=== PATIENT | male | born 1995 | race Caucasian/White ===

== ENCOUNTER 2021-09-18 14:16 | Inpatient (IN) | payer OTHER, SELFPAY ==
--- NOTE | 2021-09-18 14:36 | ED.PSYCH ---
HPI - Psych General Chief Complaint: Psychiatric Symptoms Stated Complaint: crisis Time Seen by Provider: 09/18/21 14:27 Source: patient, family and EMS Mode of arrival: EMS Limitations: no limitations History of Present Illness HPI Narrative: 27 y/o male with history of bipolar II presenting to the ER from [facility] via EMS with his mother for reports of change in mental status and catatonic behavior. Mother provides most of the history as patient is denying any complaints and providing a limited history. Mother reports that the patient has a history of bipolar 2 disorder and has been off medications for several months. He was hospitalized a few months ago for 3 weeks in a psych hospital in [place] after he was found wandering the streets. He stopped taking medications after he got home. Mother reports he was asked to leave the home when he was using heavy amounts of alcohol and marijuana. He moved out into an AirBNB a couple of weeks ago per mom. The conversation at the mall today was about him coming home, getting a job, and stopping his drinking and smoking. He shut down and would not speak or move. Mom had to call an ambulance. MD complaint: other Onset (ago): month(s) Duration: constant History of same: Yes Relieving factors: medication Exacerbating factors: alcohol and drug use Context: recent alcohol abuse Treatments prior to arrival: none Related Data Home Medications Medication Instructions Recorded Confirmed No Known Home Meds 09/18/21 09/18/21 Allergies Allergy/AdvReac Type Severity Reaction Status Date / Time No Known Allergies Allergy Verified 09/18/21 20:22 Review of Systems Review of Systems: Constitutional: No Fever, No Chills ENT/Mouth: No sore throat, No Rhinorrhea, No Swallowing Difficulty Eyes: No Eye Pain, No Swelling, No Redness Cardiovascular: No Chest Pain, No SOB, No Orthopnea, No Edema Respiratory: No Cough, No Sputum, No Wheezing, No dyspnea Gastrointestinal: No Nausea, No Vomiting, No Diarrhea, No abdominal Pain Genitourinary: No Dysuria, No Urinary Frequency, No Hematuria Musculoskeletal: No joint pain, No Myalgias Skin: No Skin Lesions, No rash Neuro: No Weakness, No Numbness, No Dizziness, No Headache Psych: No Anxiety/Panic, No Depression, No SI, No HI, No delusions, No hallucinations Heme/Lymph: No Bruising, No Lymphadenopathy Endocrine: No Polyuria, No Polydipsia PMFSH Social History Social History Advance Directives: No Advance Directives Information Provided: Yes Physical Exam Vital Signs: Vital Signs: Last Vital Signs Temp 97.9 F 09/18/21 14:40 Pulse 89 09/18/21 14:40 Resp 16 09/18/21 14:40 Pulse Ox 97 09/18/21 14:40 BMI result Body Mass Index 23.0 Appearance: Alert. Oriented X3. No acute distress. Eyes: Pupils equal, round and reactive to light. ENT: Pharynx normal. Neck: Normal inspection. Neck supple. CVS: Normal heart rate and rhythm. Pulses normal. Respiratory: No respiratory distress. Breath sounds normal. Abdomen: Soft and nontender. +BS x4 Skin: Skin warm and dry. Normal skin color. Normal skin turgor. No rashes. Extremities: No lower extremity edema. Neuro/pysch: Oriented X 3. Flat affect, slow to respond. CN II-XII grossly intact. Course Course Course Narrative: 27 y/o male with history of bipolar disorder II presenting with his mom to the ER for evaluation of catatonia and alcohol and marijuana abuse in the setting of being off of his psych medications for several months. He has a flat affect and will not provide much for history. Refusing labs. Will get BHN consult. Reevaluation(s) Reevaluation #1: Refusing labs. No other medical problems. Hemodynamically stable. He does not appear to be under the influence of drugs or alcohol. Medically cleared at this time for BHN evaluation. Physician observation started at 7:26pm. Patient placed in physician observation because patient is awaiting BHN evaluation for the possible need of inpatient psych admission. At the time observation was started patient's vital signs were stable. Patient is alert and oriented. Neuro exam is non-focal. CV: RRR and lungs are clear. Will continue to monitor. MDM - Psych Lab Data Labs: Lab Results 09/18/21 Range/Units 15:54 COVID-19 (NICOLE) Negative (Negative) COVID-19 Clin Com See Note Discharge Plan Discharge Clinical Impression: Bipolar disorder Patient Disposition: Still a Patient Prescriptions: No Action No Known Home Meds 0RF
[2021-09-18 14:40] VITALS: PULSE 89; RESP 16; TEMP 36.6; O2SAT 97; BMI 23.0
--- NOTE | 2021-09-18 15:11 | PHA.MEDREC ---
Pharmacy Consult ? Medication Reconciliation Pharmacy has completed the medication reconciliation. No known home medications. Loretta [place], BulmaroD
--- NOTE | 2021-09-18 16:12 | MHC.CARE ---
Contact information for pt's parents: Gila Min [phone]
[2021-09-18 16:13] LABS: COVID-19 Test Negative (Negative); IDNOW Serial# 55D5AD1C
--- NOTE | 2021-09-18 20:04 | PC.NURSE ---
BHN referral completed/confirmed, pending ETA
--- NOTE | 2021-09-19 00:15 | MHC.CARE ---
[facility] unable to send a clinician. CARE team completed evaluation. Disposition is for inpt psychiatric placement. Section 12a is in chart.
[2021-09-19 01:39] VITALS: BP 144/77; PULSE 63; RESP 16; TEMP 37.4; O2SAT 97
--- NOTE | 2021-09-19 05:56 | PC.NURSE ---
Patient slept through the night, no distress observed/reported, patient has been exhibiting psychomotor retardation, patient refused lab draw, refused to provide urine sample, refused medication, patient was assessed by care team, disposition is section 12 inpatient bed search, VSS, will continue to monitor.
--- NOTE | 2021-09-19 07:36 | PC.NURSE ---
patient appears to remain asleep at present respirations are even and unlabored, aptient appears in no distress
[2021-09-19 10:15] LABS: Basophils Percent Auto 0.3 % (0-2); Eosinophils Percent Auto 0.6 % (0-4); Hematocrit 49.4 % (42.0-52.0); Hemoglobin 16.9 g/dl (14.0-18.0); Imm Gran Abs Auto 0.02 X10*3/uL (0.00-0.03); Imm Gran Pct Auto 0.3 % (0.0-0.4); Lymphocytes Absolute Auto 1.1 X10*3/uL (1.2-4.9); Lymphocytes Percent Auto 15.3 % (20-40); MANUAL DIFF FLAG NO; Mean Corpuscular HGB Conc 34.2 g/dl (31.0-36.0); Mean Corpuscular Hemoglobin 31.6 pg (27.0-33.0); Mean Corpuscular Volume 92.3 fL (80.0-98.0); Mean Platelet Volume 11.4 fL (9.4-12.4); Monocytes Absolute Auto 0.6 X10*3/uL (0.1-1.2); Monocytes Percent Auto 8.3 % (2-11); Neutrophils Absolute Auto 5.2 x10*3/uL (2.0-8.3); Neutrophils Percent Auto 75.2 % (45-73); Platelet Count 167 X10*3/uL (160-400); Red Blood Count 5.35 X10*6/uL (4.60-5.80); Red Cell Distribution Width 12.3 % (11.0-16.0); White Blood Count 6.9 X10*3/uL (4.8-10.8)
[2021-09-19 10:33] LABS: Alanine Aminotransferase 18 U/L (0-40); Albumin Level 4.9 g/dL (3.5-5.0); Alkaline Phosphatase 54 U/L (39-117); Anion Gap 13 (12-20); Aspartate Amino Transferase 16 U/L (5-37); Bilirubin Total 1.8 mg/dL (0.0-1.0); Blood Urea Nitrogen 12 mg/dL (9-16); Calcium 10.1 mg/dL (8.4-10.2); Carbon Dioxide 27 mmol/L (22-29); Chloride 104 mmol/L (96-108); Estimated Glomerular Filt Rate > 60; Glucose Random 108 mg/dL (60-115); Potassium 4.2 mmol/L (3.3-5.1); Sodium 140 mmol/L (135-145); Total Protein 7.4 g/dL (6.5-8.0)
--- NOTE | 2021-09-19 12:50 | PC.NURSE ---
patient offered ativan ordered by provider, client softly responded no thanks
[2021-09-19 16:02] VITALS: BP 147/74; PULSE 64; RESP 16; TEMP 36.6; O2SAT 98
--- NOTE | 2021-09-19 21:11 | PM.PSYCN ---
History of Present Illness Chief Complaint: crisis Diagnostics Vital Signs (24Hr): Vital Signs - 24 hr 09/19/21 01:39 09/19/21 16:02 Temperature 99.3 F 97.8 F Pulse Rate 63 64 Respiratory Rate 16 16 Blood Pressure 144/77 H 147/74 H Pulse Oximetry 97 98 BMI result Body Mass Index 23.0 Labs Results: 09/19/21 10:09 09/19/21 10:09 Labs: Laboratory Results - last 48 hr 09/18/21 09/19/21 09/19/21 15:54 10:09 10:09 WBC 6.9 RBC 5.35 Hgb 16.9 Hct 49.4 MCV 92.3 MCH 31.6 MCHC 34.2 RDW 12.3 Plt Count 167 MPV 11.4 Immature Gran % (Auto) 0.3 Neut % (Auto) 75.2 H Lymph % (Auto) 15.3 L Victoria % (Auto) 8.3 Eos % (Auto) 0.6 Baso % (Auto) 0.3 Lymph # (Auto) 1.1 L Victoria # (Auto) 0.6 Eos # (Auto) 0.0 Baso # (Auto) 0.0 Abs Immat Gran (auto) 0.02 Absolute Neuts (auto) 5.2 Absolute Nucleated RBC 0.000 Nucleated RBC % (auto) 0.0 Sodium 140 Potassium 4.2 Chloride 104 Carbon Dioxide 27 Anion Gap 13 BUN 12 Creatinine 0.90 Estim Creat Clear Calc 132.0 Estimated GFR > 60 Random Glucose 108 Calcium 10.1 Total Bilirubin 1.8 H AST 16 ALT 18 Alkaline Phosphatase 54 Total Protein 7.4 Albumin 4.9 COVID-19 (NICOLE) Negative COVID-19 Clin Com See Note Medications Medications Current Medications Pharmacy Consult (Consult Rx Perform Med Rec) 1 each MISCELLANE ONCE PRN PRN Reason: Consult order Allergies Allergies Allergy/AdvReac Type Severity Reaction Status Date / Time No Known Allergies Allergy Verified 09/18/21 20:22 Assessment & Plan I spent minutes with the patient and/or on the patient floor today, greater than?50% of which was spent counseling/coordinating care.
--- NOTE | 2021-09-19 21:47 | P.HPPS_ITS ---
HPI Date of Service: 09/19/21 Chief Complaint: crisis Sources of Information: patient interviewed, chart reviewed and crisis/core team assessment reviewed HPI Subjective Notes: Jacques Warning and Section 12B Healthcare Proxy: No Guardianship: No Medical Problems Affecting Mental Status: No Narrative: Figueroa is a 27 y.o. Who carries a dx of schizophrenia, previously diagnosed with bipolar disorder. He presented to [facility] on 09/18/21 after his parents brought him in due to pt presenting with a psychotic episode. Per crisis eval, pt was at the mall with his parents and they attempted to talk with pt about him moving home and initiating psych treatment. Pt then ?seemed to turn off,? ?stared blankly at the ground in front of him.? He has poor appetite and sleep. Has been isolative, ?spends all of his time by himself,? disappearing in the night. Pt has hx of IPLOC for psychotic episodes. Hx of significant suicide attempt in 07/2020 via cutting his throat, wrist requiring surgery. Pt presents with lack of insight into his sx and he is not oriented to situation, appears to be unreliable historian. I evaluated the pt this evening and upon interview he reports he is ?not sure? why he is in the hospital. He denies drinking alcohol or using substances prior to arrival at [facility], has refused urine tox screen, no BAL drawn. Pt does not appear to be in withdrawal. Pt denies having psychiatric symptoms, denies mood or behaivoral concerns. Says ?Im fine,? denies issues with sleep, denies A/VH. Denies SI/SIB/HI and says he feels safe. Pt is unreliable historian, flat affect, poverty of speech. Initially pt was not eating, however he did drink some water and ate food brought in by parents today.? I spoke with pt?s parents and they report that pt has not been using alcohol or cannabis prior to arriving at [facility] to their knowledge, as they have been managing his money while [facility]. They report in the last couple of months, he has been residing at their house and the surmise he has been ?drinks pretty heavily,? as they would find vodka and beer bottles around the house. Pt denied alcohol use despite there being ?evidence all over the place.? Parents deny that pt has been engaging in other substance use, state he uses ?alcohol and pot exclusively? and that they believe he is self medicating ?to keep him from having a psychotic episode.? Per dad, pt does not present with hallucinations or positive sx of schizophrenia, however has multiple negative sx of schizophrenia, including flat expression, loses focus, psychomotor retarda tion, ?sometimes walks in baby steps.? Pt has poor insight into his sx. Per dad, ?Jose up to a few years ago was normal,? however a few yrs ago he started to have ?trouble,? was paranoid at his job, smoking a lot of pot. He also experimented with hallucinogens. Current level of functioning is impaired, as pt has ?odd sleeping hours,? leaves the house to drink in the taylor or takes off in the night with dad?s bike. He can make his bed, ?sorta showers,? appetite is low. He held a job at [employer] for a few weeks but he was ?very slow there.? Per parents, the last time he ?seemed to be doing okay was last summer,? he was living in [place], got an apartment, dog, was doing interviews, had a car, then ?all of a sudden? moved to [place] and began to decompensate. He was arrested for public intoxication in [place], parents had to file missing person report due to him losing contact with them. He was ultimately hospitalized in [place] in 05/2021 for 3 weeks due to psychotic bx and he was released into his parents care. He is non- adherent with medication.? Past Psychiatric History: -Hx of 2 psych admissions. Last IPLOC at [facility] in [place] in 05/2021. Hx of IPLOC at [facility] for 1 wk in 07/2020 s/p significant SA by cutting wrist and neck, required surgery. -Hx of nonadherence with OP services and medication. -Past med trials: risperdal (worsened negative sx), seroquel (per parents, pt did better with this medication). Pt was offered ESTES, however has historically refused. -Per pt?s parents, he has hx of impulsive and risk taking behaviors, i.e. will spontaneously travel to a foreign country or another city somewhere in the [place] Pt will disappear at night on dad?s bike, last time he did this, he came home with a bloody lip and laceration on face and didn?t know where the bike was, unable to say what happened. Parents have had to file a missing person report due to him disappearing. Found to be living in car in [place] a few yrs ago. While living in [place], pt was found by PD, no shoes, bloody feet, and appeared to be emaciated. -Hx of being arrested multiple times for public intoxication while living in [place]. Medical Evaluation Reviewed: Yes PMFSH Family History: -maternal uncle: Bipolar DO, psychosis, substance use DO, currently incarcerated. Paternal aunt: depression. Social History: Pt lives with bio parents, however in last couple of weeks they have been paying for him to stay in an airbnb and have been controlling his access to money in order to minimize his substance/ alcohol use. -Pt was raised by his mother and father in [place]. He has 3 brothers and is the second oldest. -Pt graduated from with a degree in neuroscience when he was age 20. 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 -Currently pt is unemployed, has had difficulty sustaining gainful employment. 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 Substance History: -Cannabis: daily use -Alcohol: dad is unsure of specific amt but says he has been finding empty bottles of vodka and beer, things pt drinks daily, leaves the house and drinks in the taylor. -Hallucinogens: Used LSD, mushrooms Trauma History: -Parents deny Diagnostics Vital Signs (24Hr): Vital Signs - 24 hr 09/19/21 01:39 09/19/21 16:02 Temperature 99.3 F 97.8 F Pulse Rate 63 64 Respiratory Rate 16 16 Blood Pressure 144/77 H 147/74 H Pulse Oximetry 97 98 BMI result Body Mass Index 23.0 Labs Results: 09/19/21 10:09 09/19/21 10:09 Labs: Laboratory Results - last 48 hr 09/18/21 09/19/21 09/19/21 15:54 10:09 10:09 WBC 6.9 RBC 5.35 Hgb 16.9 Hct 49.4 MCV 92.3 MCH 31.6 MCHC 34.2 RDW 12.3 Plt Count 167 MPV 11.4 Immature Gran % (Auto) 0.3 Neut % (Auto) 75.2 H Lymph % (Auto) 15.3 L Kern % (Auto) 8.3 Eos % (Auto) 0.6 Baso % (Auto) 0.3 Lymph # (Auto) 1.1 L Kern # (Auto) 0.6 Eos # (Auto) 0.0 Baso # (Auto) 0.0 Abs Immat Gran (auto) 0.02 Absolute Neuts (auto) 5.2 Absolute Nucleated RBC 0.000 Nucleated RBC % (auto) 0.0 Sodium 140 Potassium 4.2 Chloride 104 Carbon Dioxide 27 Anion Gap 13 BUN 12 Creatinine 0.90 Estim Creat Clear Calc 132.0 Estimated GFR > 60 Random Glucose 108 Calcium 10.1 Total Bilirubin 1.8 H AST 16 ALT 18 Alkaline Phosphatase 54 Total Protein 7.4 Albumin 4.9 COVID-19 (NICOLE) Negative COVID-19 Clin Com See Note Meds/Allergies Meds Home Medications Pharmacy Consult (Consult Rx Perform Med Rec) 1 each MISCELLANE ONCE PRN PRN Reason: Consult order Allergies Allergies Allergy/AdvReac Type Severity Reaction Status Date / Time No Known Allergies Allergy Verified 09/18/21 20:22 Mental Status Exam Mental Status Exam Narrative: Pt is not oriented to situation or time. He is in hospital attire, lying down on couch, long hair. Good eye contact, attentive. No Tics or Tremors. No abnormal involuntary movements. Pt is guarded, uncooperative with interventions i.e. refused utox, initially refused labs or food/ fluids. Pt responds with one word, paucity of speech. Pt is slowed, appears to have thought blocking Mood is ?fine,? affect is flat. Denies SI/SIB/HI upon inquiry. Denies A/VH or delusional thought content. No known cognitive or memory impairment. Insight/ Judgment poor. 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 male who carries a dx of schizophrenia, r/o bipolar DO/ schizoaffective disorder. He has hx of being a high functioning individual until mid 20s, in which he became increasingly withdrawn, paranoid, using cannabis and hallucinogens, esoteric, and ultimately unable to sustain employment. Has had impulsive and risk taking behaviors, i.e. disappearing, alcohol abuse. Pt endorses neg sx of schizophrenia, i.e. flat affect, thought blocking, slowed movement. Has poor sleep and appetite. Pt arrives to [facility] due to parents concern with worsening psychotic sx/ catatonic behavior while at the mall, as pt became withdrawn, stopped responding, staring at the floor, not redirectable. Plan: Parents would like pt to have a head CT or MRI/ neuro workup to rule out organic causes, however pt?s sx appear to be a function of primary psych diag nosis. They are concerned with pt?s level of risk taking behavior when he is decompensated i.e. becomes increasingly withdrawn, flat, non-verbal. Risk taking bx includes drinking to excess, taking off in the night at odd hours and disappearing to the point that parents have had to file missing person?s report. Pt has hx of significant suicide attempt in 07/2020, pt was similarly withdrawn, illogical, depressed, and flat. Parents report pt had improvement in sx on seroquel, however he has been non-adherent with treatment in the community. Parents feel unable to care for him at home. Pt adamantly refuses medication, has lack of insight into diagnosis. No medication started. Q15 min safety checks, 12B Monitor response to medications. Monitor for safety in the milieu. Discharge on stabilization. Patient seen. Chart reviewed. Discussed with team. Obtain collateral contact info?as needed Patient educated on: diagnosis and medication risk/benefits Reason for continued inpatient stay Substantial Risk for: inability to function, rapid decompensation and med/psych decompensation
[2021-09-19 23:19] VITALS: BP 130/77; PULSE 64; RESP 16; TEMP 37.3; O2SAT 96
--- NOTE | 2021-09-20 06:45 | PC.NURSE ---
Patient slept through the night, no distress observed/reported, patient was assessed by care team, disposition is section 12 inpatient bed search, pre-accepted, VSS, behavior non concerning at this time, will continue to monitor.
--- NOTE | 2021-09-20 07:35 | PC.NURSE ---
patient appears to remain at rest at present respirations are even and unlabored patient appears in no distress
--- NOTE | 2021-09-20 18:47 | PC.ADMIT ---
Nursing admission note: 27 year old male referred for treatment by CARE team. Admitted on section 12b. Diagnosis Schizoaffective disorder. Patient is alert to person and place, disoriented to time. Calm and cooperative with admission process, presents with poor insight into admission, frequently requesting discharge. Patient presents with blunted affect, although will on occasion smile and laugh without obvious stimuli. Disheveled, dressed in hospital attire. Speaks in monotone with significant delays in speech. Appears preoccupied although denies perceptual disturbances, denies A/V hallucinations. Little spontaneous interaction although asks questions about legal status. Vague. Poverty of thought. Denies mood disturbances, denies depression, sadness or anxiety. Denies SI/HI plan or intent. Denies suicide attempts although per eval patient with significant attempt in July 2020. Patient declined food and fluids. Refused to sign PATITO although gave verbal permission to notify PCP and mother of admission. Declined to sign any paperwork. Refused vitals, verbal report of height and weight. Patient denied history of drug or alcohol use although per eval parents reports heavy alcohol use in addition to cannabis use. TOX screen not obtained. COVID screen negative. Patient denies sleep or appetite disturbances. Patient with previous psychiatric admission x2 in 2020. Reports no current mental heidi providers. Denies acute medical problems. Patient has no insight into admission, provides incongruent information per crisis evaluation. Patient oriented to unit, placed on unit safety checks. See crisis eval, nursing assessment for complete details.
[2021-09-20 19:30] VITALS: BMI 21.3
--- NOTE | 2021-09-21 09:00 | ECG_ITS ---
Test Reason : CATATONIC STATE Blood Pressure : / mmHG Vent. Rate : 052 BPM Atrial Rate : 052 BPM P-R Int : 098 ms QRS Dur : 098 ms QT Int : 436 ms P-R-T Axes : 039 083 052 degrees QTc Int : 405 ms Sinus bradycardia with short W[place] RSR' or QR pattern in V1 suggests right ventricular conduction delay Borderline ECG No previous ECGs available Referred By: Lurdes Ko Electronically Signed By:YON VILLATORO MD
[2021-09-21 21:00] VITALS: BP 158/90; PULSE 62; TEMP 36.3; O2SAT 99
--- NOTE | 2021-09-21 21:04 | HO.PSYCHPN ---
Subjective Subjective Date of Service: 09/21/21 Reason For Visit: bipolar disorder II Interim History: Patient sitting on the edge of his bed eating lunch. Significant speech latency however he answers questions logically. Patient denies any SI or HI. He denies any AVH or any paranoid, delusional thinking. He says he is feeling better and can tell because his appetite is back, he's sleeping better, and he feels in a good mood. patient says he does not want any medication, that it does not help any does not think he needs it. Director Of [employer] asked about Ativan, given some concerns about catatonia, but patient says no thank you. When asked why he is here he says I am not sure why. Patient thanks technical writer and editor for coming in says nice to me technical writer and editor and that he will reach out for help if he has any needs. Mental Status Exam Mental Status Exam Narrative: Pt is alert and oriented, though not to situation; pt sitting on the edge of his bed, eating, moving little, with somewhat of a fixed stare, speech latency but overall cooperative, friendly and calm; patient is not in distress; dressed in hospital gown with messy hair; mood is described as good but affect flat; eye contact is mostly a fixed stare; Speech is latent and monotone, slowed rate but normal volume; psychomotor retardation present; thought process is goal directed; Thought content is somewhat vacuous but pertinent to relevant topics/questions asked; he denies any delusional content, paranoid ideations and none expressed; denies any SI/HI. Denies AVH; seems internally pre-occupied; Patients insight and judgment is impaired Diagnostics Vital Signs (24Hr): Vital Signs - 24 hr 09/21/21 21:00 Temperature 97.4 F Pulse Rate 62 Blood Pressure 158/90 H Pulse Oximetry 99 BMI result Body Mass Index 21.3 Labs Results: 09/19/21 10:09 09/19/21 10:09 Medications Medications Current Medications Acetaminophen (Acetaminophen 325 Mg Tablet) 650 mg PO Q6H PRN PRN Reason: Headache/Pain Mild Scale (1-3) Al Hydroxide/Mg Hydroxide (Magnesium Hydrox/Alum Hydrox 30 Ml Oral.Susp) 30 ml PO Q6H PRN PRN Reason: Heartburn/Nausea Hydroxyzine HCl (Hydroxyzine Hcl 25 Mg Tablet) 25 mg PO BEDTIME PRN PRN Reason: Anxiety Lorazepam (Lorazepam 1 Mg Tablet) 1 mg PO Q4H PRN PRN Reason: agitation, withdrawal Magnesium Hydroxide (Milk Of Magnesia 30 Ml Oral.Susp) 30 ml PO DAILY PRN PRN Reason: Constipation Pharmacy Consult (Consult Rx Perform Med Rec) 1 each MISCELLANE ONCE PRN PRN Reason: Consult order Quetiapine Fumarate (Quetiapine Fumarate 50 Mg Tablet) 50 mg PO BID PRN PRN Reason: psychosis, agitation Trazodone HCl (Trazodone Hcl 50 Mg Tablet) 50 mg PO BEDTIME PRN PRN Reason: Insomnia Allergies Allergies Allergy/AdvReac Type Severity Reaction Status Date / Time No Known Allergies Allergy Verified 09/18/21 20:22 Assessment & Plan Assessment & Plan (1) Schizophrenia, 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 male who carries a dx of schizophrenia, r/o bipolar DO/ schizoaffective disorder. He has hx of being a high functioning individual until mid 20s, in which he became increasingly withdrawn, paranoid, using cannabis and hallucinogens, esoteric, and ultimately unable to sustain employment. Has had impulsive and risk taking behaviors, i.e. disappearing, alcohol abuse. Pt endorses neg sx of schizophrenia, i.e. flat affect, thought blocking, slowed movement. Has poor sleep and appetite. Pt arrives to [facility] due to parents concern with worsening psychotic sx/ catat[place], as pt became withdrawn, stopped responding, staring at the floor, not redirectable. On admission,admitting provider notes that Parents asked for head CT or MRI/ neuro workup to rule out organic causes, however pt?s sx appear to be a function of primary psych diagnosis. They are concerned with pt?s level of risk taking behavior when he is decompensated i.e. becomes increasingly withdrawn, flat, non-verbal. Risk taking bx includes drinking to excess, taking off in the night at odd hours and disappearing to the point that parents have had to file missing person?s report. Pt has hx of significant suicide attempt in 07/2020, pt was similarly withdrawn, illogical, depressed, and flat. Parents report pt had improvement in sx on seroquel, however he has been non-adherent with treatment in the community. Parents feel unable to care for him at home. Pt adamantly refuses medication, has lack of insight into diagnosis. No medication started. 09/22 patient remains with some catatonic features however he is eating, talking and moving. He also lacks nearly all insight. However, while significant speech latency remains, and patient has flat affect with somewhat of a fixed stare, his thought process is logical and goal oriented. He refuses all medications. Patient refuses Ativan. While Ativan to would likely be helpful, at this point technical writer and editor does not find patient impaired to the point where he cannot input into medical decision making, as patient's thought content is organized and his catatonic symptoms seem to be improving. Will continue to monitor. Plan: Q15 min safety checks, 12B Refuses all medication Will continue to get collateral Director [employer] is meeting patient for the 1st time today; will discuss with team and consider filing for involuntary commitment Monitor response to medications. Monitor for safety in the milieu. Discharge on stabilization. Patient seen. Chart reviewed. Discussed with team. Obtain collateral contact info?as needed I spent minutes with the patient and/or on the patient floor today, greater than?50% of which was spent counseling/coordinating care. Patient educated on: diagnosis and medication risk/benefits Informed Consent: further education needed Reason for contiued inpatient stay Substantial Risk for: inability to function and rapid decompensation
--- NOTE | 2021-09-21 21:15 | PC.NURSE ---
Patient BP: 158/90 . Patient looks really anxious. PRN Ativan offered but patient refused medication. Will continue to monitor. MD notified.
[2021-09-22 06:00] VITALS: BP 142/76; PULSE 64; RESP 18; TEMP 36.8; O2SAT 98
--- NOTE | 2021-09-22 10:13 | P.PNPSI_ITS ---
Subjective Subjective Date of Service: 09/22/21 Reason For Visit: bipolar disorder II Interim History: Patient more able to engage today though still with catatonic symptoms, walking with an odd pace and intermittently stopping in the hallway for no apparent reason and standing there for a moment, significant speech latency. He says he is good and and repeats that he knows this because his mood is good. . . Eating well. .. Sleeping well. . . Patient does not have insight into his history of psychiatric illness. Woods Rider reviewed in detail some of patient's history. The he knows that he was psychiatrically admitted to [facility] but says he was told that this admission happened because he slit his wrists and throat; he says he has very little, vague memory of this having occurred. Patient denies drinking more than a little bit once in a while and denies that he was ever picked up by the police and loss and lists for public intoxication, though there are self or rest reports. Patient says he does not know why he was taken to a psychiatric hospital and lost Chelly a few months ago other than to say it was because he was stressed, had little sleep, and had not been eating. . . He eventually says the police brought him to the hospital from the airport. He again could not say why other than it was because he was stressed, tired and hungry. As technical publications writer explained patient's confusion he agreed that it is possible he was acting confused in a way that prompted police involvement and subsequent admission. He says he does not remember what happened during the 3 weeks he was admitted to the unit or that he took medications (according to patients mother, he was started on Risperdal which he took only briefly after discharge and then discontinued with reports that it made him feel like a zombie...Patient does not remember the other circumstances involving this confusion; his mother present, reports that he called up his parents from [place] saying he was very hungry and needed money; at the airport he had lost everything he owned except for the clothes he was wearing, including his car which he abandoned. Otherwise he had no money and none of his belongings). 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 Patient does not agree in feels that he is the same now as before. He feels he is ready to go home and says I feel I am productive with my days.... I am excited about my professional opportunities. Patient does not agree that his perception is incongruous is with his current reality as he has no money of his own, only has housing because his parents have been paying for his Airbnb and is not able to shop for himself and only eats because his mother brings him prepared food. Patient does not want any medications at this time but says he is willing to consider it. Patient gave verbal permission witnessed by this technical publications writer and occupational therapist Caroline to discuss his case with both his parents. Patient's mother later joined for family meeting with technical publications writer and social and political studies professor Sukh during which time she expressed much concerned. She shared some history and said that until about 2 years ago, patient was doing well without any obvious problems, college graduate, working. However there was a 6 month prodrome during which time patient started to decline and there was a significant change in his behavior. She said he was unstable.... Living in his car.... Going from job to job... Could not express himself or talk clearly.... Moving very slowly. Soon after that patient attempted suicide by slitting his wrists and throat and he was admitted to [facility] apt to. Afterwards he was on Seroquel for a short time during which time mother thinks patient was doing better, however he soon stop this medication and again started to decline in functioning. He moved to [place] on a whim, saying 1 morning he was going to move to [place] and left that same day for several months during which time parents did not have much contact with him. At some point he came back and was in [place] this past summer, confused, again having psychotic symptoms.... Psychotic catatonia... Staring, moving slowly, taking baby steps he again moved to [facility] in March. They had little contact with him until he called towards the end of June saying he was very hungry and had no money, could his parents please send money. His father flew out there which is around the same time he was at the airport, acting very confused and arrested by the police who realized he needed psychiatric evaluation. At this point patient had lost all his belongings, including his car, had not been eating or sleeping and had been wandering confused. He was admitted to a psychiatric hospital in [facility] for about 3 weeks, was started on Risperdal but discontinued when he came back to [place]. Patient again became and catatonic like state in was admitted to this hospital. After hearing all this, patient did not disagree however also says he thinks he is fine and able to discharge. He does not want to sign in and does not want to take medication though he said he'd think about it. Patient's mother said that she and her are no longer going to support him financially and at this point he no longer has a place to stay, cannot stay with them and the Airbnb is no longer. She said that she could not have him living with them due to his excessive drinking. She also reports excessive cannabis intake. Mental Status Exam Mental Status Exam Narrative: Pt is alert and oriented, though not to situation; pt sitting on the edge of his bed, eating, moving little, with somewhat of a fixed stare, speech latency but overall cooperative, friendly and calm; patient is not in distress; dressed in hospital gown with messy hair; mood is described as good but affect flat; eye contact is mostly a fixed stare; Speech is latent and monotone, slowed rate but normal volume; psychomotor retardation present; thought process is goal directed; Thought content is somewhat vacuous but pertinent to relevant topics/questions asked; he denies any delusional content, paranoid ideations and none expressed; denies any SI/HI. Denies AVH; seems internally pre-occupied; Patients insight and judgment is impaired Diagnostics Vital Signs (24Hr): Vital Signs - 24 hr 09/21/21 21:00 09/22/21 06:00 Temperature 97.4 F 98.2 F Pulse Rate 62 64 Respiratory Rate 18 Blood Pressure 158/90 H 142/76 H Pulse Oximetry 99 98 BMI result Body Mass Index 21.3 Labs Results: 09/19/21 10:09 09/19/21 10:09 Medications Medications Current Medications Acetaminophen (Acetaminophen 325 Mg Tablet) 650 mg PO Q6H PRN PRN Reason: Headache/Pain Mild Scale (1-3) Al Hydroxide/Mg Hydroxide (Magnesium Hydrox/Alum Hydrox 30 Ml Oral.Susp) 30 ml PO Q6H PRN PRN Reason: Heartburn/Nausea Hydroxyzine HCl (Hydroxyzine Hcl 25 Mg Tablet) 25 mg PO BEDTIME PRN PRN Reason: Anxiety Lorazepam (Lorazepam 1 Mg Tablet) 1 mg PO Q4H PRN PRN Reason: agitation, withdrawal Magnesium Hydroxide (Milk Of Magnesia 30 Ml Oral.Susp) 30 ml PO DAILY PRN PRN Reason: Constipation Pharmacy Consult (Consult Rx Perform Med Rec) 1 each MISCELLANE ONCE PRN PRN Reason: Consult order Quetiapine Fumarate (Quetiapine Fumarate 50 Mg Tablet) 50 mg PO BID PRN PRN Reason: psychosis, agitation Trazodone HCl (Trazodone Hcl 50 Mg Tablet) 50 mg PO BEDTIME PRN PRN Reason: Insomnia Allergies Allergies Allergy/AdvReac Type Severity Reaction Status Date / Time No Known Allergies Allergy Verified 09/18/21 20:22 Assessment & Plan Assessment & Plan (1) Schizophrenia: Status: Acute Code(s): F20.9 - Schizophrenia, unspecified Plan Pt is a 27 y.o. male who carries a dx of schizophrenia, r/o bipolar DO/ schizoaffective disorder. He has hx of being a high functioning individual until mid 20s, in which he became increasingly withdrawn, paranoid, using cannabis and hallucinogens, esoteric, and ultimately unable to sustain employment. Has had impulsive and risk taking behaviors, i.e. disappearing, alcohol abuse. Pt endor ses neg sx of schizophrenia, i.e. flat affect, thought blocking, slowed movement. Has poor sleep and appetite. Pt arrives to [facility] due to parents concern with worsening psychotic sx/ cat[place], as pt became withdrawn, stopped responding, staring at the floor, not redirectable. On admission,admitting provider notes that Parents asked for head CT or MRI/ neuro workup to rule out organic causes, however pt?s sx appear to be a function of primary psych diagnosis. They are concerned with pt?s level of risk taking behavior when he is decompensated i.e. becomes increasingly withdrawn, flat, non-verbal. Risk taking bx includes drinking to excess, taking off in the night at odd hours and disappearing to the point that parents have had to file missing person?s report. Pt has hx of significant suicide attempt in 07/2020, pt was similarly withdrawn, illogical, depressed, and flat. Parents report pt had improvement in sx on seroquel, however he has been non-adherent with treatment in the community. Parents feel unable to care for him at home. Pt adamantly refuses medication, has lack of insight into diagnosis. No medication started. 09/21 patient remains with some catatonic features however he is eating, talking and moving. He also lacks nearly all insight. However, while significant speech latency remains, and patient has flat affect with somewhat of a fixed sta re, his thought process is logical and goal oriented. He refuses all medications. Patient refuses Ativan. While Ativan to would likely be helpful, at this point technical publications writer does not find patient impaired to the point where he cannot input into medical decision making, as patient's thought content is organized and his catatonic symptoms seem to be improving. Will continue to monitor. 09/22 Patient more able to engage today though still with catatonic symptoms, walking with an odd pace and intermittently stopping in the hallway for no apparent reason and standing there for a moment, significant speech latency. He says he is good and and repeats that he knows this because his mood is good. . . Eating well. .. Sleeping well. . . Patient does not have insight into his history of psychiatric illness. Woods Rider reviewed in detail some of patient's history. The he knows that he was psychiatrically admitted to [facility] but says he was told that this admission happened because he slit his wrists and throat; he says he has very little, vague memory of this having occurred. Patient denies drinking more than a little bit once in a while and denies that he was ever picked up by the police and loss and lists for public intoxication, though there are self or rest reports. Patient says he does not know why he was taken to a psychiatric hospital and lost Chelly a few months ago other than to say it was because he was stressed, had little sleep, and had not been eating. . . He eventually says the police brought him to the hospital from the airport. He again could not say why other than it was because he was stressed, tired and hungry. As technical publications writer explained patient's confusion he agreed that it is possible he was acting confused in a way that prompted police involvement and subsequent admission. He says he does not remember what happened during the 3 weeks he was admitted to the unit or that he took medications (according to patients mother, he was started on Risperdal which he took only briefly after discharge and then discontinued with reports that it made him feel like a zombie...Patient does not remember the other circumstances involving this confusion; his mother present, reports that he called up his parents from [place] saying he was very hungry and needed money; at the airport he had lost everything he owned except for the clothes he was wearing, including his car which he abandoned. Otherwise he had no money and none of his belongings). 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 Patient does not agree in feels that he is the same now as before. He feels he is ready to go home and says I feel I am productive with my days.... I am excited about my professional opportunities. Patient does not agree that his perception is incongruous is with his current reality as he has no money of his own, only has housing because his parents have been paying for his Airbnb and is not able to shop for himself and only eats because his mother brings him prepared food. Patient does not want any medications at this time but says he is willing to consider it. Patient gave verbal permission witnessed by this technical publications writer and occupational therapist Caroline to discuss his case with both his parents. Patient's mother later joined for family meeting with technical publications writer and social and political studies professor Sukh during which time she expressed much concerned. She shared some history and said that until about 2 years ago, patient was doing well without any obvious problems, college graduate, working. However there was a 6 month prodrome during which time patient started to decline and there was a significant change in his behavior. She said he was unstable.... Living in his car.... Going from job to job... Could not express himself or talk clearly.... Moving very slowly. Soon after that patient attempted suicide by slitting his wrists and throat and he was admitted to [facility] to. Afterwards he was on Seroquel for a short time during which time mother thinks patient was doing better, however he soon stop this medication and again started to decline in functioning. He moved to [place] on a whim, saying 1 morning he was going to move to [place] and left that same day for several months during which time parents did not have much contact with him. At some point he came back and was in [place] this past summer, confused, again having psychotic symptoms.... Psychotic catatonia... Staring, moving slowly, taking baby steps he again moved to [facility] in March. They had little contact with him until he called towards the end of June saying he was very hungry and had no money, could his parents please send money. His father flew out there which is around the same time he was at the airport, acting very confused and arrested by the police who realized he needed psychiatric evaluation. At this point patient had lost all his belongings, including his car, had not been eating or sleeping and had been wandering confused. He was admitted to a psychiatric hospital in [facility] for about 3 weeks, was started on Risperdal but discontinued when he came back to [place]. Patient again became and catatonic like state in was admitted to this hospital. After hearing all this, patient did not disagree however also says he thinks he is fine and able to discharge. He does not want to sign in and does not want to take medication though he said he'd think about it. Patient's mother said that she and her are no longer going to support him financially and at this point he no longer has a place to stay, cannot stay with them and the Airbnb is no longer. She said that she could not have him living with them due to his excessive drinking. She also reports excessive cannabis intake. At this point, patient's presentation is consistent with diagnosis for schizophrenia given duration of symptoms, disorganized speech, catatonic behavior and diminished emotional expression. Patient currently denies hallucinations however he also presents as internally preoccupied; he has not expressed specific delusions. Given reports of lack of sleep, schizoaffective disorder is also potential diagnosis. At this time it seems much less likely that patient has bipolar disorder as he is currently not presenting with classic manic symptoms and yet remains psychotic. No history of head trauma reported; while cannabis and other substance abuse can cause psychotic symptoms, there nearly always temporary and resolve on their own as patient progresses through detox; cannabis and other substance abuse are frequently the initial trigger to unleash an existing, but formerly subacute schizophrenia disorder; otherwise, they are commonly exacerbating influences but not the cause. DX Schizophrenia, multiple episodes currently in acute episode with catatonia (Provisional dx); (catatonia: Intermittent symptoms of stupor, mutism posturing, stereotypy) Plan: Q15 min safety checks, 12B Refuses all medication, but will consider ativan Patient gave verbal permission witnessed by this technical publications writer and occupational therapist Caroline to discuss his case with both his parents. will file for involuntary commitment as patient is too disorganized to acquire group home, food or tend to normal activities of daily living Monitor response to medications. Monitor for safety in the milieu. Discharge on stabilization. Patient seen. Chart reviewed. Discussed with team. Obtain collateral contact info?as needed I spent minutes with the patient and/or on the patient floor today, greater than?50% of which was spent counseling/coordinating care. Patient educated on: diagnosis and medication risk/benefits Informed Consent: further education needed Reason for contiued inpatient stay Substantial Risk for: inability to function and rapid decompensation
[2021-09-22 14:17] VITALS: BMI 20.6
[2021-09-22 18:00] VITALS: BP 164/89; PULSE 81; RESP 17; TEMP 37.3; O2SAT 98
[2021-09-23 06:00] VITALS: BP 148/76; PULSE 67; RESP 16; TEMP 36.7; O2SAT 99
--- NOTE | 2021-09-23 10:13 | P.PNPSI_ITS ---
Subjective Subjective Date of Service: 09/23/21 Reason For Visit: bipolar disorder II Interim History: Patient says that he appreciated his mother coming to visit yesterday and respects her concerns for him. It took some time to get him to express what he meant but he eventually said he understands that she is concerned that he sometimes gets stressed. He agrees that his last trip to [place] resulted in him being so stressed out that he lost all his belongings, including his car, was not eating or sleeping and confused to the point where he was psychiatrically hospitalized. However he sees this only as being stressed out not as a psychiatric illness and does not feel like he needs medication. Torch Straightener [employer] Heater asked about his response to his mother saying that they were no longer going to pay for his Airbnb, food and that he was being financially cut off. Patient says he accepts this and has about 2000 dollar saved with which he will use to continue to live in the [facility]. 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 Torch Straightener And Heater discussed how patient has significant speech latency. At 1st he did not understand what sports book writer met, but afterwards he agreed that he has been doing this but is able to talk more quickly if he needs to. Torch Straightener And Heater asked patient to demonstrate this ability which he did and his speech latency significantly shortened and was almost at a normal response time. Similarly, sports book writer asked again why he would stop walking every 10 ft. At 1st he says that it is because he gets tired. Torch Straightener And Heater strongly disagreed that this is the cause as he is only walking 10 ft; patient said maybe it is because he is in a new environment which sports book writer also disagreed was the cause. Torch Straightener And Heater asked if patient was able to walk the entire length of the hallway at a quick pace without stop ping to which patient said he was and willingly demonstrated. Torch Straightener And Heater shared that this is an improvement and that if he can continue to do this, walk at a normal pace without stopping and speak at a normal rate and rhythm that this would demonstrate improvement to which patient agreed he would try to do. Patient denies any history, current, recent remote of AVH or paranoid, delusional thinking or being contacted or provided with any private information that others do not know about. Mental Status Exam Mental Status Exam Narrative: Pt is alert and oriented, though not to situation; pt sitting in milue, appropriately dressed in casual cloths, moving little, with somewhat of a fixed stare, speech latency. Overall cooperative, friendly and calm; patient is not in distress; mood is described as good but affect flat but a little less so and pt smiled today; eye contact is mostly a fixed stare; Speech is latent and monotone, slowed rate but normal volume but he demonstrated that he can talk at a more normal rate/rhythm if he wants to; psychomotor retardation present though pt demonstrated that he can walk at a quicker pace w/out pausing if he wants to; thought process is goal directed; Thought content is somewhat vacuous but pertinent to relevant topics/questions asked; he denies any delusional content, paranoid ideations and none expressed; denies any SI/HI. Denies AVH; seems int ernally pre-occupied; Patients insight and judgment are impaired but have improved Diagnostics Vital Signs (24Hr): Vital Signs - 24 hr 09/22/21 18:00 09/23/21 06:00 Temperature 99.2 F 98.1 F Pulse Rate 81 67 Respiratory Rate 17 16 Blood Pressure 164/89 H 148/76 H Pulse Oximetry 98 99 BMI result Body Mass Index 20.6 Labs Results: 09/19/21 10:09 09/19/21 10:09 Medications Medications Current Medications Acetaminophen (Acetaminophen 325 Mg Tablet) 650 mg PO Q6H PRN PRN Reason: Headache/Pain Mild Scale (1-3) Al Hydroxide/Mg Hydroxide (Magnesium Hydrox/Alum Hydrox 30 Ml Oral.Susp) 30 ml PO Q6H PRN PRN Reason: Heartburn/Nausea Hydroxyzine HCl (Hydroxyzine Hcl 25 Mg Tablet) 25 mg PO BEDTIME PRN PRN Reason: Anxiety Lorazepam (Lorazepam 1 Mg Tablet) 1 mg PO Q4H PRN PRN Reason: agitation, withdrawal Lorazepam (Lorazepam 1 Mg Tablet) 1 mg PO TID PRN PRN Reason: Anxiety Magnesium Hydroxide (Milk Of Magnesia 30 Ml Oral.Susp) 30 ml PO DAILY PRN PRN Reason: Constipation Pharmacy Consult (Consult Rx Perform Med Rec) 1 each MISCELLANE ONCE PRN PRN Reason: Consult order Quetiapine Fumarate (Quetiapine Fumarate 50 Mg Tablet) 50 mg PO BID PRN PRN Reason: psychosis, agitation Trazodone HCl (Trazodone Hcl 50 Mg Tablet) 50 mg PO BEDTIME PRN PRN Reason: Insomnia Allergies Allergies Allergy/AdvReac Type Severity Reaction Status Date / Time No Known Allergies Allergy Verified 09/18/21 20:22 Assessment & Plan Assessment & Plan (1) Schizophrenia: Status: Acute Code(s): F20.9 - Schizophrenia, unspecified Plan Pt is a 27 y.o. male who carries a dx of schizophrenia, r/o bipolar DO/ schizoaffective disorder. He has hx of being a high functioning individual until mid 20s, in which he became increasingly withdrawn, paranoid, using cannabis and hallucinogens, esoteric, and ultimately unable to sustain employment. Has had impulsive and risk taking behaviors, i.e. disappearing, alcohol abuse. Pt endorses neg sx of schizophrenia, i.e. flat affect, thought blocking, slowed movement. Has poor sleep and appetite. Pt arrives to [facility] due to parents concern with worsening psychotic sx/ catat[place] mall, as pt became withdrawn, stopped responding, staring at the floor, not redirectable. On admission,admitting provider notes that Parents asked for head CT or MRI/ neuro workup to rule out organic causes, however pt?s sx appear to be a function of primary psych diagnosis. They are concerned with pt?s level of risk taking behavior when he is decompensated i.e. becomes increasingly withdrawn, flat, non-verbal. Risk taking bx includes drinking to excess, taking off in the night at odd hours and disappearing to the point that parents have had to file missing person?s report. Pt has hx of significant suicide attempt in 07/2020, pt was similarly withdrawn, illogical, depressed, and flat. Parents report pt had improvement in sx on seroquel, however he has been non-adherent with treatment in the community. Parents feel unable to care for him at home. Pt adamantly refuses medication, has lack of insight into diagnosis. No medication started. 09/21 patient remains with some catatonic features however he is eating, talking and moving. He also lacks nearly all insight. However, while significant speech latency remains, and patient has flat affect with somewhat of a fixed stare, his thought process is logical and goal oriented. He refuses all medications. Patient refuses Ativan. While Ativan to would likely be helpful, at this point sports book writer does not find patient impaired to the point where he cannot input into medical decision making, as patient's thought content is organized and his catatonic symptoms seem to be improving. Will continue to monitor. 09/22 Patient more able to engage today though still with catatonic symptoms, walking with an odd pace and intermittently stopping in the hallway for no apparent reason and standing there for a moment, significant speech latency. He says he is good and and repeats that he knows this because his mood is good. . . Eating well. .. Sleeping well. . . Patient does not have insight into his history of psychiatric illness. Torch Straightener And Heater reviewed in detail some of patient's history. The he knows that he was psychiatrically admitted to [facility] but says he was told that this admission happened because he slit his wrists and throat; he says he has very little, vague memory of this having occurred. Patient denies drinking more than a little bit once in a while and denies that he was ever picked up by the police and loss and lists for public intoxication, though there are self or rest reports. Patient says he does not know why he was taken to a psychiatric hospital and lost Chelly a few months ago other than to say it was because he was stressed, had little sleep, and had not been eating. . . He eventually says the police brought him to the hospital from the airport. He again could not say why other than it was because he was stressed, tired and hungry. As sports book writer explained patient's confusion he agreed that it is possible he was acting confused in a way that prompted police involvement and subsequent admission. He says he does not remember what happened during the 3 weeks he was admitted to the unit or that he took medications (according to patients mother, he was started on Risperdal which he took only briefly after discharge and then discontinued with reports that it made him feel like a zombie...Patient does not remember the other circumstances involving this confusion; his mother present, reports that he called up his parents from [place] saying he was very hungry and needed money; at the airport he had lost everything he owned except for the clothes he was wearing, including his car which he abandoned. Otherwise he had no money and none of his belongings). 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 Patient does not agree in feels that he is the same now as before. He feels he is ready to go home and says I feel I am productive with my days.... I am excited about my professional opportunities. Patient does not agree that his perception is incongruous is with his current reality as he has no money of his own, only has housing because his parents have been paying for his Airbnb and is not able to shop for himself and only eats because his mother brings him prepared food. Patient does not want any medications at this time but says he is willing to consider it. Patient gave verbal permission witnessed by this sports book writer and occupational therapist Caroline to discuss his case with both his parents. Patient's mother later joined for family meeting with sports book writer and social services specialist Sukh during which time she expressed much concerned. She shared some history and said that until about 2 years ago, patient was doing well without any obvious problems, college graduate, working. However there was a 6 month prodrome during which time patient started to decline and there was a significant change in his behavior. She said he was unstable.... Living in his car.... Going from job to job... Could not express himself or talk clearly.... Moving very slowly. Soon after that patient attempted suicide by slitting his wrists and throat and he was admitted to [facility] apt to. Afterwards he was on Seroquel for a short time during which time mother thinks patient was doing better, however he soon stop this medication and again started to decline in functioning. He moved to [place] on a whim, saying 1 morning he was going to move to [place] and left that same day for several months during which time parents did not have much contact with him. At some point he came back and was in [place] this past summer, confused, again having psychotic symptoms.... Psychotic catatonia... Staring, moving slowly, taking baby steps he again moved to [facility] in March. They had little contact with him until he called towards the end of June saying he was very hungry and had no money, could his parents please send money. His father flew out there which is around the same time he was at the airport, acting very confused and arrested by the police who realized he needed psychiatric evaluation. At this point patient had lost all his belongings, including his car, had not been eating or sleeping and had been wandering confused. He was admitted to a psychiatric hospital in [facility] for about 3 weeks, was started on Risperdal but discontinued when he came back to [place]. Patient again became and catatonic like state in was admitted to this hospital. After hearing all this, patient did not disagree however also says he thinks he is fine and able to discharge. He does not want to sign in and does not want to take medication though he said he'd think about it. Patient's mother said that she and her are no longer going to support him financially and at this point he no longer has a place to stay, cannot stay with them and the Airbnb is no longer. She said that she could not have him living with them due to his excessive drinking. She also reports excessive cannabis intake. 09/23 Some improvement: Patient says that he appreciated his mother coming to visit yesterday and respects her concerns for him. It took some time to get him to express what he meant but he eventually said he understands that she is concerned that he sometimes gets stressed. He agrees that his last trip to [place] resulted in him being so stressed out that he lost all his belongings, including his car, was not eating or sleeping and confused to the point where he was psychiatrically hospitalized. However he sees this only as being stressed out not as a psychiatric illness and does not feel like he needs medication. Torch Straightener And Heater asked about his response to his mother saying that they were no longer going to pay for his Airbnb, food and that he was being financially cut off. Patient says he accepts this and has about 2000 dollar saved with which [facility] will [facility]. Otherwise he says he plans to get a job in [employer] service for money and disagrees with sports book writer that he will have a difficult time with this. Torch Straightener And Heater discussed how patient has significant speech latency. At 1st he did not understand what sports book writer met, but afterwards he agreed that he has been doing this but is able to talk more quickly if he needs to. Torch Straightener And Heater asked patient to demonstrate this ability which he did and his speech latency significantly shortened and was almost at a normal response time. Similarly, sports book writer asked again why he would stop walking every 10 ft. At 1st he says that it is because he gets tired. Torch Straightener And Heater strongly disagreed that this is the cause as he is only walking 10 ft; patient said maybe it is because he is in a new environment which sports book writer also disagreed was the cause. Torch Straightener And Heater asked if patient was able to walk the entire length of the hallway at a quick pace without stopping to which patient said he was and willingly demonstrated. Torch Straightener And Heater shared that this is an improvement and that if he can continue to do this, walk at a normal pace without stopping and speak at a normal rate and rhythm that this would demonstrate improvement to which patient agreed he would try to do. Patient denies any history, current, recent remote of AVH or paranoid, delusional thinking or being contacted or provided with any private information that others do not know about. DX Schizophrenia, multiple episodes currently in acute episode with catatonia (Provisional dx); (catatonia: Intermittent symptoms of stupor, mutism posturing, stereotypy); denies any hx of AVH At this point, patient's presentation is consistent with diagnosis for schizophrenia given duration of symptoms, disorganized speech, catatonic behavior and diminished emotional expression. Patient currently denies hallucinations however he also presents as internally preoccupied; he has not expressed specific delusions. Given reports of lack of sleep, schizoaffective disorder is also potential diagnosis. At this time it seems much less likely t hat patient has bipolar disorder as he is currently not presenting with classic manic symptoms and yet remains psychotic. No history of head trauma reported; while cannabis and other substance abuse can cause psychotic symptoms, there nearly always temporary and resolve on their own as patient progresses through detox; cannabis and other substance abuse are frequently the initial trigger to unleash an existing, but formerly subacute schizophrenia disorder; otherwise, they are commonly exacerbating influences but not the cause. Plan: Q15 min safety checks, 12B Refuses all medication, Patient gave verbal permission witnessed by this sports book writer and occupational therapist Caroline to discuss his case with both his parents. will file for involuntary commitment as patient is too disorganized to acquire senior living, food or tend to normal activities of daily living Monitor response to medications. Monitor for safety in the milieu. Discharge on stabilization. Patient seen. Chart reviewed. Discussed with team. Obtain collateral contact info?as needed I spent minutes with the patient and/or on the patient floor today, greater than?50% of which was spent counseling/coordinating care. Patient educated on: diagnosis Informed Consent: does not understand Reason for contiued inpatient stay Substantial Risk for: inability to function
[2021-09-23 19:40] VITALS: BP 150/94; PULSE 86; RESP 17; TEMP 36.9; O2SAT 97
[2021-09-24 08:23] VITALS: BP 147/83; PULSE 56; TEMP 36.6
--- NOTE | 2021-09-24 17:05 | P.PNPSI_ITS ---
Subjective Subjective Date of Service: 09/24/21 Reason For Visit: bipolar disorder II Interim History: Patient seen and discussed with team. Patient evaluated today and upon interview pt states he is doing fine. Says he slept very well, eating great. No questions or concerns. Mood is very good. Pt has not been taking seroquel, non-adherent with PO meds prior to admission, says the meds arent for me. Denies A/VH. Brother will visit today. Pt is going to groups.? 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 Medication Compliance: No Side effects from medications: No Attending Groups: Yes Review of Systems Acute medical concerns: No Medical Review of Systems: unchanged Mental Status Exam Mental Status Exam Narrative: Pt is alert and oriented, though not to situation; pt sitting in miliue, casual cloths, ambulating normally, somewhat of a fixed stare, speech latency. Guarded, calm; patient is not in distress; mood is described as very good but affect flat, constricted; eye contact is mostly a fixed stare; Speech is latent and monotone, slowed rate but normal volume but he demonstrated that he can talk at a more normal rate/rhythm if he wants to; psychomotor retardation present though pt demonstrated that he can walk at a quicker pace w/out pausing if he wants to; thought process is goal directed; Thought content is somewhat vacuous but pertinent to relevant topics/questions asked; he denies any delusional content, paranoid ideations and none expressed; denies any SI/HI. Denies AVH; seems internally pre-occupied; Patients insight and judgment are impaired but have improved Diagnostics Vital Signs (24Hr): Vital Signs - 24 hr 09/25/21 12:14 09/25/21 19:40 Temperature 98.9 F Pulse Rate 71 70 Blood Pressure 159/92 H 167/91 H BMI result Body Mass Index 20.6 Labs Results: 09/19/21 10:09 09/19/21 10:09 Medications Medications Current Medications Acetaminophen (Acetaminophen 325 Mg Tablet) 650 mg PO Q6H PRN PRN Reason: Headache/Pain Mild Scale (1-3) Al Hydroxide/Mg Hydroxide (Magnesium Hydrox/Alum Hydrox 30 Ml Oral.Susp) 30 ml PO Q6H PRN PRN Reason: Heartburn/Nausea Hydroxyzine HCl (Hydroxyzine Hcl 25 Mg Tablet) 25 mg PO BEDTIME PRN PRN Reason: Anxiety Lorazepam (Lorazepam 1 Mg Tablet) 1 mg PO TID PRN PRN Reason: Anxiety Magnesium Hydroxide (Milk Of Magnesia 30 Ml Oral.Susp) 30 ml PO DAILY PRN PRN Reason: Constipation Pharmacy Consult (Consult Rx Perform Med Rec) 1 each MISCELLANE ONCE PRN PRN Reason: Consult order Quetiapine Fumarate (Quetiapine Fumarate 300 Mg Tablet) 300 mg PO BEDTIME KEITH Last Admin: 09/25/21 21:08 Dose: Not Given Documented by: Trazodone HCl (Trazodone Hcl 50 Mg Tablet) 50 mg PO BEDTIME PRN PRN Reason: Insomnia Allergies Allergies Allergy/AdvReac Type Severity Reaction Status Date / Time No Known Allergies Allergy Verified 09/18/21 20:22 Assessment & Plan Assessment & Plan (1) Schizophrenia: Status: Acute Code(s): F20.9 - Schizophrenia, unspecified Plan Pt is a 27 y.o. male who carries a dx of schizophrenia, r/o bipolar DO/ schizoaffective disorder. He has hx of being a high functioning individual until mid 20s, in which he became increasingly withdrawn, paranoid, using cannabis and hallucinogens, esoteric, and ultimately unable to sustain employment. Has had impulsive and risk taking behaviors, i.e. disappearing, alcohol abuse. Pt endorses neg sx of schizophrenia, i.e. flat affect, thought blocking, slowed movement. Has poor sleep and appetite. [place] [facility] [place] parents concern with worsening psychotic sx/ catat[place], as pt became withdrawn, stopped responding, staring at the floor, not redirectable. On admission,admitting provider notes that Parents asked for head CT or MRI/ neuro workup to rule out organic causes, however pt?s sx appear to be a function of primary psych diagnosis. They are concerned with pt?s level of risk taking behavior when he is decompensated i.e. becomes increasingly withdrawn, flat, non-verbal. Risk taking bx includes drinking to excess, taking off in the night at odd hours and disappearing to the point that parents have had to file missing person?s report. Pt has hx of significant suicide attempt in 07/2020, pt was similarly withdrawn, illogical, depressed, and flat. Parents report pt had improvement in sx on seroquel, however he has been non-adherent with treatment in the community. Parents feel unable to care for him at home. Pt adamantly refuses medication, has lack of insight into diagnosis. No medication started. 09/21 patient remains with some catatonic features however he is eating, talking and moving. He also lacks nearly all insight. However, while significant speech latency remains, and patient has flat affect with somewhat of a fixed stare, his thought process is logical and goal oriented. He refuses all medications. Patient refuses Ativan. While Ativan to would likely be helpful, at this point typewriter repairer does not find patient impaired to the point where he cannot input into medical decision making, as patient's thought content is organized and his catatonic symptoms seem to be improving. Will continue to monitor. 09/22 Patient more able to engage today though still with catatonic symptoms, walking with an odd pace and intermittently stopping in the hallway for no apparent reason and standing there for a moment, significant speech latency. He says he is good and and repeats that he knows this because his mood is good. . . Eating well. .. Sleeping well. . . Patient does not have insight into his history of psychiatric illness. Foundry Superintendant reviewed in detail some of patient's history. The he knows that he was psychiatrically admitted to [facility] but says he was told that this admission happened because he slit his wrists and throat; he says he has very little, vague memory of this having occurred. Patient d enies drinking more than a little bit once in a while and denies that he was ever picked up by the police and loss and lists for public intoxication, though there are self or rest reports. Patient says he does not know why he was taken to a psychiatric hospital and [facility] a few months ago other than to say it was because he was stressed, had little sleep, and had not been eating. . . He eventually says the police brought him to the hospital from the airport. He again could not say why other than it was because he was stressed, tired and hungry. As typewriter repairer explained patient's confusion he agreed that it is possible he was acting confused in a way that prompted police involvement and subsequent admission. He says he does not remember what happened during the 3 weeks he was admitted to the unit or that he took medications (according to patients mother, he was started on Risperdal which he took only briefly after discharge and then discontinued with reports that it made him feel like a zombie...Patient does not remember the other circumstances involving this confusion; his mother present, reports that he called up his parents from [place] saying he was very hungry and needed money; at the airport he had lost everything he owned except for the clothes he was wearing, including his car which he abandoned. Otherwise he had no money and none of his belongings). 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 Patient does not agree in feels that he is the same now as before. He feels he is ready to go home and says I feel I am productive with my days.... I am excited about my professional opportunities. Patient does not agree that his perception is incongruous is with his current reality as he has no money of his own, only has housing because his parents have been paying for his Airbnb and is not able to shop for himself and only eats because his mother brings him prepared food. Patient does not want any medications at this time but says he is willing to consider it. Patient gave verbal permission witnessed by this typewriter repairer and occupational therapist Caroline to discuss his case with both his parents. Patient's mother later joined for family meeting with typewriter repairer and geriatric social work professor Sukh during which time she expressed much concerned. She shared some history and said that until about 2 years ago, patient was doing well without any obvious problems, college graduate, working. However there was a 6 month prodrome during which time patient started to decline and there was a significant change in his behavior. She said he was unstable.... Living in his car.... Going from job to job... Could not express himself or talk clearly.... Moving very slowly. Soon after that patient attempted suicide by slitting his wrists and throat and he was admitted to [facility]. Afterwards he was on Seroquel for a short time during which time mother thinks patient was doing better, however he soon stop this medication and again started to decline in functioning. He moved to [place] on a whim, saying 1 morning he was going to move to [place] and left that same day for several months during which time parents did not have much contact with him. At some point he came back and was in [place] this past summer, confused, again having psychotic symptoms.... Psychotic catatonia... Staring, moving slowly, taking baby steps he again moved to [facility] in March. They had little contact with him until he called towards the end of June saying he was very hungry and had no money, could his parents please send money. His father flew out there which is around the same time he was at the airport, acting very confused and arrested by the police who realized he needed psychiatric evaluation. At this point patient had lost all his belongings, including his car, had not been eating or sleeping and had been wandering confused. He was admitted to a psychiatric hospital in [facility] for about 3 weeks, was started on Risperdal but discontinued when he came back to [place]. Patient again became and catatonic like state in was admitted to this hospital. After hearing all this, patient did not disagree however also says he thinks he is fine and a ble to discharge. He does not want to sign in and does not want to take medication though he said he'd think about it. Patient's mother said that she and her are no longer going to support him financially and at this point he no longer has a place to stay, cannot stay with them and the Airbnb is no longer. She said that she could not have him living with them due to his excessive drinking. She also reports excessive cannabis intake. 09/23 Some improvement: Patient says that he appreciated his mother coming to visit yesterday and respects her concerns for him. It took some time to get him to express what he meant but he eventually said he understands that she is concerned that he sometimes gets stressed. He agrees that his last trip to [place] resulted in him being so stressed out that he lost all his belongings, including his car, was not eating or sleeping and confused to the point where he was psychiatrically hospitalized. However he sees this only as being stressed out not as a psychiatric illness and does not feel like he needs medication. Foundry Superintendant asked about his response to his mother saying that they were no longer going to pay for his Airbnb, food and that he was being financially cut off. Patient says he accepts this and has about 2000 dollar saved with which he will use to continue to live in the Airb. 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 Foundry Superintendant discussed how patient has significant speech latency. At 1st he did not understand what typewriter repairer met, but afterwards he agreed that he has been doing this but is able to talk more quickly if he needs to. Foundry Superintendant asked patient to demonstrate this ability which he did and his speech latency significantly shortened and was almost at a normal response time. Similarly, typewriter repairer asked again why he would stop walking every 10 ft. At 1st he says that it is because he gets tired. Foundry Superintendant strongly disagreed that this is the cause as he is only walking 10 ft; patient said maybe it is because he is in a new environment which typewriter repairer also disagreed was the cause. Foundry Superintendant asked if patient was able to walk the entire length of the hallway at a quick pace without stopping to which patient said he was and willingly demonstrated. Foundry Superintendant shared that this is an improvement and that if he can continue to do th is, walk at a normal pace without stopping and speak at a normal rate and rhythm that this would demonstrate improvement to which patient agreed he would try to do. Patient denies any history, current, recent remote of AVH or paranoid, delusional thinking or being contacted or provided with any private information that others do not know about. 09/24: will schedule seroquel and continue to offer for psychotic sx DX Schizophrenia, multiple episodes currently in acute episode with catatonia (Pro visional dx); (catatonia: Intermittent symptoms of stupor, mutism posturing, stereotypy); denies any hx of AVH At this point, patient's presentation is consistent with diagnosis for schizophrenia given duration of symptoms, disorganized speech, catatonic behavior and diminished emotional expression. Patient currently denies hallucinations however he also presents as internally preoccupied; he has not expressed specific delusions. Given reports of lack of sleep, schizoaffective disorder is also potential diagnosis. At this time it seems much less likely that patient has bipolar disorder as he is currently not presenting with classic manic symptoms and yet remains psychotic. No history of head trauma reported; while cannabis and other substance abuse can cause psychotic symptoms, there nearly always temporary and resolve on their own as patient progresses through detox; cannabis and other substance abuse are frequently the initial trigger to unleash an existing, but formerly subacute schizophrenia disorder; otherwise, they are commonly exacerbating influences but not the cause. Plan: Q15 min safety checks, 12B Refuses all medication, Patient gave verbal permission witnessed by this typewriter repairer and occupational therapist Caroline to discuss his case with both his parents. will file for involuntary commitment as patient is too disorganized to acquire halfway, food or tend to normal activities of daily living Monitor response to medications. Monitor for safety in the milieu. Discharge on stabilization. Patient seen. Chart reviewed. Discussed with team. Obtain collateral contact info?as needed I spent minutes with the patient and/or on the patient floor today, greater than?50% of which was spent counseling/coordinating care. Reason for contiued inpatient stay Substantial Risk for: inability to function, rapid decompensation and med/psych decompensation
[2021-09-24 18:00] VITALS: BP 159/78; PULSE 68; RESP 16; TEMP 37.2; O2SAT 97
[2021-09-25 06:00] VITALS: BP 170/87; PULSE 68; RESP 16; TEMP 37; O2SAT 98
[2021-09-25 12:14] VITALS: BP 159/92; PULSE 71
--- NOTE | 2021-09-25 18:05 | P.PNPSI_ITS ---
Subjective Subjective Date of Service: 09/25/21 Reason For Visit: bipolar disorder II Interim History: Patient seen and discussed with team. Patient evaluated today and upon interview pt reports im doing fine. Says his sleep and appetite are okay. Went to art group. Refusing scheduled seroquel, medication just isnt for me. Has no questions or concerns. Speech non spontaneous, delayed response, intense stare, constricted affect. Denies anxiety. Pt's mother, father and brother came to visit yesterday. Denies A/VH. In the milieu, patient is safe but not engaged, guarded in behavior. Denies SI/SIB/HI upon inquiry. Denies irritability or assaultive ideation. Says he feels safe. Medication Compliance: No Attending Groups: Intermittent Review of Systems Acute medical concerns: No Medical Review of Systems: unchanged Mental Status Exam Mental Status Exam Narrative: Pt is alert and oriented, though not to situation; pt sitting in miliue, casual cloths, ambulating normally, somewhat of a fixed stare, speech latency. Guarded, calm; patient is not in distress; mood is described as good, affect flat, constricted; eye contact is mostly a fixed stare; Speech is latent and monotone, slowed rate but normal volume but he demonstrated that he can talk at a more normal rate/rhythm if he wants to; psychomotor retardation present though pt demonstrated that he can walk at a quicker pace w/out pausing if he wants to; thought process is goal directed; Thought content is somewhat vacuous but pertinent to relevant topics/questions asked; he denies any delusional content, paranoid ideations and none expressed; denies any SI/HI. Denies AVH; seems internally pre-occupied; Patients insight and judgment are impaired but have improved Diagnostics Vital Signs (24Hr): Vital Signs - 24 hr 09/25/21 12:14 09/25/21 19:40 09/26/21 06:00 Temperature 98.9 F 98.4 F Pulse Rate 71 70 68 Blood Pressure 159/92 H 167/91 H 160/82 H Pulse Oximetry 97 BMI result Body Mass Index 20.6 Labs Results: 09/19/21 10:09 09/19/21 10:09 Medications Medications Current Medications Acetaminophen (Acetaminophen 325 Mg Tablet) 650 mg PO Q6H PRN PRN Reason: Headache/Pain Mild Scale (1-3) Al Hydroxide/Mg Hydroxide (Magnesium Hydrox/Alum Hydrox 30 Ml Oral.Susp) 30 ml PO Q6H PRN PRN Reason: Heartburn/Nausea Hydroxyzine HCl (Hydroxyzine Hcl 25 Mg Tablet) 25 mg PO BEDTIME PRN PRN Reason: Anxiety Lorazepam (Lorazepam 1 Mg Tablet) 1 mg PO TID PRN PRN Reason: Anxiety Magnesium Hydroxide (Milk Of Magnesia 30 Ml Oral.Susp) 30 ml PO DAILY PRN PRN Reason: Constipation Quetiapine Fumarate (Quetiapine Fumarate 300 Mg Tablet) 300 mg PO BEDTIME KEITH Last Admin: 09/25/21 21:08 Dose: Not Given Documented by: Trazodone HCl (Trazodone Hcl 50 Mg Tablet) 50 mg PO BEDTIME PRN PRN Reason: Insomnia Allergies Allergies Allergy/AdvReac Type Severity Reaction Status Date / Time No Known Allergies Allergy Verified 09/18/21 20:22 Assessment & Plan Assessment & Plan (1) Schizophrenia: Status: Acute Code(s): F20.9 - Schizophrenia, unspecified Plan Pt is a 27 y.o. male who carries a dx of schizophrenia, r/o bipolar DO/ schizoaffective disorder. He has hx of being a high functioning individual until mid 20s, in which he became increasingly withdrawn, paranoid, using cannabis and hallucinogens, esoteric, and ultimately unable to sustain employment. Has had impulsive and risk taking behaviors, i.e. disappearing, alcohol abuse. Pt endorses neg sx of schizophrenia, i.e. flat affect, thought blocking, slowed m ovement. Has poor sleep and appetite. [place] [facility] [place] concern with worsening psychotic sx/ catat[place] behavior [place] the mall, as pt became withdrawn, stopped responding, staring at the floor, not redirectable. On admission,admitting provider notes that Parents asked for head CT or MRI/ neuro workup to rule out organic causes, however pt?s sx appear to be a function of primary psych diagnosis. They are concerned with pt?s level of risk taking behavior when he is decompensated i.e. becomes increasingly withdrawn, flat, non-verbal. Risk taking bx includes drinking to excess, taking off in the night at odd hours and disappearing to the point that parents have had to file missing person?s report. Pt has hx of significant suicide attempt in 07/2020, pt was similarly withdrawn, illogical, depressed, and flat. Parents report pt had improvement in sx on seroquel, however he has been non-adherent with treatment in the community. Parents feel unable to care for him at home. Pt adamantly refuses medication, has lack of insight into diagnosis. No medication started. 09/21 patient remains with some catatonic features however he is eating, talking and moving. He also lacks nearly all insight. However, while significant speech latency remains, and patient has flat affect with somewhat of a fixed stare, his thought process is logical and goal oriented. He refuses all med ications. Patient refuses Ativan. While Ativan to would likely be helpful, at this point sba underwriter does not find patient impaired to the point where he cannot input into medical decision making, as patient's thought content is organized and his catatonic symptoms seem to be improving. Will continue to monitor. 09/22 Patient more able to engage today though still with catatonic symptoms, walking with an odd pace and intermittently stopping in the hallway for no apparent reason and standing there for a moment, significant speech latency. He says he is good and and repeats that he knows this because his mood is good. . . Eating well. .. Sleeping well. . . Patient does not have insight into his history of psychiatric illness. City Wellness Coordinator reviewed in detail some of patient's history. The he knows that he was psychiatrically admitted to [facility] but says he was told that this admission happened because he slit his wrists and throat; he says he has very little, vague memory of this having occurred. Patient denies drinking more than a little bit once in a while and denies that he was ever picked up by the police and loss and lists for public intoxication, though there are self or rest reports. Patient says he does not know why he was taken to a psychiatric hospital and lost Chelly a few months ago other than to say it was because he was stressed, had little sleep, and had not been eating. . . He eventually says the police brought him to the hospital from the airport. He a gain could not say why other than it was because he was stressed, tired and hungry. As sba underwriter explained patient's confusion he agreed that it is possible he was acting confused in a way that prompted police involvement and subsequent admission. He says he does not remember what happened during the 3 weeks he was admitted to the unit or that he took medications (according to patients mother, he was started on Risperdal which he took only briefly after discharge and then discontinued with reports that it made him feel like a zombie...Patient does not remember the other circumstances involving this confusion; his mother present, reports that he called up his parents from [place] saying he was very hungry and needed money; at the airport he had lost everything he owned except for the clothes he was wearing, including his car which he abandoned. Otherwise he had no money and none of his belongings). 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 Patient does not agree in feels that he is the same now as before. He feels he is ready to go home and says I feel I am productive with my days.... I am excited about my professional opportunities. Patient does not agree that his perception is incongruous is with his current reality as he has no money of his own, only has housing because his parents have been paying for his Airbnb and is not able to shop for himself and only eats because his mother brings him prepared food. Patient does not want any medications at this time but says he is willing to consider it. Patient gave verbal permission witnessed by this sba underwriter and occupational lea Velazquez to discuss his case with both his parents. Patient's mother later joined for family meeting with sba underwriter and social service manager Sukh during which time she expressed much concerned. She shared some history and said that until about 2 years ago, patient was doing well without any obvious problems, college graduate, working. However there was a 6 month prodrome during which time patient started to decline and there was a significant change in his behavior. She said he was unstable.... Living in his car.... Going from job to job... Could not express himself or talk clearly.... Moving very slowly. Soon after that patient attempted suicide by slitting his wrists and throat and he was admitted to [facility] apt to. Afterwards he was on Seroquel for a short time during which time mother thinks patient was doing better, however he soon stop this medication and again started to decline in functioning. He moved to [place] on a whim, saying 1 morning he was going to move to [place] and left that same day for several months during which time parents did not have much contact with him. At some point he came back and was in [place] this past summer, confused, again having psychotic symptoms.... Psychotic catatonia... Staring, moving slowly, taking baby steps he again moved to [facility] in March. They had little contact with him until he called towards the end of June saying he was very hungry and had no money, could his parents please send money. His father flew out there which is around the same time he was at the airport, acting very confused and arrested by the police who realized he needed psychiatric evaluation. At this point patient had lost all his belongings, including his car, had not been eating or sleeping and had been wandering confused. He was admitted to a psychiatric hospital in [facility] for about 3 weeks, was started on Risperdal but discontinued when he came back to [place]. Patient again became and catatonic like state in was admitted to this hospital. After hearing all this, patient did not disagree however also says he thinks he is fine and able to discharge. He does not want to sign in and does not want to take medic ation though he said he'd think about it. Patient's mother said that she and her are no longer going to support him financially and at this point he no longer has a place to stay, cannot stay with them and the Airbnb is no longer. She said that she could not have him living with them due to his excessive drinking. She also reports excessive cannabis intake. 09/23 Some improvement: Patient says that he appreciated his mother coming to visit yesterday and respects her concerns for him. It took some time to get him to express what he meant but he eventually said he understands that she is concerned that he sometimes gets stressed. He agrees that his last trip to [place] resulted in him being so stressed out that he lost all his belongings, including his car, was not eating or sleeping and confused to the point where he was psychiatrically hospitalized. However he sees this only as being stressed out not as a psychiatric illness and does not feel like he needs medication. City Wellness Coordinator asked about his response to his mother saying that they were no longer going to pay for his Airbnb, food and that he was being financially cut off. Patient says he accepts this and has about 2000 dollar saved with which he will use to continue to live in the Airbnb. 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 City Wellness Coordinator discussed how patient has significant speech latency. At 1st he did not understand what sba underwriter met, but afterwards he agreed that he has been doing this but is able to talk more quickly if he needs to. City Wellness Coordinator asked patient to demonstrate this ability which he did and his speech latency significantly shortened and was almost at a normal response time. Similarly, sba underwriter asked again why he would stop walking every 10 ft. At 1st he says that it is because he gets tired. City Wellness Coordinator strongly disagreed that this is the cause as he is only walking 10 ft; patient said maybe it is because he is in a new environment which sba underwriter also disagreed was the cause. City Wellness Coordinator asked if patient was able to walk the entire length of the hallway at a quick pace without stopping to which patient said he was and willingly demonstrated. City Wellness Coordinator shared that this is an improvement and that if he can continue to do this, walk at a normal pace without stopping and speak at a normal rate and rhyt hm that this would demonstrate improvement to which patient agreed he would try to do. Patient denies any history, current, recent remote of AVH or paranoid, delusional thinking or being contacted or provided with any private information that others do not know about. 09/24: will schedule seroquel and continue to offer for psychotic sx 09/25: Pt refusing seroquel, guarded, appears internally preoccupied DX Schizophrenia, multiple episodes currently in acute episode with catatonia (Provisional dx); (catatonia: Intermittent symptoms of stupor, mutism posturing, stereotypy); denies any hx of AVH At this point, patient's presentation is consistent with diagnosis for schizophrenia given duration of symptoms, disorganized speech, catatonic behavior and diminished emotional expression. Patient currently denies hallucinations however he also presents as internally preoccupied; he has not expressed specific delusions. Given reports of lack of sleep, schizoaffective disorder is also potential diagnosis. At this time it seems much less likely that patient has bipolar disorder as he is currently not presenting with classic manic symptoms and yet remains psychotic. No history of head trauma reported; while cannabis and other substance abuse can cause psychotic symptoms, there nearly always temporary and resolve on their own as patient progresses through detox; cannabis and other substance abuse are frequently the initial trigger to unleash an existing, but formerly subacute schizophrenia disorder; otherwise, they are commonly exacerbating influences but not the cause. Plan: Q15 min safety checks, 12B Refuses all medication, Patient gave verbal permission witnessed by this sba underwriter and occupational therapist Caroline to discuss his case with both his parents. will file for involuntary commitment as patient is too disorganized to acquire senior care, food or tend to normal activities of daily living Monitor response to medications. Monitor for safety in the milieu. Discharge on stabilization. Patient seen. Chart reviewed. Discussed with team. Obtain collateral contact info?as needed I spent minutes with the patient and/or on the patient floor today, greater than?50% of which was spent counseling/coordinating care. Reason for contiued inpatient stay Substantial Risk for: inability to function, rapid decompensation and med/psych decompensation
[2021-09-25 19:40] VITALS: BP 167/91; PULSE 70; TEMP 37.2
[2021-09-26 06:00] VITALS: BP 160/82; PULSE 68; TEMP 36.9; O2SAT 97
--- NOTE | 2021-09-26 13:14 | PC.NURSE ---
since admission to unit, pt noted to have refused to comply with U/A request ordered by .
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
[2021-09-26 19:50] VITALS: BP 158/88; PULSE 64; RESP 18; TEMP 36.6; O2SAT 98
[2021-09-27 06:00] VITALS: BP 162/91; PULSE 67; RESP 18; TEMP 36.6; O2SAT 98
--- NOTE | 2021-09-27 14:08 | HO.PSYCHPN ---
Subjective Subjective Date of Service: 09/27/21 Reason For Visit: bipolar disorder II Subjective Notes: Jacques Warning Interim History: Met with patient today and reassured Jacques warning which he understood and repeated back to automatic typewriter inspector. Patient said that he is doing good. He says he has not thought much about the conversation with his mother from yesterday. Data Storage Specialist mentioned to patient that his parents said the [employer] contract is over and his stuff is been returned. Patient said that he would like to renew the contract himself. Data Storage Specialist mention that his parents said he does not have any money he left in his bank account, which patient said is not true. Data Storage Specialist asked why there would be a discrepancy between him and his parents on this topic at which point patient says I don't think going to talking more and conversation was concluded. Mental Status Exam Mental Status Exam Narrative: Pt is alert and oriented, though not to situation; pt sitting in day room, casual cloths but unkempt and marginal hygiene; walking slowly with fixed stare and significant speech latency. Pt is calm but does not want to engage; not in distress; mood is described as good, but affect flat; eye contact is mostly a fixed stare; Speech is non-spontaneous, latent and monotone, slowed rate but normal volume; walks slowly and psychomotor retardation present; thought process is goal directed answering questions posed to him; Thought content is somewhat vacuous but pertinent to relevant topics/questions asked; he denies any delusional content, paranoid ideations and none expressed; denies any SI/HI. Denies AVH; seems internally pre-occupied; Patients insight and judgment are impaired. Diagnostics Vital Signs (24Hr): Vital Signs - 24 hr 09/26/21 19:50 09/27/21 06:00 Temperature 97.8 F 97.9 F Pulse Rate 64 67 Respiratory Rate 18 18 Blood Pressure 158/88 H 162/91 H Pulse Oximetry 98 98 BMI result Body Mass Index 20.6 Labs Results: 09/19/21 10:09 09/19/21 10:09 Medications Medications Current Medications Acetaminophen (Acetaminophen 325 Mg Tablet) 650 mg PO Q6H PRN PRN Reason: Headache/Pain Mild Scale (1-3) Al Hydroxide/Mg Hydroxide (Magnesium Hydrox/Alum Hydrox 30 Ml Oral.Susp) 30 ml PO Q6H PRN PRN Reason: Heartburn/Nausea Hydroxyzine HCl (Hydroxyzine Hcl 25 Mg Tablet) 25 mg PO BEDTIME PRN PRN Reason: Anxiety Lorazepam (Lorazepam 1 Mg Tablet) 1 mg PO TID PRN PRN Reason: Anxiety Magnesium Hydroxide (Milk Of Magnesia 30 Ml Oral.Susp) 30 ml PO DAILY PRN PRN Reason: Constipation Quetiapine Fumarate (Quetiapine Fumarate 300 Mg Tablet) 300 mg PO BEDTIME KEITH Last Admin: 09/26/21 21:37 Dose: Not Given Documented by: Trazodone HCl (Trazodone Hcl 50 Mg Tablet) 50 mg PO BEDTIME PRN PRN Reason: Insomnia Allergies Allergies Allergy/AdvReac Type Severity Reaction Status Date / Time No Known Allergies Allergy Verified 09/18/21 20:22 Assessment & Plan Assessment & Plan (1) Schizophrenia: Status: Acute Code(s): F20.9 - Schizophrenia, unspecified Plan Pt is a 27 y.o. male who carries a dx of schizophrenia, r/o bipolar DO/ schizoaffective disorder. He has hx of being a high functioning individual until mid 20s, in which he became increasingly withdrawn, paranoid, using cannabis and hallucinogens, esoteric, and ultimately unable to sustain employment. Has had impulsive and risk taking behaviors, i.e. disappearing, alcohol abuse. Pt endorses neg sx of schizophrenia, i.e. flat affect, thought blocking, slowed movement. Has poor sleep and appetite. Pt arrives to [facility] due to parents concern with worsening psychotic sx/ cat[place] the [place], as pt became withdrawn, stopped responding, staring at the floor, not redirectable. On admission,admitting provider notes that Parents asked for head CT or MRI/ neuro workup to rule out organic causes, however pt?s sx appear to be a function of primary psych diagnosis. They are concerned with pt?s level of risk taking behavior when he is decompensated i.e. becomes increasingly withdrawn, flat, non-verbal. Risk taking bx includes drinking to excess, taking off in the night at odd hours and disappearing to the point that parents have had to file missing person?s report. Pt has hx of significant suicide attempt in 07/2020, pt was similarly withdrawn, illogical, depressed, and flat. Parents report pt had improvement in sx on seroquel, however he has been non-adherent with treatment in the community. Parents feel unable to care for him at home. Pt adamantly refuses medication, has lack of insight into diagnosis. No medication started. 09/22 patient remains with some catatonic features however he is eating, talking and moving. He also lacks nearly all insight. However, while significant speech latency remains, and patient has flat affect with somewhat of a fixed stare, his thought process is logical and goal oriented. He refuses all medications. Patient refuses Ativan. While Ativan to would likely be helpful, at this point automatic typewriter inspector does not find patient impaired to the point where he cannot input into medical decision making, as patient's thought content is organized and his catatonic symptoms seem to be improving. Will continue to monitor. 09/24: will schedule seroquel and continue to offer for psychotic sx 09/25: Pt refusing seroquel, guarded, appears internally preoccupied 09/26 no change in presentation; remains without insight and catatonic features. 09/27 no change; patient not phase by hearing that [employer] is no longer available; disputes that he does not have any money in his bank account. Patient said he chooses not to talk to this automatic typewriter inspector this time -Pt denies any head trauma; parents deny any head trauma that they know of. Patient has some specific genetic loading for Schizoaffective/schizophrenia and the course of symptoms follows the known pattern of this illness; and Seroquel seemed to help resolve symptoms. Also, The episodic nature of patients symptoms, though worsening over recent months, have been going on for couple of years making any organic cause of symptoms, other than psychiatric, very unlikely. At this point, Head CT is unlikely to provide much information, but automatic typewriter inspector will consult with neurology. Patient has predominantly negative symptoms and does not have symptoms associated with rare illness of Anti-NMDA receptor Encephalitis. Plan: Q15 min safety checks, 12B filed for involuntary commitment Refuses all medication Monitor response to medications. Monitor for safety in the milieu. Discharge on stabilization. Patient seen. Chart reviewed. Discussed with team. Obtain collateral contact info?as needed I spent minutes with the patient and/or on the patient floor today, greater than?50% of which was spent counseling/coordinating care. Patient educated on: diagnosis Informed Consent: does not understand Reason for contiued inpatient stay Substantial Risk for: harm to self, inability to function and rapid decompensation
[2021-09-27 18:00] VITALS: BP 160/94; PULSE 97; TEMP 37
--- NOTE | 2021-09-28 18:25 | HO.PSYCHPN ---
Subjective Subjective Date of Service: 09/28/21 Reason For Visit: bipolar disorder II Interim History: Patient sitting by himself at a table staring, not moving much. Patient responds with a hello to data analyst report writer's creating. He says he does not want to talk and interview concluded. He says thank you as data analyst report writer offers that if patient changes his mind that data analyst report writer is available. Mental Status Exam Mental Status Exam Narrative: Pt is alert and oriented, though not to situation; pt sitting in day room, casual cloths but unkempt and marginal hygiene; walking slowly with fixed stare and significant speech latency. Pt is calm but does not want to engage; not in distress; mood is described as good, but affect flat; eye contact is mostly a fixed stare; Speech is non-spontaneous, latent and monotone, slowed rate but normal volume; walks slowly and psychomotor retardation present; thought process is goal directed answering questions posed to him; Thought content is somewhat vacuous but pertinent to relevant topics/questions asked; he denies any delusional content, paranoid ideations and none expressed; denies any SI/HI. Denies AVH; seems internally pre-occupied; Patients insight and judgment are impaired. Diagnostics Vital Signs (24Hr): BMI result Body Mass Index 20.6 Labs Results: 09/19/21 10:09 09/19/21 10:09 Medications Medications Current Medications Acetaminophen (Acetaminophen 325 Mg Tablet) 650 mg PO Q6H PRN PRN Reason: Headache/Pain Mild Scale (1-3) Al Hydroxide/Mg Hydroxide (Magnesium Hydrox/Alum Hydrox 30 Ml Oral.Susp) 30 ml PO Q6H PRN PRN Reason: Heartburn/Nausea Hydroxyzine HCl (Hydroxyzine Hcl 25 Mg Tablet) 25 mg PO BEDTIME PRN PRN Reason: Anxiety Magnesium Hydroxide (Milk Of Magnesia 30 Ml Oral.Susp) 30 ml PO DAILY PRN PRN Reason: Constipation Quetiapine Fumarate (Quetiapine Fumarate 300 Mg Tablet) 300 mg PO BEDTIME KEITH Last Admin: 09/27/21 20:48 Dose: Not Given Documented by: Trazodone HCl (Trazodone Hcl 50 Mg Tablet) 50 mg PO BEDTIME PRN PRN Reason: Insomnia Allergies Allergies Allergy/AdvReac Type Severity Reaction Status Date / Time No Known Allergies Allergy Verified 09/18/21 20:22 Assessment & Plan Assessment & Plan (1) Schizophrenia: Status: Acute Code(s): F20.9 - Schizophrenia, unspecified Plan Pt is a 27 y.o. male who carries a dx of schizophrenia, r/o bipolar DO/ schizoaffective disorder. He has hx of being a high functioning individual until mid 20s, in which he became increasingly withdrawn, paranoid, using cannabis and hallucinogens, esoteric, and ultimately unable to sustain employment. Has had impulsive and risk taking behaviors, i.e. disappearing, alcohol abuse. Pt endorses neg sx of schizophrenia, i.e. flat affect, thought blocking, slowed movement. Has poor sleep and appetite. Pt arrives to [facility] due to parents concern with worsening psychotic sx/ cat[place] the mall, as pt became withdrawn, stopped responding, staring at the floor, not redirectable. On admission,admitting provider notes that Parents asked for head CT or MRI/ neuro workup to rule out organic causes, however pt?s sx appear to be a function of primary psych diagnosis. They are concerned with pt?s level of risk taking behavior when he is decompensated i.e. becomes increasingly withdrawn, flat, non-verbal. Risk taking bx includes drinking to excess, taking off in the night at odd hours and disappearing to the point that parents have had to file missing person?s report. Pt has hx of significant suicide attempt in 07/2020, pt was similarly withdrawn, illogical, depressed, and flat. Parents report pt had improvement in sx on seroquel, however he has been non-adherent with treatment in the community. Parents feel unable to care for him at home. Pt adamantly refuses medication, has lack of insight into diagnosis. No medication started. 09/22 patient remains with some catatonic features however he is eating, talking and moving. He also lacks nearly all insight. However, while significant speech latency remains, and patient has flat affect with somewhat of a fixed stare, his thought process is logical and goal oriented. He refuses all medications. Patient refuses Ativan. While Ativan to would likely be helpful, at this point data analyst report writer does not find patient impaired to the point where he cannot input into medical decision making, as patient's thought content is organized and his catatonic symptoms seem to be improving. Will continue to monitor. 09/24: will schedule seroquel and continue to offer for psychotic sx 09/25: Pt refusing seroquel, guarded, appears internally preoccupied 09/26 no change in presentation; remains without insight and catatonic features. 09/27 no change; patient not phase by hearing that [employer] is no longer available; disputes that he does not have any money in his bank account. Patient said he chooses not to talk to this data analyst report writer this time -Pt denies any head trauma; parents deny any head trauma that they know of. Patient has some specific genetic loading for Schizoaffective/schizophrenia and the course of symptoms follows the known pattern of this illness; and Seroquel seemed to help resolve symptoms. Also, The episodic nature of patients symptoms, though worsening over recent months, have been going on for couple of years making any organic cause of symptoms, other than psychiatric, very unlikely. At this point, Head CT is unlikely to provide much information, but data analyst report writer will consult with neurology. Patient has predominantly negative symptoms and does not have symptoms associated with rare illness of Anti-NMDA receptor Encephalitis. 09/28 no change. Will proceed with involuntary commitment as patient has no insight into his disabling symptoms and is not organized enough to care for himself in the community. Plan: Q15 min safety checks, 12B filed for involuntary commitment Refuses all medication Monitor response to medications. Monitor for safety in the milieu. Discharge on stabilization. Patient seen. Chart reviewed. Discussed with team. Obtain collateral contact info?as needed I spent minutes with the patient and/or on the patient floor today, greater than?50% of which was spent counseling/coordinating care. Reason for contiued inpatient stay Substantial Risk for: harm to self and inability to function
[2021-09-28 19:25] VITALS: BP 138/75; PULSE 77; TEMP 37.3; O2SAT 97
[2021-09-29 06:39] VITALS: BP 112/68; PULSE 58; TEMP 36.1; O2SAT 97
--- NOTE | 2021-09-29 18:11 | P.PNPSI_ITS ---
Subjective Subjective Date of Service: 09/29/21 Reason For Visit: bipolar disorder II Subjective Notes: Section 8 Interim History: pt remains with catatonic symptoms. He did not want to take ativan but accepted it after it was explained court order. However, about 15-20 min after receiving ativan patient began talking spontaneously, in full sentences, with inflection and engaging in actual back and forth conversation. He said feels great and agrees it's the first time since being on unit that he's been able to talk so freely. His discussion was relevant and when asked explained his studies w/ neuroscience, interest in Mindfulness and hx of being shy. Pt thinks this new speaking ability is due to mindfulness and disagrees with entry writer that it's due to ativan. Pharmacy Picking Tech explained several times catatnoia, pt's confusion, the level of dysfunction he's been under and need for treatment. Patient was able to acknowledge that he has been confused but again says he does not need medication but only wants talk therapy and mindfulness. entry writer agreed that these treatments will be very helpful but that medication is also needed. Pt said he did not want to take meds and wanted to call his performance improvement coordinator. He was adamant about it and so entry writer acquiesced for the moment, giving patient time. Mental Status Exam Mental Status Exam Narrative: Pt is alert and oriented, though not to situation; pt sitting in day room, casual cloths but unkempt hair and marginal hygiene; walking slowly with fixed stare and significant speech latency. Pt is calm but does not want to engage; not in distress; mood is described as good, but affect flat; eye contact is mostly a fixed stare; Speech is non-spontaneous, latent and monotone, slowed rate but normal volume; walks slowly and psychomotor retardation present; thought process is goal directed answering questions posed to him; Thought content is somewhat vacuous but pertinent to relevant topics/questions asked; he denies any delusional content, paranoid ideations and none expressed; denies any SI/HI. Denies AVH; seems internally pre-occupied; Patients insight and judgment are impaired. Diagnostics Vital Signs (24Hr): Vital Signs - 24 hr 09/28/21 19:25 09/29/21 06:39 Temperature 99.1 F 97 F Pulse Rate 77 58 Blood Pressure 138/75 112/68 Pulse Oximetry 97 97 BMI result Body Mass Index 20.6 Labs Results: 09/19/21 10:09 09/19/21 10:09 Medications Medications Current Medications Acetaminophen (Acetaminophen 325 Mg Tablet) 650 mg PO Q6H PRN PRN Reason: Headache/Pain Mild Scale (1-3) Al Hydroxide/Mg Hydroxide (Magnesium Hydrox/Alum Hydrox 30 Ml Oral.Susp) 30 ml PO Q6H PRN PRN Reason: Heartburn/Nausea Hydroxyzine HCl (Hydroxyzine Hcl 25 Mg Tablet) 25 mg PO BEDTIME PRN PRN Reason: Anxiety Magnesium Hydroxide (Milk Of Magnesia 30 Ml Oral.Susp) 30 ml PO DAILY PRN PRN Reason: Constipation Quetiapine Fumarate (Quetiapine Fumarate 300 Mg Tablet) 300 mg PO BEDTIME KEITH Last Admin: 09/28/21 20:38 Dose: Not Given Documented by: Trazodone HCl (Trazodone Hcl 50 Mg Tablet) 50 mg PO BEDTIME PRN PRN Reason: Insomnia Allergies Allergies Allergy/AdvReac Type Severity Reaction Status Date / Time No Known Allergies Allergy Verified 09/18/21 20:22 Assessment & Plan Assessment & Plan (1) Schizophrenia: Status: Acute Code(s): F20.9 - Schizophrenia, unspecified Plan Pt is a 27 y.o. male who carries a dx of schizophrenia, r/o bipolar DO/ schizoaffective disorder. He has hx of being a high functioning individual until mid 20s, in which he became increasingly withdrawn, paranoid, using cannabis and hallucinogens, esoteric, and ultimately unable to sustain employment. Has had impulsive and risk taking behaviors, i.e. disappearing, alcohol abuse. Pt endors es neg sx of schizophrenia, i.e. flat affect, thought blocking, slowed movement. Has poor sleep and appetite. Pt arrives to [facility] [place] due to parents concern with worsening psychotic sx/ catat[place] behavior [place] the mall, as pt became withdrawn, stopped responding, staring at the floor, not redirectable. On admission,admitting provider notes that Parents asked for head CT or MRI/ neuro workup to rule out organic causes, however pt?s sx appear to be a function of primary psych diagnosis. They are concerned with pt?s level of risk taking behavior when he is decompensated i.e. becomes increasingly withdrawn, flat, non-verbal. Risk taking bx includes drinking to excess, taking off in the night at odd hours and disappearing to the point that parents have had to file missing person?s report. Pt has hx of significant suicide attempt in 07/2020, pt was similarly withdrawn, illogical, depressed, and flat. Parents report pt had improvement in sx on seroquel, however he has been non-adherent with treatment in the community. Parents feel unable to care for him at home. Pt adamantly refuses medication, has lack of insight into diagnosis. No medication started. 09/22 patient remains with some catatonic features however he is eating, talking and moving. He also lacks nearly all insight. However, while significant speech latency remains, and patient has flat affect with somewhat of a fixed stare, his thought process is logical and goal oriented. He refuses all medications. Patient refuses Ativan. While Ativan to would likely be helpful, at this point entry writer does not find patient impaired to the point where he cannot input into medical decision making, as patient's thought content is organized and his catatonic symptoms seem to be improving. Will continue to monitor. 09/24: will schedule seroquel and continue to offer for psychotic sx 09/25: Pt refusing seroquel, guarded, appears internally preoccupied 09/26 no change in presentation; remains without insight and catatonic features. 09/27 no change; patient not phase by hearing that [employer] is no longer available; disputes that he does not have any money in his bank account. Patient said he chooses not to talk to this entry writer this time -Pt denies any head trauma; parents deny any head trauma that they know of. Patient has some specific genetic loading for Schizoaffective/schizophrenia and the course of symptoms follows the known pattern of this illness; and Seroquel seemed to help resolve symptoms. Also, The episodic nature of patients symptoms, though worsening over recent months, have been going on for couple of years m aking any organic cause of symptoms, other than psychiatric, very unlikely. At this point, Head CT is unlikely to provide much information, but entry writer will consult with neurology. Patient has predominantly negative symptoms and does not have symptoms associated with rare illness of Anti-NMDA receptor Encephalitis. 09/28 no change. Will proceed with involuntary commitment as patient has no insight into his disabling symptoms and is not organized enough to care for himself in the community. 09/29 Court ordered involuntary commitment and substituted judgment for medicatio n/tx pt told entry writer he did not want to talk; said he thinks he understands court proceedings.? Plan:? Q15 min safety checks,? Section 7 involuntary commitment; court ordered substituted tx for mediations will hold off starting meds until receive documents following todays proceedings Monitor response to medications. Monitor for safety in the milieu. Discharge on stabilization. Patient seen. Chart reviewed. Discussed with team. Obtain collateral contact info?as needed I spent minutes with the patient and/or on the patient floor today, greater than?50% of which was spent counseling/coordinating care. Patient educated on: diagnosis Informed Consent: does not understand and further education needed Reason for contiued inpatient stay Substantial Risk for: harm to self, inability to function and rapid decompensation
[2021-09-29 19:10] VITALS: BP 133/77; PULSE 57; RESP 17; TEMP 37.2; O2SAT 99
[2021-09-30 06:00] VITALS: BP 124/62; PULSE 59; TEMP 37.1; O2SAT 99
[2021-09-30] MEDS: LORazepam 1 MG TABLET PO (12:59)
[2021-09-30 19:10] VITALS: BP 162/77; PULSE 74; TEMP 36.7
[2021-09-30] MEDS: LORazepam 1 MG TABLET 2 MG PO (22:52)
[2021-10-01] MEDS: LORazepam 1 MG TABLET 2 MG PO ×3 (09:43→21:55)
--- NOTE | 2021-10-01 11:22 | P.PNPSI_ITS ---
Subjective Subjective Date of Service: 09/30/21 Reason For Visit: bipolar disorder II Interim History: LATE ENTRY FOR PATIENT SEEN ON 09/30/21 pt remains with catatonic symptoms. He did not want to take ativan but accepted it after it was explained court order. However, about 15-20 min after receiving ativan patient began talking spontaneously, in full sentences, with inflection and engaging in actual back and forth conversation. He said feels great and agrees it's the first time since being on unit that he's been able to talk so freely. His discussion was relevant and when asked explained his studies w/ neuroscience, interest in Mindfulness and hx of being shy. Pt thinks this new speaking ability is due to mindfulness and disagrees with teletypewriter operator that it's due to ativan. Central Office Technician explained several times catatnoia, pt's confusion, the level of dysfunction he's been under and need for treatment. Patient was able to acknowledge that he has been confused but again says he does not need medication but only wants talk therapy and mindfulness. teletypewriter operator agreed that these treatments will be very helpful but that medication is also needed. Pt said he did not want to take meds and wanted to call his integrative medicine physician. He was adamant about it and so teletypewriter operator acquiesced for the moment, giving patient time.? Mental Status Exam Mental Status Exam Narrative: Pt is alert and oriented, though not to situation; dressed in casual cloths but unkempt hair but adequate hygiene; at first walking slowly with fixed stare and significant speech latency until 20 minutes after ativan when he as able to move and speak much more freely. Mood is described as good, and effect more naturally expressive; eye contact appropriate; speech has become spontaneous and no longer latent; less monotone, almost normal rate and normal volume; thought process is goal directed and linear; answering Thought content is on talk therapy and not wanting medication; but pertinent to relevant topics/questions asked; he denies any delusional content, paranoid ideations and none expressed; denies any SI/HI. Denies AVH;? Patients insight and judgment are impaired Diagnostics Vital Signs (24Hr): Vital Signs - 24 hr 09/30/21 19:10 Temperature 98.1 F Pulse Rate 74 Blood Pressure 162/77 H BMI result Body Mass Index 20.6 Labs Results: 09/19/21 10:09 09/19/21 10:09 Medications Medications Current Medications Acetaminophen (Acetaminophen 325 Mg Tablet) 650 mg PO Q6H PRN PRN Reason: Headache/Pain Mild Scale (1-3) Al Hydroxide/Mg Hydroxide (Magnesium Hydrox/Alum Hydrox 30 Ml Oral.Susp) 30 ml PO Q6H PRN PRN Reason: Heartburn/Nausea Hydroxyzine HCl (Hydroxyzine Hcl 25 Mg Tablet) 25 mg PO BEDTIME PRN PRN Reason: Anxiety Lorazepam (Lorazepam 2 Mg/Ml Vial) 2 mg IM TID PRN PRN Reason: IF REFUSES PO ATIVAN(on dontae) Lorazepam (Lorazepam 1 Mg Tablet) 2 mg PO TID [facility] Last Admin: 10/01/21 09:43 Dose: 2 mg Documented by: Magnesium Hydroxide (Milk Of Magnesia 30 Ml Oral.Susp) 30 ml PO DAILY PRN PRN Reason: Constipation Quetiapine Fumarate (Quetiapine Fumarate 300 Mg Tablet) 300 mg PO BEDTIME [facility] Last Admin: 09/30/21 23:01 Dose: Not Given Documented by: Trazodone HCl (Trazodone Hcl 50 Mg Tablet) 50 mg PO BEDTIME PRN PRN Reason: Insomnia Allergies Allergies Allergy/AdvReac Type Severity Reaction Status Date / Time No Known Allergies Allergy Verified 09/18/21 20:22 Assessment & Plan Assessment & Plan (1) Schizophrenia: Status: Acute Code(s): F20.9 - Schizophrenia, unspecified Plan Pt is a 27 y.o. male who carries a dx of schizophrenia, r/o bipolar DO/ schizoaffective disorder. He has hx of being a high functioning individual until mid 20s, in which he became increasingly withdrawn, paranoid, using cannabis and hallucinogens, esoteric, and ultimately unable to sustain employment. Has had impulsive and risk taking behaviors, i.e. disappearing, alcohol abuse. Pt endorses neg sx of schizophrenia, i.e. flat affect, thought blocking, slowed movement. Has poor sleep and appetite. [place] [facility] [place] concern with worsening psychotic sx/ catat[place] the mall, as pt became withdrawn, stopped responding, staring at the floor, not redirectable. On admission,admitting provider notes that Parents asked for head CT or MRI/ neuro workup to rule out organic causes, however pt?s sx appear to be a function of primary psych diagnosis. They are concerned with pt?s level of risk taking behavior when he is decompensation i.e. becomes increasingly withdrawn, flat, non-verbal. Risk taking bx includes drinking to excess, taking off in the night at odd hours and disappearing to the point that parents have had to file missing person?s report. Pt has hx of significant suicide attempt in 07/2020, pt was similarly withdrawn, illogical, depressed, and flat. Parents report pt had improvement in sx on seroquel, however he has been non-adherent with treatment in the community. Parents feel unable to care for him at home. Pt adamantly refuses medication, has lack of insight into diagnosis. No medication started. 09/22 patient remains with some catatonic features however he is eating, talking and moving. He also lacks nearly all insight. However, while significant speech latency remains, and patient has flat affect with somewhat of a fixed stare, his thought process is logical and goal oriented. He refuses all medications. Patient refuses Ativan. While Ativan to would likely be helpful, at this point teletypewriter operator does not find patient impaired to the point where he cannot input into medical decision making, as patient's thought content is organized and his catatonic symptoms seem to be improving. Will continue to monitor. 09/24: will schedule seroquel and continue to offer for psychotic sx 09/25: Pt refusing seroquel, guarded, appears internally preoccupied 09/26 no change in presentation; remains without insight and catatonic features. 09/27 no change; patient not phase by hearing that [employer] is no longer available; disputes that he does not have any money in his bank account. Patient said he chooses not to talk to this teletypewriter operator this time -Pt denies any head trauma; parents deny any head trauma that they know of. Patient has some specific genetic loading for Schizoaffective/schizophrenia and the course of symptoms follows the known pattern of this illness; and Seroquel seemed to help resolve symptoms. Also, The episodic nature of patients symptoms, though worsening over recent months, have been going on for couple of years making any organic cause of symptoms, other than psychiatric, very unlikely. At this point, Head CT is unlikely to provide much information, but teletypewriter operator will consult with neurology. Patient has predominantly negative symptoms and does not have symptoms associated with rare illness of Anti-NMDA receptor Encephalitis. 09/28 no change. Will proceed with involuntary commitment as patient has no insight into his disabling symptoms and is not organized enough to care for himself in the community. 09/29 Court ordered involuntary commitment and substituted judgment for medication/tx pt told teletypewriter operator he did not want to talk; said he thinks he understands court proceedings. 09/30 given ativan 1mg and within 20 minutes significant reduction in catatonic symptoms including speech latency and moving slowly; still does not have insight; does not want meds and struggles to understand court order. Plan: Q15 min safety checks, Section 7 involuntary commitment; COURT ORDERED SUBSTITUTED JUDGMENT for tx/mediations 1. 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 Schizoaffective disorder (provisional; has hx of manic like episodes; otherwise disorganized speech and negative symptoms) -will start Seroquel once catatonia seems to resolve; parents say seems to have improved on seroquel in the past Monitor response to medications. Monitor for safety in the milieu. Discharge on stabilization. Patient seen. Chart reviewed. Discussed with team. Obtain collateral contact info?as needed I spent minutes with the patient and/or on the patient floor today, greater than?50% of which was spent counseling/coordinating care. Patient educated on: diagnosis Informed Consent: does not understand and further education needed Reason for contiued inpatient stay Substantial Risk for: harm to self and inability to function
[2021-10-01 12:11] VITALS: BP 142/70; PULSE 96; RESP 16; TEMP 36.6; O2SAT 96
--- NOTE | 2021-10-01 12:43 | P.PNPSI_ITS ---
Subjective Subjective Date of Service: 10/01/21 Reason For Visit: bipolar disorder II Subjective Notes: Section 7 and Section 8 Interim History: Patient was seen and discussed with the nursing team. Patient continues to take the lorazepam 2 mg t.i.d. which seems to be helping with his catatonia. He continues to be latent in his responses and slowed. He denies any suicidal ideation or psychotic symptoms although appears internally preoccupied. He is oddly related. Review of Systems Acute medical concerns: No Review of Systems Review of Systems CVS: No c/o chest pain, palpitations, no SOB SOFTWARE DEVELOPER MANAGER: No c/o dizziness, headache GI: No c/o Nausea, Vomiting, diarrhea, constipation or heartburn -Denies hx of seizures -Denies hx of TBI/ concussion -Denies hx of cardiac issues Mental Status Exam Mental Status Exam Narrative: Pt is alert and oriented, though not to situation; Casual cloths but unkempt hair and marginal hygiene; walking slowly with fixed stare and significant speech latency. Pt is calm but does not want to engage; not in distress; mood is described as good, but affect flat; eye contact is mostly a fixed stare; Spe ech is non-spontaneous, latent and monotone, slowed rate but normal volume; walks slowly and psychomotor retardation present; thought process is goal directed answering questions posed to him but monosyllabic; Thought content is somewhat vacuous but pertinent to relevant topics/questions asked; he denies any delusional content, paranoid ideations and none expressed; denies any SI/HI. Denies AVH; seems internally pre-occupied; Patients insight and judgment are impaired. Diagnostics Vital Signs (24Hr): Vital Signs - 24 hr 09/30/21 19:10 10/01/21 12:11 Temperature 98.1 F 97.8 F Pulse Rate 74 96 Respiratory Rate 16 Blood Pressure 162/77 H 142/70 H Pulse Oximetry 96 BMI result Body Mass Index 20.6 Labs Results: 09/19/21 10:09 09/19/21 10:09 Medications Medications Current Medications Acetaminophen (Acetaminophen 325 Mg Tablet) 650 mg PO Q6H PRN PRN Reason: Headache/Pain Mild Scale (1-3) Al Hydroxide/Mg Hydroxide (Magnesium Hydrox/Alum Hydrox 30 Ml Oral.Susp) 30 ml PO Q6H PRN PRN Reason: Heartburn/Nausea Hydroxyzine HCl (Hydroxyzine Hcl 25 Mg Tablet) 25 mg PO BEDTIME PRN PRN Reason: Anxiety Lorazepam (Lorazepam 2 Mg/Ml Vial) 2 mg IM TID PRN PRN Reason: IF REFUSES PO ATIVAN(on dontae) Lorazepam (Lorazepam 1 Mg Tablet) 2 mg PO TID [facility] Last Admin: 10/01/21 09:43 Dose: 2 mg Documented by: Magnesium Hydroxide (Milk Of Magnesia 30 Ml Oral.Susp) 30 ml PO DAILY PRN PRN Reason: Constipation Quetiapine Fumarate (Quetiapine Fumarate 300 Mg Tablet) 300 mg PO BEDTIME [facility] Last Admin: 09/30/21 23:01 Dose: Not Given Documented by: Trazodone HCl (Trazodone Hcl 50 Mg Tablet) 50 mg PO BEDTIME PRN PRN Reason: Insomnia Allergies Allergies Allergy/AdvReac Type Severity Reaction Status Date / Time No Known Allergies Allergy Verified 09/18/21 20:22 Assessment & Plan Assessment & Plan (1) Schizophrenia: Status: Acute Code(s): F20.9 - Schizophrenia, unspecified Plan Pt is a 27 y.o. male who carries a dx of schizophrenia, r/o bipolar DO/ schizoaffective disorder. He has hx of being a high functioning individual until mid 20s, in which he became increasingly withdrawn, paranoid, using cannabis and hallucinogens, esoteric, and ultimately unable to sustain employment. Has had impulsive and risk taking behaviors, i.e. disappearing, alcohol abuse. Pt endorses neg sx of schizophrenia, i.e. flat affect, thought blocking, slowed movement. Has poor sleep and appetite. Pt arrives to [facility] [place] due to parents concern with worsening psychotic sx/ catat[place] behavior [place] the mall, as pt became withdrawn, stopped responding, staring at the floor, not redirectable. On admission,admitting provider notes that Parents asked for head CT or MRI/ neuro workup to rule out organic causes, however pt?s sx appear to be a function of primary psych diagnosis. They are concerned with pt?s level of risk taking behavior when he is decompensation i.e. becomes increasingly withdrawn, flat, non-verbal. Risk taking bx includes drinking to excess, taking off in the night at odd hours and disappearing to the point that parents have had to file missing person?s report. Pt has hx of significant suicide attempt in 07/2020, pt was similarly withdrawn, illogical, depressed, and flat. Parents report pt had improvement in sx on seroquel, however he has been non-adherent with treatment in the community. Parents feel unable to care for him at home. Pt adamantly refuses medication, has lack of insight into diagnosis. No medication started. 09/22 patient remains with some catatonic features however he is eating, talking and moving. He also lacks nearly all insight. However, while significant speech latency remains, and patient has flat affect with somewhat of a fixed stare, his thought process is logical and goal oriented. He refuses all medications. Patient refuses Ativan. While Ativan to would likely be helpful, at this point data analyst report writer does not find patient impaired to the point where he cannot input into medical decision making, as patient's thought content is organized and his catatonic symptoms seem to be improving. Will continue to monitor. 09/24: will schedule seroquel and continue to offer for psychotic sx 09/25: Pt refusing seroquel, guarded, appears internally preoccupied 09/26 no change in presentation; remains without insight and catatonic features. 09/27 no change; patient not phase by hearing that [employer] is no longer available; disputes that he does not have any money in his bank account. Patient said he chooses not to talk to this data analyst report writer this time -Pt denies any head trauma; parents deny any head trauma that they know of. Patient has some specific genetic loading for Schizoaffective/schizophrenia and the course of symptoms follows the known pattern of this illness; and Seroquel seemed to help resolve symptoms. Also, The episodic nature of patients symptoms, though worsening over recent months, have been going on for couple of years making any organic cause of symptoms, other than psychiatric, very unlikely. At this point, Head CT is unlikely to provide much information, but data analyst report writer will consult with neurology. Patient has predominantly negative symptoms and does not have symptoms associated with rare illness of Anti-NMDA receptor Encephalitis. 09/28 no change. Will proceed with involuntary commitment as patient has no insight into his disabling symptoms and is not organized enough to care for himself in the community. 09/29 Court ordered involuntary commitment and substituted judgment for medication/tx pt told data analyst report writer he did not want to talk; said he thinks he understands court proceedings. 09/30 given ativan 1mg and within 20 minutes significant reduction in catatonic symptoms including speech latency and moving slowly; still does not have insight; does not want meds and struggles to understand court order. 10/01: Id Improved with Ativan. No changes made. Plan: Q15 min safety checks, Section 7 involuntary commitment; COURT ORDERED SUBSTITUTED JUDGMENT for tx/mediations 1. 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 Schizoaffective disorder (provisional; has hx of manic like episodes; otherwise disorganized speech and negative symptoms) -will start Seroquel once catatonia seems to resolve; parents say seems to have improved on seroquel in the past And Monitor response to medications. Monitor for safety in the milieu. Discharge on stabilization. Patient seen. Chart reviewed. Discussed with team. Obtain collateral contact info?as needed I spent minutes with the patient and/or on the patient floor today, greater than?50% of which was spent counseling/coordinating care. Reason for contiued inpatient stay Substantial Risk for: inability to function and rapid decompensation
[2021-10-01 19:05] VITALS: BP 135/67; PULSE 92; TEMP 37.2
[2021-10-02] MEDS: LORazepam 1 MG TABLET 2 MG PO ×3 (09:06→22:02)
[2021-10-02 09:37] VITALS: BP 150/90; PULSE 106; RESP 16; TEMP 36.7; O2SAT 97
--- NOTE | 2021-10-02 12:27 | PC.NURSE ---
Pt refused lab work. aware.
--- NOTE | 2021-10-02 14:16 | HO.PSYCHPN ---
Subjective Subjective Date of Service: 10/02/21 Reason For Visit: bipolar disorder II Interim History: Patient was seen and discussed with the nursing team. Patient continues to take the lorazepam 2 mg t.i.d. which seems to be helping with his catatonia. He has been drinking excessive amounts of water. Advised lab work to check for electrolytes but patient refused. Patient also refusing restarting Seroquel which was helpful. He continues with monosyllabic answers and is difficult to engage. He is somewhat latent. He denies any suicidal ideation or psychotic symptoms although appears internally preoccupied. He is oddly related. Last night reportedly took his phone and went to his room and was browsing the internet. Review of Systems Review of Systems CVS: No c/o chest pain, palpitations, no SOB MEDICAL ESTHETICIAN: No c/o dizziness, headache GI: No c/o Nausea, Vomiting, diarrhea, constipation or heartburn -Denies hx of seizures -Denies hx of TBI/ concussion -Denies hx of cardiac issues Mental Status Exam Mental Status Exam Narrative: Pt is alert and oriented, though not to situation; Casual cloths but unkempt hair and marginal hygiene; walking slowly with fixed stare and significant speech latency. Pt is calm but does not want to engage; not in distress; mood is described as good, but affect flat; eye contact is mostly a fixed stare; Speech is non-spontaneous, latent and monotone, slowed rate but normal volume; walks slowly and psychomotor retardation present; thought process is goal directed answering questions posed to him but monosyllabic; Thought content is somewhat vacuous but pertinent to relevant topics/questions asked; he denies any delusional content, paranoid ideations and none expressed; denies any SI/HI. Denies AVH; seems internally pre-occupied; Patients insight and judgment are impaired. Diagnostics Vital Signs (24Hr): Vital Signs - 24 hr 10/01/21 19:05 10/02/21 09:37 Temperature 98.9 F 98.0 F Pulse Rate 92 106 H Respiratory Rate 16 Blood Pressure 135/67 150/90 H Pulse Oximetry 97 BMI result Body Mass Index 20.6 Labs Results: 09/19/21 10:09 09/19/21 10:09 Medications Medications Current Medications Acetaminophen (Acetaminophen 325 Mg Tablet) 650 mg PO Q6H PRN PRN Reason: Headache/Pain Mild Scale (1-3) Al Hydroxide/Mg Hydroxide (Magnesium Hydrox/Alum Hydrox 30 Ml Oral.Susp) 30 ml PO Q6H PRN PRN Reason: Heartburn/Nausea Hydroxyzine HCl (Hydroxyzine Hcl 25 Mg Tablet) 25 mg PO BEDTIME PRN PRN Reason: Anxiety Lorazepam (Lorazepam 2 Mg/Ml Vial) 2 mg IM TID PRN PRN Reason: IF REFUSES PO ATIVAN(on dontae) Lorazepam (Lorazepam 1 Mg Tablet) 2 mg PO TID [facility] Last Admin: 10/02/21 14:06 Dose: 2 mg Documented by: Magnesium Hydroxide (Milk Of Magnesia 30 Ml Oral.Susp) 30 ml PO DAILY PRN PRN Reason: Constipation Quetiapine Fumarate (Quetiapine Fumarate 300 Mg Tablet) 300 mg PO BEDTIME [facility] Last Admin: 09/30/21 23:01 Dose: Not Given Documented by: Trazodone HCl (Trazodone Hcl 50 Mg Tablet) 50 mg PO BEDTIME PRN PRN Reason: Insomnia Allergies Allergies Allergy/AdvReac Type Severity Reaction Status Date / Time No Known Allergies Allergy Verified 09/18/21 20:22 Assessment & Plan Assessment & Plan (1) Schizophrenia: Status: Acute Code(s): F20.9 - Schizophrenia, unspecified Plan Pt is a 27 y.o. male who carries a dx of schizophrenia, r/o bipolar DO/ schizoaffective disorder. He has hx of being a high functioning individual until mid 20s, in which he became increasingly withdrawn, paranoid, using cannabis and hallucinogens, esoteric, and ultimately unable to sustain employment. Has had impulsive and risk taking behaviors, i.e. disappearing, alcohol abuse. Pt endorses neg sx of schizophrenia, i.e. flat affect, thought blocking, slowed movement. Has poor sleep and appetite. Pt arrives to [facility] due to parents concern with worsening psychotic sx/ cat[place], as pt became withdrawn, stopped responding, staring at the floor, not redirectable. On admission,admitting provider notes that Parents asked for head CT or MRI/ neuro workup to rule out organic causes, however pt?s sx appear to be a function of primary psych diagnosis. They are concerned with pt?s level of risk taking behavior when he is decompensation i.e. becomes increasingly withdrawn, flat, non-verbal. Risk taking bx includes drinking to excess, taking off in the night at odd hours and disappearing to the point that parents have had to file missing person?s report. Pt has hx of significant suicide attempt in 07/2020, pt was similarly withdrawn, illogical, depressed, and flat. Parents report pt had improvement in sx on seroquel, however he has been non-adherent with treatment in the community. Parents feel unable to care for him at home. Pt adamantly refuses medication, has lack of insight into diagnosis. No medication started. 09/22 patient remains with some catatonic features however he is eating, talking and moving. He also lacks nearly all insight. However, while significant speech latency remains, and patient has flat affect with somewhat of a fixed stare, his thought process is logical and goal oriented. He refuses all medications. Patient refuses Ativan. While Ativan to would likely be helpful, at this point commercial loan underwriter does not find patient impaired to the point where he cannot input into medical decision making, as patient's thought content is organized and his catatonic symptoms seem to be improving. Will continue to monitor. 09/24: will schedule seroquel and continue to offer for psychotic sx 09/25: Pt refusing seroquel, guarded, appears internally preoccupied 09/26 no change in presentation; remains without insight and catatonic features. 09/27 no change; patient not phase by hearing that [employer] is no longer available; disputes that he does not have any money in his bank account. Patient said he chooses not to talk to this commercial loan underwriter this time -Pt denies any head trauma; parents deny any head trauma that they know of. Patient has some specific genetic loading for Schizoaffective/schizophrenia and the course of symptoms follows the known pattern of this illness; and Seroquel seemed to help resolve symptoms. Also, The episodic nature of patients symptoms, though worsening over recent months, have been going on for couple of years making any organic cause of symptoms, other than psychiatric, very unlikely. At this point, Head CT is unlikely to provide much information, but commercial loan underwriter will consult with neurology. Patient has predominantly negative symptoms and does not have symptoms associated with rare illness of Anti-NMDA receptor Encephalitis. 09/28 no change. Will proceed with involuntary commitment as patient has no insight into his disabling symptoms and is not organized enough to care for himself in the community. 09/29 Court ordered involuntary commitment and substituted judgment for medication/tx pt told commercial loan underwriter he did not want to talk; said he thinks he understands court proceedings. 09/30 given ativan 1mg and within 20 minutes significant reduction in catatonic symptoms including speech latency and moving slowly; still does not have insight; does not want meds and struggles to understand court order. 10/01: Id Improved with Ativan. No changes made. 10/02 offered Seroquel but patient refused. Defer to primary team restarting now that patient is committed on section 7/8 Plan: Q15 min safety checks, Section 7 involuntary commitment; COURT ORDERED SUBSTITUTED JUDGMENT for tx/mediations 1. 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 Schizoaffective disorder (provisional; has hx of manic like episodes; otherwise disorganized speech and negative symptoms) -will start Seroquel once catatonia seems to resolve; parents say seems to have improved on seroquel in the past And Monitor response to medications. Monitor for safety in the milieu. Discharge on stabilization. Patient seen. Chart reviewed. Discussed with team. Obtain collateral contact info?as needed I spent minutes with the patient and/or on the patient floor today, greater than?50% of which was spent counseling/coordinating care. Reason for contiued inpatient stay Substantial Risk for: inability to function and rapid decompensation
[2021-10-02 20:50] VITALS: BP 124/59; PULSE 81; TEMP 35.8
[2021-10-03 06:00] VITALS: PULSE 76; RESP 16; TEMP 37.8; O2SAT 97
[2021-10-03] MEDS: LORazepam 1 MG TABLET PO ×4 (09:47→20:18)
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
[2021-10-03 18:00] VITALS: BP 142/64; PULSE 77; RESP 14; O2SAT 97
[2021-10-04 06:00] VITALS: BP 134/74; PULSE 92; TEMP 37.2; O2SAT 96
[2021-10-04] MEDS: LORazepam 1 MG TABLET PO ×4 (10:02→20:35)
--- NOTE | 2021-10-04 15:56 | P.PNPSI_ITS ---
Subjective Subjective Date of Service: 10/04/21 Reason For Visit: bipolar disorder II Interim History: Not much change. Patient continues to have improved spontaneousness with his speech and is walking a little more fluidly than on admission, however both remain slowed. Patient has the insight to acknowledge that Ativan has probably been helpful to him. He had a visit from his mother today but unfortunately she left before could meet with this repairer typewriter. Both patient and repairer typewriter agree to involve his parents in discussions prior to starting additional medication. As for now, he remains with catatonic symptoms and repairer typewriter wants to continue to let Ativan work before starting a mood stabilizer or antipsychotic. Mental Status Exam Mental Status Exam Narrative: Pt is alert and oriented, though only partially to situation; dressed in casual cloths; unkempt hair but adequate hygiene; walking and moving slowly with delayed movements, however more fluid than on admission. Speech remains with latency however, less than on admission and is now spontaneous, still slowed but closer to normal rate than before; Mood is described as good, and effect more naturally expressive; eye contact appropriate; thought process is goal directed and linear; Thought content is on treatment such as talk therapy and not wanting medication; but pertinent to relevant topics/questions asked; he denies any delusional content, paranoid ideations and none expressed; denies any SI/HI. Denies AVH;? Patients insight and judgment are impaired Diagnostics Vital Signs (24Hr): Vital Signs - 24 hr 10/03/21 18:00 10/04/21 06:00 Temperature 98.9 F Pulse Rate 77 92 Respiratory Rate 14 Blood Pressure 142/64 H 134/74 Pulse Oximetry 97 96 BMI result Body Mass Index 20.6 Labs Results: 09/19/21 10:09 09/19/21 10:09 Medications Medications Current Medications Acetaminophen (Acetaminophen 325 Mg Tablet) 650 mg PO Q6H PRN PRN Reason: Headache/Pain Mild Scale (1-3) Al Hydroxide/Mg Hydroxide (Magnesium Hydrox/Alum Hydrox 30 Ml Oral.Susp) 30 ml PO Q6H PRN PRN Reason: Heartburn/Nausea Hydroxyzine HCl (Hydroxyzine Hcl 25 Mg Tablet) 25 mg PO BEDTIME PRN PRN Reason: Anxiety Lorazepam (Lorazepam 1 Mg Tablet) 1 mg PO QID KEITH Last Admin: 10/04/21 13:06 Dose: 1 mg Documented by: Lorazepam (Lorazepam 2 Mg/Ml Vial) 1 mg IM QID PRN PRN Reason: IF REFUSES PO ATIVAN(on dontae) Magnesium Hydroxide (Milk Of Magnesia 30 Ml Oral.Susp) 30 ml PO DAILY PRN PRN Reason: Constipation Trazodone HCl (Trazodone Hcl 50 Mg Tablet) 50 mg PO BEDTIME PRN PRN Reason: Insomnia Allergies Allergies Allergy/AdvReac Type Severity Reaction Status Date / Time No Known Allergies Allergy Verified 09/18/21 20:22 Assessment & Plan Assessment & Plan (1) Schizophrenia: Status: Acute Code(s): F20.9 - Schizophrenia, unspecified Plan Pt is a 27 y.o. male who carries a dx of schizophrenia, r/o bipolar DO/ schizoaffective disorder. He has hx of being a high functioning individual until mid 20s, in which he became increasingly withdrawn, paranoid, using cannabis and hallucinogens, esoteric, and ultimately unable to sustain employment. Has had impulsive and risk taking behaviors, i.e. disappearing, alcohol abuse. Pt endorses neg sx of schizophrenia, i.e. flat affect, thought blocking, slowed movement. Has poor sleep and appetite. Pt arrives to [facility] due to parents concern with worsening psychotic sx/ catat[place] the mall, as pt became withdrawn, stopped responding, staring at the floor, not redirectable. On admission,admitting provider notes that Parents asked for head CT or MRI/ neuro workup to rule out organic causes, however pt?s sx appear to be a function of primary psych diagnosis. They are concerned with pt?s level of risk taking behavior when he is decompensation i.e. becomes increasingly withdrawn, flat, non-verbal. Risk taking bx includes drinking to excess, taking off in the night at odd hours and disappearing to the point that parents have had to file missing person?s report. Pt has hx of significant suicide attempt in 07/2020, pt was similarly withdrawn, illogical, depressed, and flat. Parents report pt had improvement in sx on seroquel, however he has been non-adherent with treatment in the community. Parents feel unable to care for him at home. Pt adamantly refuses medication, has lack of insight into diagnosis. No medication started. 09/22 patient remains with some catatonic features however he is eating, talking and moving. He also lacks nearly all insight. However, while significant speech latency remains, and patient has flat affect with somewhat of a fixed stare, his thought process is logical and goal oriented. He refuses all medications. Patient refuses Ativan. While Ativan to would likely be helpful, at this point repairer typewriter does not find patient impaired to the point where he cannot input into medical decision making, as patient's thought content is organized and his catatonic symptoms seem to be improving. Will continue to monitor. 09/24: will schedule seroquel and continue to offer for psychotic sx 09/25: Pt refusing seroquel, guarded, appears internally preoccupied 09/26 no change in presentation; remains without insight and catatonic features. 09/27 no change; patient not phase by hearing that [employer] is no longer available; disputes that he does not have any money in his bank account. Patient said he chooses not to talk to this repairer typewriter this time -Pt denies any head trauma; parents deny any head trauma that they know of. Patient has some specific genetic loading for Schizoaffective/schizophrenia and the course of symptoms follows the known pattern of this illness; and Seroquel seemed to help resolve symptoms. Also, The episodic nature of patients symptoms, though worsening over recent months, have been going on for couple of years making any organic cause of symptoms, other than psychiatric, very unlikely. At this point, Head CT is unlikely to provide much information, but repairer typewriter will consult with neurology. Patient has predominantly negative symptoms and does not have symptoms associated with rare illness of Anti-NMDA receptor Encephalitis. 09/28 no change. Will proceed with involuntary commitment as patient has no insight into his disabling symptoms and is not organized enough to care for himself in the community. 09/29 Court ordered involuntary commitment and substituted judgment for medication/tx pt told repairer typewriter he did not want to talk; said he thinks he understands court proceedings. 09/30 given ativan 1mg and within 20 minutes significant reduction in catatonic symptoms including speech latency and moving slowly; still does not have insi ght; does not want meds and struggles to understand court order. 10/01: Id Improved with Ativan. No changes made. 10/03 holding Seroquel for now; will continue to treat catatonia with ativan. At this point repairer typewriter still needs help differentiating between bipolar/schizoaffective-bipolar type and schizophrenia. Patient remains with speech latency and slow movements, however these have improved; most significantly patient is able to talk spontaneously and have a reasonable given take conversation; able to talk with peers. He struggles with insight and understanding that his symptoms represent an illness more debilitating than stress, however he is open to continuing to discuss it 4/5 Not much change. Patient continues to have improved spontaneousness with his speech and is walking a little more fluidly than on admission, however both remain slowed. Patient has the insight to acknowledge that Ativan has probably been helpful to him. He had a visit from his mother today but unfortunately she left before could meet with this repairer typewriter. Both patient and repairer typewriter agree to involve his parents in discussions prior to starting additional medication. As for now, he remains with catatonic symptoms and repairer typewriter wants to continue to let Ativan work before starting a mood stabilizer or antipsychotic. Plan: Q15 min safety checks, Section 7 involuntary commitment; COURT ORDERED SUBSTITUTED JUDGMENT for tx/mediations 1. 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 Schizoaffective disorder (provisional; has hx of manic like episodes; otherwise disorganized speech and negative symptoms) -at 1st, considered Seroquel once catatonia seems to resolve; parents say seems to have improved on seroquel in the past -this point however will see if can get a more detailed history from his parents and try and better assess bipolar/schizoaffective versus schizophrenia Antipsychotic Medications allowed by court order: Seroquel Ativan up to 8 mg daily Thorazine Prolixin immediate release/long-acting Haldol [employer] [place] Monitor response to medications. Monitor for safety in the milieu. Discharge on stabilization. Patient seen. Chart reviewed. Discussed with team. Obtain collateral contact info?as needed I spent minutes with the patient and/or on the patient floor today, greater than?50% of which was spent counseling/coordinating care. Reason for contiued inpatient stay Substantial Risk for: harm to self, inability to function and rapid decompensation
[2021-10-04 18:00] VITALS: BP 131/72; PULSE 83; TEMP 37.1; O2SAT 98
[2021-10-05] MEDS: LORazepam 1 MG TABLET PO ×4 (09:26→21:37)
--- NOTE | 2021-10-05 10:44 | HO.PSYCHPN ---
Subjective Subjective Date of Service: 10/05/21 Reason For Visit: bipolar disorder II Interim History: Met with Jose and both of his parents to discuss both treatment and get more history. Parents started to share about patients functioning while in college, how it is different from now. However is Jose continued to insist that he is at his normal baseline, the same as he was in college and could not tolerate his parents saying anything to the contrary. Every time either of his parents tried to shared their concerns he challenged them saying that they agree he is at his baseline. He also said his securities underwriter agrees with him, despite that securities underwriter very clearly, just moments before explained that securities underwriter does not think he is at his former baseline and detail the reasons why. Crinkling Machine Operator discussed how patient took his father's car without permission which could of equate it to a felony charge however patient was unable to either understand or accept this and continued to say was just a misunderstanding (which given patient's level of confusion probably was); he could not understand how this was concerning. The conversation proved futile as patient continue to interrupt and challenge his parents and this portion of the discussion was concluded and family moved on to a neutral topic. Mental Status Exam Mental Status Exam Narrative: Pt is alert and oriented, though only partially to situation; dressed in casual cloths; unkempt hair but adequate hygiene; still walking and moving slowly with delayed movements, however more fluid than on admission. Speech remains with latency however, less than on admission and is now spontaneous; still slowed but closer to normal rate than before; Mood is described as good, Affect still fixed, but pt is also able to have more natural expressions; eye contact appropriate, though still some staring; thought process is goal directed and linear;? Thought content is on that he's good and not wanting medication; but pertinent to relevant topics/questions asked; he denies any delusional content, paranoid ideations and none expressed; denies any SI/HI. Denies AVH;? Patients insight and judgment are impaired Diagnostics Vital Signs (24Hr): Vital Signs - 24 hr 10/04/21 18:00 Temperature 98.7 F Pulse Rate 83 Blood Pressure 131/72 Pulse Oximetry 98 BMI result Body Mass Index 20.6 Labs Results: 09/19/21 10:09 09/19/21 10:09 Medications Medications Current Medications Acetaminophen (Acetaminophen 325 Mg Tablet) 650 mg PO Q6H PRN PRN Reason: Headache/Pain Mild Scale (1-3) Al Hydroxide/Mg Hydroxide (Magnesium Hydrox/Alum Hydrox 30 Ml Oral.Susp) 30 ml PO Q6H PRN PRN Reason: Heartburn/Nausea Hydroxyzine HCl (Hydroxyzine Hcl 25 Mg Tablet) 25 mg PO BEDTIME PRN PRN Reason: Anxiety Lorazepam (Lorazepam 1 Mg Tablet) 1 mg PO QID KEITH Last Admin: 10/05/21 09:26 Dose: 1 mg Documented by: Lorazepam (Lorazepam 2 Mg/Ml Vial) 1 mg IM QID PRN PRN Reason: IF REFUSES PO ATIVAN(on dontae) Magnesium Hydroxide (Milk Of Magnesia 30 Ml Oral.Susp) 30 ml PO DAILY PRN PRN Reason: Constipation Trazodone HCl (Trazodone Hcl 50 Mg Tablet) 50 mg PO BEDTIME PRN PRN Reason: Insomnia Allergies Allergies Allergy/AdvReac Type Severity Reaction Status Date / Time No Known Allergies Allergy Verified 09/18/21 20:22 Assessment & Plan Assessment & Plan (1) Schizophrenia: Status: Acute Code(s): F20.9 - Schizophrenia, unspecified Plan Pt is a 27 y.o. male who carries a dx of schizophrenia, r/o bipolar DO/ schizoaffective disorder. He has hx of being a high functioning individual until mid 20s, in which he became increasingly withdrawn, paranoid, using cannabis and hallucinogens, esoteric, and ultimately unable to sustain employment. Has had impulsive and risk taking behaviors, i.e. disappearing, alcohol abuse. Pt endorses neg sx of schizophrenia, i.e. flat affect, thought blocking, slowed movement. Has poor sleep and appetite. Pt arrives to [facility] due to parents concern with worsening psychotic sx/ catatonic behavior [place] the mall, as pt became withdrawn, stopped responding, staring at the floor, not redirectable. On admission,admitting provider notes that Parents asked for head CT or MRI/ neuro workup to rule out organic causes, however pt?s sx appear to be a function of primary psych diagnosis. They are concerned with pt?s level of risk taking behavior when he is decompensation i.e. becomes increasingly withdrawn, flat, non-verbal. Risk taking bx includes drinking to excess, taking off in the night at odd hours and disappearing to the point that parents have had to file missing person?s report. Pt has hx of significant suicide attempt in 07/2020, pt was similarly withdrawn, illogical, depressed, and flat. Parents report pt had improvement in sx on seroquel, however he has been non-adherent with treatment in the community. Parents feel unable to care for him at home. Pt adamantly refuses medication, has lack of insight into diagnosis. No medication started. 09/22 patient remains with some catatonic features however he is eating, talking and moving. He also lacks nearly all insight. However, while significant speech latency remains, and patient has flat affect with somewhat of a fixed stare, his thought process is logical and goal oriented. He refuses all medications. Patient refuses Ativan. While Ativan to would likely be helpful, at this point securities underwriter does not find patient impaired to the point where he cannot input into medical decision making, as patient's thought content is organized and his catatonic symptoms seem to be improving. Will continue to monitor. 09/24: will schedule seroquel and continue to offer for psychotic sx 09/25: Pt refusing seroquel, guarded, appears internally preoccupied 09/26 no change in presentation; remains without insight and catatonic features. 09/27 no change; patient not phase by hearing that [employer] is no longer available; disputes that he does not have any money in his bank account. Patient said he chooses not to talk to this securities underwriter this time -Pt denies any head trauma; parents deny any head trauma that they know of. Patient has some specific genetic loading for Schizoaffective/schizophrenia and the course of symptoms follows the known pattern of this illness; and Seroquel seemed to help resolve symptoms. Also, The episodic nature of patients symptoms, though worsening over recent months, have been going on for couple of years making any organic cause of symptoms, other than psychiatric, very unlikely. At this point, Head CT is unlikely to provide much information, but securities underwriter will consult with neurology. Patient has predominantly negative symptoms and does not have symptoms associated with rare illness of Anti-NMDA receptor Encephalitis. 09/28 no change. Will proceed with involuntary commitment as patient has no insight into his disabling symptoms and is not organized enough to care for himself in the community. 09/29 Court ordered involuntary commitment and substituted judgment for medication/tx pt told securities underwriter he did not want to talk; said he thinks he understands court proceedings. 09/30 given ativan 1mg and within 20 minutes significant reduction in catatonic symptoms including speech latency and moving slowly; still does not have insight; does not want meds and struggles to understand court order. 10/01: Id Improved with Ativan. No changes made. 10/03 holding Seroquel for now; will continue to treat catatonia with ativan. At this point securities underwriter still needs help differentiating between bipolar/schizoaffective-bipolar type and schizophrenia. Patient remains with speech latency and slow movements, however these have improved; most significantly patient is able to talk spontaneously and have a reasonable given take conversation; able to talk with peers. He struggles with insight and understanding that his symptoms represent an illness more debilitating than stress, however he is open to continuing to discuss it 10/04 Not much change. Patient continues to have improved spontaneousness with his speech and is walking a little more fluidly than on admission, however both remain slowed. Patient has the insight to acknowledge that Ativan has probably been helpful to him. He had a visit from his mother today but unfortunately she left before could meet with this securities underwriter. Both patient and securities underwriter agree to involve his parents in discussions prior to starting additional medication. As for now, he remains with catatonic symptoms and securities underwriter wants to continue to let Ativan work before starting a mood stabilizer or antipsychotic. Plan: Q15 min safety checks, Section 7 involuntary commitment; COURT ORDERED SUBSTITUTED JUDGMENT for tx/mediations 1. 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 Schizoaffective disorder (provisional; has hx of manic like episodes; otherwise disorganized speech and negative symptoms) -at 1st, considered Seroquel once catatonia seems to resolve; parents say seems to have improved on seroquel in the past -this point however will see if can get a more detailed history from his parents and try and better assess bipolar/schizoaffective versus schizophrenia Antipsychotic Medications allowed by court order: Seroquel Ativan up to 8 mg daily Thorazine Prolixin immediate release/long-acting Haldol [employer] [place] Monitor response to medications. Monitor for safety in the milieu. Discharge on stabilization. Patient seen. Chart reviewed. Discussed with team. Obtain collateral contact info?as needed I spent minutes with the patient and/or on the patient floor today, greater than?50% of which was spent counseling/coordinating care. Patient educated on: diagnosis Informed Consent: does not understand Reason for contiued inpatient stay Substantial Risk for: inability to function and rapid decompensation
[2021-10-05 17:00] VITALS: BP 139/85; PULSE 89; TEMP 36.8
[2021-10-06 06:00] VITALS: BP 117/60; PULSE 93; RESP 16; TEMP 37.2; O2SAT 98
[2021-10-06] MEDS: LORazepam 1 MG TABLET PO ×4 (09:26→21:40)
--- NOTE | 2021-10-06 15:08 | P.PNPSI_ITS ---
Subjective Subjective Date of Service: 10/06/21 Reason For Visit: bipolar disorder II Interim History: [employer] discussed medication initiation with patient who at 1st asked repeatedly whether talk therapy in Ativan would be sufficient, despite feature writer answering each time that it was not. Patient said that he re-asked the question wondering if perhaps feature writer changed his mind. Patient however said that whatever feature writer thinks is best, he would take the medication. Later, [employer] talked at length with patient's mother and father regarding patient's history. [employer] was able to rule out autistic spectrum disorder. Family said that patient has always been a very sensitive, emotional person and that he had trouble keeping friendships, often getting hurt. 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 Over the next several years he would often take off on a moment's notice to either a foreign country or other places, sometimes staying there for few months, other times staying there for only 1 or 2 days, and upon returning home would offer little explanation as to why it did not work out as he had planned. 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 He was there for 8 months but left that job saying that his coworkers were jealous of him and that his boss was on supportive, reminding parents of his historical pattern of relationship struggles. 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 July of last year he came home from [place] saying being into a semi driver did not work out. His parents could tell that something was off and for the 1st time they noticed he was moving slowly, eating slowly and had paranoid thoughts. Later that day they found him having attempted suicide. He was then he was started on Seroquel following psychiatric admission however he never developed any insight and treated this very serious and near deadly suicide attempt as if it was something very minor. Patient continued to abuse cannabis and alcohol. Over the subsequent months he would have periods where he would isolate himself from others, drink, smoke, sometimes be more sociable and other times not as much. Regarding patient's frequent impromptu decisions to drive to [place] or go to a foreign country, His parents cannot identify any other very clear manic symptoms such as rapid speech, insomnia or other associated behaviors. That said there is an episodic nature to these impromptu trips. Throughout these last couple years and especially this past year he has been operating at of very different level than his prior past achievements, unable to hold down jobs including jobs at [employer]. Mental Status Exam Mental Status Exam Narrative: Pt is alert and oriented, though only partially to situation; dressed in casual cloths; unkempt hair but adequate hygiene; still walking and moving slowly with delayed movements, however more fluid than on admission. Speech remains with latency however, less than on admission and is now spontaneous; still slowed but closer to normal rate than before; Mood is described as good, Affect still fixed, but pt is also able to have more natural expressions; eye contact appropriate, though still some staring; thought process is goal directed and linear;? Thought content is on that he's good and not wanting medication; but pertinent to relevant topics/questions asked; he denies any delusional content, paranoid ideations and none expressed; denies any SI/HI. Denies AVH;? Patients insight and judgment are impaired Diagnostics Vital Signs (24Hr): Vital Signs - 24 hr 10/05/21 17:00 10/06/21 06:00 Temperature 98.3 F 99 F Pulse Rate 89 93 Respiratory Rate 16 Blood Pressure 139/85 117/60 Pulse Oximetry 98 BMI result Body Mass Index 20.6 Labs Results: 09/19/21 10:09 09/19/21 10:09 Medications Medications Current Medications Acetaminophen (Acetaminophen 325 Mg Tablet) 650 mg PO Q6H PRN PRN Reason: Headache/Pain Mild Scale (1-3) Al Hydroxide/Mg Hydroxide (Magnesium Hydrox/Alum Hydrox 30 Ml Oral.Susp) 30 ml PO Q6H PRN PRN Reason: Heartburn/Nausea Hydroxyzine HCl (Hydroxyzine Hcl 25 Mg Tablet) 25 mg PO BEDTIME PRN PRN Reason: Anxiety Lorazepam (Lorazepam 1 Mg Tablet) 1 mg PO QID KEITH Last Admin: 10/06/21 12:23 Dose: 1 mg Documented by: Lorazepam (Lorazepam 2 Mg/Ml Vial) 1 mg IM QID PRN PRN Reason: IF REFUSES PO ATIVAN(on dontae) Magnesium Hydroxide (Milk Of Magnesia 30 Ml Oral.Susp) 30 ml PO DAILY PRN PRN Reason: Constipation Trazodone HCl (Trazodone Hcl 50 Mg Tablet) 50 mg PO BEDTIME PRN PRN Reason: Insomnia Allergies Allergies Allergy/AdvReac Type Severity Reaction Status Date / Time No Known Allergies Allergy Verified 09/18/21 20:22 Assessment & Plan Assessment & Plan (1) Schizophrenia: Status: Acute Code(s): F20.9 - Schizophrenia, unspecified Plan Pt is a 27 y.o. male who carries a dx of schizophrenia, r/o bipolar DO/ schizoaffective disorder. He has hx of being a high functioning individual until mid 20s, in which he became increasingly withdrawn, paranoid, using cannabis and hallucinogens, esoteric, and ultimately unable to sustain employment. Has had impulsive and risk taking behaviors, i.e. disappearing, alcohol abuse. Pt endorses neg sx of schizophrenia, i.e. flat affect, thought blocking, slowed movement. Has poor sleep and appetite. [place] [facility] parents concern with worsening psychotic sx/ catat[place] the [place], as pt became withdrawn, stopped responding, staring at the floor, not redirectable. On a dmission,admitting provider notes that Parents asked for head CT or MRI/ neuro workup to rule out organic causes, however pt?s sx appear to be a function of primary psych diagnosis. They are concerned with pt?s level of risk taking behavior when he is decompensation i.e. becomes increasingly withdrawn, flat, non-verbal. Risk taking bx includes drinking to excess, taking off in the night at odd hours and disappearing to the point that parents have had to file missing person?s report. Pt has hx of significant suicide attempt in 07/2020, pt was similarly withdrawn, illogical, depressed, and flat. Parents report pt had improvement in sx on seroquel, however he has been non-adherent with treatment in the community. Parents feel unable to care for him at home. Pt adamantly refuses medication, has lack of insight into diagnosis. No medication started. 09/22 patient remains with some catatonic features however he is eating, talking and moving. He also lacks nearly all insight. However, while significant speech latency remains, and patient has flat affect with somewhat of a fixed stare, his thought process is logical and goal oriented. He refuses all medications. Patient refuses Ativan. While Ativan to would likely be helpful, at this point feature writer does not find patient impaired to the point where he cannot input into medical decision making, as patient's thought content is organized and his catatonic symptoms seem to be improving. Will continue to monitor. 09/24: will schedule seroquel and continue to offer for psychotic sx 09/25: Pt refusing seroquel, guarded, appears internally preoccupied 09/26 no change in presentation; remains without insight and catatonic features. 09/27 no change; patient not phase by hearing that [employer] is no longer available; disputes that he does not have any money in his bank account. Patient said he chooses not to talk to this feature writer this time -Pt denies any head trauma; parents deny any head trauma that they know of. Patient has some specific genetic loading for Schizoaffective/schizophrenia and the course of symptoms follows the known pattern of this illness; and Seroquel seemed to help resolve symptoms. Also, The episodic nature of patients symptoms, though worsening over recent months, have been going on for couple of years making any organic cause of symptoms, other than psychiatric, very unlikely. At this point, Head CT is unlikely to provide much information, but feature writer will consult with neurology. Patient has predominantly negative symptoms and does not have symptoms associated with rare illness of Anti-NMDA receptor Encephalitis. 09/28 no change. Will proceed with involuntary commitment as patient has no insight into his disabling symptoms and is not organized enough to care for himself in the community. 09/29 Court ordered involuntary commitment and substituted judgment for medication/tx pt told feature writer he did not want to talk; said he thinks he understands court proceedings. 09/30 given ativan 1mg and within 20 minutes significant reduction in catatonic symptoms including speech latency and moving slowly; still does not have insight; does not want meds and struggles to understand court order. 10/01: Id Improved with Ativan. No changes made. 10/03 holding Seroquel for now; will continue to treat catatonia with ativan. At this point feature writer still needs help differentiating between bipolar/schizoaffective-bipolar type and schizophrenia. Patient remains with speech latency and slow movements, however these have improved; most significantly patient is able to talk spontaneously and have a reasonable given take conversation; able to talk with peers. He struggles with insight and understanding that his symptoms represent an illness more debilitating than stress, however he is open to continuing to discuss it 4/5 Not much change. Patient continues to have improved spontaneousness with his speech and is walking a little more fluidly than on admission, however both remain slowed. Patient has the insight to acknowledge that Ativan has probably been helpful to him. He had a visit from his mother today but unfortunately she left before could meet with this feature writer. Both patient and feature writer agree to involve his parents in discussions prior to starting additional medication. As for now, he remains with catatonic symptoms and feature writer wants to continue to let Ativan work before starting a mood stabilizer or antipsychotic. 10/06 after further reviewing history with patient's parents, it seems that mike barry has had an a slowly increasing amount of disorganized thinking and behavior, fully revealing itself with patient suicide last year and continuing to this admission. There is some amount of episodic nature to some of his disorganized behaviors such as not infrequently making impromptu trips to foreign countries. However there does not seem to be any other associated manic type behaviors and in-between these impromptu trips, patient remained with disorganized thinking and behaviors relative to his past ability and achievements. It seems that disorganized behaviors is the prominent psychotic symptoms Formulation: Patient has history of being emotionally sensitive and having feelings easily hurt by others, with some difficulty forming lasting relationships. After review with parents, there does not seem to a ASD. it seems that patient has had an a slowly increasing amount of disorganized thinking and behavior, fully revealing itself with patient suicide last year and continuing to this admission. There is some amount of episodic nature to some of his disorganized behaviors such as not infrequently making impromptu trips to foreign countries. However there does not seem to be any other associated manic type behaviors and in-between these impromptu trips, patient remained with disorganized thinking and behaviors relative to his past ability and achievements. It seems that disorganized behaviors is the prominent psychotic symptoms Plan: Q15 min safety checks, Section 7 involuntary commitment; COURT ORDERED SUBSTITUTED JUDGMENT for tx/medi ations 1. 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 Schizoaffective disorder (provisional; has hx of manic like episodes; otherwise disorganized speech and negative symptoms) -Abilify 5 mg q.h.s. (PT ON SUBSTITUTED JUDGMENT: if refuses give IM Haldol) -after talking with parents again and after they have had some time to reflect, it seems that Seroquel trial unlikely made much difference as patient was still disorganized. Patient also has limited insight and history of being noncompliant with medications and not wanting medications making this a less favorable option. Given these reasons, feature writer decided to instead initiate trial of Abilify since it has a little less metabolic syndrome risk profile and comes in a long-acting medication. Antipsychotic Medications allowed by court order: Seroquel Ativan up to 8 mg daily Thorazine Prolixin immediate release/long-acting Haldol Abilify Zyprexa Addy Monitor response to medications. Monitor for safety in the milieu. Discharge on stabilization. Patient seen. Chart reviewed. Discussed with team. Obtain collateral contact info?as needed I spent minutes with the patient and/or on the patient floor today, greater than?50% of which was spent counseling/coordinating care. Reason for contiued inpatient stay Substantial Risk for: inability to function
[2021-10-06 21:20] VITALS: BP 153/76; PULSE 83; TEMP 36.8
[2021-10-06] MEDS: ARIPiprazole 5 MG TABLET PO (21:39)
[2021-10-07 06:00] VITALS: BP 136/67; PULSE 85; RESP 16; TEMP 36.6; O2SAT 96
[2021-10-07] MEDS: LORazepam 1 MG TABLET PO ×4 (08:46→20:22)
--- NOTE | 2021-10-07 16:16 | HO.PSYCHPN ---
Subjective Subjective Date of Service: 10/07/21 Reason For Visit: bipolar disorder II Interim History: Patient says that he is doing very well. He said he had a good visit with his mother today. Regarding Abilify, patient says he thinks it helped because he slept well last night and this morning he woke up in a good mood and felt like sharing his good mood with the world. He says he often feels like this but he thinks that the Abilify was helpful in this way. He also agrees to increasing the titration. Mental Status Exam Mental Status Exam Narrative: Pt is alert and oriented, though only partially to situation; dressed in casual cloths; unkempt hair but adequate hygiene; still walking and moving slowly with delayed movements, however more fluid than on admission. Speech remains with latency however, less than on admission and is now spontaneous; still slowed but closer to normal rate than before; Mood is described as good, Affect still fixed, but pt is also able to have more natural expressions; eye contact appropriate, though still some staring; thought process is goal directed and linear;? Thought content is on that he's good and not wanting medication; but pertinent to relevant topics/questions asked; he denies any delusional content, paranoid ideations and none expressed; denies any SI/HI. Denies AVH;? Patients insight and judgment are impaired Diagnostics Vital Signs (24Hr): Vital Signs - 24 hr 10/06/21 21:20 10/07/21 06:00 Temperature 98.2 F 97.9 F Pulse Rate 83 85 Respiratory Rate 16 Blood Pressure 153/76 H 136/67 Pulse Oximetry 96 BMI result Body Mass Index 20.6 Labs Results: 09/19/21 10:09 09/19/21 10:09 Medications Medications Current Medications Acetaminophen (Acetaminophen 325 Mg Tablet) 650 mg PO Q6H PRN PRN Reason: Headache/Pain Mild Scale (1-3) Al Hydroxide/Mg Hydroxide (Magnesium Hydrox/Alum Hydrox 30 Ml Oral.Susp) 30 ml PO Q6H PRN PRN Reason: Heartburn/Nausea Aripiprazole (Aripiprazole 5 Mg Tablet) 5 mg PO BEDTIME KEITH Last Admin: 10/06/21 21:39 Dose: 5 mg Documented by: Haloperidol Lactate (Haloperidol Lactate 5 Mg/Ml Vial) 5 mg IM BEDTIME PRN PRN Reason: refusal of PO Abilify Hydroxyzine HCl (Hydroxyzine Hcl 25 Mg Tablet) 25 mg PO BEDTIME PRN PRN Reason: Anxiety Lorazepam (Lorazepam 1 Mg Tablet) 1 mg PO QID KEITH Last Admin: 10/07/21 12:44 Dose: 1 mg Documented by: Lorazepam (Lorazepam 2 Mg/Ml Vial) 1 mg IM QID PRN PRN Reason: IF REFUSES PO ATIVAN(on dontae) Magnesium Hydroxide (Milk Of Magnesia 30 Ml Oral.Susp) 30 ml PO DAILY PRN PRN Reason: Constipation Trazodone HCl (Trazodone Hcl 50 Mg Tablet) 50 mg PO BEDTIME PRN PRN Reason: Insomnia Allergies Allergies Allergy/AdvReac Type Severity Reaction Status Date / Time No Known Allergies Allergy Verified 09/18/21 20:22 Assessment & Plan Assessment & Plan (1) Schizophrenia: Status: Acute Code(s): F20.9 - Schizophrenia, unspecified Plan Pt is a 27 y.o. male who carries a dx of schizophrenia, r/o bipolar DO/ schizoaffective disorder. He has hx of being a high functioning individual until mid 20s, in which he became increasingly withdrawn, paranoid, using cannabis and hallucinogens, esoteric, and ultimately unable to sustain employment. Has had impulsive and risk taking behaviors, i.e. disappearing, alcohol abuse. Pt endorses neg sx of schizophrenia, i.e. flat affect, thought blocking, slowed movement. Has poor sleep and appetite. Pt arrives to [facility] due to parents concern with worsening psychotic sx/ catat[place] behavior [place] the mall, as pt became withdrawn, stopped responding, staring at the floor, not redirectable. On admission,admitting provider notes that Parents asked for head CT or MRI/ neuro workup to rule out organic causes, however pt?s sx appear to be a function of primary psych diagnosis. They are concerned with pt?s level of risk taking behavior when he is decompensation i.e. becomes increasingly withdrawn, flat, non-verbal. Risk taking bx includes drinking to excess, taking off in the night at odd hours and disappearing to the point that parents have had to file missing person?s report. Pt has hx of significant suicide attempt in 07/2020, pt was similarly withdrawn, illogical, depressed, and flat. Parents report pt had improvement in sx on seroquel, however he has been non-adherent with treatment in the community. Parents feel unable to care for him at home. Pt adamantly refuses medication, has lack of insight into diagnosis. No medication started. 09/22 patient remains with some catatonic features however he is eating, talking and moving. He also lacks nearly all insight. However, while significant speech latency remains, and patient has flat affect with somewhat of a fixed stare, his thought process is logical and goal oriented. He refuses all medications. Patient refuses Ativan. While Ativan to would likely be helpful, at this point resume writer does not find patient impaired to the point where he cannot input into medical decision making, as patient's thought content is organized and his catatonic symptoms seem to be improving. Will continue to monitor. 09/24: will schedule seroquel and continue to offer for psychotic sx 09/25: Pt refusing seroquel, guarded, appears internally preoccupied 09/26 no change in presentation; remains without insight and catatonic features. 09/27 no change; patient not phase by hearing that [employer] is no longer available; disputes that he does not have any money in his bank account. Patient said he chooses not to talk to this resume writer this time -Pt denies any head trauma; parents deny any head trauma that they know of. Patient has some specific genetic loading for Schizoaffective/schizophrenia and the course of symptoms follows the known pattern of this illness; and Seroquel seemed to help resolve symptoms. Also, The episodic nature of patients symptoms, though worsening over recent months, have been going on for couple of years making any organic cause of symptoms, other than psychiatric, very unlikely. At this point, Head CT is unlikely to provide much information, but resume writer will consult with neurology. Patient has predominantly negative symptoms and does not have symptoms associated with rare illness of Anti-NMDA receptor Encephalitis. 09/28 no change. Will proceed with involuntary commitment as patient has no insight into his disabling symptoms and is not organized enough to care for himself in the community. 09/29 Court ordered involuntary commitment and substituted judgment for medication/tx pt told resume writer he did not want to talk; said he thinks he understands court proceedings. 09/30 given ativan 1mg and within 20 minutes significant reduction in catatonic symptoms including speech latency and moving slowly; still does not have insight; does not want meds and struggles to understand court order. 10/01: Id Improved with Ativan. No changes made. 10/03 holding Seroquel for now; will continue to treat catatonia with ativan. At this point resume writer still needs help differentiating between bipolar/schizoaffective-bipolar type and schizophrenia. Patient remains with speech latency and slow movements, however these have improved; most significantly patient is able to talk spontaneously and have a reasonable given take conversation; able to talk with peers. He struggles with insight and understanding that his symptoms represent an illness more debilitating than stress, however he is open to continuing to discuss it 10/04 Not much change. Patient continues to have improved spontaneousness with his speech and is walking a little more fluidly than on admission, however both remain slowed. Patient has the insight to acknowledge that Ativan has probably been helpful to him. He had a visit from his mother today but unfortunately she left before could meet with this resume writer. Both patient and resume writer agree to involve his parents in discussions prior to starting additional medication. As for now, he remains with catatonic symptoms and resume writer wants to continue to let Ativan work before starting a mood stabilizer or antipsychotic. 10/06 after further reviewing history with patient's parents, it seems that patient has had an a slowly increasing amount of disorganized thinking and behavior, fully revealing itself with patient suicide last year and continuing to this admission. There is some amount of episodic nature to some of his disorganized behaviors such as not infrequently making impromptu trips to foreign countries. However there does not seem to be any other associated manic type behaviors and in-between these impromptu trips, patient remained with disorganized thinking and behaviors relative to his past ability and achievements. It seems that disorganized behaviors is the prominent psychotic symptoms 10/07 patient reports tolerating Abilify. Will increase this medication to see if can be helpful in reducing disorganized thinking and behavior says. Patient still has catatonic like symptoms however so will keep the Ativan on and try to balance treating disorganization with resolving catatonia. Formulation: Patient has history of being emotionally sensitive and having feelings easily hurt by others, with some difficulty forming lasting relationships. After review with parents, there does not seem to a ASD. it seems that patient has had an a slowly increasing amount of disorganized thinking and behavior, fully revealing itself with patient suicide last year and continuing to this admission. There is some amount of episodic nature to some of his disorganized behaviors such as not infrequently making impromptu trips to foreign countries. However there does not seem to be any other associated manic type behaviors and in-between these impromptu trips, patient remained with disorganized thinking and behaviors relative to his past ability and achievements. It seems that disorganized behaviors is the prominent psychotic symptoms Plan: Q15 min safety checks, Section 7 involuntary commitment; COURT ORDERED SUBSTITUTED JUDGMENT for tx/mediations 1. 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 Schizoaffective disorder (provisional; has hx of manic like episodes; otherwise disorganized speech and negative symptoms) -Abilify 5 mg q.h.s. -after talking with parents again and after they have had some time to reflect, it seems that Seroquel trial unlikely made much difference as patient was still disorganized. Patient also has limited insight and history of being noncompliant with medications and not wanting medications making this a less favorable option. Given these reasons, resume writer decided to instead initiate trial of Abilify since it has a little less metabolic syndrome risk profile and comes in a long-acting medication. Antipsychotic Medications allowed by court order: Seroquel Ativan up to 8 mg daily Thorazine Prolixin immediate release/long-acting Haldol Abilify Chris Daly Monitor response to medications. Monitor for safety in the milieu. Discharge on stabilization. Patient seen. Chart reviewed. Discussed with team. Obtain collateral contact info?as needed I spent minutes with the patient and/or on the patient floor today, greater than?50% of which was spent counseling/coordinating care. Patient educated on: diagnosis Informed Consent: does not understand Reason for contiued inpatient stay Substantial Risk for: inability to function
[2021-10-07 18:00] VITALS: BP 150/74; PULSE 85; RESP 16; TEMP 36.8; O2SAT 95
[2021-10-07] MEDS: ARIPiprazole 5 MG TABLET PO (20:22)
[2021-10-08] MEDS: LORazepam 1 MG TABLET PO ×4 (09:47→21:17)
[2021-10-08 09:50] VITALS: BP 139/72; PULSE 69; TEMP 36.1; O2SAT 96
--- NOTE | 2021-10-08 16:27 | HO.PSYCHPN ---
Subjective Subjective Date of Service: 10/08/21 Reason For Visit: bipolar disorder II Interim History: pt says he's very good. He says abilfiy is helping very much and says something similar to yesterday, that it's helping him feel happy and sharing his happiness with others Mental Status Exam Mental Status Exam Narrative: Pt is alert and oriented, though only partially to situation; dressed in casual cloths; unkempt hair but adequate hygiene; still walking and moving slowly with delayed movements, however more fluid than on admission. Speech remains with latency however, less than on admission and is now spontaneous; still slowed but closer to normal rate than before; Mood is described as good, Affect still fixed, but pt is also able to have more natural expressions; eye contact appropriate, though still some staring; thought process is goal directed and linear;? Thought content is on that he's good and not wanting medication; but pertinent to relevant topics/questions asked; he denies any delusional content, paranoid ideations and none expressed; denies any SI/HI. Denies AVH;? Patients insight and judgment are impaired Diagnostics Vital Signs (24Hr): Vital Signs - 24 hr 10/07/21 18:00 10/08/21 09:50 Temperature 98.2 F 97.0 F Pulse Rate 85 69 Respiratory Rate 16 Blood Pressure 150/74 H 139/72 Pulse Oximetry 95 96 BMI result Body Mass Index 20.6 Labs Results: 09/19/21 10:09 09/19/21 10:09 Medications Medications Current Medications Acetaminophen (Acetaminophen 325 Mg Tablet) 650 mg PO Q6H PRN PRN Reason: Headache/Pain Mild Scale (1-3) Al Hydroxide/Mg Hydroxide (Magnesium Hydrox/Alum Hydrox 30 Ml Oral.Susp) 30 ml PO Q6H PRN PRN Reason: Heartburn/Nausea Aripiprazole (Aripiprazole 5 Mg Tablet) 5 mg PO BEDTIME [facility] Last Admin: 10/07/21 20:22 Dose: 5 mg Documented by: Haloperidol Lactate (Haloperidol Lactate 5 Mg/Ml Vial) 5 mg IM BEDTIME PRN PRN Reason: refusal of PO Abilify Hydroxyzine HCl (Hydroxyzine Hcl 25 Mg Tablet) 25 mg PO BEDTIME PRN PRN Reason: Anxiety Lorazepam (Lorazepam 1 Mg Tablet) 1 mg PO QID [facility] Last Admin: 10/08/21 12:49 Dose: 1 mg Documented by: Lorazepam (Lorazepam 2 Mg/Ml Vial) 1 mg IM QID PRN PRN Reason: IF REFUSES PO ATIVAN(on dontae) Magnesium Hydroxide (Milk Of Magnesia 30 Ml Oral.Susp) 30 ml PO DAILY PRN PRN Reason: Constipation Trazodone HCl (Trazodone Hcl 50 Mg Tablet) 50 mg PO BEDTIME PRN PRN Reason: Insomnia Allergies Allergies Allergy/AdvReac Type Severity Reaction Status Date / Time No Known Allergies Allergy Verified 09/18/21 20:22 Assessment & Plan Assessment & Plan (1) Schizophrenia: Status: Acute Code(s): F20.9 - Schizophrenia, unspecified Plan Pt is a 27 y.o. male who carries a dx of schizophrenia, r/o bipolar DO/ schizoaffective disorder. He has hx of being a high functioning individual until mid 20s, in which he became increasingly withdrawn, paranoid, using cannabis and hallucinogens, esoteric, and ultimately unable to sustain employment. Has had impulsive and risk taking behaviors, i.e. disappearing, alcohol abuse. Pt endorses neg sx of schizophrenia, i.e. flat affect, thought blocking, slowed movement. Has poor sleep and appetite. Pt arrives to [facility] due to parents concern with worsening psychotic sx/ catatonic behavior [place] the mall, as pt became withdrawn, stopped responding, staring at the floor, not redirectable. On admission,admitting provider notes that Parents asked for head CT or MRI/ neuro workup to rule out organic causes, however pt?s sx appear to be a function of primary psych diagnosis. They are concerned with pt?s level of risk taking behavior when he is decompensation i.e. becomes increasingly withdrawn, flat, non-verbal. Risk taking bx includes drinking to excess, taking off in the night at odd hours and disappearing to the point that parents have had to file missing person?s report. Pt has hx of significant suicide attempt in 07/2020, pt was similarly withdrawn, illogical, depressed, and flat. Parents report pt had improvement in sx on seroquel, however he has been non-adherent with treatment in the community. Parents feel unable to care for him at home. Pt adamantly refuses medication, has lack of insight into diagnosis. No medication started. 09/22 patient remains with some catatonic features however he is eating, talking and moving. He also lacks nearly all insight. However, while significant speech latency remains, and patient has flat affect with somewhat of a fixed stare, his thought process is logical and goal oriented. He refuses all medications. Patient refuses Ativan. While Ativan to would likely be helpful, at this point promotion writer does not find patient impaired to the point where he cannot input into medical decision making, as patient's thought content is organized and his catatonic symptoms seem to be improving. Will continue to monitor. 09/24: will schedule seroquel and continue to offer for psychotic sx 09/25: Pt refusing seroquel, guarded, appears internally preoccupied 09/26 no change in presentation; remains without insight and catatonic features. 09/27 no change; patient not phase by hearing that [employer] is no longer available; disputes that he does not have any money in his bank account. Patient said he chooses not to talk to this promotion writer this time -Pt denies any head trauma; parents deny any head trauma that they know of. Patient has some specific genetic loading for Schizoaffective/schizophrenia and the course of symptoms follows the known pattern of this illness; and Seroquel seemed to help resolve symptoms. Also, The episodic nature of patients symptoms, though worsening over recent months, have been going on for couple of years making any organic cause of symptoms, other than psychiatric, very unlikely. At this point, Head CT is unlikely to provide much information, but promotion writer will consult with neurology. Patient has predominantly negative symptoms and does not have symptoms associated with rare illness of Anti-NMDA receptor Encephalitis. 09/28 no change. Will proceed with involuntary commitment as patient has no insight into his disabling symptoms and is not organized enough to care for himself in the community. 09/29 Court ordered involuntary commitment and substituted judgment for medication/tx pt told promotion writer he did not want to talk; said he thinks he understands court proceedings. 09/30 given ativan 1mg and within 20 minutes significant reduction in catatonic symptoms including speech latency and moving slowly; still does not have insight; does not want meds and struggles to understand court order. 10/01: Id Improved with Ativan. No changes made. 10/03 holding Seroquel for now; will continue to treat catatonia with ativan. At this point promotion writer still needs help differentiating between bipolar/schizoaffective-bipolar type and schizophrenia. Patient remains with speech latency and slow movements, however these have improved; most significantly patient is able to talk spontaneously and have a reasonable given take conversation; able to talk with peers. He struggles with insight and understanding that his symptoms represent an illness more debilitating than stress, however he is open to continuing to discuss it 5 Not much change. Patient continues to have improved spontaneousness with his speech and is walking a little more fluidly than on admission, however both remain slowed. Patient has the insight to acknowledge that Ativan has probably been helpful to him. He had a visit from his mother today but unfortunately she left before could meet with this promotion writer. Both patient and promotion writer agree to involve his parents in discussions prior to starting additional medication. As for now, he remains with catatonic symptoms and promotion writer wants to continue to let Ativan work before starting a mood stabilizer or antipsychotic. 10/06 after further reviewing history with patient's parents, it seems that patient has had an a slowly increasing amount of disorganized thinking and behavior, fully revealing itself with patient suicide last year and continuing to this admission. There is some amount of episodic nature to some of his disorganized behaviors such as not infrequently making impromptu trips to foreign countries. However there does not seem to be any other associated manic type behaviors and in-between these impromptu trips, patient remained with disorganized thinking and behaviors relative to his past ability and achievements. It seems that disorganized behaviors is the prominent psychotic symptoms 10/07 patient reports tolerating Abilify. Will increase this medication to see if can be helpful in reducing disorganized thinking and behavior says. Patient still has catatonic like symptoms however so will keep the Ativan on and try to balance treating disorganization with resolving catatonia. Formulation: Patient has history of being emotionally sensitive and having feelings easily hurt by others, with some difficulty forming lasting relationships. After review with parents, there does not seem to a ASD. it seems that patient has had an a slowly increasing amount of disorganized thinking and behavior, fully revealing itself with patient suicide last year and continuing to this admission. There is some amount of episodic nature to some of his disorganized behaviors such as not infrequently making impromptu trips to foreign countries. However there does not seem to be any other associated manic type behaviors and in-between these impromptu trips, patient remained with disorganized thinking and behaviors relative to his past ability and achievements. It seems that disorganized behaviors is the prominent psychotic symptoms Plan: Q15 min safety checks, Section 7 involuntary commitment; COURT ORDERED SUBSTITUTED JUDGMENT for tx/mediations 1. 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 Schizoaffective disorder (provisional; has hx of manic like episodes; otherwise disorganized speech and negative symptoms) -Abilify 10 mg q.h.s. (on 10/08) -after talking with parents again and after they have had some time to reflect, it seems that Seroquel trial unlikely made much difference as patient was still disorganized. Patient also has limited insight and history of being noncompliant with medications and not wanting medications making this a less favorable option. Given these reasons, promotion writer decided to instead initiate trial of Abilify since it has a little less metabolic syndrome risk profile and comes in a long-acting medication. Antipsychotic Medications allowed by court order: Seroquel Ativan up to 8 mg daily Thorazine Prolixin immediate release/long-acting Haldol Abilify Chris Daly Monitor response to medications. Monitor for safety in the milieu. Discharge on stabilization. Patient seen. Chart reviewed. Discussed with team. Obtain collateral contact info?as needed I spent minutes with the patient and/or on the patient floor today, greater than?50% of which was spent counseling/coordinating care. Reason for contiued inpatient stay Substantial Risk for: inability to function
[2021-10-08 20:40] VITALS: BP 149/77; PULSE 881; TEMP 36.6; O2SAT 97
[2021-10-08] MEDS: ARIPiprazole 10 MG TABLET PO (21:17)
[2021-10-09] MEDS: LORazepam 1 MG TABLET PO ×4 (08:54→21:56)
[2021-10-09 09:45] VITALS: BP 146/70; PULSE 84; TEMP 37.4; O2SAT 96
--- NOTE | 2021-10-09 14:48 | HO.PSYCHPN ---
Subjective Subjective Date of Service: 10/09/21 Reason For Visit: bipolar disorder II Interim History: Patient remains without insight. He continues to have speech latency and move and talk slower than baseline (however better than on admission). Patient says he feels very well. .. He is grateful that he came here. . . He likes Abilify and thinks that it helps [him] a lot. . . It makes him feel bright and happy all day long. . . Patient agrees that when he 1st came he was walking and talking more slowly but now everything is back to normal. Patient does not grasp the degree of his unsafe behavior and does not appreciate that he is functioning far below his former baseline. He also does not think he has a psychiatric illness other than that he gets stressed. He agrees to titration of Abilify and says what ever this commercial insurance underwriter thinks is best, your that Doctor.. Mental Status Exam Mental Status Exam Narrative: Pt is alert and oriented, though only partially to situation; dressed in casual cloths; unkempt hair but adequate hygiene; still walking and moving slowly with delayed movements, however more fluid than on admission. Speech remains with latency however, less than on admission and is now spontaneous; still slowed but closer to normal rate than before; Mood is described as very well, Affect still fixed, but pt is also able to have more natural expressions; eye contact appropriate, though still some staring; thought process is goal directed and linear;? Thought content is on that he's good and not wanting medication; but pertinent to relevant topics/questions asked; he denies any delusional content, paranoid ideations and none expressed; denies any SI/HI. Denies AVH;? Patients insight and judgment are impaired Diagnostics Vital Signs (24Hr): Vital Signs - 24 hr 10/08/21 20:40 10/09/21 09:45 Temperature 97.9 F 99.4 F Pulse Rate 881 H 84 Blood Pressure 149/77 H 146/70 H Pulse Oximetry 97 96 BMI result Body Mass Index 20.6 Labs Results: 09/19/21 10:09 09/19/21 10:09 Medications Medications Current Medications Acetaminophen (Acetaminophen 325 Mg Tablet) 650 mg PO Q6H PRN PRN Reason: Headache/Pain Mild Scale (1-3) Al Hydroxide/Mg Hydroxide (Magnesium Hydrox/Alum Hydrox 30 Ml Oral.Susp) 30 ml PO Q6H PRN PRN Reason: Heartburn/Nausea Aripiprazole (Aripiprazole 10 Mg Tablet) 10 mg PO BEDTIME [facility] Last Admin: 10/08/21 21:17 Dose: 10 mg Documented by: Haloperidol Lactate (Haloperidol Lactate 5 Mg/Ml Vial) 5 mg IM BEDTIME PRN PRN Reason: refusal of PO Abilify Hydroxyzine HCl (Hydroxyzine Hcl 25 Mg Tablet) 25 mg PO BEDTIME PRN PRN Reason: Anxiety Lorazepam (Lorazepam 1 Mg Tablet) 1 mg PO QID [facility] Last Admin: 10/09/21 12:55 Dose: 1 mg Documented by: Lorazepam (Lorazepam 2 Mg/Ml Vial) 1 mg IM QID PRN PRN Reason: IF REFUSES PO ATIVAN(on dontae) Magnesium Hydroxide (Milk Of Magnesia 30 Ml Oral.Susp) 30 ml PO DAILY PRN PRN Reason: Constipation Trazodone HCl (Trazodone Hcl 50 Mg Tablet) 50 mg PO BEDTIME PRN PRN Reason: Insomnia Allergies Allergies Allergy/AdvReac Type Severity Reaction Status Date / Time No Known Allergies Allergy Verified 09/18/21 20:22 Assessment & Plan Assessment & Plan (1) Schizophrenia: Status: Acute Code(s): F20.9 - Schizophrenia, unspecified Plan Pt is a 27 y.o. male who carries a dx of schizophrenia, r/o bipolar DO/ schizoaffective disorder. He has hx of being a high functioning individual until mid 20s, in which he became increasingly withdrawn, paranoid, using cannabis and hallucinogens, esoteric, and ultimately unable to sustain employment. Has had impulsive and risk taking behaviors, i.e. disappearing, alcohol abuse. Pt endorses neg sx of schizophrenia, i.e. flat affect, thought blocking, slowed movement. Has poor sleep and appetite. Pt [place] to [facility] due to parents concern with worsening psychotic sx/ catat[place], as pt became withdrawn, stopped responding, staring at the floor, not redirectable. On admission,admitting provider notes that Parents asked for head CT or MRI/ neuro workup to rule out organic causes, however pt?s sx appear to be a function of primary psych diagnosis. They are concerned with pt?s level of risk taking behavior when he is decompensation i.e. becomes increasingly withdrawn, flat, non-verbal. Risk taking bx includes drinking to excess, taking off in the night at odd hours and disappearing to the point that parents have had to file missing person?s report. Pt has hx of significant suicide attempt in 07/2020, pt was similarly withdrawn, illogical, depressed, and flat. Parents report pt had improvement in sx on seroquel, however he has been non-adherent with treatment in the community. Parents feel unable to care for him at home. Pt adamantly refuses medication, has lack of insight into diagnosis. No medication started. 09/22 patient remains with some catatonic features however he is eating, talking and moving. He also lacks nearly all insight. However, while significant speech latency remains, and patient has flat affect with somewhat of a fixed stare, his thought process is logical and goal oriented. He refuses all medications. Patient refuses Ativan. While Ativan to would likely be helpful, at this point commercial insurance underwriter does not find patient impaired to the point where he cannot input into medical decision making, as patient's thought content is organized and his catatonic symptoms seem to be improving. Will continue to monitor. 09/24: will schedule seroquel and continue to offer for psychotic sx 09/25: Pt refusing seroquel, guarded, appears internally preoccupied 09/26 no change in presentation; remains without insight and catatonic features. 09/27 no change; patient not phase by hearing that [email or web address] is no longer available; disputes that he does not have any money in his bank account. Patient said he chooses not to talk to this commercial insurance underwriter this time -Pt denies any head trauma; parents deny any head trauma that they know of. Patient has some specific genetic loading for Schizoaffective/schizophrenia and the course of symptoms follows the known pattern of this illness; and Seroquel seemed to help resolve symptoms. Also, The episodic nature of patients symptoms, though worsening over recent months, have been going on for couple of years making any organic cause of symptoms, other than psychiatric, very unlikely. At this point, Head CT is unlikely to provide much information, but commercial insurance underwriter will consult with neurology. Patient has predominantly negative symptoms and does not have symptoms associated with rare illness of Anti-NMDA receptor Encephalitis. 09/28 no change. Will proceed with involuntary commitment as patient has no insight into his disabling symptoms and is not organized enough to care for himself in the community. 09/29 Court ordered involuntary commitment and substituted judgment for medication/tx pt told commercial insurance underwriter he did not want to talk; said he thinks he understands court proceedings. 09/30 given ativan 1mg and within 20 minutes significant reduction in catatonic symptoms including speech latency and moving slowly; still does not have insight; does not want meds and struggles to understand court order. 10/01: Id Improved with Ativan. No changes made. 10/03 holding Seroquel for now; will continue to treat catatonia with ativan. At this point commercial insurance underwriter still needs help differentiating between bipolar/schizoaffective-bipolar type and schizophrenia. Patient remains with speech latency and slow movements, however these have improved; most significantly patient is able to talk spontaneously and have a reasonable given take conversation; able to talk with peers. He struggles with insight and understanding that his symptoms represent an illness more debilitating than stress, however he is open to continuing to discuss it 10/04 Not much change. Patient continues to have improved spontaneousness with his speech and is walking a little more fluidly than on admission, however both remain slowed. Patient has the insight to acknowledge that Ativan has probably been helpful to him. He had a visit from his mother today but unfortunately she left before could meet with this commercial insurance underwriter. Both patient and commercial insurance underwriter agree to involve his parents in discussions prior to starting additional medication. As for now, he remains with catatonic symptoms and commercial insurance underwriter wants to continue to let Ativan work before starting a mood stabilizer or antipsychotic. 10/06 after further reviewing history with patient's parents, it seems that patient has had an a slowly increasing amount of disorganized thinking and behavior, fully revealing itself with patient suicide last year and continuing to this admission. There is some amount of episodic nature to some of his disorganized behaviors such as not infrequently making impromptu trips to foreign countries. However there does not seem to be any other associated manic type behaviors and in-between these impromptu trips, patient remained with disorganized thinking and behaviors relative to his past ability and achievements. It seems that disorganized behaviors is the prominent psychotic symptoms 10/07 patient reports tolerating Abilify. Will increase this medication to see if can be helpful in reducing disorganized thinking and behavior says. Patient still has catatonic like symptoms however so will keep the Ativan on and try to balance treating disorganization with resolving catatonia. 10/09: Patient superficial, remains without insight remains with significant negative symptoms, slowed speech and movements. Patient repeats the same refrain regarding how he is doing. Does not grasp the degree of his recent or history of unsafe behaviors or that his level of function is far below where used to be. Does not think he has psychiatric illness. Formulation: Patient has history of being emotionally sensitive and having feelings easily hurt by others, with some difficulty forming lasting relationships. After review with parents, there does not seem to a ASD. it seems that patient has had an a slowly increasing amount of disorganized thinking and behavior, fully revealing itself with patient suicide last year and continuing to this admission. There is some amount of episodic nature to some of his disorganized behaviors such as not infrequently making impromptu trips to foreign countries. However there does not seem to be any other associated manic type behaviors and in-between these impromptu trips, patient remained with disorganized thinking and behaviors relative to his past ability and achievements. It seems that disorganized behaviors is the prominent psychotic symptoms Plan: Q15 min safety checks, Section 7 involuntary commitment; COURT ORDERED SUBSTITUTED JUDGMENT for tx/mediations 1. 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 Schizoaffective disorder (provisional; has hx of manic like episodes; otherwise disorganized speech and negative symptoms) continue Abilify 10 mg q.h.s. (on 10/08) -after talking with parents again and after they have had some time to reflect, it seems that Seroquel trial unlikely made much difference as patient was still disorganized. Patient also has limited insight and history of being noncompliant with medications and not wanting medications making this a less favorable option. Given these reasons, commercial insurance underwriter decided to instead initiate trial of Abilify since it has a little less metabolic syndrome risk profile and comes in a long-acting medication. Antipsychotic Medications allowed by court order: Seroquel Ativan up to 8 mg daily Thorazine Prolixin immediate release/long-acting Haldol Abilify Zyprexa Geodon Monitor response to medications. Monitor for safety in the milieu. Discharge on stabilization. Patient seen. Chart reviewed. Discussed with team. Obtain collateral contact info?as needed I spent minutes with the patient and/or on the patient floor today, greater than?50% of which was spent counseling/coordinating care. Patient educated on: diagnosis Informed Consent: does not understand Reason for contiued inpatient stay Substantial Risk for: inability to function
[2021-10-09 18:00] VITALS: BP 143/80; PULSE 82; TEMP 37.2; O2SAT 98
[2021-10-09] MEDS: ARIPiprazole 10 MG TABLET PO (21:56)
[2021-10-10] MEDS: LORazepam 1 MG TABLET PO ×4 (08:45→20:37)
--- NOTE | 2021-10-10 14:14 | P.PNPSI_ITS ---
Subjective Subjective Date of Service: 10/10/21 Reason For Visit: bipolar disorder II Interim History: Patient remains without insight. Patient continues to talking superficial terms and when asked how he is doing he repeats a similar refrain that he is very well, in a good mood, sleeping well and feels very happy; He says my mood is happier..I have increased productivity and I have a feeling of well-being... He also says that the Abilirobery is working very well and helping him to feel calm and happy, despite that there has been very little or no change in patient's presentation. Patient says that he thinks he has bipolar disorder; however when asked why he said he was diagnosed with his at [facility]; when asked how this Manifest itself in his life, he says that sometimes during the day his mood can be a little happy or little sad. However he does not think that this disorder applies to the past Events resulting in this admission; He remains unable to grasp that he was disorganized And that this disorganization placed him in dangerous situations. Protective Signal Installer Helper asked about alcohol. Patient says that he has never had 1 drop of alcohol in the past 3 years; regarding his parents report that they have seen him drink alcohol, seen him with a bottle in his hand and seen numerous empty bottles at his hang outs, he says that they are incorrect and may just have thought he was drinking but he has not. Similarly he says that The police who arrested him for public intoxication Were mistaken. Mental Status Exam Mental Status Exam Narrative: Pt is alert and oriented, though only partially to situation; dressed in casual cloths; unkempt hair but adequate hygiene; still walking and moving slowly with delayed movements, however more fluid than on admission. Speech remains with latency and is still slowed however, less than on admission and is now spontaneous; Mood is described as very well, Affect still fixed, but pt is also able to have more natural expressions; still some blank staring but eye contact is more appropriate; thought process is goal directed and linear;? Thought content seems to manifest based what question/topic he's being asked; his answers are relevant and appropriate but thoughts do not seem to be mentioned spontaneously. He feels ready for discharge. He denies any delusional content, paranoid ideations and none expressed; denies any SI/HI. Denies AVH;? Patients insight and judgment are impaired Diagnostics Vital Signs (24Hr): Vital Signs - 24 hr 10/09/21 18:00 Temperature 99 F Pulse Rate 82 Blood Pressure 143/80 H Pulse Oximetry 98 BMI result Body Mass Index 20.6 Labs Results: 09/19/21 10:09 09/19/21 10:09 Medications Medications Current Medications Acetaminophen (Acetaminophen 325 Mg Tablet) 650 mg PO Q6H PRN PRN Reason: Headache/Pain Mild Scale (1-3) Al Hydroxide/Mg Hydroxide (Magnesium Hydrox/Alum Hydrox 30 Ml Oral.Susp) 30 ml PO Q6H PRN PRN Reason: Heartburn/Nausea Aripiprazole (Aripiprazole 15 Mg Tablet) 15 mg PO BEDTIME KEITH Haloperidol Lactate (Haloperidol Lactate 5 Mg/Ml Vial) 5 mg IM BEDTIME PRN PRN Reason: refusal of PO Abilify Hydroxyzine HCl (Hydroxyzine Hcl 25 Mg Tablet) 25 mg PO BEDTIME PRN PRN Reason: Anxiety Lorazepam (Lorazepam 1 Mg Tablet) 1 mg PO QID KEITH Last Admin: 10/10/21 13:26 Dose: 1 mg Documented by: Lorazepam (Lorazepam 2 Mg/Ml Vial) 1 mg IM QID PRN PRN Reason: IF REFUSES PO ATIVAN(on dontae) Magnesium Hydroxide (Milk Of Magnesia 30 Ml Oral.Susp) 30 ml PO DAILY PRN PRN Reason: Constipation Trazodone HCl (Trazodone Hcl 50 Mg Tablet) 50 mg PO BEDTIME PRN PRN Reason: Insomnia Allergies Allergies Allergy/AdvReac Type Severity Reaction Status Date / Time No Known Allergies Allergy Verified 09/18/21 20:22 Assessment & Plan Assessment & Plan (1) Schizophrenia: Status: Acute Code(s): F20.9 - Schizophrenia, unspecified Plan Pt is a 27 y.o. male who carries a dx of schizophrenia, r/o bipolar DO/ schizoaffective disorder. He has hx of being a high functioning individual until mid 20s, in which he became increasingly withdrawn, paranoid, using cannabis and hallucinogens, esoteric, and ultimately unable to sustain employment. Has had impulsive and risk taking behaviors, i.e. disappearing, alcohol abuse. Pt endorses neg sx of schizophrenia, i.e. flat affect, thought blocking, slowed mo vement. Has poor sleep and appetite. Pt [place] [facility] [place] parents concern with worsening psychotic sx/ catat[place], as pt became withdrawn, stopped responding, staring at the floor, not redirectable. On admission,admitting provider notes that Parents asked for head CT or MRI/ neuro workup to rule out organic causes, however pt?s sx appear to be a function of primary psych diagnosis. They are concerned with pt?s level of risk taking behavior when he is decompensation i.e. becomes increasingly withdrawn, flat, non-verbal. Risk taking bx includes drinking to excess, taking off in the night at odd hours and disappearing to the point that parents have had to file missing person?s report. Pt has hx of significant suicide attempt in 07/2020, pt was similarly withdrawn, illogical, depressed, and flat. Parents report pt had improvement in sx on seroquel, however he has been non-adherent with treatment in the community. Parents feel unable to care for him at home. Pt adamantly refuses medication, has lack of insight into diagnosis. No medication started. 09/22 patient remains with some catatonic features however he is eating, talking and moving. He also lacks nearly all insight. However, while significant speech latency remains, and patient has flat affect with somewhat of a fixed stare, his thought process is logical and goal oriented. He refuses all med ications. Patient refuses Ativan. While Ativan to would likely be helpful, at this point technical writer and editor does not find patient impaired to the point where he cannot input into medical decision making, as patient's thought content is organized and his catatonic symptoms seem to be improving. Will continue to monitor. 09/24: will schedule seroquel and continue to offer for psychotic sx 09/25: Pt refusing seroquel, guarded, appears internally preoccupied 09/26 no change in presentation; remains without insight and catatonic features. 09/27 no change; patient not phase by hearing that [employer] is no longer available; disputes that he does not have any money in his bank account. Patient said he chooses not to talk to this technical writer and editor this time -Pt denies any head trauma; parents deny any head trauma that they know of. Patient has some specific genetic loading for Schizoaffective/schizophrenia and the course of symptoms follows the known pattern of this illness; and Seroquel seemed to help resolve symptoms. Also, The episodic nature of patients symptoms, though worsening over recent months, have been going on for couple of years making any organic cause of symptoms, other than psychiatric, very unlikely. At this point, Head CT is unlikely to provide much information, but technical writer and editor will consult with neurology. Patient has predominantly negative symptoms and does not have symptoms associated with rare illness of Anti-NMDA receptor Encephalitis. 09/28 no change. Will proceed with involuntary commitment as patient has no insight into his disabling symptoms and is not organized enough to care for him self in the community. 09/29 Court ordered involuntary commitment and substituted judgment for medica tion/tx pt told technical writer and editor he did not want to talk; said he thinks he understands court proceedings. 09/30 given ativan 1mg and within 20 minutes significant reduction in catatonic symptoms including speech latency and moving slowly; still does not have insight; does not want meds and struggles to understand court order. 10/01: Id Improved with Ativan. No changes made. 10/03 holding Seroquel for now; will continue to treat catatonia with ativan. At this point technical writer and editor still needs help differentiating between bipolar/schizoaffective-bipolar type and schizophrenia. Patient remains with speech latency and slow movements, however these have improved; most significantly patient is able to talk spontaneously and have a reasonable given take conversation; able to talk with peers. He struggles with insight and understanding that his symptoms represent an illness more debilitating than stress, however he is open to continuing to discuss it 10/04 Not much change. Patient continues to have improved spontaneousness with his speech and is walking a little more fluidly than on admission, however both remain slowed. Patient has the insight to acknowledge that Ativan has probably been helpful to him. He had a visit from his mother today but unfortunately she left before could meet with this technical writer and editor. Both patient and technical writer and editor agree to involve his parents in discussions prior to starting additional medication. As for now, he remains with catatonic symptoms and technical writer and editor wants to continue to let Ativan work before starting a mood stabilizer or antipsychotic. 10/06 after further reviewing history with patient's parents, it seems that patient has had an a slowly increasing amount of disorganized thinking and behavior, fully revealing itself with patient suicide last year and continuing to this admission. There is some amount of episodic nature to some of his disorganized behaviors such as not infrequently making impromptu trips to foreign countries. However there does not seem to be any other associated manic type behaviors and in-between these impromptu trips, patient remained with disorganized thinking and behaviors relative to his past ability and achievements. It seems that disorganized behaviors is the prominent psychotic symptoms 10/07 patient reports tolerating Abilify. Will increase this medication to see if can be helpful in reducing disorganized thinking and behavior says. Patient still has catatonic like symptoms however so will keep the Ativan on and try to balance treating disorganization with resolving catatonia. 10/09: Patient superficial, remains without insight remains with significant negative symptoms, slowed speech and movements. Patient repeats the same ref rain regarding how he is doing. Does not grasp the degree of his recent or history of unsafe behaviors or that his level of function is far below where used to be. Does not think he has psychiatric illness. Inchoate Formulation: Patient has history of being emotionally sensitive and having feelings easily hurt by others, with some difficulty forming lasting relationships. After review with parents, there does not seem to a ASD. Over past few years, it seems that patient has had a slowly increasing amount of disorganized thinking and behavior, fully revealing itself with patients suicide attempt last year and continuing to this admission. There is some amount of episodic nature to some of his disorganized behaviors such as making impromptu trips to foreign countries (that don't work out). However there does not seem to be any other associated manic type behaviors. In-between these impromptu trips, patient has disorganized thinking and behaviors relative to his past ability and achievements, intermittently waking and talking slowly; less and less ability to work). It seems that his main psychotic symptoms is his disorganized behaviors. -currently it is difficult to discern between catatonia and negative symptoms (flattened affect, alogia, Emotionally restricted, little motivation) Plan: Q15 min safety checks, Section 7 involuntary commitment; COURT ORDERED SUBSTITUTED JUDGMENT for tx/mediations 1. 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 Schizoaffective disorder (provisional; has hx of manic like episodes; otherwise disorganized speech and negative symptoms) INCREASE to Abilify 15 mg q.h.s. (on 10/10) -after talking with parents again and after they have had some time to reflect, it seems that Seroquel trial unlikely made much difference as patient was still disorganized. Patient also has limited insight and history of being noncompliant with medications and not wanting medications making this a less favorable option. Given these reasons, technical writer and editor decided to instead initiate trial of Abilify since it has a little less metabolic syndrome risk profile and comes in a long-acting medication. Antipsychotic Medications allowed by court order: Seroquel Ativan up to 8 mg daily Thorazine Prolixin immediate release/long-acting Haldol Abilify Zjeremiahrexoleg Daly Monitor response to medications. Monitor for safety in the milieu. Discharge on stabilization. Patient seen. Chart reviewed. Discussed with team. Obtain collateral contact info?as needed I spent minutes with the patient and/or on the patient floor today, greater than?50% of which was spent counseling/coordinating care. Patient educated on: diagnosis and substance abuse Informed Consent: does not understand Reason for contiued inpatient stay Substantial Risk for: inability to function and rapid decompensation
[2021-10-10 18:00] VITALS: BP 145/88; PULSE 90; TEMP 36.7; O2SAT 98
[2021-10-10] MEDS: ARIPiprazole 15 MG TABLET PO (20:37)
[2021-10-11 06:00] VITALS: BP 141/78; PULSE 91; RESP 17; TEMP 36.8; O2SAT 98
[2021-10-11] MEDS: LORazepam 1 MG TABLET PO ×4 (09:20→20:47)
--- NOTE | 2021-10-11 09:54 | HO.PSYCHPN ---
Subjective Subjective Date of Service: 10/11/21 Reason For Visit: bipolar disorder II Interim History: though better than on admission pt remains slow moving and slow talking. Lacks insight. He robotically repeats daily refrain that he's in a good mood, has increased productivity and feels an increased sense of well-being...and that he would like to discuss discharge. Patient stands staring at television writer, not moving, not talking. Enrollment Counselor remains to see if can elicit a spontaneous expression, but patient remains staring with a half smile and unmoving until television writer says, ok then to which pt says ok then. Enrollment Counselor says i'm going to walk this way... pointing down the [place] and pt says im going to walk this way... pointing in opposite direction Mental Status Exam Mental Status Exam Narrative: Pt is alert and oriented, though only partially to situation; dressed in casual cloths; unkempt hair but adequate hygiene; still walking and moving slowly with delayed movements (more fluid than on admission). Speech remains with latency and is still slowed (however, less than on admission); can be spontaneous though not often so; Mood is described as very well, Affect still fixed with a blank stare, but pt is also able to have more natural expressions at times; eye contact mostly a blank stare; thought process is goal directed and linear but only in response to questions posed;? Thought content seems to manifest based what question/topic he's being asked and otherwise seems vacuous; he answers questions with relevant and appropriate answers but thoughts hardly seem to originate other than He feels ready for discharge. He denies any delusional content, paranoid ideations and none expressed; denies any SI/HI. Denies AVH;? Patients insight and judgment are impaired and his unaware that his interactions are odd. Diagnostics Vital Signs (24Hr): Vital Signs - 24 hr 10/10/21 18:00 10/11/21 06:00 Temperature 98.1 F 98.2 F Pulse Rate 90 91 Respiratory Rate 17 Blood Pressure 145/88 H 141/78 H Pulse Oximetry 98 98 BMI result Body Mass Index 20.6 Labs Results: 09/19/21 10:09 09/19/21 10:09 Medications Medications Current Medications Acetaminophen (Acetaminophen 325 Mg Tablet) 650 mg PO Q6H PRN PRN Reason: Headache/Pain Mild Scale (1-3) Al Hydroxide/Mg Hydroxide (Magnesium Hydrox/Alum Hydrox 30 Ml Oral.Susp) 30 ml PO Q6H PRN PRN Reason: Heartburn/Nausea Aripiprazole (Aripiprazole 15 Mg Tablet) 15 mg PO BEDTIME [facility] Last Admin: 10/10/21 20:37 Dose: 15 mg Documented by: Haloperidol Lactate (Haloperidol Lactate 5 Mg/Ml Vial) 5 mg IM BEDTIME PRN PRN Reason: refusal of PO Abilify Hydroxyzine HCl (Hydroxyzine Hcl 25 Mg Tablet) 25 mg PO BEDTIME PRN PRN Reason: Anxiety Lorazepam (Lorazepam 1 Mg Tablet) 1 mg PO QID [facility] Last Admin: 10/11/21 09:20 Dose: 1 mg Documented by: Lorazepam (Lorazepam 2 Mg/Ml Vial) 1 mg IM QID PRN PRN Reason: IF REFUSES PO ATIVAN(on dontae) Magnesium Hydroxide (Milk Of Magnesia 30 Ml Oral.Susp) 30 ml PO DAILY PRN PRN Reason: Constipation Trazodone HCl (Trazodone Hcl 50 Mg Tablet) 50 mg PO BEDTIME PRN PRN Reason: Insomnia Allergies Allergies Allergy/AdvReac Type Severity Reaction Status Date / Time No Known Allergies Allergy Verified 09/18/21 20:22 Assessment & Plan Assessment & Plan (1) Schizophrenia: Status: Acute Code(s): F20.9 - Schizophrenia, unspecified Plan Pt is a 27 y.o. male who carries a dx of schizophrenia, r/o bipolar DO/ schizoaffective disorder. He has hx of being a high functioning individual until mid 20s, in which he became increasingly withdrawn, paranoid, using cannabis and hallucinogens, esoteric, and ultimately unable to sustain employment. Has had impulsive and risk taking behaviors, i.e. disappearing, alcohol abuse. Pt endorses neg sx of schizophrenia, i.e. flat affect, thought blocking, slowed movement. Has poor sleep and appetite. Pt arrives to [facility] [place] due to parents concern with worsening psychotic sx/ catat[place] the [place], as pt became withdrawn, stopped responding, staring at the floor, not redirectable. On admission,admitting provider notes that Parents asked for head CT or MRI/ neuro workup to rule out organic causes, however pt?s sx appear to be a function of primary psych diagnosis. They are concerned with pt?s level of risk taking behavior when he is decompensation i.e. becomes increasingly withdrawn, flat, non-verbal. Risk taking bx includes drinking to excess, taking off in the night at odd hours and disappearing to the point that parents have had to file missing person?s report. Pt has hx of significant suicide attempt in 07/2020, pt was similarly withdrawn, illogical, depressed, and flat. Parents report pt had improvement in sx on seroquel, however he has been non-adherent with treatment in the community. Parents feel unable to care for him at home. Pt adamantly refuses medication, has lack of insight into diagnosis. No medication started. 09/22 patient remains with some catatonic features however he is eating, talking and moving. He also lacks nearly all insight. However, while significant speech latency remains, and patient has flat affect with somewhat of a fixed stare, his thought process is logical and goal oriented. He refuses all medications. Patient refuses Ativan. While Ativan to would likely be helpful, at this point television writer does not find patient impaired to the point where he cannot input into medical decision making, as patient's thought content is organized and his catatonic symptoms seem to be improving. Will continue to monitor. 09/24: will schedule seroquel and continue to offer for psychotic sx 09/25: Pt refusing seroquel, guarded, appears internally preoccupied 09/26 no change in presentation; remains without insight and catatonic features. 09/27 no change; patient not phase by hearing that [email or web address] is no longer available; disputes that he does not have any money in his bank account. Patient said he chooses not to talk to this television writer this time -Pt denies any head trauma; parents deny any head trauma that they know of. Patient has some specific genetic loading for Schizoaffective/schizophrenia and the course of symptoms follows the known pattern of this illness; and Seroquel seemed to help resolve symptoms. Also, The episodic nature of patients symptoms, though worsening over recent months, have been going on for couple of years making any organic cause of symptoms, other than psychiatric, very unlikely. At this point, Head CT is unlikely to provide much information, but television writer will consult with neurology. Patient has predominantly negative symptoms and does not have symptoms associated with rare illness of Anti-NMDA receptor Encephalitis. 09/28 no change. Will proceed with involuntary commitment as patient has no insight into his disabling symptoms and is not organized enough to care for himself in the community. 09/29 Court ordered involuntary commitment and substituted judgment for medication/tx pt told television writer he did not want to talk; said he thinks he understands court proceedings. 09/30 given ativan 1mg and within 20 minutes significant reduction in catatonic symptoms including speech latency and moving slowly; still does not have insight; does not want meds and struggles to understand court order. 10/01: Id Improved with Ativan. No changes made. 10/03 holding Seroquel for now; will continue to treat catatonia with ativan. At this point television writer still needs help differentiating between bipolar/schizoaffective-bipolar type and schizophrenia. Patient remains with speech latency and slow movements, however these have improved; most significantly patient is able to talk spontaneously and have a reasonable given take conversation; able to talk with peers. He struggles with insight and understanding that his symptoms represent an illness more debilitating than stress, however he is open to continuing to discuss it 10/04 Not much change. Patient continues to have improved spontaneousness with his speech and is walking a little more fluidly than on admission, however both remain slowed. Patient has the insight to acknowledge that Ativan has probably been helpful to him. He had a visit from his mother today but unfortunately she left before could meet with this television writer. Both patient and television writer agree to involve his parents in discussions prior to starting additional medication. As for now, he remains with catatonic symptoms and television writer wants to continue to let Ativan work before starting a mood stabilizer or antipsychotic. 10/06 after further reviewing history with patient's parents, it seems that patient has had an a slowly increasing amount of disorganized thinking and behavior, fully revealing itself with patient suicide last year and continuing to this admission. There is some amount of episodic nature to some of his disorganized behaviors such as not infrequently making impromptu trips to foreign countries. However there does not seem to be any other associated manic type behaviors and in-between these impromptu trips, patient remained with disorganized thinking and behaviors relative to his past ability and achievements. It seems that disorganized behaviors is the prominent psychotic symptoms 10/07 patient reports tolerating Abilify. Will increase this medication to see if can be helpful in reducing disorganized thinking and behavior says. Patient still has catatonic like symptoms however so will keep the Ativan on and try to balance treating disorganization with resolving catatonia. 10/09: Patient superficial, remains without insight remains with significant negative symptoms, slowed speech and movements. Patient repeats the same refrain regarding how he is doing. Does not grasp the degree of his recent or history of unsafe behaviors or that his level of function is far below where used to be. Does not think he has psychiatric illness. 10/11 remains slow moving, slow talking, no insight, odd interactions. Inchoate Formulation: Patient has history of being emotionally sensitive and having feelings easily hurt by others, with some difficulty forming lasting relationships. After review with parents, there does not seem to a ASD. Over past few years, it seems that patient has had a slowly increasing amount of disorganized thinking and behavior, fully revealing itself with patients suicide attempt last year and continuing to this admission. There is some amount of episodic nature to some of his disorganized behaviors such as making impromptu trips to foreign countries (that don't work out). However there does not seem to be any other associated manic type behaviors. In-between these impromptu trips, patient has disorganized thinking and behaviors relative to his past ability and achievements, intermittently waking and talking slowly; less and less ability to work). It seems that his main psychotic symptoms is his disorganized behaviors. -currently it is difficult to discern between catatonia and negative symptoms (flattened affect, alogia, Emotionally restricted, little motivation) Plan: Q15 min safety checks, Section 7 involuntary commitment; COURT ORDERED SUBSTITUTED JUDGMENT for tx/mediations 1. 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 Schizoaffective disorder (provisional; has hx of manic like episodes; otherwise disorganized speech and negative symptoms) will INCREASE to Abilify 20 mg q.h.s. -after talking with parents again and after they have had some time to reflect, it seems that Seroquel trial unlikely made much difference as patient was still disorganized. Patient also has limited insight and history of being noncompliant with medications and not wanting medications making this a less favorable option. Given these reasons, television writer decided to instead initiate trial of Abilify since it has a little less metabolic syndrome risk profile and comes in a long-acting medication. Antipsychotic Medications allowed by court order: Seroquel Ativan up to 8 mg daily Thorazine Prolixin immediate release/long-acting Haldol Abilify Zyprexa Addy Monitor response to medications. Monitor for safety in the milieu. Discharge on stabilization. Patient seen. Chart reviewed. Discussed with team. Obtain collateral contact info?as needed I spent minutes with the patient and/or on the patient floor today, greater than?50% of which was spent counseling/coordinating care. Patient educated on: diagnosis Informed Consent: does not understand Reason for contiued inpatient stay Substantial Risk for: rapid decompensation
[2021-10-11 19:10] VITALS: BP 144/81; PULSE 91; TEMP 37.2; O2SAT 97
[2021-10-11] MEDS: ARIPiprazole 20 MG TABLET PO (20:48)
[2021-10-12 06:00] VITALS: BP 152/76; PULSE 88; RESP 16; TEMP 36.8; O2SAT 99
[2021-10-12] MEDS: LORazepam 1 MG TABLET PO ×4 (09:04→20:44)
[2021-10-12 18:00] VITALS: BP 158/80; PULSE 95; TEMP 37.3; O2SAT 97
--- NOTE | 2021-10-12 18:28 | P.PNPSI_ITS ---
Subjective Subjective Date of Service: 10/12/21 Reason For Visit: bipolar disorder II Interim History: no change. Pt says he's ready for discharge since the koffi has been working very well and he's in a good mood...[has] increased productivity and a sense of well-being... Patient says his parents agree that he is ready for discharge and that he's back to his normal self (health technical writer spoke with parents this same day and they do not agree with either). 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 Pt asked if he could do a mindfulness presentation for health technical writer to prove he is at his same level of functioning to which health technical writer agrees. Later, Dr. Kim also met w/ and interviewed patient. He agrees that pt likely has schizoaffective disorder and talked about his processing dysfunction given his odd interactions, latent response times, fixed blank stare and rote answers to questions. He agrees with continued tx with antipsychotics. Diagnostics Vital Signs (24Hr): Vital Signs - 24 hr 10/11/21 19:10 10/12/21 06:00 Temperature 99 F 98.3 F Pulse Rate 91 88 Respiratory Rate 16 Blood Pressure 144/81 H 152/76 H Pulse Oximetry 97 99 BMI result Body Mass Index 20.6 Labs Results: 09/19/21 10:09 09/19/21 10:09 Medications Medications Current Medications Acetaminophen (Acetaminophen 325 Mg Tablet) 650 mg PO Q6H PRN PRN Reason: Headache/Pain Mild Scale (1-3) Al Hydroxide/Mg Hydroxide (Magnesium Hydrox/Alum Hydrox 30 Ml Oral.Susp) 30 ml PO Q6H PRN PRN Reason: Heartburn/Nausea Aripiprazole (Aripiprazole 20 Mg Tablet) 20 mg PO BEDTIME [facility] Last Admin: 10/11/21 20:48 Dose: 20 mg Documented by: Haloperidol Lactate (Haloperidol Lactate 5 Mg/Ml Vial) 5 mg IM BEDTIME PRN PRN Reason: refusal of PO Abilify Hydroxyzine HCl (Hydroxyzine Hcl 25 Mg Tablet) 25 mg PO BEDTIME PRN PRN Reason: Anxiety Lorazepam (Lorazepam 1 Mg Tablet) 1 mg PO QID [facility] Last Admin: 10/12/21 16:48 Dose: 1 mg Documented by: Lorazepam (Lorazepam 2 Mg/Ml Vial) 1 mg IM QID PRN PRN Reason: IF REFUSES PO ATIVAN(on dontae) Magnesium Hydroxide (Milk Of Magnesia 30 Ml Oral.Susp) 30 ml PO DAILY PRN PRN Reason: Constipation Trazodone HCl (Trazodone Hcl 50 Mg Tablet) 50 mg PO BEDTIME PRN PRN Reason: Insomnia Allergies Allergies Allergy/AdvReac Type Severity Reaction Status Date / Time No Known Allergies Allergy Verified 09/18/21 20:22 Assessment & Plan Assessment & Plan (1) Schizophrenia: Status: Acute Code(s): F20.9 - Schizophrenia, unspecified Plan Pt is a 27 y.o. male who carries a dx of schizophrenia, r/o bipolar DO/ schizoaffective disorder. He has hx of being a high functioning individual until mid 20s, in which he became increasingly withdrawn, paranoid, using cannabis and hallucinogens, esoteric, and ultimately unable to sustain employment. Has had impulsive and risk taking behaviors, i.e. disappearing, alcohol abuse. Pt endorses neg sx of schizophrenia, i.e. flat affect, thought blocking, slowed movement. Has poor sleep and appetite. Pt [place] [facility] [place] to parents concern with worsening psychotic sx/ catat[place], as pt became withdrawn, stopped responding, staring at the floor, not redirectable. On admission,admitting provider notes that Parents asked for head CT or MRI/ neuro workup to rule out organic causes, however pt?s sx appear to be a function of primary psych diagnosis. They are concerned with pt?s level of risk taking beha vior when he is decompensation i.e. becomes increasingly withdrawn, flat, non- verbal. Risk taking bx includes drinking to excess, taking off in the night at odd hours and disappearing to the point that parents have had to file missing person?s report. Pt has hx of significant suicide attempt in 07/2020, pt was similarly withdrawn, illogical, depressed, and flat. Parents report pt had improvement in sx on seroquel, however he has been non-adherent with treatment in the community. Parents feel unable to care for him at home. Pt adamantly refuses medication, has lack of insight into diagnosis. No medication started. 09/22 patient remains with some catatonic features however he is eating, talking and moving. He also lacks nearly all insight. However, while significant speech latency remains, and patient has flat affect with somewhat of a fixed stare, his thought process is logical and goal oriented. He refuses all medications. Patient refuses Ativan. While Ativan to would likely be helpful, at this point health technical writer does not find patient impaired to the point where he cannot input into medical decision making, as patient's thought content is organized and his catatonic symptoms seem to be improving. Will continue to monitor. 09/24: will schedule seroquel and continue to offer for psychotic sx 09/25: Pt refusing seroquel, guarded, appears internally preoccupied 09/26 no change in presentation; remains without insight and catatonic features. 09/27 no change; patient not phase by hearing that [employer] is no longer available; disputes that he does not have any money in his bank account. Patient said he chooses not to talk to this health technical writer this time -Pt denies any head trauma; parents deny any head trauma that they know of. Patient has some specific genetic loading for Schizoaffective/schizophrenia and the course of symptoms follows the known pattern of this illness; and Seroquel seemed to help resolve symptoms. Also, The episodic nature of patients symptoms, though worsening over recent months, have been going on for couple of years making any organic cause of symptoms, other than psychiatric, very unlikely. At this point, Head CT is unlikely to provide much information, but health technical writer will consult with neurology. Patient has predominantly negative symptoms and does not have symptoms associated with rare illness of Anti-NMDA receptor Encephalitis. 09/28 no change. Will proceed with involuntary commitment as patient has no insight into his disabling symptoms and is not organized enough to care for himself in the community. 09/29 [address] ordered involuntary commitment and substituted judgment for medication/tx pt told health technical writer he did not want to talk; said he thinks he understands court proceedings. 09/30 given ativan 1mg and within 20 minutes significant reduction in catatonic symptoms including speech latency and moving slowly; still does not have insight; does not want meds and struggles to understand court order. 10/01: Id Improved with Ativan. No changes made. 10/03 holding Seroquel for now; will continue to treat catatonia with ativan. At this point health technical writer still needs help differentiating between bipolar/schizoaffective-bipolar type and schizophrenia. Patient remains with speech latency and slow movements, however these have improved; most significantly patient is able to talk spontaneously and have a reasonable given take conversation; able to talk with peers. He struggles with insight and understanding that his symptoms represent an illness more debilitating than stress, however he is open to continuing to discuss it 10/04 Not much change. Patient continues to have improved spontaneousness with his speech and is walking a little more fluidly than on admission, however both remain slowed. Patient has the insight to acknowledge that Ativan has probably been helpful to him. He had a visit from his mother today but unfortunately she left before could meet with this health technical writer. Both patient and health technical writer agree to involve his parents in discussions prior to starting additional medication. As for now, he remains with catatonic symptoms and health technical writer wants to continue to let Ativan work before starting a mood stabilizer or antipsychotic. 10/06 after further reviewing history with patient's parents, it seems that patient has had an a slowly increasing amount of disorganized thinking and behavior, fully revealing itself with patient suicide last year and continuing to this admission. There is some amount of episodic nature to some of his disorganized behaviors such as not infrequently making impromptu trips to foreign countries. However there does not seem to be any other associated manic type behaviors and in-between these impromptu trips, patient remained with disorganized thinking and behaviors relative to his past ability and achieveme nts. It seems that disorganized behaviors is the prominent psychotic symptoms 10/07 patient reports tolerating Abilify. Will increase this medication to see if can be helpful in reducing disorganized thinking and behavior says. Patient still has catatonic like symptoms however so will keep the Ativan on and try to balance treating disorganization with resolving catatonia. 10/09: Patient superficial, remains without insight remains with significant negative symptoms, slowed speech and movements. Patient repeats the same refrain regarding how he is doing. Does not grasp the degree of his recent or history of unsafe behaviors or that his level of function is far below where used to be. Does not think he has psychiatric illness. 10/12 dr. kim interviewed patient and concurs with current tx plan Inchoate Formulation: Patient has history of being emotionally sensitive and having feelings easily hurt by others, with some difficulty forming lasting relationships. After review with parents, there does not seem to a ASD. Over past few years, it seems that patient has had a slowly increasing amount of disorganized thinking and behavior, fully revealing itself with patients suicide attempt last year and continuing to this admission. There is some amount of episodic nature to some of his disorganized behaviors such as making impromptu trips to foreign countries (that don't work out). However there does not seem to be any other associated manic type behaviors. In-between these impromptu trips, patient has disorganized thinking and behaviors relative to his past ability and achievements, intermittently waking and talking slowly; less and less ability to work). It seems that his main psychotic symptoms is his disorganized behaviors. -currently it is difficult to discern between catatonia and negative symptoms (flattened affect, alogia, Emotionally restricted, little motivation) Plan: Q15 min safety checks, Section 7 involuntary commitment; COURT ORDERED SUBSTITUTED JUDGMENT for tx/mediations 1. 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 Schizoaffective disorder (provisional; has hx of manic like episodes; otherwise disorganized speech and negative symptoms) INCREASE to Abilify 20 mg q.h.s. -after talking with parents again and after they have had some time to reflect, it seems that Seroquel trial unlikely made much difference as patient was still disorganized. Patient also has limited insight and history of being noncompliant with medications and not wanting medications making this a less favorable option. Given these reasons, health technical writer decided to instead initiate trial of Abilify since it has a little less metabolic syndrome risk profile and comes in a long-acting medication. Antipsychotic Medications allowed by court order: Seroquel Ativan up to 8 mg daily Thorazine Prolixin immediate release/long-acting Haldol Abilify Zyprexoleg [place] Monitor response to medications. Monitor for safety in the milieu. Discharge on stabilization. Patient seen. Chart reviewed. Discussed with team. Obtain collateral contact info?as needed I spent minutes with the patient and/or on the patient floor today, greater than?50% of which was spent counseling/coordinating care. Patient educated on: diagnosis Informed Consent: does not understand Reason for contiued inpatient stay Substantial Risk for: harm to self and rapid decompensation
[2021-10-12] MEDS: ARIPiprazole 20 MG TABLET PO (20:44)
[2021-10-13 06:00] VITALS: BP 147/84; PULSE 74; RESP 18; TEMP 36.8; O2SAT 98
[2021-10-13] MEDS: LORazepam 1 MG TABLET PO ×4 (09:03→21:36)
[2021-10-13] MEDS: ARIPiprazole 30 MG TABLET PO (20:05)
[2021-10-14 06:00] VITALS: BP 155/95; PULSE 75; RESP 16; TEMP 36.6; O2SAT 100
[2021-10-14] MEDS: LORazepam 1 MG TABLET PO ×2 (08:01→11:53)
--- NOTE | 2021-10-14 11:47 | HO.PSYCHPN ---
Subjective Subjective Date of Service: 10/13/21 Reason For Visit: bipolar disorder II Interim History: late entry for pt seen on 10/13 pt gave presentation today for several staff. Topic was on mindfulness. His presentation was very basic, however it was organized and appropriate. He talked and moved slowly, but remained linear and was able to answer questions appropriately. Mental Status Exam Mental Status Exam Narrative: Pt is alert and oriented, though only partially to situation; dressed in casual cloths; unkempt hair but adequate hygiene; still walking and moving slowly with delayed movements (more fluid than on admission). Speech remains with latency and is still slowed (however, less than on admission); can be spontaneous though not often so; Mood is described as very well, Affect still fixed with a blank stare, but pt is also able to have more natural expressions at times; eye contact mostly a blank stare; thought process is goal directed and linear but only in response to questions posed;? Thought content seems to manifest based what question/topic he's being asked and otherwise seems vacuous; he answers questions with relevant and appropriate answers but thoughts hardly seem to originate other than He feels ready for discharge. He denies any delusional content, paranoid ideations and none expressed; denies any SI/HI. Denies AVH;? Patients insight and judgment are impaired and his unaware that his interactions are odd.? Diagnostics Vital Signs (24Hr): Vital Signs - 24 hr 10/14/21 06:00 Temperature 98 F Pulse Rate 75 Respiratory Rate 16 Blood Pressure 155/95 H Pulse Oximetry 100 BMI result Body Mass Index 20.6 Labs Results: 09/19/21 10:09 09/19/21 10:09 Medications Medications Current Medications Acetaminophen (Acetaminophen 325 Mg Tablet) 650 mg PO Q6H PRN PRN Reason: Headache/Pain Mild Scale (1-3) Al Hydroxide/Mg Hydroxide (Magnesium Hydrox/Alum Hydrox 30 Ml Oral.Susp) 30 ml PO Q6H PRN PRN Reason: Heartburn/Nausea Aripiprazole (Aripiprazole 30 Mg Tablet) 30 mg PO BEDTIME KEITH Last Admin: 10/13/21 20:05 Dose: 30 mg Documented by: Haloperidol Lactate (Haloperidol Lactate 5 Mg/Ml Vial) 5 mg IM BEDTIME PRN PRN Reason: refusal of PO Abilify Hydroxyzine HCl (Hydroxyzine Hcl 25 Mg Tablet) 25 mg PO BEDTIME PRN PRN Reason: Anxiety Lorazepam (Lorazepam 1 Mg Tablet) 1 mg PO QID KEITH Last Admin: 10/14/21 08:01 Dose: 1 mg Documented by: Magnesium Hydroxide (Milk Of Magnesia 30 Ml Oral.Susp) 30 ml PO DAILY PRN PRN Reason: Constipation Trazodone HCl (Trazodone Hcl 50 Mg Tablet) 50 mg PO BEDTIME PRN PRN Reason: Insomnia Allergies Allergies Allergy/AdvReac Type Severity Reaction Status Date / Time No Known Allergies Allergy Verified 09/18/21 20:22 Assessment & Plan Assessment & Plan (1) Schizophrenia: Status: Acute Code(s): F20.9 - Schizophrenia, unspecified Plan Pt is a 27 y.o. male who carries a dx of schizophrenia, r/o bipolar DO/ schizoaffective disorder. He has hx of being a high functioning individual until mid 20s, in which he became increasingly withdrawn, paranoid, using cannabis and hallucinogens, esoteric, and ultimately unable to sustain employment. Has had impulsive and risk taking behaviors, i.e. disappearing, alcohol abuse. Pt endorses neg sx of schizophrenia, i.e. flat affect, thought blocking, slowed movement. Has poor sleep and appetite. [place] [facility] [place] parents concern with worsening psychotic sx/ catat[place] the [place], as pt became withdrawn, stopped responding, staring at the floor, not redirectable. On admission,admitting provider notes that Parents asked for head CT or MRI/ neuro workup to rule out organic causes, however pt?s sx appear to be a function of primary psych diagnosis. They are concerned with pt?s level of risk taking behavior when he is decompensation i.e. becomes increasingly withdrawn, flat, non-verbal. Risk taking bx includes drinking to excess, taking off in the night at odd hours and disappearing to the point that parents have had to file missing person?s report. Pt has hx of significant suicide attempt in 07/2020, pt was similarly withdrawn, illogical, depressed, and flat. Parents report pt had improvement in sx on seroquel, however he has been non-adherent with treatment in the community. Parents feel unable to care for him at home. Pt adamantly refuses medication, has lack of insight into diagnosis. No medication started. 09/22 patient remains with some catatonic features however he is eating, talking and moving. He also lacks nearly all insight. However, while significant speech latency remains, and patient has flat affect with somewhat of a fixed stare, his thought process is logical and goal oriented. He refuses all medications. Patient refuses Ativan. While Ativan to would likely be helpful, at this point underwriter mortgage loan does not find patient impaired to the point where he cannot input into medical decision making, as patient's thought content is organized and his catatonic symptoms seem to be improving. Will continue to monitor. 09/24: will schedule seroquel and continue to offer for psychotic sx 09/25: Pt refusing seroquel, guarded, appears internally preoccupied 09/26 no change in presentation; remains without insight and catatonic features. 09/27 no change; patient not phase by hearing that [employer] is no longer available; disputes that he does not have any money in his bank account. Patient said he chooses not to talk to this underwriter mortgage loan this time -Pt denies any head trauma; parents deny any head trauma that they know of. Patient has some specific genetic loading for Schizoaffective/schizophrenia and the course of symptoms follows the known pattern of this illness; and Seroquel seemed to help resolve symptoms. Also, The episodic nature of patients symptoms, though worsening over recent months, have been going on for couple of years making any organic cause of symptoms, other than psychiatric, very unlikely. At this point, Head CT is unlikely to provide much information, but underwriter mortgage loan will consult with neurology. Patient has predominantly negative symptoms and does not have symptoms associated with rare illness of Anti-NMDA receptor Encephalitis. 09/28 no change. Will proceed with involuntary commitment as patient has no insight into his disabling symptoms and is not organized enough to care for himself in the community. 09/29 [address] ordered involuntary commitment and substituted judgment for medication/tx pt told underwriter mortgage loan he did not want to talk; said he thinks he understands court proceedings. 09/30 given ativan 1mg and within 20 minutes significant reduction in catatonic symptoms including speech latency and moving slowly; still does not have insight; does not want meds and struggles to understand court order. 10/01: Id Improved with Ativan. No changes made. 10/03 holding Seroquel for now; will continue to treat catatonia with ativan. At this point underwriter mortgage loan still needs help differentiating between bipolar/schizoaffective-bipolar type and schizophrenia. Patient remains with speech latency and slow movements, however these have improved; most significantly patient is able to talk spontaneously and have a reasonable given take conversation; able to talk with peers. He struggles with insight and understanding that his symptoms represent an illness more debilitating than stress, however he is open to continuing to discuss it 10/04 Not much change. Patient continues to have improved spontaneousness with his speech and is walking a little more fluidly than on admission, however both remain slowed. Patient has the insight to acknowledge that Ativan has probably been helpful to him. He had a visit from his mother today but unfortunately she left before could meet with this underwriter mortgage loan. Both patient and underwriter mortgage loan agree to involve his parents in discussions prior to starting additional medication. As for now, he remains with catatonic symptoms and underwriter mortgage loan wants to continue to let Ativan work before starting a mood stabilizer or antipsychotic. 10/06 after further reviewing history with patient's parents, it seems that patient has had an a slowly increasing amount of disorganized thinking and behavior, fully revealing itself with patient suicide last year and continuing to this admission. There is some amount of episodic nature to some of his disorganized behaviors such as not infrequently making impromptu trips to foreign countries. However there does not seem to be any other associated manic type behaviors and in-between these impromptu trips, patient remained with disorganized thinking and behaviors relative to his past ability and achievements. It seems that disorganized behaviors is the prominent psychotic symptoms 10/07 patient reports tolerating Abilify. Will increase this medication to see if can be helpful in reducing disorganized thinking and behavior says. Patient still has catatonic like symptoms however so will keep the Ativan on and try to balance treating disorganization with resolving catatonia. 10/09: Patient superficial, remains without insight remains with significant negative symptoms, slowed speech and movements. Patient repeats the same refrain regarding how he is doing. Does not grasp the degree of his recent or history of unsafe behaviors or that his level of function is far below where used to be. Does not think he has psychiatric illness. 10/12 dr. kim interviewed patient and concurs with current tx plan 10/13 pt gave a presentation today that was basic, but organized. He remains below baseline and w/out insight, with odd interactions. Unsure if abilify is helping; will continue current dose and monitor Inchoate Formulation: Patient has history of being emotionally sensitive and having feelings easily hurt by others, with some difficulty forming lasting relationships. After review with parents, there does not seem to a ASD. Over past few years, it seems that patient has had a slowly increasing amount of disorganized thinking and behavior, fully revealing itself with patients suicide attempt last year and continuing to this admission. There is some amount of episodic nature to some of his disorganized behaviors such as making impromptu trips to foreign countries (that don't work out). However there does not seem to be any other associated manic type behaviors. In-between these impromptu trips, patient has disorganized thinking and behaviors relative to his past ability and achievements, intermittently waking and talking slowly; less and less ability to work). It seems that his main psychotic symptoms is his disorganized behaviors. -currently it is difficult to discern between catatonia and negative symptoms (flattened affect, alogia, Emotionally restricted, little motivation) Plan: Q15 min safety checks, Section 7 involuntary commitment; COURT ORDERED SUBSTITUTED JUDGMENT for tx/mediations 1. 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 Schizoaffective disorder (provisional; has hx of manic like episodes; otherwise disorganized speech and negative symptoms) INCREASE to Abilify 20 mg q.h.s. -after talking with parents again and after they have had some time to reflect, it seems that Seroquel trial unlikely made much difference as patient was still disorganized. Patient also has limited insight and history of being noncompliant with medications and not wanting medications making this a less favorable option. Given these reasons, underwriter mortgage loan decided to instead initiate trial of Abilify since it has a little less metabolic syndrome risk profile and comes in a long-acting medication. Antipsychotic Medications allowed by court order: Seroquel Ativan up to 8 mg daily Thorazine Prolixin immediate release/long-acting Haldol Abilify Zyprexa Geodon Monitor response to medications. Monitor for safety in the milieu. Discharge on stabilization. Patient seen. Chart reviewed. Discussed with team. Obtain collateral contact info?as needed I spent minutes with the patient and/or on the patient floor today, greater than?50% of which was spent counseling/coordinating care. Reason for contiued inpatient stay Substantial Risk for: rapid decompensation
--- NOTE | 2021-10-14 23:26 | HO.PSYCHPN ---
Subjective Subjective Date of Service: 10/14/21 Reason For Visit: bipolar disorder II Interim History: Patient seen and discussed with team. Patient evaluated today and upon interview he reports he is tolerating abilify, I think it really is helping and says I just feel better on a daily basis in terms of my mood, also says he feels better in my relationships. His parents visited today. Sleep is very good. Appetite is good. Has been helping run mindfulness groups on the unit. Mood is very good. In the milieu, patient is safe and visible in behavior, continues to be oddly related. Denies SI/SIB/HI upon inquiry. Denies irritability or assaultive ideation. Says he feels safe. Medication Compliance: Yes Side effects from medications: No Attending Groups: Yes Review of Systems Acute medical concerns: No Medical Review of Systems: unchanged Mental Status Exam Mental Status Exam Narrative: Pt is alert and oriented, though only partially to situation; dressed in casual cloths; unkempt hair but adequate hygiene; still walking and moving slowly with delayed movements (more fluid than on admission). Speech remains with latency and is still slowed (however, less than on admission); can be spontaneous though not often so; Mood is described as very good, Affect still fixed with a blank stare, but pt is also able to have more natural expressions at times; eye contact mostly a blank stare; thought process is goal directed and linear but only in response to questions posed;? Thought content seems to manifest based what question/topic he's being asked and otherwise seems vacuous; he answers questions with relevant and appropriate answers but thoughts hardly seem to originate other than He feels ready for discharge. He denies any delusional content, paranoid ideations and none expressed; denies any SI/HI. Denies AVH;? Patients insight and judgment are impaired and his unaware that his interactions are odd.? Diagnostics Vital Signs (24Hr): Vital Signs - 24 hr 10/14/21 06:00 Temperature 98 F Pulse Rate 75 Respiratory Rate 16 Blood Pressure 155/95 H Pulse Oximetry 100 BMI result Body Mass Index 20.6 Labs Results: 09/19/21 10:09 09/19/21 10:09 Medications Medications Current Medications Acetaminophen (Acetaminophen 325 Mg Tablet) 650 mg PO Q6H PRN PRN Reason: Headache/Pain Mild Scale (1-3) Al Hydroxide/Mg Hydroxide (Magnesium Hydrox/Alum Hydrox 30 Ml Oral.Susp) 30 ml PO Q6H PRN PRN Reason: Heartburn/Nausea Aripiprazole (Aripiprazole 30 Mg Tablet) 30 mg PO BEDTIME [facility] Last Admin: 10/13/21 20:05 Dose: 30 mg Documented by: Haloperidol Lactate (Haloperidol Lactate 5 Mg/Ml Vial) 5 mg IM BEDTIME PRN PRN Reason: refusal of PO Abilify Hydroxyzine HCl (Hydroxyzine Hcl 25 Mg Tablet) 25 mg PO BEDTIME PRN PRN Reason: Anxiety Lorazepam (Lorazepam 1 Mg Tablet) 1 mg PO QID [facility] Last Admin: 10/14/21 11:53 Dose: 1 mg Documented by: Magnesium Hydroxide (Milk Of Magnesia 30 Ml Oral.Susp) 30 ml PO DAILY PRN PRN Reason: Constipation Trazodone HCl (Trazodone Hcl 50 Mg Tablet) 50 mg PO BEDTIME PRN PRN Reason: Insomnia Allergies Allergies Allergy/AdvReac Type Severity Reaction Status Date / Time No Known Allergies Allergy Verified 09/18/21 20:22 Assessment & Plan Assessment & Plan (1) Schizophrenia: Status: Acute Code(s): F20.9 - Schizophrenia, unspecified Plan Pt is a 27 y.o. male who carries a dx of schizophrenia, r/o bipolar DO/ schizoaffective disorder. He has hx of being a high functioning individual until mid 20s, in which he became increasingly withdrawn, paranoid, using cannabis and hallucinogens, esoteric, and ultimately unable to sustain employment. Has had impulsive and risk taking behaviors, i.e. disappearing, alcohol abuse. Pt endorses neg sx of schizophrenia, i.e. flat affect, thought blocking, slowed movement. Has poor sleep and appetite. [place] [facility] [place] parents concern with worsening psychotic sx/ catat[place], as pt became withdrawn, stopped responding, staring at the floor, not redirectable. On admission,admitting provider notes that Parents asked for head CT or MRI/ neuro workup to rule out organic causes, however pt?s sx appear to be a function of primary psych diagnosis. They are concerned with pt?s level of risk taking behavior when he is decompensation i.e. becomes increasingly withdrawn, flat, non-verbal. Risk taking bx includes drinking to excess, taking off in the night at odd hours and disappearing to the point that parents have had to file missing person?s report. Pt has hx of significant suicide attempt in 07/2020, pt was similarly withdrawn, illogical, depressed, and flat. Parents report pt had improvement in sx on seroquel, however he has been non-adherent with treatment in the community. Parents feel unable to care for him at home. Pt adamantly refuses medication, has lack of insight into diagnosis. No medication started. 09/22 patient remains with some catatonic features however he is eating, talking and moving. He also lacks nearly all insight. However, while significant speech latency remains, and patient has flat affect with somewhat of a fixed stare, his thought process is logical and goal oriented. He refuses all medications. Patient refuses Ativan. While Ativan to would likely be helpful, at this point medical technical writer does not find patient impaired to the point where he cannot input into medical decision making, as patient's thought content is organized and his catatonic symptoms seem to be improving. Will continue to monitor. 09/24: will schedule seroquel and continue to offer for psychotic sx 09/25: Pt refusing seroquel, guarded, appears internally preoccupied 09/26 no change in presentation; remains without insight and catatonic features. 09/27 no change; patient not phase by hearing that [employer] is no longer available; disputes that he does not have any money in his bank account. Patient said he chooses not to talk to this medical technical writer this time -Pt denies any head trauma; parents deny any head trauma that they know of. Patient has some specific genetic loading for Schizoaffective/schizophrenia and the course of symptoms follows the known pattern of this illness; and Seroquel seemed to help resolve symptoms. Also, The episodic nature of patients symptoms, though worsening over recent months, have been going on for couple of years making any organic cause of symptoms, other than psychiatric, very unlikely. At this point, Head CT is unlikely to provide much information, but medical technical writer will consult with neurology. Patient has predominantly negative symptoms and does not have symptoms associated with rare illness of Anti-NMDA receptor Encephalitis. 09/28 no change. Will proceed with involuntary commitment as patient has no insight into his disabling symptoms and is not organized enough to care for himself in the community. 09/29 [address] ordered involuntary commitment and substituted judgment for medication/tx pt told medical technical writer he did not want to talk; said he thinks he understands court proceedings. 09/30 given ativan 1mg and within 20 minutes significant reduction in catatonic symptoms including speech latency and moving slowly; still does not have insight; does not want meds and struggles to understand court order. 10/01: Id Improved with Ativan. No changes made. 10/03 holding Seroquel for now; will continue to treat catatonia with ativan. At this point medical technical writer still needs help differentiating between bipolar/schizoaffective-bipolar type and schizophrenia. Patient remains with speech latency and slow movements, however these have improved; most significantly patient is able to talk spontaneously and have a reasonable given take conversation; able to talk with peers. He struggles with insight and understanding that his symptoms represent an illness more debilitating than stress, however he is open to continuing to discuss it 10/04 Not much change. Patient continues to have improved spontaneousness with his speech and is walking a little more fluidly than on admission, however both remain slowed. Patient has the insight to acknowledge that Ativan has probably been helpful to him. He had a visit from his mother today but unfortunately she left before could meet with this medical technical writer. Both patient and medical technical writer agree to involve his parents in discussions prior to starting additional medication. As for now, he remains with catatonic symptoms and medical technical writer wants to continue to let Ativan work before starting a mood stabilizer or antipsychotic. 10/06 after further reviewing history with patient's parents, it seems that patient has had an a slowly increasing amount of disorganized thinking and behavior, fully revealing itself with patient suicide last year and continuing to this admission. There is some amount of episodic nature to some of his disorganized behaviors such as not infrequently making impromptu trips to foreign countries. However there does not seem to be any other associated manic type behaviors and in-between these impromptu trips, patient remained with disorganized thinking and behaviors relative to his past ability and achievements. It seems that disorganized behaviors is the prominent psychotic symptoms 10/07 patient reports tolerating Abilify. Will increase this medication to see if can be helpful in reducing disorganized thinking and behavior says. Patient still has catatonic like symptoms however so will keep the Ativan on and try to balance treating disorganization with resolving catatonia. 10/09: Patient superficial, remains without insight remains with significant negative symptoms, slowed speech and movements. Patient repeats the same refrain regarding how he is doing. Does not grasp the degree of his recent or history of unsafe behaviors or that his level of function is far below where used to be. Does not think he has psychiatric illness. 10/12 dr. kim interviewed patient and concurs with current tx plan 10/13 pt gave a presentation today that was basic, but organized. He remains below baseline and w/out insight, with odd interactions. Unsure if abilify is helping; will continue current dose and monitor 10/14 Pt will continue on abilify, says he thinks it is helping, oddly related Inchoate Formulation: Patient has history of being emotionally sensitive and having feelings easily hurt by others, with some difficulty forming lasting relationships. After review with parents, there does not seem to a ASD. Over past few years, it seems that patient has had a slowly increasing amount of disorganized thinking and behavior, fully revealing itself with patients suicide attempt last year and continuing to this admission. There is some amount of episodic nature to some of his disorganized behaviors such as making impromptu trips to foreign countries (that don't work out). However there does not seem to be any other associated manic type behaviors. In-between these impromptu trips, patient has disorganized thinking and behaviors relative to his past ability and achievements, intermittently waking and talking slowly; less and less ability to work). It seems that his main psychotic symptoms is his disorganized behaviors. -currently it is difficult to discern between catatonia and negative symptoms (flattened affect, alogia, Emotionally restricted, little motivation) Plan: Q15 min safety checks, Section 7 involuntary commitment; COURT ORDERED SUBSTITUTED JUDGMENT for tx/mediations 1. 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 Schizoaffective disorder (provisional; has hx of manic like episodes; otherwise disorganized speech and negative symptoms) INCREASE to Abilify 20 mg q.h.s. -after talking with parents again and after they have had some time to reflect, it seems that Seroquel trial unlikely made much difference as patient was still disorganized. Patient also has limited insight and history of being noncompliant with medications and not wanting medications making this a less favorable option. Given these reasons, medical technical writer decided to instead initiate trial of Abilify since it has a little less metabolic syndrome risk profile and comes in a long-acting medication. Antipsychotic Medications allowed by court order: Seroquel Ativan up to 8 mg daily Thorazine Prolixin immediate release/long-acting Haldol Abilify Zyprexa Addy Monitor response to medications. Monitor for safety in the milieu. Discharge on stabilization. Patient seen. Chart reviewed. Discussed with team. Obtain collateral contact info?as needed I spent minutes with the patient and/or on the patient floor today, greater than?50% of which was spent counseling/coordinating care. Reason for contiued inpatient stay Substantial Risk for: inability to function, rapid decompensation and med/psych decompensation
[2021-10-15 06:00] VITALS: BP 150/86; PULSE 77; RESP 18; TEMP 36.8; O2SAT 100
[2021-10-15] MEDS: LORazepam 1 MG TABLET PO ×4 (08:36→21:39)
[2021-10-15 18:00] VITALS: BP 141/80; PULSE 92; RESP 16; TEMP 36.6; O2SAT 97
--- NOTE | 2021-10-15 18:41 | HO.PSYCHPN ---
Subjective Subjective Date of Service: 10/15/21 Reason For Visit: bipolar disorder II Interim History: Quiet, visable, accepting of medications. Telling team he is feeling improved. Medication Compliance: Yes Side effects from medications: No Attending Groups: Intermittent Review of Systems Acute medical concerns: No Medical Review of Systems: unchanged Mental Status Exam Mental Status Exam Patient Appearance: Appropriate Patient Orientation: Person and Place Level of Consciousness: Alert Patient Behavior: Anxious, Avoidant and Good Eye Contact Mood Description: Withdrawn, Blunted and Apprehensive Affect Description: Blunted Patient Cognition Impaired: No Ability to Follow Directions: Good Speech Pattern: Spontaneous Speech and Soft-Spoken Memory Description: Episodic Impaired Delusions: Paranoid Ideation Perceptual Disturbances: Derealization Thought Content: positive for Suicidal Ideation (denies) Judgement: Fair Diagnostics Vital Signs (24Hr): Vital Signs - 24 hr 10/15/21 06:00 Temperature 98.3 F Pulse Rate 77 Respiratory Rate 18 Blood Pressure 150/86 H Pulse Oximetry 100 BMI result Body Mass Index 20.6 Labs Results: 09/19/21 10:09 09/19/21 10:09 Medications Medications Current Medications Acetaminophen (Acetaminophen 325 Mg Tablet) 650 mg PO Q6H PRN PRN Reason: Headache/Pain Mild Scale (1-3) Al Hydroxide/Mg Hydroxide (Magnesium Hydrox/Alum Hydrox 30 Ml Oral.Susp) 30 ml PO Q6H PRN PRN Reason: Heartburn/Nausea Aripiprazole (Aripiprazole 30 Mg Tablet) 30 mg PO BEDTIME [facility] Last Admin: 10/15/21 07:56 Dose: Not Given Documented by: Haloperidol Lactate (Haloperidol Lactate 5 Mg/Ml Vial) 5 mg IM BEDTIME PRN PRN Reason: refusal of PO Abilify Hydroxyzine HCl (Hydroxyzine Hcl 25 Mg Tablet) 25 mg PO BEDTIME PRN PRN Reason: Anxiety Lorazepam (Lorazepam 1 Mg Tablet) 1 mg PO QID [facility] Last Admin: 10/15/21 16:12 Dose: 1 mg Documented by: Magnesium Hydroxide (Milk Of Magnesia 30 Ml Oral.Susp) 30 ml PO DAILY PRN PRN Reason: Constipation Trazodone HCl (Trazodone Hcl 50 Mg Tablet) 50 mg PO BEDTIME PRN PRN Reason: Insomnia Allergies Allergies Allergy/AdvReac Type Severity Reaction Status Date / Time No Known Allergies Allergy Verified 09/18/21 20:22 Assessment & Plan Assessment & Plan (1) Schizophrenia: Status: Acute Code(s): F20.9 - Schizophrenia, unspecified Plan Pt is a 27 y.o. male who carries a dx of schizophrenia, r/o bipolar DO/ schizoaffective disorder. He has hx of being a high functioning individual until mid 20s, in which he became increasingly withdrawn, paranoid, using cannabis and hallucinogens, esoteric, and ultimately unable to sustain employment. Has had impulsive and risk taking behaviors, i.e. disappearing, alcohol abuse. Pt endorses neg sx of schizophrenia, i.e. flat affect, thought blocking, slowed movement. Has poor sleep and appetite. Pt arrives to [facility] due to parents concern with worsening psychotic sx/ catat[place] the mall, as pt became withdrawn, stopped responding, staring at the floor, not redirectable. On admission,admitting provider notes that Parents asked for head CT or MRI/ neuro workup to rule out organic causes, however pt?s sx appear to be a function of primary psych diagnosis. They are concerned with pt?s level of risk taking behavior when he is decompensation i.e. becomes increasingly withdrawn, flat, non-verbal. Risk taking bx includes drinking to excess, taking off in the night at odd hours and disappearing to the point that parents have had to file missing person?s report. Pt has hx of significant suicide attempt in 07/2020, pt was similarly withdrawn, illogical, depressed, and flat. Parents report pt had improvement in sx on seroquel, however he has been non-adherent with treatment in the community. Parents feel unable to care for him at home. Pt adamantly refuses medication, has lack of insight into diagnosis. No medication started. 09/22 patient remains with some catatonic features however he is eating, talking and moving. He also lacks nearly all insight. However, while significant speech latency remains, and patient has flat affect with somewhat of a fixed stare, his thought process is logical and goal oriented. He refuses all medications. Patient refuses Ativan. While Ativan to would likely be helpful, at this point life insurance underwriter does not find patient impaired to the point where he cannot input into medical decision making, as patient's thought content is organized and his catatonic symptoms seem to be improving. Will continue to monitor. 09/24: will schedule seroquel and continue to offer for psychotic sx 09/25: Pt refusing seroquel, guarded, appears internally preoccupied 09/26 no change in presentation; remains without insight and catatonic features. 09/27 no change; patient not phase by hearing that [employer] is no longer available; disputes that he does not have any money in his bank account. Patient said he chooses not to talk to this life insurance underwriter this time -Pt denies any head trauma; parents deny any head trauma that they know of. Patient has some specific genetic loading for Schizoaffective/schizophrenia and the course of symptoms follows the known pattern of this illness; and Seroquel seemed to help resolve symptoms. Also, The episodic nature of patients symptoms, though worsening over recent months, have been going on for couple of years making any organic cause of symptoms, other than psychiatric, very unlikely. At this point, Head CT is unlikely to provide much information, but life insurance underwriter will consult with neurology. Patient has predominantly negative symptoms and does not have symptoms associated with rare illness of Anti-NMDA receptor Encephalitis. 09/28 no change. Will proceed with involuntary commitment as patient has no insight into his disabling symptoms and is not organized enough to care for himself in the community. 09/29 [address] ordered involuntary commitment and substituted judgment for medication/tx pt told life insurance underwriter he did not want to talk; said he thinks he understands court proceedings. 09/30 given ativan 1mg and within 20 minutes significant reduction in catatonic symptoms including speech latency and moving slowly; still does not have insight; does not want meds and struggles to understand court order. 10/01: Id Improved with Ativan. No changes made. 10/03 holding Seroquel for now; will continue to treat catatonia with ativan. At this point life insurance underwriter still needs help differentiating between bipolar/schizoaffective-bipolar type and schizophrenia. Patient remains with speech latency and slow movements, however these have improved; most significantly patient is able to talk spontaneously and have a reasonable given take conversation; able to talk with peers. He struggles with insight and understanding that his symptoms represent an illness more debilitating than stress, however he is open to continuing to discuss it 10/04 Not much change. Patient continues to have improved spontaneousness with his speech and is walking a little more fluidly than on admission, however both remain slowed. Patient has the insight to acknowledge that Ativan has probably been helpful to him. He had a visit from his mother today but unfortunately she left before could meet with this life insurance underwriter. Both patient and life insurance underwriter agree to involve his parents in discussions prior to starting additional medication. As for now, he remains with catatonic symptoms and life insurance underwriter wants to continue to let Ativan work before starting a mood stabilizer or antipsychotic. 10/06 after further reviewing history with patient's parents, it seems that patient has had an a slowly increasing amount of disorganized thinking and behavior, fully revealing itself with patient suicide last year and continuing to this admission. There is some amount of episodic nature to some of his disorganized behaviors such as not infrequently making impromptu trips to foreign countries. However there does not seem to be any other associated manic type behaviors and in-between these impromptu trips, patient remained with disorganized thinking and behaviors relative to his past ability and achievements. It seems that disorganized behaviors is the prominent psychotic symptoms 10/07 patient reports tolerating Abilify. Will increase this medication to see if can be helpful in reducing disorganized thinking and behavior says. Patient still has catatonic like symptoms however so will keep the Ativan on and try to balance treating disorganization with resolving catatonia. 10/09: Patient superficial, remains without insight remains with significant negative symptoms, slowed speech and movements. Patient repeats the same refrain regarding how he is doing. Does not grasp the degree of his recent or history of unsafe behaviors or that his level of function is far below where used to be. Does not think he has psychiatric illness. 10/12 dr. kim interviewed patient and concurs with current tx plan 10/13 pt gave a presentation today that was basic, but organized. He remains below baseline and w/out insight, with odd interactions. Unsure if abilify is helping; will continue current dose and monitor 10/14 Pt will continue on abilify, says he thinks it is helping, oddly related 10/15/21: Continue current plan. Inchoate Formulation: Patient has history of being emotionally sensitive and having feelings easily hurt by others, with some difficulty forming lasting relationships. After review with parents, there does not seem to a ASD. Over past few years, it seems that patient has had a slowly increasing amount of disorganized thinking and behavior, fully revealing itself with patients suicide attempt last year and continuing to this admission. There is some amount of episodic nature to some of his disorganized behaviors such as making impromptu trips to foreign countries (that don't work out). However there does not seem to be any other associated manic type behaviors. In-between these impromptu trips, patient has disorganized thinking and behaviors relative to his past ability and achievements, intermittently waking and talking slowly; less and less ability to work). It seems that his main psychotic symptoms is his disorganized behaviors. -currently it is difficult to discern between catatonia and negative symptoms (flattened affect, alogia, Emotionally restricted, little motivation) Plan: Q15 min safety checks, Section 7 involuntary commitment; COURT ORDERED SUBSTITUTED JUDGMENT for tx/mediations 1. 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 Schizoaffective disorder (provisional; has hx of manic like episodes; otherwise disorganized speech and negative symptoms) INCREASE to Abilify 20 mg q.h.s. -after talking with parents again and after they have had some time to reflect, it seems that Seroquel trial unlikely made much difference as patient was still disorganized. Patient also has limited insight and history of being noncompliant with medications and not wanting medications making this a less favorable option. Given these reasons, life insurance underwriter decided to instead initiate trial of Abilify since it has a little less metabolic syndrome risk profile and comes in a long-acting medication. Antipsychotic Medications allowed by court order: Seroquel Ativan up to 8 mg daily Thorazine Prolixin immediate release/long-acting Haldol Abilify Ayahyprexoleg Daly Monitor response to medications. Monitor for safety in the milieu. Discharge on stabilization. Patient seen. Chart reviewed. Discussed with team. Obtain collateral contact info?as needed I spent minutes with the patient and/or on the patient floor today, greater than?50% of which was spent counseling/coordinating care. Informed Consent: further education needed Reason for contiued inpatient stay Substantial Risk for: inability to function and rapid decompensation
[2021-10-15] MEDS: ARIPiprazole 30 MG TABLET PO (21:39)
[2021-10-16 06:00] VITALS: BP 144/84; PULSE 87; RESP 16; TEMP 37.2; O2SAT 100
[2021-10-16] MEDS: LORazepam 1 MG TABLET PO ×4 (09:03→21:28)
--- NOTE | 2021-10-16 15:40 | P.PNPSI_ITS ---
Subjective Subjective Date of Service: 10/16/21 Reason For Visit: bipolar disorder II Interim History: Team reports pt expressed concern regarding how his name is listed in the computer. Visited by his parents. Appears more preoccupied today, distant, less connected to milieu. Accepting of medications, denies adverse effects. Medication Compliance: Yes Side effects from medications: No Attending Groups: Intermittent Review of Systems Acute medical concerns: No Medical Review of Systems: unchanged Mental Status Exam Mental Status Exam Patient Appearance: Appropriate Patient Orientation: Person and Place Level of Consciousness: Alert Patient Behavior: Anxious, Avoidant and Good Eye Contact Mood Description: Withdrawn, Blunted and Apprehensive Affect Description: Blunted Patient Cognition Impaired: No Ability to Follow Directions: Good Speech Pattern: Spontaneous Speech and Soft-Spoken Memory Description: Episodic Impaired Delusions: Paranoid Ideation Perceptual Disturbances: Derealization Thought Content: positive for Suicidal Ideation (denies) Judgement: Fair Diagnostics Vital Signs (24Hr): Vital Signs - 24 hr 10/15/21 18:00 10/16/21 06:00 Temperature 97.9 F 99.0 F Pulse Rate 92 87 Respiratory Rate 16 16 Blood Pressure 141/80 H 144/84 H Pulse Oximetry 97 100 BMI result Body Mass Index 20.6 Labs Results: 09/19/21 10:09 09/19/21 10:09 Medications Medications Current Medications Acetaminophen (Acetaminophen 325 Mg Tablet) 650 mg PO Q6H PRN PRN Reason: Headache/Pain Mild Scale (1-3) Al Hydroxide/Mg Hydroxide (Magnesium Hydrox/Alum Hydrox 30 Ml Oral.Susp) 30 ml PO Q6H PRN PRN Reason: Heartburn/Nausea Aripiprazole (Aripiprazole 30 Mg Tablet) 30 mg PO BEDTIME [facility] Last Admin: 10/15/21 21:39 Dose: 30 mg Documented by: Haloperidol Lactate (Haloperidol Lactate 5 Mg/Ml Vial) 5 mg IM BEDTIME PRN PRN Reason: refusal of PO Abilify Hydroxyzine HCl (Hydroxyzine Hcl 25 Mg Tablet) 25 mg PO BEDTIME PRN PRN Reason: Anxiety Lorazepam (Lorazepam 1 Mg Tablet) 1 mg PO QID [facility] Last Admin: 10/16/21 15:02 Dose: 1 mg Documented by: Magnesium Hydroxide (Milk Of Magnesia 30 Ml Oral.Susp) 30 ml PO DAILY PRN PRN Reason: Constipation Trazodone HCl (Trazodone Hcl 50 Mg Tablet) 50 mg PO BEDTIME PRN PRN Reason: Insomnia Allergies Allergies Allergy/AdvReac Type Severity Reaction Status Date / Time No Known Allergies Allergy Verified 09/18/21 20:22 Assessment & Plan Assessment & Plan (1) Schizophrenia: Status: Acute Code(s): F20.9 - Schizophrenia, unspecified Plan Pt is a 27 y.o. male who carries a dx of schizophrenia, r/o bipolar DO/ schizoaffective disorder. He has hx of being a high functioning individual until mid 20s, in which he became increasingly withdrawn, paranoid, using cannabis and hallucinogens, esoteric, and ultimately unable to sustain employment. Has had impulsive and risk taking behaviors, i.e. disappearing, alcohol abuse. Pt endorses neg sx of schizophrenia, i.e. flat affect, thought blocking, slowed movement. Has poor sleep and appetite. [place] [facility] [place] parents concern with worsening psychotic sx/ catat[place] behavior [place] the mall, as pt became withdrawn, stopped responding, staring at the floor, not redirectable. On admission,admitting provider notes that Parents asked for head CT or MRI/ neuro workup to rule out organic causes, however pt?s sx appear to be a function of primary psych diagnosis. They are concerned with pt?s level of risk taking behavior when he is decompensation i.e. becomes increasingly withdrawn, flat, non-verbal. Risk taking bx includes drinking to excess, taking off in the night at odd hours and disappearing to the point that parents have had to file missing person?s report. Pt has hx of significant suicide attempt in 07/2020, pt was similarly withdrawn, illogical, depressed, and flat. Parents report pt had improvement in sx on seroquel, however he has been non-adherent with treatment in the community. Parents feel unable to care for him at home. Pt adamantly refuses medication, has lack of insight into diagnosis. No medication started. 09/22 patient remains with some catatonic features however he is eating, talking and moving. He also lacks nearly all insight. However, while significant speech latency remains, and patient has flat affect with somewhat of a fixed stare, his thought process is logical and goal oriented. He refuses all medications. Patient refuses Ativan. While Ativan to would likely be helpful, at this point technical publications writer does not find patient impaired to the point where he cannot input into medical decision making, as patient's thought content is organized and his catatonic symptoms seem to be improving. Will continue to monitor. 09/24: will schedule seroquel and continue to offer for psychotic sx 09/25: Pt refusing seroquel, guarded, appears internally preoccupied 09/26 no change in presentation; remains without insight and catatonic features. 09/27 no change; patient not phase by hearing that [employer] is no longer available; disputes that he does not have any money in his bank account. Patient said he chooses not to talk to this technical publications writer this time -Pt denies any head trauma; parents deny any head trauma that they know of. Patient has some specific genetic loading for Schizoaffective/schizophrenia and the course of symptoms follows the known pattern of this illness; and Seroquel seemed to help resolve symptoms. Also, The episodic nature of patients symptoms, though worsening over recent months, have been going on for couple of years making any organic cause of symptoms, other than psychiatric, very unlikely. At this point, Head CT is unlikely to provide much information, but technical publications writer will consult with neurology. Patient has predominantly negative symptoms and does not have symptoms associated with rare illness of Anti-NMDA receptor Encephalitis. 09/28 no change. Will proceed with involuntary commitment as patient has no insight into his disabling symptoms and is not organized enough to care for himself in the community. 09/29 [address] ordered involuntary commitment and substituted judgment for medication/tx pt told technical publications writer he did not want to talk; said he thinks he understands court proceedings. 09/30 given ativan 1mg and within 20 minutes significant reduction in catatonic symptoms including speech latency and moving slowly; still does not have insight; does not want meds and struggles to understand court order. 10/01: Id Improved with Ativan. No changes made. 10/03 holding Seroquel for now; will continue to treat catatonia with ativan. At this point technical publications writer still needs help differentiating between bipolar/schi zoaffective-bipolar type and schizophrenia. Patient remains with speech latency and slow movements, however these have improved; most significantly patient is able to talk spontaneously and have a reasonable given take conversation; able to talk with peers. He struggles with insight and understanding that his symptoms represent an illness more debilitating than stress, however he is open to continuing to discuss it 10/04 Not much change. Patient continues to have improved spontaneousness with h is speech and is walking a little more fluidly than on admission, however both remain slowed. Patient has the insight to acknowledge that Ativan has probably been helpful to him. He had a visit from his mother today but unfortunately she left before could meet with this technical publications writer. Both patient and technical publications writer agree to involve his parents in discussions prior to starting additional medication. As for now, he remains with catatonic symptoms and technical publications writer wants to continue to let Ativan work before starting a mood stabilizer or antipsychotic. 10/06 after further reviewing history with patient's parents, it seems that patient has had an a slowly increasing amount of disorganized thinking and behavior, fully revealing itself with patient suicide last year and continuing to this admission. There is some amount of episodic nature to some of his disorganized behaviors such as not infrequently making impromptu trips to foreign countries. However there does not seem to be any other associated manic type behaviors and in-between these impromptu trips, patient remained with disorganized thinking and behaviors relative to his past ability and achievements. It seems that disorganized behaviors is the prominent psychotic symptoms 10/07 patient reports tolerating Abilify. Will increase this medication to see if can be helpful in reducing disorganized thinking and behavior says. Patient still has catatonic like symptoms however so will keep the Ativan on and try to balance treating disorganization with resolving catatonia. 10/09: Patient superficial, remains without insight remains with significant negative symptoms, slowed speech and movements. Patient repeats the same refrain regarding how he is doing. Does not grasp the degree of his recent or history of unsafe behaviors or that his level of function is far below where used to be. Does not think he has psychiatric illness. 10/12 dr. kim interviewed patient and concurs with current tx plan 10/13 pt gave a presentation today that was basic, but organized. He remains below baseline and w/out insight, with odd interactions. Unsure if abilify is helping; will continue current dose and monitor 10/14 Pt will continue on abilify, says he thinks it is helping, oddly related 10/15/21: Continue current plan. 10/16/21: Continue to monitor Inchoate Formulation: Patient has history of being emotionally sensitive and having feelings easily hurt by others, with some difficulty forming lasting relationships. After review with parents, there does not seem to a ASD. Over past few years, it seems that patient has had a slowly increasing amount of disorganized thinking and behavior, fully revealing itself with patients suicide attempt last year and continuing to this admission. There is some amount of episodic nature to some of his disorganized behaviors such as making impromptu trips to foreign countries (that don't work out). However there does not seem to be any other associated manic type behaviors. In-between these impromptu trips, patient has disorganized thinking and behaviors relative to his past ability and achievements, intermittently waking and talking slowly; less and less ability to work). It seems that his main psychotic symptoms is his disorganized behaviors. -currently it is difficult to discern between catatonia and negative symptoms (flattened affect, alogia, Emotionally restricted, little motivation) Plan: Q15 min safety checks, Section 7 involuntary commitment; COURT ORDERED SUBSTITUTED JUDGMENT for tx/mediations 1. 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 Schizoaffective disorder (provisional; has hx of manic like episodes; otherwise disorganized speech and negative symptoms) INCREASE to Abilify 20 mg q.h.s. -after talking with parents again and after they have had some time to reflect, it seems that Seroquel trial unlikely made much difference as patient was still disorganized. Patient also has limited insight and history of being noncompliant with medications and not wanting medications making this a less favorable option. Given these reasons, technical publications writer decided to instead initiate trial of Abilify since it has a little less metabolic syndrome risk profile and comes in a long-acting medication. Antipsychotic Medications allowed by court order: Seroquel Ativan up to 8 mg daily Thorazine Prolixin immediate release/long-acting Haldol Abilify Kyleerexoleg [place] Monitor response to medications. Monitor for safety in the milieu. Discharge on stabilization. Patient seen. Chart reviewed. Discussed with team. Obtain collateral contact info?as needed I spent minutes with the patient and/or on the patient floor today, greater than?50% of which was spent counseling/coordinating care. Informed Consent: further education needed Reason for contiued inpatient stay Substantial Risk for: inability to function and rapid decompensation
[2021-10-16 19:53] VITALS: BP 163/87; PULSE 87; RESP 17; TEMP 36.7; O2SAT 96
[2021-10-16] MEDS: ARIPiprazole 30 MG TABLET PO (21:28)
[2021-10-17 06:00] VITALS: BP 144/75; PULSE 78; RESP 16; TEMP 37; O2SAT 97
[2021-10-17] MEDS: LORazepam 1 MG TABLET PO ×3 (08:48→17:43)
[2021-10-17 18:00] VITALS: BP 126/82; PULSE 85; RESP 16; TEMP 36.8; O2SAT 97
[2021-10-17] MEDS: ARIPiprazole 30 MG TABLET PO (19:58)
--- NOTE | 2021-10-17 20:18 | P.PNPSI_ITS ---
Subjective Subjective Date of Service: 10/17/21 Reason For Visit: bipolar disorder II Interim History: No new issues or concerns, denies medication SE or questions regarding plan of care. Interactive with team and with peers. Talking on the phone as well, appears more visable and engaging today. Medication Compliance: Yes Side effects from medications: No Attending Groups: Yes Review of Systems Acute medical concerns: No Medical Review of Systems: unchanged Mental Status Exam Mental Status Exam Patient Appearance: Appropriate Patient Orientation: Person and Place Level of Consciousness: Alert Patient Behavior: Anxious, Avoidant and Good Eye Contact Mood Description: Withdrawn, Blunted and Apprehensive Affect Description: Blunted Patient Cognition Impaired: No Ability to Follow Directions: Good Speech Pattern: Spontaneous Speech and Soft-Spoken Memory Description: Episodic Impaired Delusions: Paranoid Ideation Perceptual Disturbances: Derealization Thought Content: positive for Suicidal Ideation (denies) Judgement: Fair Diagnostics Vital Signs (24Hr): Vital Signs - 24 hr 10/17/21 06:00 Temperature 98.6 F Pulse Rate 78 Respiratory Rate 16 Blood Pressure 144/75 H Pulse Oximetry 97 BMI result Body Mass Index 20.6 Labs Results: 09/19/21 10:09 09/19/21 10:09 Medications Medications Current Medications Acetaminophen (Acetaminophen 325 Mg Tablet) 650 mg PO Q6H PRN PRN Reason: Headache/Pain Mild Scale (1-3) Al Hydroxide/Mg Hydroxide (Magnesium Hydrox/Alum Hydrox 30 Ml Oral.Susp) 30 ml PO Q6H PRN PRN Reason: Heartburn/Nausea Aripiprazole (Aripiprazole 30 Mg Tablet) 30 mg PO BEDTIME KEITH Last Admin: 10/17/21 19:58 Dose: 30 mg Documented by: Haloperidol Lactate (Haloperidol Lactate 5 Mg/Ml Vial) 5 mg IM BEDTIME PRN PRN Reason: refusal of PO Abilify Hydroxyzine HCl (Hydroxyzine Hcl 25 Mg Tablet) 25 mg PO BEDTIME PRN PRN Reason: Anxiety Magnesium Hydroxide (Milk Of Magnesia 30 Ml Oral.Susp) 30 ml PO DAILY PRN PRN Reason: Constipation Trazodone HCl (Trazodone Hcl 50 Mg Tablet) 50 mg PO BEDTIME PRN PRN Reason: Insomnia Allergies Allergies Allergy/AdvReac Type Severity Reaction Status Date / Time No Known Allergies Allergy Verified 09/18/21 20:22 Assessment & Plan Assessment & Plan (1) Schizophrenia: Status: Acute Code(s): F20.9 - Schizophrenia, unspecified Plan Pt is a 27 y.o. male who carries a dx of schizophrenia, r/o bipolar DO/ schizoaffective disorder. He has hx of being a high functioning individual until mid 20s, in which he became increasingly withdrawn, paranoid, using cannabis and hallucinogens, esoteric, and ultimately unable to sustain employment. Has had impulsive and risk taking behaviors, i.e. disappearing, alcohol abuse. Pt endorses neg sx of schizophrenia, i.e. flat affect, thought blocking, slowed movement. Has poor sleep and appetite. Pt arrives to [facility] due to parents concern with worsening psychotic sx/ catat[place] the [place], as pt became withdrawn, stopped responding, staring at the floor, not redirectable. On admission,admitting provider notes that Parents asked for head CT or MRI/ neuro workup to rule out organic causes, however pt?s sx appear to be a function of primary psych diagnosis. They are concerned with pt?s level of risk taking behavior when he is decompensation i.e. becomes increasingly withdrawn, flat, non-verbal. Risk taking bx includes drinking to excess, taking off in the night at odd hours and disappearing to the point that parents have had to file missing person?s report. Pt has hx of significant suicide attempt in 07/2020, pt was similarly withdrawn, illogical, depressed, and flat. Parents report pt had improvement in sx on seroquel, however he has been non-adherent with treatment in the community. Parents feel unable to care for him at home. Pt adamantly refuses medication, has lack of insight into diagnosis. No medication started. 09/22 patient remains with some catatonic features however he is eating, talking and moving. He also lacks nearly all insight. However, while significant speech latency remains, and patient has flat affect with somewhat of a fixed stare, his thought process is logical and goal oriented. He refuses all medications. Patient refuses Ativan. While Ativan to would likely be helpful, at this point software writer does not find patient impaired to the point where he cannot input into medical decision making, as patient's thought content is organized and his catatonic symptoms seem to be improving. Will continue to monitor. 09/24: will schedule seroquel and continue to offer for psychotic sx 09/25: Pt refusing seroquel, guarded, appears internally preoccupied 09/26 no change in presentation; remains without insight and catatonic features. 09/27 no change; patient not phase by hearing that [employer] is no longer available; disputes that he does not have any money in his bank account. Patient said he chooses not to talk to this software writer this time -Pt denies any head trauma; parents deny any head trauma that they know of. Patient has some specific genetic loading for Schizoaffective/schizophrenia and the course of symptoms follows the known pattern of this illness; and Seroquel seemed to help resolve symptoms. Also, The episodic nature of patients symptoms, though worsening over recent months, have been going on for couple of years making any organic cause of symptoms, other than psychiatric, very unlikely. At this point, Head CT is unlikely to provide much information, but software writer will consult with neurology. Patient has predominantly negative symptoms and does not have symptoms associated with rare illness of Anti-NMDA receptor Encephalitis. 09/28 no change. Will proceed with involuntary commitment as patient has no insight into his disabling symptoms and is not organized enough to care for himself in the community. 09/29 [address] ordered involuntary commitment and substituted judgment for medication/tx pt told software writer he did not want to talk; said he thinks he understands court proceedings. 09/30 given ativan 1mg and within 20 minutes significant reduction in catatonic symptoms including speech latency and moving slowly; still does not have insight; does not want meds and struggles to understand court order. 10/01: Id Improved with Ativan. No changes made. 10/03 holding Seroquel for now; will continue to treat catatonia with ativan. At this point software writer still needs help differentiating between bipolar/schi zoaffective-bipolar type and schizophrenia. Patient remains with speech latency and slow movements, however these have improved; most significantly patient is able to talk spontaneously and have a reasonable given take conversation; able to talk with peers. He struggles with insight and understanding that his symptoms represent an illness more debilitating than stress, however he is open to continuing to discuss it / Not much change. Patient continues to have improved spontaneousness with h is speech and is walking a little more fluidly than on admission, however both remain slowed. Patient has the insight to acknowledge that Ativan has probably been helpful to him. He had a visit from his mother today but unfortunately she left before could meet with this software writer. Both patient and software writer agree to involve his parents in discussions prior to starting additional medication. As for now, he remains with catatonic symptoms and software writer wants to continue to let Ativan work before starting a mood stabilizer or antipsychotic. 10/06 after further reviewing history with patient's parents, it seems that patient has had an a slowly increasing amount of disorganized thinking and behavior, fully revealing itself with patient suicide last year and continuing to this admission. There is some amount of episodic nature to some of his disorganized behaviors such as not infrequently making impromptu trips to foreign countries. However there does not seem to be any other associated manic type behaviors and in-between these impromptu trips, patient remained with disorganized thinking and behaviors relative to his past ability and achievements. It seems that disorganized behaviors is the prominent psychotic symptoms 10/07 patient reports tolerating Abilify. Will increase this medication to see if can be helpful in reducing disorganized thinking and behavior says. Patient still has catatonic like symptoms however so will keep the Ativan on and try to balance treating disorganization with resolving catatonia. 10/09: Patient superficial, remains without insight remains with significant negative symptoms, slowed speech and movements. Patient repeats the same refrain regarding how he is doing. Does not grasp the degree of his recent or history of unsafe behaviors or that his level of function is far below where used to be. Does not think he has psychiatric illness. 10/12 dr. kim interviewed patient and concurs with current tx plan 10/13 pt gave a presentation today that was basic, but organized. He remains below baseline and w/out insight, with odd interactions. Unsure if abilify is helping; will continue current dose and monitor 10/14 Pt will continue on abilify, says he thinks it is helping, oddly related 10/15/21: Continue current plan. 10/16/21: Continue to monitor 10/17/21: Continue current plan of care. Inchoate Formulation: Patient has history of being emotionally sensitive and having feelings easily hurt by others, with some difficulty forming lasting relationships. After review with parents, there does not seem to a ASD. Over past few years, it seems that patient has had a slowly increasing amount of disorganized thinking and behavior, fully revealing itself with patients suicide attempt last year and continuing to this admission. There is some amount of episodic nature to some of his disorganized behaviors such as making impromptu trips to foreign countries (that don't work out). However there does not seem to be any other associated manic type behaviors. In-between these impromptu trips, patient has disorganized thinking and behaviors relative to his past ability and achievements, intermittently waking and talking slowly; less and less ability to work). It seems that his main psychotic symptoms is his disor ganized behaviors. -currently it is difficult to discern between catatonia and negative symptoms (flattened affect, alogia, Emotionally restricted, little motivation) Plan: Q15 min safety checks, Section 7 involuntary commitment; COURT ORDERED SUBSTITUTED JUDGMENT for tx /mediations 1. 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 Schizoaffective disorder (provisional; has hx of manic like episodes; otherwise disorganized speech and negative symptoms) INCREASE to Abilify 20 mg q.h.s. -after talking with parents again and after they have had some time to reflect, it seems that Seroquel trial unlikely made much difference as patient was still disorganized. Patient also has limited insight and history of being noncompliant with medications and not wanting medications making this a less favorable option. Given these reasons, software writer decided to instead initiate trial of Abilify since it has a little less metabolic syndrome risk profile and comes in a long-acting medication. Antipsychotic Medications allowed by court order: Seroquel Ativan up to 8 mg daily Thorazine Prolixin immediate release/long-acting Haldol Abilify Chris Daly Monitor response to medications. Monitor for safety in the milieu. Discharge on stabilization. Patient seen. Chart reviewed. Discussed with team. Obtain collateral contact info?as needed I spent minutes with the patient and/or on the patient floor today, greater than?50% of which was spent counseling/coordinating care. Reason for contiued inpatient stay Substantial Risk for: inability to function and rapid decompensation
[2021-10-18 06:00] VITALS: BP 112/68; PULSE 97; RESP 16; TEMP 36.8; O2SAT 100
--- NOTE | 2021-10-18 16:20 | P.PNPSI_ITS ---
Subjective Subjective Date of Service: 10/18/21 Reason For Visit: bipolar disorder II Subjective Notes: Section 8 Guardianship: Yes (section 8) Interim History: Pt oddly detached guarded with preprogrammed type responses quite concrete in na ture not able to describe or unwilling to describe thinking of what went into bizarre behavoir si on 30 mg abilify accepting tx Mental Status Exam Mental Status Exam Patient Appearance: Appropriate and Rigid Patient Orientation: Person, Place and Situation Level of Consciousness: Awake and Alert Patient Behavior: Guarded, Passive, Anxious, Avoidant and Good Eye Contact Mood Description: Withdrawn, Blunted and Apprehensive Affect Description: Blunted Patient Cognition Impaired: No Ability to Follow Directions: Good Speech Pattern: Spontaneous Speech and Soft-Spoken Memory Description: Episodic Impaired Delusions: Paranoid Ideation Perceptual Disturbances: Derealization Thought Process: Rumination, Evasive and Slowed Thinking Thought Content: positive for Suicidal Ideation (denies in this setting) Judgement: Fair Judgement and Insight: limited insight Diagnostics Vital Signs (24Hr): Vital Signs - 24 hr 10/17/21 18:00 10/18/21 06:00 Temperature 98.2 F 98.2 F Pulse Rate 85 97 Respiratory Rate 16 16 Blood Pressure 126/82 112/68 Pulse Oximetry 97 100 BMI result Body Mass Index 20.6 Labs Results: 09/19/21 10:09 09/19/21 10:09 Medications Medications Current Medications Acetaminophen (Acetaminophen 325 Mg Tablet) 650 mg PO Q6H PRN PRN Reason: Headache/Pain Mild Scale (1-3) Al Hydroxide/Mg Hydroxide (Magnesium Hydrox/Alum Hydrox 30 Ml Oral.Susp) 30 ml PO Q6H PRN PRN Reason: Heartburn/Nausea Aripiprazole (Aripiprazole 30 Mg Tablet) 30 mg PO BEDTIME KEITH Last Admin: 10/17/21 19:58 Dose: 30 mg Documented by: Haloperidol Lactate (Haloperidol Lactate 5 Mg/Ml Vial) 5 mg IM BEDTIME PRN PRN Reason: refusal of PO Abilify Hydroxyzine HCl (Hydroxyzine Hcl 25 Mg Tablet) 25 mg PO BEDTIME PRN PRN Reason: Anxiety Lorazepam (Lorazepam 1 Mg Tablet) 1 mg PO QID KEITH Magnesium Hydroxide (Milk Of Magnesia 30 Ml Oral.Susp) 30 ml PO DAILY PRN PRN Reason: Constipation Trazodone HCl (Trazodone Hcl 50 Mg Tablet) 50 mg PO BEDTIME PRN PRN Reason: Insomnia Allergies Allergies Allergy/AdvReac Type Severity Reaction Status Date / Time No Known Allergies Allergy Verified 09/18/21 20:22 Assessment & Plan Assessment & Plan (1) Schizophrenia: Status: Acute Code(s): F20.9 - Schizophrenia, unspecified Plan Pt is a 27 y.o. male who carries a dx of schizophrenia, r/o bipolar DO/ schizoaffective disorder. He has hx of being a high functioning individual until mid 20s, in which he became increasingly withdrawn, paranoid, using cannabis and hallucinogens, esoteric, and ultimately unable to sustain employment. Has had impulsive and risk taking behaviors, i.e. disappearing, alcohol abuse. Pt endorses neg sx of schizophrenia, i.e. flat affect, thought blocking, slowed movement. Has poor sleep and appetite. Pt arrives to [facility] due to parents concern with worsening psychotic sx/ catat[place] the [place], as pt became withdrawn, stopped responding, staring at the floor, not redirectable. On admission,admitting provider notes that Parents asked for head CT or MRI/ neuro workup to rule out organic causes, however pt?s sx appear to be a function of primary psych diagnosis. They are concerned with pt?s level of risk taking behavior when he is decompensation i.e. becomes increasingly withdrawn, flat, non-verbal. Risk taking bx includes drinking to excess, taking off in the night at odd hours and disappearing to the point that parents have had to file missing person?s report. Pt has hx of significant suicide attempt in 07/2020, pt was similarly withdrawn, illogical, depressed, and flat. Parents report pt had improvement in sx on seroquel, however he has been non-adherent with treatment in the community. Parents feel unable to care for him at home. Pt adamantly refuses medication, has lack of insight into diagnosis. No medication started. 09/22 patient remains with some catatonic features however he is eating, talking and moving. He also lacks nearly all insight. However, while significant speech latency remains, and patient has flat affect with somewhat of a fixed stare, his thought process is logical and goal oriented. He refuses all medications. Patient refuses Ativan. While Ativan to would likely be helpful, at this point proposal writer does not find patient impaired to the point where he cannot input into medical decision making, as patient's thought content is organized and his catatonic symptoms seem to be improving. Will continue to monitor. 09/24: will schedule seroquel and continue to offer for psychotic sx 09/25: Pt refusing seroquel, guarded, appears internally preoccupied 09/26 no change in presentation; remains without insight and catatonic features. 09/27 no change; patient not phase by hearing that [employer] is no longer available; disputes that he does not have any money in his bank account. Patient said he chooses not to talk to this proposal writer this time -Pt denies any head trauma; parents deny any head trauma that they know of. Patient has some specific genetic loading for Schizoaffective/schizophrenia and the course of symptoms follows the known pattern of this illness; and Seroquel seemed to help resolve symptoms. Also, The episodic nature of patients symptoms, though worsening over recent months, have been going on for couple of years making any organic cause of symptoms, other than psychiatric, very unlikely. At this point, Head CT is unlikely to provide much information, but proposal writer will consult with neurology. Patient has predominantly negative symptoms and does not have symptoms associated with rare illness of Anti-NMDA receptor Encephalitis. 09/28 no change. Will proceed with involuntary commitment as patient has no insight into his disabling symptoms and is not organized enough to care for himself in the community. 09/29 Court ordered involuntary commitment and substituted judgment for medication/tx pt told proposal writer he did not want to talk; said he thinks he understands court proceedings. 09/30 given ativan 1mg and within 20 minutes significant reduction in catatonic symptoms including speech latency and moving slowly; still does not have insight; does not want meds and struggles to understand court order. 10/01: Id Improved with Ativan. No changes made. 10/03 holding Seroquel for now; will continue to treat catatonia with ativan. At this point proposal writer still needs help differentiating between bipolar/schizoaffective-bipolar type and schizophrenia. Patient remains with speech latency and slow movements, however these have improved; most significantly patient is able to talk spontaneously and have a reasonable given take conversation; able to talk with peers. He struggles with insight and understanding that his symptoms represent an illness more debilitating than stress, however he is open to continuing to discuss it 10/04 Not much change. Patient continues to have improved spontaneousness with his speech and is walking a little more fluidly than on admission, however both remain slowed. Patient has the insight to acknowledge that Ativan has probably been helpful to him. He had a visit from his mother today but unfortunately she left before could meet with this proposal writer. Both patient and proposal writer agree to involve his parents in discussions prior to starting additional medication. As for now, he remains with catatonic symptoms and proposal writer wants to continue to let Ativan work before starting a mood stabilizer or antipsychotic. 10/06 after further reviewing history with patient's parents, it seems that patient has had an a slowly increasing amount of disorganized thinking and behavior, fully revealing itself with patient suicide last year and continuing to this admission. There is some amount of episodic nature to some of his disorganized behaviors such as not infrequently making impromptu trips to foreign countries. However there does not seem to be any other associated manic type behaviors and in-between these impromptu trips, patient remained with disorganized thinking and behaviors relative to his past ability and achievements. It seems that disorganized behaviors is the prominent psychotic symptoms 10/07 patient reports tolerating Abilify. Will increase this medication to see if can be helpful in reducing disorganized thinking and behavior says. Patient still has catatonic like symptoms however so will keep the Ativan on and try to balance treating disorganization with resolving catatonia. 10/09: Patient superficial, remains without insight remains with significant negative symptoms, slowed speech and movements. Patient repeats the same refrain regarding how he is doing. Does not grasp the degree of his recent or history of unsafe behaviors or that his level of function is far below where used to be. Does not think he has psychiatric illness. 10/12 dr. kim interviewed patient and concurs with current tx plan 10/13 pt gave a presentation today that was basic, but organized. He remains below baseline and w/out insight, with odd interactions. Unsure if abilify is helping; will continue current dose and monitor 10/14 Pt will continue on abilify, says he thinks it is helping, oddly related 10/15/21: Continue current plan. 10/16/21: Continue to monitor 10/17/21: Continue current plan of care. 10/18/21 Limited insight guarded difficult to evaluate safety thinking rote type reponses slowed mentation encourage change to abilify maintena Inchoate Formulation: Patient has history of being emotionally sensitive and having feelings easily hurt by others, with some difficulty forming lasting relationships. After review with parents, there does not seem to a ASD. Over past few years, it seems that patient has had a slowly increasing amount of disorganized thinking and behavior, fully revealing itself with patients suicide attempt last year and continuing to this admission. There is some amount of episodic nature to some of his disorganized behaviors such as making impromptu trips to foreign countries (that don't work out). However there does not seem to be any other associated manic type behaviors. In-between these impromptu trips, patient has disorganized thinking and behaviors relative to his past ability and achievements, intermittently waking and talking slowly; less and less ability to work). It seems that his main psychotic symptoms is his disorganized behaviors. -currently it is difficult to discern between catatonia and negative symptoms (flattened affect, alogia, Emotionally restricted, little motivation) Plan: Q15 min safety checks, Section 7 involuntary commitment; COURT ORDERED SUBSTITUTED JUDGMENT for tx/mediations 1. 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 Schizoaffective disorder (provisional; has hx of manic like episodes; otherwise disorganized speech and negative symptoms) INCREASE to Abilify 20 mg q.h.s. -after talking with parents again and after they have had some time to reflect, it seems that Seroquel trial unlikely made much difference as patient was still disorganized. Patient also has limited insight and history of being nonc ompliant with medications and not wanting medications making this a less favorable option. Given these reasons, proposal writer decided to instead initiate trial of Abilify since it has a little less metabolic syndrome risk profile and comes in a long-acting medication. Antipsychotic Medications allowed by court order: Seroquel Ativan up to 8 mg daily Thorazine Prolixin immediate release/long-acting Haldol Abilify Zyprexa Geodon Monitor response to medications. Monitor for safety in the milieu. Discharge on stabilization. Patient seen. Chart reviewed. Discussed with team. Obtain collateral contact info?as needed I spent minutes with the patient and/or on the patient floor today, greater than?50% of which was spent counseling/coordinating care. Reason for contiued inpatient stay Substantial Risk for: harm to self, inability to function and rapid decompensation
[2021-10-18] MEDS: LORazepam 1 MG TABLET PO ×2 (16:47→21:36)
[2021-10-18 21:30] VITALS: BP 140/89; PULSE 61; TEMP 36.2; O2SAT 98
[2021-10-18] MEDS: ARIPiprazole 30 MG TABLET PO (21:36)
[2021-10-19 06:00] VITALS: BP 132/69; PULSE 64; RESP 16; TEMP 37.2; O2SAT 97
[2021-10-19] MEDS: LORazepam 1 MG TABLET PO ×4 (08:50→22:46)
--- NOTE | 2021-10-19 12:44 | HO.PSYCHPN ---
Subjective Subjective Date of Service: 10/19/21 Reason For Visit: bipolar disorder II Subjective Notes: Section 8 Interim History: Patient seen for milton jones has been somewhat grandiose at times processing about a discharge is is not clearly discussed with. Discussed with Dr. Tapia man continues of lorazepam with patient having used significant amounts of alcohol prior to admission yet not willing to gauge in discussion he does seem with full range of affect on 30 mg Abilify not willing to consider long-acting injectable. Mental Status Exam Mental Status Exam Patient Appearance: Appropriate and Rigid Patient Orientation: Person, Place and Situation Level of Consciousness: Awake and Alert Patient Behavior: Guarded, Passive, Anxious, Avoidant and Good Eye Contact Mood Description: Withdrawn, Blunted and Apprehensive Affect Description: Blunted Patient Cognition Impaired: No Ability to Follow Directions: Good Speech Pattern: Spontaneous Speech and Soft-Spoken Memory Description: Episodic Impaired Delusions: Paranoid Ideation Perceptual Disturbances: Derealization Thought Process: Rumination, Evasive and Slowed Thinking Thought Content: positive for Suicidal Ideation (denies in this setting) Judgement: Fair Judgement and Insight: limited insight Diagnostics Vital Signs (24Hr): Vital Signs - 24 hr 10/18/21 21:30 10/19/21 06:00 Temperature 97.1 F 98.9 F Pulse Rate 61 64 Respiratory Rate 16 Blood Pressure 140/89 H 132/69 Pulse Oximetry 98 97 BMI result Body Mass Index 20.6 Labs Results: 09/19/21 10:09 09/19/21 10:09 Medications Medications Current Medications Acetaminophen (Acetaminophen 325 Mg Tablet) 650 mg PO Q6H PRN PRN Reason: Headache/Pain Mild Scale (1-3) Al Hydroxide/Mg Hydroxide (Magnesium Hydrox/Alum Hydrox 30 Ml Oral.Susp) 30 ml PO Q6H PRN PRN Reason: Heartburn/Nausea Aripiprazole (Aripiprazole 30 Mg Tablet) 30 mg PO BEDTIME [facility] Last Admin: 10/18/21 21:36 Dose: 30 mg Documented by: Haloperidol Lactate (Haloperidol Lactate 5 Mg/Ml Vial) 5 mg IM BEDTIME PRN PRN Reason: refusal of PO Abilify Hydroxyzine HCl (Hydroxyzine Hcl 25 Mg Tablet) 25 mg PO BEDTIME PRN PRN Reason: Anxiety Lorazepam (Lorazepam 1 Mg Tablet) 1 mg PO QID [facility] Last Admin: 10/19/21 08:50 Dose: 1 mg Documented by: Magnesium Hydroxide (Milk Of Magnesia 30 Ml Oral.Susp) 30 ml PO DAILY PRN PRN Reason: Constipation Trazodone HCl (Trazodone Hcl 50 Mg Tablet) 50 mg PO BEDTIME PRN PRN Reason: Insomnia Allergies Allergies Allergy/AdvReac Type Severity Reaction Status Date / Time No Known Allergies Allergy Verified 09/18/21 20:22 Assessment & Plan Assessment & Plan (1) Schizophrenia: Status: Acute Code(s): F20.9 - Schizophrenia, unspecified Plan Pt is a 27 y.o. male who carries a dx of schizophrenia, r/o bipolar DO/ schizoaffective disorder. He has hx of being a high functioning individual until mid 20s, in which he became increasingly withdrawn, paranoid, using cannabis and hallucinogens, esoteric, and ultimately unable to sustain employment. Has had impulsive and risk taking behaviors, i.e. disappearing, alcohol abuse. Pt endorses neg sx of schizophrenia, i.e. flat affect, thought blocking, slowed movement. Has poor sleep and appetite. Pt [place] [facility] due to parents concern with worsening psychotic sx/ catat[place], as pt became withdrawn, stopped responding, staring at the floor, not redirectable. On admission,admitting provider notes that Parents asked for head CT or MRI/ neuro workup to rule out organic causes, however pt?s sx appear to be a function of primary psych diagnosis. They are concerned with pt?s level of risk taking behavior when he is decompensation i.e. becomes increasingly withdrawn, flat, non-verbal. Risk taking bx includes drinking to excess, taking off in the night at odd hours and disappearing to the point that parents have had to file missing person?s report. Pt has hx of significant suicide attempt in 07/2020, pt was similarly withdrawn, illogical, depressed, and flat. Parents report pt had improvement in sx on seroquel, however he has been non-adherent with treatment in the community. Parents feel unable to care for him at home. Pt adamantly refuses medication, has lack of insight into diagnosis. No medication started. 09/22 patient remains with some catatonic features however he is eating, talking and moving. He also lacks nearly all insight. However, while significant speech latency remains, and patient has flat affect with somewhat of a fixed stare, his thought process is logical and goal oriented. He refuses all medications. Patient refuses Ativan. While Ativan to would likely be helpful, at this point underwriter solicitation director does not find patient impaired to the point where he cannot input into medical decision making, as patient's thought content is organized and his catatonic symptoms seem to be improving. Will continue to monitor. 09/24: will schedule seroquel and continue to offer for psychotic sx 09/25: Pt refusing seroquel, guarded, appears internally preoccupied 09/26 no change in presentation; remains without insight and catatonic features. 09/27 no change; patient not phase by hearing that [employer] is no longer available; disputes that he does not have any money in his bank account. Patient said he chooses not to talk to this underwriter solicitation director this time -Pt denies any head trauma; parents deny any head trauma that they know of. Patient has some specific genetic loading for Schizoaffective/schizophrenia and the course of symptoms follows the known pattern of this illness; and Seroquel seemed to help resolve symptoms. Also, The episodic nature of patients symptoms, though worsening over recent months, have been going on for couple of years making any organic cause of symptoms, other than psychiatric, very unlikely. At this point, Head CT is unlikely to provide much information, but underwriter solicitation director will consult with neurology. Patient has predominantly negative symptoms and does not have symptoms associated with rare illness of Anti-NMDA receptor Encephalitis. 09/28 no change. Will proceed with involuntary commitment as patient has no insight into his disabling symptoms and is not organized enough to care for himself in the community. 09/29 Court ordered involuntary commitment and substituted judgment for medication/tx pt told underwriter solicitation director he did not want to talk; said he thinks he understands court proceedings. 09/30 given ativan 1mg and within 20 minutes significant reduction in catatonic symptoms including speech latency and moving slowly; still does not have insight; does not want meds and struggles to understand court order. 10/01: Id Improved with Ativan. No changes made. 10/03 holding Seroquel for now; will continue to treat catatonia with ativan. At this point underwriter solicitation director still needs help differentiating between bipolar/schizoaffective-bipolar type and schizophrenia. Patient remains with speech latency and slow movements, however these have improved; most significantly patient is able to talk spontaneously and have a reasonable given take conversation; able to talk with peers. He struggles with insight and understanding that his symptoms represent an illness more debilitating than stress, however he is open to continuing to discuss it 10/04 Not much change. Patient continues to have improved spontaneousness with his speech and is walking a little more fluidly than on admission, however both remain slowed. Patient has the insight to acknowledge that Ativan has probably been helpful to him. He had a visit from his mother today but unfortunately she left before could meet with this underwriter solicitation director. Both patient and underwriter solicitation director agree to involve his parents in discussions prior to starting additional medication. As for now, he remains with catatonic symptoms and underwriter solicitation director wants to continue to let Ativan work before starting a mood stabilizer or antipsychotic. 10/06 after further reviewing history with patient's parents, it seems that patient has had an a slowly increasing amount of disorganized thinking and behavior, fully revealing itself with patient suicide last year and continuing to this admission. There is some amount of episodic nature to some of his disorganized behaviors such as not infrequently making impromptu trips to foreign countries. However there does not seem to be any other associated manic type behaviors and in-between these impromptu trips, patient remained with disorganized thinking and behaviors relative to his past ability and achievements. It seems that disorganized behaviors is the prominent psychotic symptoms 10/07 patient reports tolerating Abilify. Will increase this medication to see if can be helpful in reducing disorganized thinking and behavior says. Patient still has catatonic like symptoms however so will keep the Ativan on and try to balance treating disorganization with resolving catatonia. 10/09: Patient superficial, remains without insight remains with significant negative symptoms, slowed speech and movements. Patient repeats the same refrain regarding how he is doing. Does not grasp the degree of his recent or history of unsafe behaviors or that his level of function is far below where used to be. Does not think he has psychiatric illness. 10/12 dr. kim interviewed patient and concurs with current tx plan 10/13 pt gave a presentation today that was basic, but organized. He remains below baseline and w/out insight, with odd interactions. Unsure if abilify is helping; will continue current dose and monitor 10/14 Pt will continue on abilify, says he thinks it is helping, oddly related 10/15/21: Continue current plan. 10/16/21: Continue to monitor 10/17/21: Continue current plan of care. 10/18/21 Limited insight guarded difficult to evaluate safety thinking rote type reponses slowed mentation encourage change to abilify jalyna Current note for October 19 2021 Patient seen in psychiatric follow-up. Patient hali merida detached talking about discharge in a way as if he had Ohri had a discharge plan will not consider long-acting injectable not able or willing to discuss his alcohol use prior to admission. Some increase range of affect on Abilify remains guarded limited engagement. Needs further coordination with family for discharge planning Inchoate Formulation: Patient has history of being emotionally sensitive and having feelings easily hurt by others, with some difficulty forming lasting relationships. After review with parents, there does not seem to a ASD. Over past few years, it seems that patient has had a slowly increasing amount of disorganized thinking and behavior, fully revealing itself with patients suicide attempt last year and continuing to this admission. There is some amount of episodic nature to some of his disorganized behaviors such as making impromptu trips to foreign countries (that don't work out). However there does not seem to be any other associated manic type behaviors. In-between these impromptu trips, patient has disorganized thinking and behaviors relative to his past ability and achievements, intermittently waking and talking slowly; less and less ability to work). It seems that his main psychotic symptoms is his disorganized behaviors. -currently it is difficult to discern between catatonia and negative symptoms (flattened affect, alogia, Emotionally restricted, little motivation) Plan: Q15 min safety checks, Section 7 involuntary commitment; COURT ORDERED SUBSTITUTED JUDGMENT for tx/mediations 1. 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 Schizoaffective disorder (provisional; has hx of manic like episodes; otherwise disorganized speech and negative symptoms) INCREASE to Abilify 20 mg q.h.s. -after talking with parents again and after they have had some time to reflect, it seems that Seroquel trial unlikely made much difference as patient was still disorganized. Patient also has limited insight and history of being noncompliant with medications and not wanting medications making this a less favorable option. Given these reasons, underwriter solicitation director decided to instead initiate trial of Abilify since it has a little less metabolic syndrome risk profile and comes in a long-acting medication. Antipsychotic Medications allowed by court order: Seroquel Ativan up to 8 mg daily Thorazine Prolixin immediate release/long-acting Haldol Abilify Zyprexa Addy Monitor response to medications. Monitor for safety in the milieu. Discharge on stabilization. Patient seen. Chart reviewed. Discussed with team. Obtain collateral contact info?as needed I spent minutes with the patient and/or on the patient floor today, greater than?50% of which was spent counseling/coordinating care. Reason for contiued inpatient stay Substantial Risk for: harm to self, inability to function and rapid decompensation
[2021-10-19 16:40] VITALS: BP 150/80; PULSE 86; TEMP 36.7; O2SAT 97
[2021-10-19] MEDS: ARIPiprazole 30 MG TABLET PO (22:46)
[2021-10-20 06:00] VITALS: BP 128/84; PULSE 74; RESP 18; TEMP 36.7; O2SAT 98
[2021-10-20] MEDS: LORazepam 1 MG TABLET PO ×4 (09:12→19:19)
[2021-10-20 18:00] VITALS: BP 112/74; PULSE 92; RESP 16; TEMP 36.4; O2SAT 100
[2021-10-20] MEDS: ARIPiprazole 30 MG TABLET PO (19:19)
--- NOTE | 2021-10-20 22:59 | P.PNPSI_ITS ---
Subjective Subjective Date of Service: 10/20/21 Reason For Visit: psychosis Subjective Notes: Section 8 Healthcare Proxy: No Guardianship: No Interim History: The patient is perseverative asking repeatedly to leave somewhat pressured. He continues to show very limited ability to explain his thinking or symptoms. He is continuing to refuse to consider long-acting injectable refuses to engage in discussion regarding alcohol and marijuana which appear to be contributing factors. Patient's parents extensively seen have significant concerns regarding the patient's ability to maintain himself at this time and hospital Mental Status Exam Mental Status Exam Patient Appearance: Appropriate Patient Orientation: Person, Place and Situation Level of Consciousness: Awake, Restless and Alert Patient Behavior: Guarded, Anxious, Avoidant and Good Eye Contact Mood Description: Happy (Odd expansive affect at times), Blunted and Apprehe nsive Affect Description: Blunted Patient Cognition Impaired: No Ability to Follow Directions: Good Speech Pattern: Spontaneous Speech and Delayed Memory Description: Episodic Impaired Delusions: Paranoid Ideation Thought Process: Rumination, Evasive and Slowed Thinking Thought Content: negative for Suicidal Ideation (denies in this setting) or negative for Homicidal Ideation Judgement: Fair Judgement and Insight: limited insight Difficult to evaluate denies all symptoms refusing all recommendations DM [facility] long-acting injectable Diagnostics Vital Signs (24Hr): Vital Signs - 24 hr 10/20/21 06:00 10/20/21 18:00 Temperature 98.1 F 97.6 F Pulse Rate 74 92 Respiratory Rate 18 16 Blood Pressure 128/84 112/74 Pulse Oximetry 98 100 BMI result Body Mass Index 20.6 Labs Results: 09/19/21 10:09 09/19/21 10:09 Medications Medications Current Medications Acetaminophen (Acetaminophen 325 Mg Tablet) 650 mg PO Q6H PRN PRN Reason: Headache/Pain Mild Scale (1-3) Al Hydroxide/Mg Hydroxide (Magnesium Hydrox/Alum Hydrox 30 Ml Oral.Susp) 30 ml PO Q6H PRN PRN Reason: Heartburn/Nausea Aripiprazole (Aripiprazole 30 Mg Tablet) 30 mg PO BEDTIME KEITH Last Admin: 10/20/21 19:19 Dose: 30 mg Documented by: Haloperidol Lactate (Haloperidol Lactate 5 Mg/Ml Vial) 5 mg IM BEDTIME PRN PRN Reason: refusal of PO Abilify Hydroxyzine HCl (Hydroxyzine Hcl 25 Mg Tablet) 25 mg PO BEDTIME PRN PRN Reason: Anxiety Lorazepam (Lorazepam 1 Mg Tablet) 1 mg PO QID KEITH Last Admin: 10/20/21 19:19 Dose: 1 mg Documented by: Magnesium Hydroxide (Milk Of Magnesia 30 Ml Oral.Susp) 30 ml PO DAILY PRN PRN Reason: Constipation Trazodone HCl (Trazodone Hcl 50 Mg Tablet) 50 mg PO BEDTIME PRN PRN Reason: Insomnia Allergies Allergies Allergy/AdvReac Type Severity Reaction Status Date / Time No Known Allergies Allergy Verified 09/18/21 20:22 Assessment & Plan Assessment & Plan (1) Schizophrenia: Status: Acute Code(s): F20.9 - Schizophrenia, unspecified Plan Pt is a 27 y.o. male who carries a dx of schizophrenia, r/o bipolar DO/ schizoaffective disorder. He has hx of being a high functioning individual until mid 20s, in which he became increasingly withdrawn, paranoid, using cannabis and hallucinogens, esoteric, and ultimately unable to sustain employment. Has had impulsive and risk taking behaviors, i.e. disappearing, alcohol abuse. Pt endorses neg sx of schizophrenia, i.e. flat affect, thought blocking, slowed movement. Has poor sleep and appetite. Pt arrives to [facility] [place] due to parents concern with worsening psychotic sx/ catat[place] the [place], as pt became withdrawn, stopped responding, staring at the floor, not redirectable. On admission,admitting provider notes that Parents asked for head CT or MRI/ neuro workup to rule out organic causes, however pt?s sx appear to be a function of primary psych diagnosis. They are concerned with pt?s level of risk taking behavior when he is decompensation i.e. becomes increasingly withdrawn, flat, non-verbal. Risk taking bx includes drinking to excess, taking off in the night at odd hours and disappearing to the point that parents have had to file missing person?s report. Pt has hx of significant suicide attempt in 07/2020, pt was similarly withdrawn, illogical, depressed, and flat. Parents report pt had improvement in sx on seroquel, however he has been non-adherent with treatment in the community. Parents feel unable to care for him at home. Pt adamantly refuses medication, has lack of insight into diagnosis. No medication started. 09/22 patient remains with some catatonic features however he is eating, talking and moving. He also lacks nearly all insight. However, while significant spee ch latency remains, and patient has flat affect with somewhat of a fixed stare, his thought process is logical and goal oriented. He refuses all medications. Patient refuses Ativan. While Ativan to would likely be helpful, at this point customs entry writer does not find patient impaired to the point where he cannot input into medical decision making, as patient's thought content is organized and his catatonic symptoms seem to be improving. Will continue to monitor. 09/24: will schedule seroquel and continue to offer for psychotic sx 09/25: Pt refusing seroquel, guarded, appears internally preoccupied 09/26 no change in presentation; remains without insight and catatonic features. 09/27 no change; patient not phase by hearing that [employer] is no longer available; disputes that he does not have any money in his bank account. Patient said he chooses not to talk to this customs entry writer this time -Pt denies any head trauma; parents deny any head trauma that they know of. Patient has some specific genetic loading for Schizoaffective/schizophrenia and the course of symptoms follows the known pattern of this illness; and Seroquel seemed to help resolve symptoms. Also, The episodic nature of patients symptoms, though worsening over recent months, have been going on for couple of years making any organic cause of symptoms, other than psychiatric, very unlikely. At this point, Head CT is unlikely to provide much information, but customs entry writer will consult with neurology. Patient has predominantly negative symptoms and does not have symptoms associated with rare illness of Anti-NMDA receptor Encephalitis. 09/28 no change. Will proceed with involuntary commitment as patient has no insight into his disabling symptoms and is not organized enough to care for himself in the community. 09/29 Court ordered involuntary commitment and substituted judgment for medication/tx pt told customs entry writer he did not want to talk; said he thinks he understands court proceedings. 09/30 given ativan 1mg and within 20 minutes significant reduction in catatonic symptoms including speech latency and moving slowly; still does not have in sight; does not want meds and struggles to understand court order. 10/01: Id Improved with Ativan. No changes made. 10/03 holding Seroquel for now; will continue to treat catatonia with ativan. At this point customs entry writer still needs help differentiating between bipolar/schizoaffective-bipolar type and schizophrenia. Patient remains with speech latency and slow movements, however these have improved; most significantly patient is able to talk spontaneously and have a reasonable given take conversation; able to talk with peers. He struggles with insight and understanding that his symptoms represent an illness more debilitating than stress, however he is open to continuing to discuss it 10/04 Not much change. Patient continues to have improved spontaneousness with his speech and is walking a little more fluidly than on admission, however both remain slowed. Patient has the insight to acknowledge that Ativan has probably been helpful to him. He had a visit from his mother today but unfortunately she left before could meet with this customs entry writer. Both patient and customs entry writer agree to involve his parents in discussions prior to starting additional medication. As for now, he remains with catatonic symptoms and customs entry writer wants to continue to let Ativan work before starting a mood stabilizer or antipsychotic. 10/06 after further reviewing history with patient's parents, it seems that patient has had an a slowly increasing amount of disorganized thinking and behavior, fully revealing itself with patient suicide last year and continuing to this admission. There is some amount of episodic nature to some of his disorganized behaviors such as not infrequently making impromptu trips to foreign countries. However there does not seem to be any other associated manic type behaviors and in-between these impromptu trips, patient remained with disorganized thinking and behaviors relative to his past ability and achievements. It seems that disorganized behaviors is the prominent psychotic symptoms 10/07 patient reports tolerating Abilify. Will increase this medication to see if can be helpful in reducing disorganized thinking and behavior says. Patient still has catatonic like symptoms however so will keep the Ativan on and try to balance treating disorganization with resolving catatonia. 10/09: Patient superficial, remains without insight remains with significant negative symptoms, slowed speech and movements. Patient repeats the same refrain regarding how he is doing. Does not grasp the degree of his recent or history of unsafe behaviors or that his level of function is far below where used to be. Does not think he has psychiatric illness. 10/12 dr. kim interviewed patient and concurs with current tx plan 10/13 pt gave a presentation today that was basic, but organized. He remains below baseline and w/out insight, with odd interactions. Unsure if abilify is helping; will continue current dose and monitor 10/14 Pt will continue on abilify, says he thinks it is helping, oddly related 10/15/21: Continue current plan. 10/16/21: Continue to monitor 10/17/21: Continue current plan of care. 10/18/21 Limited insight guarded difficult to evaluate safety thinking rote type reponses slowed mentation encourage change to abilify maintena Current note for October 19 2021 Patient seen in psychiatric follow-up. Patient hali merida detached talking about discharge in a way as if he had [place]ri had a discharge plan will not consider long-acting injectable not able or willing to discuss his alcohol use prior to admission. Some increase range of affect on Abilify remains guarded limited engagement. Needs further coordination with family for discharge planning Current note for 10/20/2021 Patient seen in psychiatric follow-up. The patient continues to have a somewhat odd affect inappropriate smiling at times mildly pressured about discharge but not in a coherent way. He has had difficulty ascending to any recommendations regarding discharge. Plan to meet with the parents patient continue Abilify 30 mg taper lorazepam down to 1 mg 3 times a day. Patient had been asking other patients can go home with to when confronted with any behavior or real conversations regarding behavior prior to admission patient just essentially into [place] regarding drinking a want to use or behavior. Difficulty making realistic planning. Encourage long-acting injectable some response observable Inchoate Formulation: Patient has history of being emotionally sensitive and having feelings easily hurt by others, with some difficulty forming lasting relationships. After review with parents, there does not seem to a ASD. Over past few years, it seems that patient has had a slowly increasing amount of disorganized thinking and behavior, fully revealing itself with patients suicide attempt last year and continuing to this admission. There is some amount of episodic nature to some of his disorganized behaviors such as making impromptu trips to foreign countries (that don't work out). However there does not seem to be any other associated manic type behaviors. In-between these impromptu trips, patient has disorganized thinking and behaviors relative to his past ability and achievements, intermittently waking and talking slowly; less and less ability to work). It seems that his main psychotic symptoms is his disorganized behaviors. -currently it is difficult to discern between catatonia and negative symptoms (flattened affect, alogia, Emotionally restricted, little motivation) Plan: Q15 min safety checks, Section 7 involuntary commitment; COURT ORDERED SUBSTITUTED JUDGMENT for tx/mediations 1. 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 Schizoaffective disorder (provisional; has hx of manic like episodes; otherwise disorganized speech and negative symptoms) INCREASE to Abilify 20 mg q.h.s. -after talking with parents again and after they have had some time to reflect, it seems that Seroquel trial unlikely made much difference as patient was still disorganized. Patient also has limited insight and history of being noncompliant with medications and not wanting medications making this a less favorable option. Given these reasons, customs entry writer decided to instead initiate trial of Abilify since it has a little less metabolic syndrome risk profile and comes in a long-acting medication. Antipsychotic Medications allowed by court order: Seroquel Ativan up to 8 mg daily Thorazine Prolixin immediate release/long-acting Haldol Abilify Chris Daly Monitor response to medications. Monitor for safety in the milieu. Discharge on stabilization. Patient seen. Chart reviewed. Discussed with team. Obtain collateral contact info?as needed I spent minutes with the patient and/or on the patient floor today, greater than?50% of which was spent counseling/coordinating care. Reason for contiued inpatient stay Substantial Risk for: inability to function and rapid decompensation
[2021-10-21 06:30] VITALS: BP 129/77; PULSE 82; RESP 16; TEMP 36.8; O2SAT 98
[2021-10-21] MEDS: LORazepam 1 MG TABLET PO ×3 (08:19→20:31)
--- NOTE | 2021-10-21 10:32 | P.PNPSI_ITS ---
Subjective Subjective Date of Service: 10/21/21 Reason For Visit: psychosis Subjective Notes: Section 8 Healthcare Proxy: No Guardianship: No Interim History: Pt seen in family mtg was defensive with marked lack of insight into past behavoir actions superficially agrees to take medication po but has poor track record with this offered [facility] all refused odd affect less thought blocking Mental Status Exam Mental Status Exam Patient Appearance: Appropriate Patient Orientation: Person, Place and Situation Level of Consciousness: Awake, Restless and Alert Patient Behavior: Guarded, Anxious, Avoidant and Good Eye Contact Mood Description: Happy (Odd expansive affect at times), Blunted and Apprehensive Affect Description: Blunted Patient Cognition Impaired: No Ability to Follow Directions: Good Speech Pattern: Spontaneous Speech and Delayed Memory Description: Episodic Impaired Delusions: Paranoid Ideation Thought Process: Rumination, Evasive and Slowed Thinking Thought Content: negative for Suicidal Ideation (denies in this setting) or negative for Homicidal Ideation Judgement: Fair Judgement and Insight: limited insight Difficult to evaluate denies all symptoms refusing all recommendations [facility] long-acting injectable Diagnostics Vital Signs (24Hr): Vital Signs - 24 hr 10/20/21 18:00 10/21/21 06:30 Temperature 97.6 F 98.2 F Pulse Rate 92 82 Respiratory Rate 16 16 Blood Pressure 112/74 129/77 Pulse Oximetry 100 98 BMI result Body Mass Index 20.6 Labs Results: 09/19/21 10:09 09/19/21 10:09 Medications Medications Current Medications Acetaminophen (Acetaminophen 325 Mg Tablet) 650 mg PO Q6H PRN PRN Reason: Headache/Pain Mild Scale (1-3) Al Hydroxide/Mg Hydroxide (Magnesium Hydrox/Alum Hydrox 30 Ml Oral.Susp) 30 ml PO Q6H PRN PRN Reason: Heartburn/Nausea Aripiprazole (Aripiprazole 30 Mg Tablet) 30 mg PO BEDTIME [facility] Last Admin: 10/20/21 19:19 Dose: 30 mg Documented by: Haloperidol Lactate (Haloperidol Lactate 5 Mg/Ml Vial) 5 mg IM BEDTIME PRN PRN Reason: refusal of PO Abilify Hydroxyzine HCl (Hydroxyzine Hcl 25 Mg Tablet) 25 mg PO BEDTIME PRN PRN Reason: Anxiety Lorazepam (Lorazepam 1 Mg Tablet) 1 mg PO TID [facility] Last Admin: 10/21/21 08:19 Dose: 1 mg Documented by: Magnesium Hydroxide (Milk Of Magnesia 30 Ml Oral.Susp) 30 ml PO DAILY PRN PRN Reason: Constipation Trazodone HCl (Trazodone Hcl 50 Mg Tablet) 50 mg PO BEDTIME PRN PRN Reason: Insomnia Allergies Allergies Allergy/AdvReac Type Severity Reaction Status Date / Time No Known Allergies Allergy Verified 09/18/21 20:22 Assessment & Plan Assessment & Plan (1) Schizophrenia: Status: Acute Code(s): F20.9 - Schizophrenia, unspecified Plan Pt is a 27 y.o. male who carries a dx of schizophrenia, r/o bipolar DO/ schizoaffective disorder. He has hx of being a high functioning individual until mid 20s, in which he became increasingly withdrawn, paranoid, using cannabis and hallucinogens, esoteric, and ultimately unable to sustain employment. Has had impulsive and risk taking behaviors, i.e. disappearing, alcohol abuse. Pt endorses neg sx of schizophrenia, i.e. flat affect, thought blocking, slowed movement. Has poor sleep and appetite. Pt arrives to [facility] due to parents concern with worsening psychotic sx/ catat[place] behavior [place] the mall, as pt became withdrawn, stopped responding, staring at the floor, not redirectable. On admission,admitting provider notes that Parents asked for head CT or MRI/ neuro workup to rule out organic causes, however pt?s sx appear to be a function of primary psych diagnosis. They are concerned with pt?s level of risk taking behavior when he is decompensation i.e. becomes increasingly withdrawn, flat, non-verbal. Risk taking bx includes drinking to excess, taking off in the night at odd hours and disappearing to the point that parents have had to file missing person?s report. Pt has hx of significant suicide attempt in 07/2020, pt was similarly withdrawn, illogical, depressed, and flat. Parents report pt had improvement in sx on seroquel, however he has been non-adherent with treatment in the community. Parents feel unable to care for him at home. Pt adamantly refuses medication, has lack of insight into diagnosis. No medication started. 09/22 patient remains with some catatonic features however he is eating, talking and moving. He also lacks nearly all insight. However, while significant speech latency remains, and patient has flat affect with somewhat of a fixed stare, his thought process is logical and goal oriented. He refuses all medications. Patient refuses Ativan. While Ativan to would likely be helpful, at this point adjusto writer operator does not find patient impaired to the point where he cannot input into medical decision making, as patient's thought content is organized and his catatonic symptoms seem to be improving. Will continue to monitor. 09/24: will schedule seroquel and continue to offer for psychotic sx 09/25: Pt refusing seroquel, guarded, appears internally preoccupied 09/26 no change in presentation; remains without insight and catatonic features. 09/27 no change; patient not phase by hearing that [employer] is no longer available; disputes that he does not have any money in his bank account. Patient said he chooses not to talk to this adjusto writer operator this time -Pt denies any head trauma; parents deny any head trauma that they know of. Patient has some specific genetic loading for Schizoaffective/schizophrenia and the course of symptoms follows the known pattern of this illness; and Seroquel seemed to help resolve symptoms. Also, The episodic nature of patients symptoms, though worsening over recent months, have been going on for couple of years making any organic cause of symptoms, other than psychiatric, very unlikely. At this point, Head CT is unlikely to provide much information, but adjusto writer operator will consult with neurology. Patient has predominantly negative symptoms and does not have symptoms associated with rare illness of Anti-NMDA receptor Encephalitis. 09/28 no change. Will proceed with involuntary commitment as patient has no insight into his disabling symptoms and is not organized enough to care for himself in the community. 09/29 Court ordered involuntary commitment and substituted judgment for medication/tx pt told adjusto writer operator he did not want to talk; said he thinks he understands court proceedings. 09/30 given ativan 1mg and within 20 minutes significant reduction in catatonic symptoms including speech latency and moving slowly; still does not have insight; does not want meds and struggles to understand court order. 10/01: Id Improved with Ativan. No changes made. 10/03 holding Seroquel for now; will continue to treat catatonia with ativan. At this point adjusto writer operator still needs help differentiating between bipolar/schizoaffective-bipolar type and schizophrenia. Patient remains with speech latency and slow movements, however these have improved; most significantly patient is able to talk spontaneously and have a reasonable given take conversation; able to talk with peers. He struggles with insight and understanding that his symptoms represent an illness more debilitating than stress, however he is open to continuing to discuss it 10/04 Not much change. Patient continues to have improved spontaneousness with his speech and is walking a little more fluidly than on admission, however both remain slowed. Patient has the insight to acknowledge that Ativan has probably been helpful to him. He had a visit from his mother today but unfortunately she left before could meet with this adjusto writer operator. Both patient and adjusto writer operator agree to involve his parents in discussions prior to starting additional medication. As for now, he remains with catatonic symptoms and adjusto writer operator wants to continue to let Ativan work before starting a mood stabilizer or antipsychotic. 10/06 after further reviewing history with patient's parents, it seems that patient has had an a slowly increasing amount of disorganized thinking and behavior, fully revealing itself with patient suicide last year and continuing to this admission. There is some amount of episodic nature to some of his disorganized behaviors such as not infrequently making impromptu trips to foreign countries. However there does not seem to be any other associated manic type behaviors and in-between these impromptu trips, patient remained with disorganized thinking and behaviors relative to his past ability and achievements. It seems that disorganized behaviors is the prominent psychotic symptoms 10/07 patient reports tolerating Abilify. Will increase this medication to see if can be helpful in reducing disorganized thinking and behavior says. Patient still has catatonic like symptoms however so will keep the Ativan on and try to balance treating disorganization with resolving catatonia. 10/09: Patient superficial, remains without insight remains with significant negative symptoms, slowed speech and movements. Patient repeats the same refrain regarding how he is doing. Does not grasp the degree of his recent or history of unsafe behaviors or that his level of function is far below where used to be. Does not think he has psychiatric illness. 10/12 dr. kim interviewed patient and concurs with current tx plan 10/13 pt gave a presentation today that was basic, but organized. He remains below baseline and w/out insight, with odd interactions. Unsure if abilify is helping; will continue current dose and monitor 10/14 Pt will continue on abilify, says he thinks it is helping, oddly related 10/15/21: Continue current plan. 10/16/21: Continue to monitor 10/17/21: Continue current plan of care. 10/18/21 Limited insight guarded difficult to evaluate safety thinking rote type reponses slowed mentation encourage change to abilify maintena Current note for October 19 2021 Patient seen in psychiatric follow-up. Patient odd bili detached talking about discharge in a way as if he had [place] had a discharge plan will not consider long-acting injectable not able or willing to discuss his alcohol use prior to admission. Some increase range of affect on Abilify remains guarded limited engagement. Needs further coordination with family for discharge planning Current note for 10/20/2021 Patient seen in psychiatric follow-up. The patient continues to have a somewhat odd affect inappropriate smiling at times mildly pressured about discharge but not in a coherent way. He has had difficulty ascending to any recommendations regarding discharge. Plan to meet with the parents patient continue Abilify 30 mg taper lorazepam down to 1 mg 3 times a day. Patient had been asking other patients can go home with to when confronted with any behavior or real conversations regarding behavior prior to admission patient just essentially into [place] regarding drinking a want to use or behavior. Difficulty making realistic planning. Encourage long-acting injectable some response observable 10/21/21 Pt with man affect remains odd guarded limited insight will not deal with or help plan for d/c refusing recommendations has difficulty taking in info re psych illness see sw note encourage maintena Inchoate Formulation: Patient has history of being emotionally sensitive and having feelings easily hurt by others, with some difficulty forming lasting relationships. After review with parents, there does not seem to a ASD. Over past few years, it seems that patient has had a slowly increasing amount of disorganized thinking and behavior, fully revealing itself with patients suicide attempt last year and continuing to this admission. There is some amount of episodic nature to some of his disorganized behaviors such as making impromptu trips to foreign countries (that don't work out). However there does not seem to be any other associated manic type behaviors. In-between these impromptu trips, patient has disorganized thinking and behaviors relative to his past ability and achievements, intermittently waking and talking slowly; less and less ability to work). It seems that his main psychotic symptoms is his disorganized behaviors. -currently it is difficult to discern between catatonia and negative symptoms (flattened affect, alogia, Emotionally restricted, little motivation) Plan: Q15 min safety checks, Section 7 involuntary commitment; COURT ORDERED SUBSTITUTED JUDGMENT for tx/mediations 1. 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 Schizoaffective disorder (provisional; has hx of manic like episodes; otherwise disorganized speech and negative symptoms) INCREASE to Abilify 20 mg q.h.s. -after talking with parents again and after they have had some time to reflect, it seems that Seroquel trial unlikely made much difference as patient was still disorganized. Patient also has limited insight and history of being noncompliant with medications and not wanting medications making this a less favorable option. Given these reasons, adjusto writer operator decided to instead initiate trial of Abilify since it has a little less metabolic syndrome risk profile and comes in a long-acting medication. Antipsychotic Medications allowed by court order: Seroquel Ativan up to 8 mg daily Thorazine Prolixin immediate release/long-acting Haldol Abilify Zyprexa [place] Monitor response to medications. Monitor for safety in the milieu. Discharge on stabilization. Patient seen. Chart reviewed. Discussed with team. Obtain collateral contact info?as needed I spent minutes with the patient and/or on the patient floor today, greater than?50% of which was spent counseling/coordinating care. Patient educated on: diagnosis, medication risk/benefits and therapeutic strategies Informed Consent: further education needed Reason for contiued inpatient stay Substantial Risk for: harm to self and rapid decompensation
[2021-10-21] MEDS: ARIPiprazole 30 MG TABLET PO (20:30)
[2021-10-22] MEDS: LORazepam 1 MG TABLET PO ×3 (09:26→22:30)
[2021-10-22 22:30] VITALS: BP 129/88; PULSE 63; TEMP 36.8; O2SAT 98
[2021-10-22] MEDS: ARIPiprazole 30 MG TABLET PO (22:30)
--- NOTE | 2021-10-22 22:42 | P.PNPSI_ITS ---
Subjective Subjective Date of Service: 10/22/21 Reason For Visit: psychosis Subjective Notes: Section 8 Interim History: pt consistantly does not agree to ESTES improving range of affect Mental Status Exam Mental Status Exam Patient Appearance: Appropriate Patient Orientation: Person, Place and Situation Level of Consciousness: Awake, Restless and Alert Patient Behavior: Guarded, Anxious, Avoidant and Good Eye Contact Mood Description: Happy (Odd expansive affect at times), Blunted and Apprehensive Affect Description: Blunted Patient Cognition Impaired: No Ability to Follow Directions: Good Speech Pattern: Spontaneous Speech and Delayed Memory Description: Episodic Impaired Delusions: Paranoid Ideation Thought Process: Rumination, Evasive and Slowed Thinking Thought Content: negative for Suicidal Ideation (denies in this setting) or negative for Homicidal Ideation Judgement: Fair Judgement and Insight: limited insight Difficult to evaluate denies all symptoms refusing all recommendations [facility] VNA long-acting injectable but improved range affect Diagnostics Vital Signs (24Hr): BMI result Body Mass Index 20.6 Labs Results: 09/19/21 10:09 09/19/21 10:09 Medications Medications Current Medications Acetaminophen (Acetaminophen 325 Mg Tablet) 650 mg PO Q6H PRN PRN Reason: Headache/Pain Mild Scale (1-3) Al Hydroxide/Mg Hydroxide (Magnesium Hydrox/Alum Hydrox 30 Ml Oral.Susp) 30 ml PO Q6H PRN PRN Reason: Heartburn/Nausea Aripiprazole (Aripiprazole 30 Mg Tablet) 30 mg PO BEDTIME [facility] Last Admin: 10/22/21 22:30 Dose: 30 mg Documented by: Haloperidol Lactate (Haloperidol Lactate 5 Mg/Ml Vial) 5 mg IM BEDTIME PRN PRN Reason: refusal of PO Abilify Hydroxyzine HCl (Hydroxyzine Hcl 25 Mg Tablet) 25 mg PO BEDTIME PRN PRN Reason: Anxiety Lorazepam (Lorazepam 1 Mg Tablet) 1 mg PO TID [facility] Last Admin: 10/22/21 22:30 Dose: 1 mg Documented by: Magnesium Hydroxide (Milk Of Magnesia 30 Ml Oral.Susp) 30 ml PO DAILY PRN PRN Reason: Constipation Trazodone HCl (Trazodone Hcl 50 Mg Tablet) 50 mg PO BEDTIME PRN PRN Reason: Insomnia Allergies Allergies Allergy/AdvReac Type Severity Reaction Status Date / Time No Known Allergies Allergy Verified 09/18/21 20:22 Assessment & Plan Assessment & Plan (1) Schizophrenia: Status: Acute Code(s): F20.9 - Schizophrenia, unspecified Plan Pt is a 27 y.o. male who carries a dx of schizophrenia, r/o bipolar DO/ schizoaffective disorder. He has hx of being a high functioning individual until mid 20s, in which he became increasingly withdrawn, paranoid, using cannabis and hallucinogens, esoteric, and ultimately unable to sustain employment. Has had impulsive and risk taking behaviors, i.e. disappearing, alcohol abuse. Pt endorses neg sx of schizophrenia, i.e. flat affect, thought blocking, slowed movement. Has poor sleep and appetite. [place] [facility] [place] to parents concern with worsening psychotic sx/ catat[place] behavior [place] the mall, as pt became withdrawn, stopped responding, staring at the floor, not redirectable. On admission,admitting provider notes that Parents asked for head CT or MRI/ neuro workup to rule out organic causes, however pt?s sx appear to be a function of primary psych diagnosis. They are concerned with pt?s level of risk taking behavior when he is decompensation i.e. becomes increasingly withdrawn, flat, non-verbal. Risk taking bx includes drinking to excess, taking off in the night at odd hours and disappearing to the point that parents have had to file missing person?s report. Pt has hx of significant suicide attempt in 07/2020, pt was similarly withdrawn, illogical, depressed, and flat. Parents report pt had improvement in sx on seroquel, however he has been non-adherent with treatment in the community. Parents feel unable to care for him at home. Pt adamantly refuses medication, has lack of insight into diagnosis. No medication started. 09/22 patient remains with some catatonic features however he is eating, talking and moving. He also lacks nearly all insight. However, while significant speech latency remains, and patient has flat affect with somewhat of a fixed stare, his thought process is logical and goal oriented. He refuses all medications. Patient refuses Ativan. While Ativan to would likely be helpful, at this point database report writer does not find patient impaired to the point where he cannot input into medical decision making, as patient's thought content is organized and his catatonic symptoms seem to be improving. Will continue to monitor. 09/24: will schedule seroquel and continue to offer for psychotic sx 09/25: Pt refusing seroquel, guarded, appears internally preoccupied 09/26 no change in presentation; remains without insight and catatonic features. 09/27 no change; patient not phase by hearing that [employer] is no longer available; disputes that he does not have any money in his bank account. Patient said he chooses not to talk to this database report writer this time -Pt denies any head trauma; parents deny any head trauma that they know of. Patient has some specific genetic loading for Schizoaffective/schizophrenia and the course of symptoms follows the known pattern of this illness; and Seroquel seemed to help resolve symptoms. Also, The episodic nature of patients symptoms, though worsening over recent months, have been going on for couple of years making any organic cause of symptoms, other than psychiatric, very unlikely. At this point, Head CT is unlikely to provide much information, but database report writer will consult with neurology. Patient has predominantly negative symptoms and does not have symptoms associated with rare illness of Anti-NMDA receptor Encephalitis. 09/28 no change. Will proceed with involuntary commitment as patient has no insight into his disabling symptoms and is not organized enough to care for himself in the community. 09/29 Court ordered involuntary commitment and substituted judgment for medication/tx pt told database report writer he did not want to talk; said he thinks he understands court proceedings. 09/30 given ativan 1mg and within 20 minutes significant reduction in catatonic symptoms including speech latency and moving slowly; still does not have insight; does not want meds and struggles to understand court order. 10/01: Id Improved with Ativan. No changes made. 10/03 holding Seroquel for now; will continue to treat catatonia with ativan. At this point database report writer still needs help differentiating between bipolar/schi zoaffective-bipolar type and schizophrenia. Patient remains with speech latency and slow movements, however these have improved; most significantly patient is able to talk spontaneously and have a reasonable given take conversation; able to talk with peers. He struggles with insight and understanding that his symptoms represent an illness more debilitating than stress, however he is open to continuing to discuss it 10/04 Not much change. Patient continues to have improved spontaneousness with h is speech and is walking a little more fluidly than on admission, however both remain slowed. Patient has the insight to acknowledge that Ativan has probably been helpful to him. He had a visit from his mother today but unfortunately she left before could meet with this database report writer. Both patient and database report writer agree to involve his parents in discussions prior to starting additional medication. As for now, he remains with catatonic symptoms and database report writer wants to continue to let Ativan work before starting a mood stabilizer or antipsychotic. 10/06 after further reviewing history with patient's parents, it seems that patient has had an a slowly increasing amount of disorganized thinking and behavior, fully revealing itself with patient suicide last year and continuing to this admission. There is some amount of episodic nature to some of his disorganized behaviors such as not infrequently making impromptu trips to foreign countries. However there does not seem to be any other associated manic type behaviors and in-between these impromptu trips, patient remained with disorganized thinking and behaviors relative to his past ability and achievements. It seems that disorganized behaviors is the prominent psychotic symptoms 10/07 patient reports tolerating Abilify. Will increase this medication to see if can be helpful in reducing disorganized thinking and behavior says. Patient still has catatonic like symptoms however so will keep the Ativan on and try to balance treating disorganization with resolving catatonia. 10/09: Patient superficial, remains without insight remains with significant negative symptoms, slowed speech and movements. Patient repeats the same refrain regarding how he is doing. Does not grasp the degree of his recent or history of unsafe behaviors or that his level of function is far below where used to be. Does not think he has psychiatric illness. 10/12 dr. kim interviewed patient and concurs with current tx plan 10/13 pt gave a presentation today that was basic, but organized. He remains below baseline and w/out insight, with odd interactions. Unsure if abilify is helping; will continue current dose and monitor 10/14 Pt will continue on abilify, says he thinks it is helping, oddly related 10/15/21: Continue current plan. 10/16/21: Continue to monitor 10/17/21: Continue current plan of care. 10/18/21 Limited insight guarded difficult to evaluate safety thinking rote type reponses slowed mentation encourage change to abilify maintena Current note for October 19 2021 Patient seen in psychiatric follow-up. Patient odd bili detached talking about discharge in a way as if he had [facility] had a discharge plan will not consider long-acting injectable not able or willing to discuss his alcohol use prior to admission. Some increase range of affect on Abilify remains guarded limited engagement. Needs further coordination with family for discharge planning Current note for 10/20/2021 Patient seen in psychiatric follow-up. The patient continues to have a somewhat odd affect inappropriate smiling at times mildly pressured about discharge but not in a coherent way. He has had difficulty ascending to any recommendations regarding discharge. Plan to meet with the parents patient continue Abilify 30 mg taper lorazepam down to 1 mg 3 times a day. Patient had been asking other patients can go home with to when confronted with any behavior or real conversations regarding behavior prior to admission patient just essentially into [place] regarding drinking a want to use or behavior. Difficulty making realistic planning. Encourage long-acting injectable some response observable 10/21/21 Pt with man affect remains odd guarded limited insight will not deal with or help plan for d/c refusing recommendations has difficulty taking in info re psych illness see sw note encourage maintena 10/22/2021 Patient seen in psychiatric follow-up gradually improving but continues resistant to outpatient supports. Patient has generally not consented to treatment after hospitalization at least after recent hospitalization he does state he will continue Abilify Currently at 30 mg I spent minutes with the patient and/or on the patient floor today, greater than?50% of which was spent counseling/coordinating care. Reason for contiued inpatient stay Substantial Risk for: inability to function and rapid decompensation
[2021-10-23 06:00] VITALS: BP 120/68; PULSE 91; RESP 16; TEMP 36.6; O2SAT 100
[2021-10-23] MEDS: LORazepam 1 MG TABLET PO ×3 (10:09→21:18)
[2021-10-23 19:15] VITALS: BP 171/88; PULSE 74; TEMP 36.6; O2SAT 97
[2021-10-23] MEDS: ARIPiprazole 30 MG TABLET PO (21:19)
--- NOTE | 2021-10-23 22:37 | HO.PSYCHPN ---
Subjective Subjective Date of Service: 10/23/21 Reason For Visit: psychosis Subjective Notes: Section 8 Healthcare Proxy: No Interim History: pt superficially bright flat rote answers but feeling better inc range affect Mental Status Exam Mental Status Exam Patient Appearance: Appropriate Patient Orientation: Person, Place and Situation Level of Consciousness: Awake, Restless and Alert Patient Behavior: Guarded, Anxious, Avoidant and Good Eye Contact Mood Description: Happy (Odd expansive affect at times), Blunted and Apprehensive Affect Description: Blunted Patient Cognition Impaired: No Ability to Follow Directions: Good Speech Pattern: Spontaneous Speech and Delayed Memory Description: Episodic Impaired Delusions: Paranoid Ideation Thought Process: Rumination, Evasive and Slowed Thinking Thought Content: negative for Suicidal Ideation (denies in this setting) or negative for Homicidal Ideation Judgement: Fair Judgement and Insight: limited insight Difficult to evaluate denies all symptoms refusing all recommendations [facility] VNA long-acting injectable but improved range affect Diagnostics Vital Signs (24Hr): Vital Signs - 24 hr 10/23/21 06:00 10/23/21 19:15 Temperature 98 F 97.8 F Pulse Rate 91 74 Respiratory Rate 16 Blood Pressure 120/68 171/88 H Pulse Oximetry 100 97 BMI result Body Mass Index 20.6 Labs Results: 09/19/21 10:09 09/19/21 10:09 Medications Medications Current Medications Acetaminophen (Acetaminophen 325 Mg Tablet) 650 mg PO Q6H PRN PRN Reason: Headache/Pain Mild Scale (1-3) Al Hydroxide/Mg Hydroxide (Magnesium Hydrox/Alum Hydrox 30 Ml Oral.Susp) 30 ml PO Q6H PRN PRN Reason: Heartburn/Nausea Aripiprazole (Aripiprazole 30 Mg Tablet) 30 mg PO BEDTIME [facility] [place] Last Admin: 10/23/21 21:19 Dose: 30 mg Documented by: Haloperidol Lactate (Haloperidol Lactate 5 Mg/Ml Vial) 5 mg IM BEDTIME PRN PRN Reason: refusal of PO Abilify Hydroxyzine HCl (Hydroxyzine Hcl 25 Mg Tablet) 25 mg PO BEDTIME PRN PRN Reason: Anxiety Lorazepam (Lorazepam 1 Mg Tablet) 1 mg PO TID [facility] Last Admin: 10/23/21 21:18 Dose: 1 mg Documented by: Magnesium Hydroxide (Milk Of Magnesia 30 Ml Oral.Susp) 30 ml PO DAILY PRN PRN Reason: Constipation Trazodone HCl (Trazodone Hcl 50 Mg Tablet) 50 mg PO BEDTIME PRN PRN Reason: Insomnia Allergies Allergies Allergy/AdvReac Type Severity Reaction Status Date / Time No Known Allergies Allergy Verified 09/18/21 20:22 Assessment & Plan Assessment & Plan (1) Schizophrenia: Status: Acute Code(s): F20.9 - Schizophrenia, unspecified Plan Pt is a 27 y.o. male who carries a dx of schizophrenia, r/o bipolar DO/ schizoaffective disorder. He has hx of being a high functioning individual until mid 20s, in which he became increasingly withdrawn, paranoid, using cannabis and hallucinogens, esoteric, and ultimately unable to sustain employment. Has had impulsive and risk taking behaviors, i.e. disappearing, alcohol abuse. Pt endorses neg sx of schizophrenia, i.e. flat affect, thought blocking, slowed movement. Has poor sleep and appetite. [place] [facility] [place] parents concern with worsening psychotic sx/ catat[place] behavior [place] the mall, as pt became withdrawn, stopped responding, staring at the floor, not redirectable. On admission,admitting provider notes that Parents asked for head CT or MRI/ neuro workup to rule out organic causes, however pt?s sx appear to be a function of primary psych diagnosis. They are concerned with pt?s level of risk taking behavior when he is decompensation i.e. becomes increasingly withdrawn, flat, non-verbal. Risk taking bx includes drinking to excess, taking off in the night at odd hours and disappearing to the point that parents have had to file missing person?s report. Pt has hx of significant suicide attempt in 07/2020, pt was similarly withdrawn, illogical, depressed, and flat. Parents report pt had improvement in sx on seroquel, however he has been non-adherent with treatment in the community. Parents feel unable to care for him at home. Pt adamantly refuses medication, has lack of insight into diagnosis. No medication started. 09/22 patient remains with some catatonic features however he is eating, talking and moving. He also lacks nearly all insight. However, while significant speech latency remains, and patient has flat affect with somewhat of a fixed stare, his thought process is logical and goal oriented. He refuses all medications. Patient refuses Ativan. While Ativan to would likely be helpful, at this point sheet writer does not find patient impaired to the point where he cannot input into medical decision making, as patient's thought content is organized and his catatonic symptoms seem to be improving. Will continue to monitor. 09/24: will schedule seroquel and continue to offer for psychotic sx 09/25: Pt refusing seroquel, guarded, appears internally preoccupied 09/26 no change in presentation; remains without insight and catatonic features. 09/27 no change; patient not phase by hearing that [employer] is no longer available; disputes that he does not have any money in his bank account. Patient said he chooses not to talk to this sheet writer this time -Pt denies any head trauma; parents deny any head trauma that they know of. Patient has some specific genetic loading for Schizoaffective/schizophrenia and the course of symptoms follows the known pattern of this illness; and Seroquel seemed to help resolve symptoms. Also, The episodic nature of patients symptoms, though worsening over recent months, have been going on for couple of years making any organic cause of symptoms, other than psychiatric, very unlikely. At this point, Head CT is unlikely to provide much information, but sheet writer will consult with neurology. Patient has predominantly negative symptoms and does not have symptoms associated with rare illness of Anti-NMDA receptor Encephalitis. 09/28 no change. Will proceed with involuntary commitment as patient has no insight into his disabling symptoms and is not organized enough to care for himself in the community. 09/29 Court ordered involuntary commitment and substituted judgment for medication/tx pt told sheet writer he did not want to talk; said he thinks he understands court proceedings. 09/30 given ativan 1mg and within 20 minutes significant reduction in catatonic symptoms including speech latency and moving slowly; still does not have insight; does not want meds and struggles to understand court order. 10/01: Id Improved with Ativan. No changes made. 10/03 holding Seroquel for now; will continue to treat catatonia with ativan. At this point sheet writer still needs help differentiating between bipolar/schizoaffective-bipolar type and schizophrenia. Patient remains with speech latency and slow movements, however these have improved; most significantly patient is able to talk spontaneously and have a reasonable given take conversation; able to talk with peers. He struggles with insight and understanding that his symptoms represent an illness more debilitating than stress, however he is open to continuing to discuss it 10/04 Not much change. Patient continues to have improved spontaneousness with his speech and is walking a little more fluidly than on admission, however both remain slowed. Patient has the insight to acknowledge that Ativan has probably been helpful to him. He had a visit from his mother today but unfortunately she left before could meet with this sheet writer. Both patient and sheet writer agree to involve his parents in discussions prior to starting additional medication. As for now, he remains with catatonic symptoms and sheet writer wants to continue to let Ativan work before starting a mood stabilizer or antipsychotic. 10/06 after further reviewing history with patient's parents, it seems that patient has had an a slowly increasing amount of disorganized thinking and behavior, fully revealing itself with patient suicide last year and continuing to this admission. There is some amount of episodic nature to some of his disorganized behaviors such as not infrequently making impromptu trips to foreign countries. However there does not seem to be any other associated manic type behaviors and in-between these impromptu trips, patient remained with disorganized thinking and behaviors relative to his past ability and achievements. It seems that disorganized behaviors is the prominent psychotic symptoms 10/07 patient reports tolerating Abilify. Will increase this medication to see if can be helpful in reducing disorganized thinking and behavior says. Patient still has catatonic like symptoms however so will keep the Ativan on and try to balance treating disorganization with resolving catatonia. 10/09: Patient superficial, remains without insight remains with significant negative symptoms, slowed speech and movements. Patient repeats the same refrain regarding how he is doing. Does not grasp the degree of his recent or history of unsafe behaviors or that his level of function is far below where used to be. Does not think he has psychiatric illness. 10/12 dr. kim interviewed patient and concurs with current tx plan 10/13 pt gave a presentation today that was basic, but organized. He remains below baseline and w/out insight, with odd interactions. Unsure if abilify is helping; will continue current dose and monitor 10/14 Pt will continue on abilify, says he thinks it is helping, oddly related 10/15/21: Continue current plan. 10/16/21: Continue to monitor 10/17/21: Continue current plan of care. 10/18/21 Limited insight guarded difficult to evaluate safety thinking rote type reponses slowed mentation encourage change to abilify maintena Current note for October 19 2021 Patient seen in psychiatric follow-up. Patient odd bili detached talking about discharge in a way as if he had [facility] had a discharge plan will not consider long-acting injectable not able or willing to discuss his alcohol use prior to admission. Some increase range of affect on Abilify remains guarded limited engagement. Needs further coordination with family for discharge planning Current note for 10/20/2021 Patient seen in psychiatric follow-up. The patient continues to have a somewhat odd affect inappropriate smiling at times mildly pressured about discharge but not in a coherent way. He has had difficulty ascending to any recommendations regarding discharge. Plan to meet with the parents patient continue Abilify 30 mg taper lorazepam down to 1 mg 3 times a day. Patient had been asking other patients can go home with to when confronted with any behavior or real conversations regarding behavior prior to admission patient just essentially into [place] regarding drinking a want to use or behavior. Difficulty making realistic planning. Encourage long-acting injectable some response observable 10/21/21 Pt with man affect remains odd guarded limited insight will not deal with or help plan for d/c refusing recommendations has difficulty taking in info re psych illness see sw note encourage maintena 10/22/2021 Patient seen in psychiatric follow-up gradually improving but continues resistant to outpatient supports. Patient has generally not consented to treatment after hospitalization at least after recent hospitalization he does state he will continue Abilify Currently at 30 mg 10/23/2021 Patient defended flat rote answers continues to not be able to engage in a way that he feels he can be real difficult to engage in real manner blunted but improved cont abilify 30 mg ativan I spent minutes with the patient and/or on the patient floor today, greater than?50% of which was spent counseling/coordinating care. Patient educated on: diagnosis and medication risk/benefits Reason for contiued inpatient stay Substantial Risk for: inability to function and rapid decompensation
[2021-10-24] MEDS: LORazepam 1 MG TABLET PO ×3 (08:41→21:32)
[2021-10-24 11:10] VITALS: BP 149/82; PULSE 80; TEMP 36.2; O2SAT 95
[2021-10-24 16:45] VITALS: BP 113/77; PULSE 75; TEMP 36.7; O2SAT 98
[2021-10-24] MEDS: ARIPiprazole 30 MG TABLET PO (21:32)
--- NOTE | 2021-10-24 22:28 | P.PNPSI_ITS ---
Subjective Subjective Date of Service: 10/24/21 Reason For Visit: psychosis Subjective Notes: Section 8 Healthcare Proxy: No Guardianship: No Medical Problems Affecting Mental Status: No Interim History: Patient somewhat more social remains stilted in interactions somewhat artificial and manner difficult time accepting any outpatient recommendations be sites accepting therapist and psychiatric follow-up although he has refused this previously once outpatient Mental Status Exam Mental Status Exam Narrative: t Patient Appearance: Appropriate Patient Orientation: Person, Place and Situation Level of Consciousness: Awake, Restless and Alert Patient Behavior: Guarded, Anxious, Avoidant and Good Eye Contact Mood Description: Happy (Odd expansive affect at times), Blunted and Apprehensive Affect Description: Blunted Patient Cognition Impaired: No Ability to Follow Directions: Good Speech Pattern: Spontaneous Speech and Delayed Memory Description: Episodic Impaired Thought Process: Distracted, Rumination, Evasive and Slowed Thinking Depressive Symptoms: Increased Anxiety Abnormal Motor Activity Signs and Symptoms: Psychomotor Retardation Judgement: Fair Diagnostics Vital Signs (24Hr): Vital Signs - 24 hr 10/24/21 11:10 10/24/21 16:45 Temperature 97.1 F 98.0 F Pulse Rate 80 75 Blood Pressure 149/82 H 113/77 Pulse Oximetry 95 98 BMI result Body Mass Index 20.6 Labs Results: 09/19/21 10:09 09/19/21 10:09 Medications Medications Current Medications Acetaminophen (Acetaminophen 325 Mg Tablet) 650 mg PO Q6H PRN PRN Reason: Headache/Pain Mild Scale (1-3) Al Hydroxide/Mg Hydroxide (Magnesium Hydrox/Alum Hydrox 30 Ml Oral.Susp) 30 ml PO Q6H PRN PRN Reason: Heartburn/Nausea Aripiprazole (Aripiprazole 30 Mg Tablet) 30 mg PO BEDTIME [facility] Last Admin: 10/24/21 21:32 Dose: 30 mg Documented by: Haloperidol Lactate (Haloperidol Lactate 5 Mg/Ml Vial) 5 mg IM BEDTIME PRN PRN Reason: refusal of PO Abilify Hydroxyzine HCl (Hydroxyzine Hcl 25 Mg Tablet) 25 mg PO BEDTIME PRN PRN Reason: Anxiety Lorazepam (Lorazepam 1 Mg Tablet) 1 mg PO TID [facility] Last Admin: 10/24/21 21:32 Dose: 1 mg Documented by: Magnesium Hydroxide (Milk Of Magnesia 30 Ml Oral.Susp) 30 ml PO DAILY PRN PRN Reason: Constipation Trazodone HCl (Trazodone Hcl 50 Mg Tablet) 50 mg PO BEDTIME PRN PRN Reason: Insomnia Allergies Allergies Allergy/AdvReac Type Severity Reaction Status Date / Time No Known Allergies Allergy Verified 09/18/21 20:22 Assessment & Plan Assessment & Plan (1) Schizophrenia: Status: Acute Code(s): F20.9 - Schizophrenia, unspecified Plan Pt is a 27 y.o. male who carries a dx of schizophrenia, r/o bipolar DO/ schizoaffective disorder. He has hx of being a high functioning individual until mid 20s, in which he became increasingly withdrawn, paranoid, using cannabis and hallucinogens, esoteric, and ultimately unable to sustain employment. Has had impulsive and risk taking behaviors, i.e. disappearing, alcohol abuse. Pt endorses neg sx of schizophrenia, i.e. flat affect, thought blocking, slowed movement. Has poor sleep and appetite. Pt arrives to [facility] due to parents concern with worsening psychotic sx/ catat[place], as pt became withdrawn, stopped responding, staring at the floor, not redirectable. On admission,admitting provider notes that Parents asked for head CT or MRI/ neuro workup to rule out organic causes, however pt?s sx appear to be a function of primary psych diagnosis. They are concerned with pt?s level of risk taking behavior when he is decompensation i.e. becomes increasingly withdrawn, flat, non-verbal. Risk taking bx includes drinking to excess, taking off in the night at odd hours and disappearing to the point that parents have had to file missing person?s report. Pt has hx of significant suicide attempt in 07/2020, pt was similarly withdrawn, illogical, depressed, and flat. Parents report pt had im provement in sx on seroquel, however he has been non-adherent with treatment in the community. Parents feel unable to care for him at home. Pt adamantly refuses medication, has lack of insight into diagnosis. No medication started. 09/22 patient remains with some catatonic features however he is eating, talking and moving. He also lacks nearly all insight. However, while significant speech latency remains, and patient has flat affect with somewhat of a fixed stare, his thought process is logical and goal oriented. He refuses all medications. Patient refuses Ativan. While Ativan to would likely be helpful, at this point teletypewriter installer does not find patient impaired to the point where he cannot input into medical decision making, as patient's thought content is organized and his catatonic symptoms seem to be improving. Will continue to monitor. 09/24: will schedule seroquel and continue to offer for psychotic sx 09/25: Pt refusing seroquel, guarded, appears internally preoccupied 09/26 no change in presentation; remains without insight and catatonic features. 09/27 no change; patient not phase by hearing that [employer] is no longer available; disputes that he does not have any money in his bank account. Patient said he chooses not to talk to this teletypewriter installer this time -Pt denies any head trauma; parents deny any head trauma that they know of. Patient has some specific genetic loading for Schizoaffective/schizophrenia and the course of symptoms follows the known pattern of this illness; and Seroquel seemed to help resolve symptoms. Also, The episodic nature of patients symptoms, though worsening over recent months, have been going on for couple of years making any organic cause of symptoms, other than psychiatric, very unlikely. At this point, Head CT is unlikely to provide much information, but teletypewriter installer will consult with neurology. Patient has predominantly negative symptoms and does not have symptoms associated with rare illness of Anti-NMDA receptor Encephalitis. 09/28 no change. Will proceed with involuntary commitment as patient has no insight into his disabling symptoms and is not organized enough to care for himself in the community. 09/29 Court ordered involuntary commitment and substituted judgment for medication/tx pt told teletypewriter installer he did not want to talk; said he thinks he understands court proceedings. 09/30 given ativan 1mg and within 20 minutes significant reduction in catatonic symptoms including speech latency and moving slowly; still does not have insight; does not want meds and struggles to understand court order. 10/01: Id Improved with Ativan. No changes made. 10/03 holding Seroquel for now; will continue to treat catatonia with ativan. At this point teletypewriter installer still needs help differentiating between bipolar/schizoaffective-bipolar type and schizophrenia. Patient remains with speech latency and slow movements, however these have improved; most sign ificantly patient is able to talk spontaneously and have a reasonable given take conversation; able to talk with peers. He struggles with insight and understanding that his symptoms represent an illness more debilitating than stress, however he is open to continuing to discuss it 10/04 Not much change. Patient continues to have improved spontaneousness with his speech and is walking a little more fluidly than on admission, however both remain slowed. Patient has the insight to acknowledge that Ativan has probably been helpful to him. He had a visit from his mother today but unfortunately she left before could meet with this teletypewriter installer. Both patient and teletypewriter installer agree to involve his parents in discussions prior to starting additional medication. As for now, he remains with catatonic symptoms and teletypewriter installer wants to continue to let Ativan work before starting a mood stabilizer or antipsychotic. 10/06 after further reviewing history with patient's parents, it seems that patient has had an a slowly increasing amount of disorganized thinking and behavior, fully revealing itself with patient suicide last year and continuing to this admission. There is some amount of episodic nature to some of his disorganized behaviors such as not infrequently making impromptu trips to foreign countries. However there does not seem to be any other associated manic type behaviors and in-between these impromptu trips, patient remained with disorganized thinking and behaviors relative to his past ability and achievements. It seems that disorganized behaviors is the prominent psychotic symptoms 10/07 patient reports tolerating Abilify. Will increase this medication to see if can be helpful in reducing disorganized thinking and behavior says. Patient still has catatonic like symptoms however so will keep the Ativan on and try to balance treating disorganization with resolving catatonia. 10/09: Patient superficial, remains without insight remains with significant negative symptoms, slowed speech and movements. Patient repeats the same refrain regarding how he is doing. Does not grasp the degree of his recent or history of unsafe behaviors or that his level of function is far below where used to be. Does not think he has psychiatric illness. 10/12 dr. kim interviewed patient and concurs with current tx plan 10/13 pt gave a presentation today that was basic, but organized. He remains below baseline and w/out insight, with odd interactions. Unsure if abilify is helping; will continue current dose and monitor 10/14 Pt will continue on abilify, says he thinks it is helping, oddly related 10/15/21: Continue current plan. 10/16/21: Continue to monitor 10/17/21: Continue current plan of care. 10/18/21 Limited insight guarded difficult to evaluate safety thinking rote type reponses slowed mentation encourage change to abilify maintena Current note for October 19 2021 Patient seen in psychiatric follow-up. Patient odd bili detached talking about discharge in a way as if he had [place] had a discharge plan will not consider long-acting injectable not able or willing to discuss his alcohol use prior to admission. Some increase range of affect on Abilify remains guarded limited engagement. Needs further coordination with family for discharge planning Current note for 10/20/2021 Patient seen in psychiatric follow-up. The patient continues to have a somewhat odd affect inappropriate smiling at times mildly pressured about discharge but not in a coherent way. He has had difficulty ascending to any recommendations regarding discharge. Plan to meet with the parents patient continue Abilify 30 mg taper lorazepam down to 1 mg 3 times a day. Patient had been asking other patients can go home with to when confronted with any behavior or real conversations regarding behavior prior to admission patient just essentially into [place] regarding drinking a want to use or behavior. Difficulty making realistic planning. Encourage long-acting injectable some response observable 10/21/21 Pt with man affect remains odd guarded limited insight will not deal with or help plan for d/c refusing recommendations has difficulty taking in info re psych illness see sw note encourage maintena 10/22/2021 Patient seen in psychiatric follow-up gradually improving but continues resistant to outpatient supports. Patient has generally not consented to treatment after hospitalization at least after recent hospitalization he does state he will continue Abilify Currently at 30 mg 10/23/2021 Patient defended flat rote answers continues to not be able to engage in a way that he feels he can be real difficult to engage in real manner blunted but improved cont abilify 30 mg ativan 10/24/2021 Patient continues to be difficult to engage flat road answers no insight re fusing consideration injectable continues to deny all symptoms and symptoms really prior to hospitalization and to acknowledge reality regarding alcohol or substance abuse that he was engaging in prior to admission. Difficult to have a reality based discussion and to truly evaluate the patient's mental status I spent minutes with the patient and/or on the patient floor today, greater than?50% of which was spent counseling/coordinating care. Reason for contiued inpatient stay Substantial Risk for: inability to function and rapid decompensation
[2021-10-25 06:00] VITALS: BP 126/78; PULSE 84; RESP 18; TEMP 36.6; O2SAT 98
[2021-10-25] MEDS: LORazepam 1 MG TABLET PO ×3 (08:41→20:13)
--- NOTE | 2021-10-25 17:39 | P.PNPSI_ITS ---
Subjective Subjective Date of Service: 10/25/21 Reason For Visit: psychosis Interim History: Met with patient and Dr. Kim. Patient remains without any insight, robotic in answers and with disorganized behavior, slow movements and saying that he is doing Very well Or feels very happy although he has flat affect. Patient does not want long-acting injectable Abilify. At 1st he says he is worried about side effects; when this was explained he said he is worried about the steady state; with this was explained he then said he is worried about having A matrix In his body (referencing a description of long-acting injectable); When this was explained he then said he likes the routine of taking a pill every day which reminds him to take care of himself another way such as bathe and shower; when this was explained he would be continuing to take the p.o. medication for least 2 weeks patient asks if he could have a visiting nurse instead. Patient could not accept that there was concern for his continued adherence of medication post discharge; he also could not factor in to his thinking that his parents insist on him being on a long-acting injectable if he is to continue r eceiving any financial help from them and or living in their home. Patient however did accept that this is part of court order and that he will comply. focusd exam and pt remains w/out rigidity in limbs Mental Status Exam Mental Status Exam Narrative: Patient Appearance:?Appropriate Patient Orientation:?Person, Place and Situation Level of Consciousness:?Awake and Alert Patient Behavior:?Guarded; somewhat fixed stare Mood Description:? Very well (Odd expansive affect at times) Affect Description:?Blunted to flat Ability to Follow Directions:?Good Speech Pattern:?Spontaneous Speech but with latency Memory Description:?Episodic Impaired Delusions:?none expressed Thought Process:?goal oriented and linear but also Rumination, Evasive and Slowed Thinking Thought Content:?no SI/HI; Delusional in the sense that he has no insight that he has any impairment at all Judgement and Insight: Impaired Diagnostics Vital Signs (24Hr): Vital Signs - 24 hr 10/25/21 06:00 Temperature 97.9 F Pulse Rate 84 Respiratory Rate 18 Blood Pressure 126/78 Pulse Oximetry 98 BMI result Body Mass Index 20.6 Labs Results: 09/19/21 10:09 09/19/21 10:09 Medications Medications Current Medications Acetaminophen (Acetaminophen 325 Mg Tablet) 650 mg PO Q6H PRN PRN Reason: Headache/Pain Mild Scale (1-3) Al Hydroxide/Mg Hydroxide (Magnesium Hydrox/Alum Hydrox 30 Ml Oral.Susp) 30 ml PO Q6H PRN PRN Reason: Heartburn/Nausea Aripiprazole (Aripiprazole 30 Mg Tablet) 30 mg PO BEDTIME KEITH Last Admin: 10/24/21 21:32 Dose: 30 mg Documented by: Haloperidol Lactate (Haloperidol Lactate 5 Mg/Ml Vial) 5 mg IM BEDTIME PRN PRN Reason: refusal of PO Abilify Hydroxyzine HCl (Hydroxyzine Hcl 25 Mg Tablet) 25 mg PO BEDTIME PRN PRN Reason: Anxiety Lorazepam (Lorazepam 1 Mg Tablet) 1 mg PO TID KEITH Stop: 10/25/21 21:00 Last Admin: 10/25/21 14:28 Dose: 1 mg Documented by: Lorazepam (Lorazepam 1 Mg Tablet) 1 mg PO BID KEITH Magnesium Hydroxide (Milk Of Magnesia 30 Ml Oral.Susp) 30 ml PO DAILY PRN PRN Reason: Constipation Trazodone HCl (Trazodone Hcl 50 Mg Tablet) 50 mg PO BEDTIME PRN PRN Reason: Insomnia Allergies Allergies Allergy/AdvReac Type Severity Reaction Status Date / Time No Known Allergies Allergy Verified 09/18/21 20:22 Assessment & Plan Assessment & Plan (1) Schizophrenia: Status: Acute Code(s): F20.9 - Schizophrenia, unspecified Plan Pt is a 27 y.o. male who carries a dx of schizophrenia, r/o bipolar DO/ schizoaffective disorder. He has hx of being a high functioning individual until mid 20s, in which he became increasingly withdrawn, paranoid, using cannabis and hallucinogens, esoteric, and ultimately unable to sustain employment. Has had impulsive and risk taking behaviors, i.e. disappearing, alcohol abuse. Pt endorses neg sx of schizophrenia, i.e. flat affect, thought blocking, slowed movement. Has poor sleep and appetite. Pt arrives to [facility] due to parents concern with worsening psychotic sx/ catat[place] the [place], as pt became withdrawn, stopped responding, staring at the floor, not redirectable. On admission,admitting provider notes that Parents asked for head CT or MRI/ neuro workup to rule out organic causes, however pt?s sx appear to be a function of p rimary psych diagnosis. They are concerned with pt?s level of risk taking behavior when he is decompensation i.e. becomes increasingly withdrawn, flat, non-verbal. Risk taking bx includes drinking to excess, taking off in the night at odd hours and disappearing to the point that parents have had to file missing person?s report. Pt has hx of significant suicide attempt in 07/2020, pt was similarly withdrawn, illogical, depressed, and flat. Parents report pt had improvement in sx on seroquel, however he has been non-adherent with treatment in the community. Parents feel unable to care for him at home. Pt adamantly refuses medication, has lack of insight into diagnosis. No medication started. 09/22 patient remains with some catatonic features however he is eating, talking and moving. He also lacks nearly all insight. However, while significant speech latency remains, and patient has flat affect with somewhat of a fixed stare, his thought process is logical and goal oriented. He refuses all medications. Patient refuses Ativan. While Ativan to would likely be helpful, at this point contract technical writer does not find patient impaired to the point where he cannot input into medical decision making, as patient's thought content is organized and his catatonic symptoms seem to be improving. Will continue to monitor. 09/24: will schedule seroquel and continue to offer for psychotic sx 09/25: Pt refusing seroquel, guarded, appears internally preoccupied 09/26 no change in presentation; remains without insight and catatonic features. 09/27 no change; patient not phase by hearing that [employer] is no longer available; disputes that he does not have any money in his bank account. Patient said he c hooses not to talk to this contract technical writer this time -Pt denies any head trauma; parents deny any head trauma that they know of. Patient has some specific genetic loading for Schizoaffective/schizophrenia and the course of symptoms follows the known pattern of this illness; and Seroquel seemed to help resolve symptoms. Also, The episodic nature of patients symptoms, though worsening over recent months, have been going on for couple of years making any organic cause of symptoms, other than psychiatric, very unlikely. At this point, Head CT is unlikely to provide much information, but contract technical writer will consult with neurology. Patient has predominantly negative symptoms and does not have symptoms associated with rare illness of Anti-NMDA receptor Encephalitis. 09/28 no change. Will proceed with involuntary commitment as patient has no insight into his disabling symptoms and is not organized enough to care for himself in the community. 09/29 Court ordered involuntary commitment and substituted judgment for medication/tx pt told contract technical writer he did not want to talk; said he thinks he understands court proceedings. 09/30 given ativan 1mg and within 20 minutes significant reduction in catatonic symptoms including speech latency and moving slowly; still does not have insight; does not want meds and struggles to understand court order. 10/01: Id Improved with Ativan. No changes made. 10/03 holding Seroquel for now; will continue to treat catatonia with ativan. At this point contract technical writer still needs help differentiating between bipolar/schizoaffective-bipolar type and schizophrenia. Patient remains with speech latency and slow movements, however these have improved; most significantly patient is able to talk spontaneously and have a reasonable given take conversation; able to talk with peers. He struggles with insight and understanding that his symptoms represent an illness more debilitating than stress, however he is open to continuing to discuss it 10/04 Not much change. Patient continues to have improved spontaneousness with his speech and is walking a little more fluidly than on admission, however both remain slowed. Patient has the insight to acknowledge that Ativan has probably been helpful to him. He had a visit from his mother today but unfortunately she left before could meet with this contract technical writer. Both patient and contract technical writer agree to involve his parents in discussions prior to starting additional medication. As for now, he remains with catatonic symptoms and contract technical writer wants to continue to let Ativan work before starting a mood stabilizer or antipsychotic. 10/06 after further reviewing history with patient's parents, it seems that patient has had an a slowly increasing amount of disorganized thinking and behavior, fully revealing itself with patient suicide last year and continuing to this admission. There is some amount of episodic nature to some of his disorganized behaviors such as not infrequently making impromptu trips to foreign countries. However there does not seem to be any other associated manic type behaviors and in-between these impromptu trips, patient remained with disorganized thinking and behaviors relative to his past ability and achievements. It seems that disorganized behaviors is the prominent psychotic symptoms 10/07 patient reports tolerating Abilify. Will increase this medication to see if can be helpful in reducing disorganized thinking and behavior says. Patient still has catatonic like symptoms however so will keep the Ativan on and try to balance treating disorganization with resolving catatonia. 10/09: Patient superficial, remains without insight remains with significant negative symptoms, slowed speech and movements. Patient repeats the same refrain regarding how he is doing. Does not grasp the degree of his recent or history of unsafe behaviors or that his level of function is far below where used to be. Does not think he has psychiatric illness. 10/12 dr. kim interviewed patient and concurs with current tx plan 10/13 pt gave a presentation today that was basic, but organized. He remains below baseline and w/out insight, with odd interactions. Unsure if abilify is helping; will continue current dose and monitor 10/14 Pt will continue on abilify, says he thinks it is helping, oddly related 10/15/21: Continue current plan. 10/16/21: Continue to monitor 10/17/21: Continue current plan of care. 10/18/21 Limited insight guarded difficult to evaluate safety thinking rote type reponses slowed mentation encourage change to abilify maintena Current note for October 19 2021 Patient seen in psychiatric follow-up. Patient odd lisandrai detached talking about discharge in a way as if he had [place] had a discharge plan will not consider long-acting injectable not able or willing to discuss his alcohol use prior to admission. Some increase range of affect on Abilify remains guarded limited engagement. Needs further coordination with family for discharge planning Current note for 10/20/2021 Patient seen in psychiatric follow-up. The patient continues to have a somewhat odd affect inappropriate smiling at times mildly pressured about discharge but not in a coherent way. He has had difficulty ascending to any recommendations regarding discharge. Plan to meet with the parents patient continue Abilify 30 mg taper lorazepam down to 1 mg 3 times a day. Patient had been asking other patients can go home with to when confronted with any behavior or real conversations regarding behavior prior to admission patient just essentially into [place] regarding drinking a want to use or behavior. Difficulty making real istic planning. Encourage long-acting injectable some response observable 10/21/21 Pt with man affect remains odd guarded limited insight will not deal with or help plan for d/c refusing recommendations has difficulty taking in info re psych illness see sw note encourage maintena 10/22/2021 Patient seen in psychiatric follow-up gradually improving but continues resistant to outpatient supports. Patient has generally not consented to treatment after hospitalization at least after recent hospitalization he does state he will continue Abilify Currently at 30 mg 10/23/2021 Patient defended flat rote answers continues to not be able to engage in a way that he feels he can be real difficult to engage in real manner blunted but improved cont abilify 30 mg ativan 10/25 Will proceed with long-acting injectable Patient says that he will remain adherent with medication however he is working hard to avoid long-acting injectable and he continues to struggle with reality testing and has no insight into his illness. Also what he reports as improvement from the medication is incongruent with both his presentation and his past understanding of his mood prior to starting medication I spent minutes with the patient and/or on the patient floor today, g reater than?50% of which was spent counseling/coordinating care. Patient educated on: diagnosis and medication risk/benefits Informed Consent: further education needed Reason for contiued inpatient stay Substantial Risk for: rapid decompensation
[2021-10-25 18:41] VITALS: BP 144/91; PULSE 78; TEMP 37.3; O2SAT 98
[2021-10-25] MEDS: ARIPiprazole 30 MG TABLET PO (20:13)
[2021-10-26 06:08] VITALS: BP 136/67; PULSE 59; RESP 16; TEMP 36.1; O2SAT 98
[2021-10-26] MEDS: LORazepam 1 MG TABLET PO ×2 (09:03→21:14)
--- NOTE | 2021-10-26 10:49 | P.PNPSI_ITS ---
Subjective Subjective Date of Service: 10/26/21 Reason For Visit: psychosis Interim History: Patient says he feels good about meeting with Dr. Kim and that a resolution was reached about the next steps in his care specifically getting his injection. He says he feels Fine About it but that he has just decided to accept it. He said his he is not upset at all And though with flat, expressionless affect he says his mood is happy and excited. Patient wants to go to respite however contract writer feels that patient will do much better if he waits for discharge when his parents return from vacation. Materials Tech explained this to patient to struggles to understand Mental Status Exam Mental Status Exam Narrative: Patient Appearance:?Appropriate Patient Orientation:?Person, Place and Situation Level of Consciousness:?Awake and Alert Patient Behavior:?Guarded; somewhat fixed stare Mood Description:? Happy and excited (Odd expansive affect at times) Affect Description: incongruent,?Blunted to flat Ability to Follow Directions:?Good Speech Pattern:?Spontaneous Speech but with latency Memory Description:?Episodic Impaired Delusions:?none expressed Thought Process:?goal oriented and linear but also Rumination, Evasive and Slowed Thinking Thought Content:?no SI/HI; Delusional in the sense that he has no insight that he has any impairment at all Judgement and Insight:? Impaired Diagnostics Vital Signs (24Hr): Vital Signs - 24 hr 10/25/21 18:41 10/26/21 06:08 Temperature 99.1 F 97 F Pulse Rate 78 59 Respiratory Rate 16 Blood Pressure 144/91 H 136/67 Pulse Oximetry 98 98 BMI result Body Mass Index 20.6 Labs Results: 09/19/21 10:09 09/19/21 10:09 Medications Medications Current Medications Acetaminophen (Acetaminophen 325 Mg Tablet) 650 mg PO Q6H PRN PRN Reason: Headache/Pain Mild Scale (1-3) Al Hydroxide/Mg Hydroxide (Magnesium Hydrox/Alum Hydrox 30 Ml Oral.Susp) 30 ml PO Q6H PRN PRN Reason: Heartburn/Nausea Aripiprazole (Aripiprazole 30 Mg Tablet) 30 mg PO BEDTIME KEITH Last Admin: 10/25/21 20:13 Dose: 30 mg Documented by: Haloperidol Lactate (Haloperidol Lactate 5 Mg/Ml Vial) 5 mg IM BEDTIME PRN PRN Reason: refusal of PO Abilify Hydroxyzine HCl (Hydroxyzine Hcl 25 Mg Tablet) 25 mg PO BEDTIME PRN PRN Reason: Anxiety Lorazepam (Lorazepam 1 Mg Tablet) 1 mg PO BID KEITH Last Admin: 10/26/21 09:03 Dose: 1 mg Documented by: Magnesium Hydroxide (Milk Of Magnesia 30 Ml Oral.Susp) 30 ml PO DAILY PRN PRN Reason: Constipation Trazodone HCl (Trazodone Hcl 50 Mg Tablet) 50 mg PO BEDTIME PRN PRN Reason: Insomnia Allergies Allergies Allergy/AdvReac Type Severity Reaction Status Date / Time No Known Allergies Allergy Verified 09/18/21 20:22 Assessment & Plan Assessment & Plan (1) Schizophrenia: Status: Acute Code(s): F20.9 - Schizophrenia, unspecified Plan Pt is a 27 y.o. male who carries a dx of schizophrenia, r/o bipolar DO/ schizoaffective disorder. He has hx of being a high functioning individual until mid 20s, in which he became increasingly withdrawn, paranoid, using cannabis and hallucinogens, esoteric, and ultimately unable to sustain employment. Has had im pulsive and risk taking behaviors, i.e. disappearing, alcohol abuse. Pt endorses neg sx of schizophrenia, i.e. flat affect, thought blocking, slowed movement. Has poor sleep and appetite. Pt arrives to [facility] due to parents concern with worsening psychotic sx/ catat[place] behavior [place] the mall, as pt became withdrawn, stopped responding, staring at the floor, not redirectable. On admission,admitting provider notes that Parents asked for head CT or MRI/ neuro workup to rule out organic causes, however pt?s sx appear to be a function of primary psych diagnosis. They are concerned with pt?s level of risk taking behavior when he is decompensation i.e. becomes increasingly withdrawn, flat, non-verbal. Risk taking bx includes drinking to excess, taking off in the night at odd hours and disappearing to the point that parents have had to file missing person?s report. Pt has hx of significant suicide attempt in 07/2020, pt was similarly withdrawn, illogical, depressed, and flat. Parents report pt had improvement in sx on seroquel, however he has been non-adherent with treatment in the community. Parents feel unable to care for him at home. Pt adamantly refuses medication, has lack of insight into diagnosis. No medication started. 09/22 patient remains with some catatonic features however he is eating, talking and moving. He also lacks nearly all insight. However, while significant sp eech latency remains, and patient has flat affect with somewhat of a fixed stare, his thought process is logical and goal oriented. He refuses all medications. Patient refuses Ativan. While Ativan to would likely be helpful, at this point contract writer does not find patient impaired to the point where he cannot input into medical decision making, as patient's thought content is organized and his catatonic symptoms seem to be improving. Will continue to monitor. 09/24: will schedule seroquel and continue to offer for psychotic sx 09/25: Pt refusing seroquel, guarded, appears internally preoccupied 09/26 no change in presentation; remains without insight and catatonic features. 09/27 no change; patient not phase by hearing that [employer] an [employer] is no longer available; disputes that he does not have any money in his bank account. Patient said he chooses not to talk to this contract writer this time -Pt denies any head trauma; parents deny any head trauma that they know of. Patient has some specific genetic loading for Schizoaffective/schizophrenia and the course of symptoms follows the known pattern of this illness; and Seroquel seemed to help resolve symptoms. Also, The episodic nature of patients symptoms, though worsening over recent months, have been going on for couple of years making any organic cause of symptoms, other than psychiatric, very unlikely. At this point, Head CT is unlikely to provide much information, but contract writer will consult with neurology. Patient has predominantly negative symptoms and does not have symptoms associated with rare illness of Anti-NMDA receptor Encephalitis. 09/28 no change. Will proceed with involuntary commitment as patient has no insight into his disabling symptoms and is not organized enough to care for himself in the community. 09/29 Court ordered involuntary commitment and substituted judgment for medication/tx pt told contract writer he did not want to talk; said he thinks he understands court proceedings. 09/30 given ativan 1mg and within 20 minutes significant reduction in catatonic symptoms including speech latency and moving slowly; still does not have insight; does not want meds and struggles to understand court order. 10/01: Id Improved with Ativan. No changes made. 10/03 holding Seroquel for now; will continue to treat catatonia with ativan. At this point contract writer still needs help differentiating between bipolar/schizoaffective-bipolar type and schizophrenia. Patient remains with speech latency and slow movements, however these have improved; most significantly patient is able to talk spontaneously and have a reasonable given take conversation; able to talk with peers. He struggles with insight and understanding that his symptoms represent an illness more debilitating than stress, however he is open to continuing to discuss it 10/04 Not much change. Patient continues to have improved spontaneousness with his speech and is walking a little more fluidly than on admission, however both remain slowed. Patient has the insight to acknowledge that Ativan has probably been helpful to him. He had a visit from his mother today but unfortunately she left before could meet with this contract writer. Both patient and contract writer agree to involve his parents in discussions prior to starting additional medication. As for now, he remains with catatonic symptoms and contract writer wants to continue to let Ativan work before starting a mood stabilizer or antipsychotic. 10/06 after further reviewing history with patient's parents, it seems that patient has had an a slowly increasing amount of disorganized thinking and behavior, fully revealing itself with patient suicide last year and continuing to this admission. There is some amount of episodic nature to some of his disorganized behaviors such as not infrequently making impromptu trips to foreign countries. However there does not seem to be any other associated manic type behaviors and in-between these impromptu trips, patient remained with disorganized thinking and behaviors relative to his past ability and achievements. It seems that disorganized behaviors is the prominent psychotic symptoms 10/07 patient reports tolerating Abilify. Will increase this medication to see if can be helpful in reducing disorganized thinking and behavior says. Patient still has catatonic like symptoms however so will keep the Ativan on and try to balance treating disorganization with resolving catatonia. 10/09: Patient superficial, remains without insight remains with significant negative symptoms, slowed speech and movements. Patient repeats the same refrain regarding how he is doing. Does not grasp the degree of his recent or history of unsafe behaviors or that his level of function is far below where used to be. Does not think he has psychiatric illness. 10/12 dr. kim interviewed patient and concurs with current tx plan 10/13 pt gave a presentation today that was basic, but organized. He remains below baseline and w/out insight, with odd interactions. Unsure if abilify is helping; will continue current dose and monitor 10/14 Pt will continue on abilify, says he thinks it is helping, oddly related 10/15/21: Continue current plan. 10/16/21: Continue to monitor 10/17/21: Continue current plan of care. 10/18/21 Limited insight guarded difficult to evaluate safety thinking rote type reponses slowed mentation encourage change to abilify maintena Current note for October 19 2021 Patient seen in psychiatric follow-up. Patient odd bili detached talking about discharge in a way as if he had [place] had a discharge plan will not consider long-acting injectable not able or willing to discuss his alcohol use prior to admission. Some increase range of affect on Abilify remains guarded limited engagement. Needs further coordination with family for discharge planning Current note for 10/20/2021 Patient seen in psychiatric follow-up. The patient continues to have a somewhat odd affect inappropriate smiling at times mildly pressured about discharge but not in a coherent way. He has had difficulty ascending to any recommendations regarding discharge. Plan to meet with the parents patient continue Abilify 30 mg taper lorazepam down to 1 mg 3 times a day. Patient had been asking other patients can go home with to when confronted with any behavior or real conversations regarding behavior prior to admission patient just essentially into [place] regarding drinking a want to use or behavior. Difficulty making realistic planning. Encourage long-acting injectable some response observable 10/21/21 Pt with man affect remains odd guarded limited insight will not deal with or help plan for d/c refusing recommendations has difficulty taking in info re psych illness see sw note encourage maintena 10/22/2021 Patient seen in psychiatric follow-up gradually improving but continues resistant to outpatient supports. Patient has generally not consented to treatment after hospitalization at least after recent hospitalization he does state he will continue Abilify Currently at 30 mg 10/23/2021 Patient defended flat rote answers continues to not be able to engage in a way that he feels he can be real difficult to engage in real manner blunted but improved cont abilify 30 mg ativan 10/25 Will proceed with long-acting injectable Patient says that he will remain adherent with medication however he is working hard to avoid long-acting injectable and he continues to struggle with reality testing and has no insight into his illness. Also what he reports as i mprovement from the medication is incongruent with both his presentation and his past understanding of his mood prior to starting medication 10/26 Although patient is better than when he was 1st admitted, he remains without any insight; contract writer is concerned that without his parents present and patient at home, he will quickly dysregulated, stop taking his medications and find himself in harm's way. Patient asked if He was allowed to leave respite if he wanted to. At this point it is safest for patient to remain on the unit to receive treatment and discharged to the safety of his parent's home. Patient also needs to get his Abilify Maintena shot which will be available tomorrow, making transition to Respite not an option. I spent minutes with the patient and/or on the patient floor today, greater than?50% of which was spent counseling/coordinating care. Reason for contiued inpatient stay Substantial Risk for: rapid decompensation
[2021-10-26 18:20] VITALS: BP 143/82; PULSE 83; TEMP 37.2; O2SAT 96
[2021-10-26] MEDS: ARIPiprazole 30 MG TABLET PO (21:14)
[2021-10-27] MEDS: LORazepam 1 MG TABLET PO ×2 (08:32→20:06)
[2021-10-27 08:58] VITALS: BP 133/82; PULSE 67; RESP 14; TEMP 36.7; O2SAT 98
[2021-10-27] MEDS: ARIPiprazole ER 400 MG SUSER.SYR IM ×3 (13:34→13:40)
--- NOTE | 2021-10-27 13:40 | PC.NURSE ---
pt accepted the IM koffi main without difficulty. did ask hypothetically speaking if i refused to take it what would happen ? i let him know that its a court order and security would be called to hold him down. he accepted the injection without difficulty.
--- NOTE | 2021-10-27 17:52 | P.PNPSI_ITS ---
Subjective Subjective Date of Service: 10/27/21 Reason For Visit: psychosis Interim History: Patient said that getting [facility] went Wonderfully. Discussed respite and patient consents to remain on the unit until parents return Mental Status Exam Mental Status Exam Narrative: Patient Appearance:?Appropriate Patient Orientation:?Person, Place and Situation Level of Consciousness:?Awake and Alert Patient Behavior:?Guarded; somewhat fixed stare Mood Description:? Happy and excited (Odd expansive affect at times) Affect Description: incongruent,?Blunted to flat Ability to Follow Directions:?Good Speech Pattern:?Spontaneous Speech but with latency Memory Description:?Episodic Impaired Delusions:?none expressed Thought Process:?goal oriented and linear but also Rumination, Evasive and Slowed Thinking Thought Content:?no SI/HI; Delusional in the sense that he has no insight that he has any impairment at all Judgement and Insight:? Impaired Diagnostics Vital Signs (24Hr): Vital Signs - 24 hr 10/26/21 18:20 10/27/21 08:58 Temperature 98.9 F 98.0 F Pulse Rate 83 67 Respiratory Rate 14 Blood Pressure 143/82 H 133/82 Pulse Oximetry 96 98 BMI result Body Mass Index 20.6 Labs Results: 09/19/21 10:09 09/19/21 10:09 Labs: Laboratory Results - last 48 hr 09/19/21 09/19/21 10:09 10:09 WBC 6.9 Sodium 140 Medications Medications Current Medications Acetaminophen (Acetaminophen 325 Mg Tablet) 650 mg PO Q6H PRN PRN Reason: Headache/Pain Mild Scale (1-3) Al Hydroxide/Mg Hydroxide (Magnesium Hydrox/Alum Hydrox 30 Ml Oral.Susp) 30 ml PO Q6H PRN PRN Reason: Heartburn/Nausea Aripiprazole (Aripiprazole 30 Mg Tablet) 30 mg PO BEDTIME KEITH Last Admin: 10/26/21 21:14 Dose: 30 mg Documented by: Haloperidol Lactate (Haloperidol Lactate 5 Mg/Ml Vial) 5 mg IM BEDTIME PRN PRN Reason: refusal of PO Abilify Hydroxyzine HCl (Hydroxyzine Hcl 25 Mg Tablet) 25 mg PO BEDTIME PRN PRN Reason: Anxiety Lorazepam (Lorazepam 1 Mg Tablet) 1 mg PO BID KEITH Last Admin: 10/27/21 08:32 Dose: 1 mg Documented by: Magnesium Hydroxide (Milk Of Magnesia 30 Ml Oral.Susp) 30 ml PO DAILY PRN PRN Reason: Constipation Trazodone HCl (Trazodone Hcl 50 Mg Tablet) 50 mg PO BEDTIME PRN PRN Reason: Insomnia Allergies Allergies Allergy/AdvReac Type Severity Reaction Status Date / Time No Known Allergies Allergy Verified 09/18/21 20:22 Assessment & Plan Assessment & Plan (1) Schizophrenia: Status: Acute Code(s): F20.9 - Schizophrenia, unspecified Plan HPI: Pt is a 27 y.o. male who carries a dx of schizophrenia, r/o bipolar DO/ schizoaffective disorder. He has hx of being a high functioning individual until mid 20s, in which he became increasingly withdrawn, paranoid, using cannabis and hallucinogens, esoteric, and ultimately unable to sustain employment. Has had impulsive and risk taking behaviors, i.e. disappearing, alcohol abuse. Pt endorses neg sx of schizophrenia, i.e. flat affect, thought blocking, slowed movement. Has poor sleep and appetite. Pt [place] [facility] [place] parents concern with worsening psychotic sx/ catat[place] the [place], as pt became withdrawn, stopped responding, staring at the floor, not redirectable. On admission,admitting provider notes that Parents asked for head CT or MRI/ neuro workup to rule out organic causes, however pt?s sx appear to be a function of primary psych diagnosis. They are concerned with pt?s level of risk taking behavior when he is decompensation i.e. becomes increasingly withdrawn, flat, non-verbal. Risk taking bx includes drinking to excess, taking off in the night at odd hours and disappearing to the point that parents have had to file missing person?s report. Pt has hx of significant suicide attempt in 07/2020, pt was similarly withdrawn, illogical, depressed, and flat. Parents report pt had improvement in sx on seroquel, however he has been non-adherent with treatment in the community. Parents feel unable to care for him at home. Pt adamantly refuses medication, has lack of insight into diagnosis. No medication started. HOSPITAL COURSE: 09/22 patient remains with some catatonic features however he is eating, talking and moving. He also lacks nearly all insight. However, while significant speech latency remains, and patient has flat affect with somewhat of a fixed stare, his thought process is logical and goal oriented. He refuses all medications. Patient refuses Ativan. While Ativan to would likely be helpful, at this point director underwriter sales does not find patient impaired to the point where he cannot input into medical decision making, as patient's thought content is organized and his catatonic symptoms seem to be improving. Will continue to monitor. 09/24: will schedule seroquel and continue to offer for psychotic sx 09/25: Pt refusing seroquel, guarded, appears internally preoccupied 09/26 no change in presentation; remains without insight and catatonic features. 09/27 no change; patient not phase by hearing that [employer] is no longer available; disputes that he does not have any money in his bank account. Patient said he chooses not to talk to this director underwriter sales this time -Pt denies any head trauma; parents deny any head trauma that they know of. Patient has some specific genetic loading for Schizoaffective/schizophrenia and the course of symptoms follows the known pattern of this illness; and Seroquel seemed to help resolve symptoms. Also, The episodic nature of patients symptoms, though worsening over recent months, have been going on for couple of years making any organic cause of symptoms, other than psychiatric, very unlikely. At this point, Head CT is unlikely to provide much information, but director underwriter sales will consult with neurology. Patient has predominantly negative symptoms and does not have symptoms associated with rare illness of Anti-NMDA receptor Encephalitis. 09/28 no change. Will proceed with involuntary commitment as patient has no insight into his disabling symptoms and is not organized enough to care for himself in the community. 09/29 Court ordered involuntary commitment and substituted judgment for medication/tx pt told director underwriter sales he did not want to talk; said he thinks he understands court proceedings. 09/30 given ativan 1mg and within 20 minutes significant reduction in catatonic symptoms including speech latency and moving slowly; still does not have insight; does not want meds and struggles to understand court order. 10/01: Id Improved with Ativan. No changes made. 10/03 holding Seroquel for now; will continue to treat catatonia with ativan. At this point director underwriter sales still needs help differentiating between bipolar/schizoaffective-bipolar type and schizophrenia. Patient remains with speech latency and slow movements, however these have improved; most significantly patient is able to talk spontaneously and have a reasonable given take conversation; able to talk with peers. He struggles with insight and understanding that his symptoms represent an illness more debilitating than stress, however he is open to continuing to discuss it 10/04 Not much change. Patient continues to have improved spontaneousness with his speech and is walking a little more fluidly than on admission, however both remain slowed. Patient has the insight to acknowledge that Ativan has probably been helpful to him. He had a visit from his mother today but unfortunately she left before could meet with this director underwriter sales. Both patient and director underwriter sales agree to involve his parents in discussions prior to starting additional medication. As for now, he remains with catatonic symptoms and director underwriter sales wants to continue to let Ativan work before starting a mood stabilizer or antipsychotic. 10/06 after further reviewing history with patient's parents, it seems that patient has had an a slowly increasing amount of disorganized thinking and behavior, fully revealing itself with patient suicide last year and continuing to this admission. There is some amount of episodic nature to some of his disorganized behaviors such as not infrequently making impromptu trips to foreign countries. However there does not seem to be any other associated manic type behaviors and in-between these impromptu trips, patient remained with disorganized thinking and behaviors relative to his past ability and achievements. It seems that disorganized behaviors is the prominent psychotic symptoms 10/07 patient reports tolerating Abilify. Will increase this medication to see if can be helpful in reducing disorganized thinking and behavior says. Patient still has catatonic like symptoms however so will keep the Ativan on and try to balance treating disorganization with resolving catatonia. 10/09: Patient superficial, remains without insight remains with significant negative symptoms, slowed speech and movements. Patient repeats the same refrain regarding how he is doing. Does not grasp the degree of his recent or history of unsafe behaviors or that his level of function is far below where used to be. Does not think he has psychiatric illness. 10/13 pt gave a presentation today that was basic, but organized. He remains below baseline and w/out insight, with odd interactions. Unsure if abilify is helping; will continue current dose and monitor 10/18/21 Oriana:Limited insight guarded difficult to evaluate safety thinking rote type reponses slowed mentation encourage change to abilify maintena Current note for October 19 2021 Patient seen in psychiatric follow-up. Patient odd bili detached talking about discharge in a way as if he had Ohri had a discharge plan will not consider long-acting injectable not able or willing to discuss his alcohol use prior to admission. Some increase range of affect on Abilify remains guarded limited engagement. Needs further coordination with family for discharge planning Current note for 10/20/2021 Patient seen in psychiatric follow-up. The patient continues to have a somewhat odd affect inappropriate smiling at times mildly pressured about discharge but not in a coherent way. He has had difficulty ascending to any recommendations regarding discharge. Plan to meet with the parents patient continue Abilify 30 mg taper lorazepam down to 1 mg 3 times a day. Patient had been asking other patients can go home with to when confronted with any behavior or real conversations regarding behavior prior to admission patient just essentially into [place] regarding drinking a want to use or behavior. Difficulty making realistic planning. Encourage long-acting injectable some response observable 10/21/21 Pt with man affect remains odd guarded limited insight will not deal with or help plan for d/c refusing recommendations has difficulty taking in info re psych illness see sw note encourage maintena 10/22/2021atient seen in psychiatric follow-up gradually improving but continues resistant to outpatient supports. Patient has generally not consented to treatment after hospitalization at least after recent hospitalization he does state he will continue Abilify 10/23/2021 Patient defended flat rote answers continues to not be able to engage in a way that he feels he can be real; difficult to engage in real manner brigette nted but improved cont abilify 30 mg ativan 10/25 Ric: Will proceed with long-acting injectable; Patient says that he will remain adherent with medication however he is working hard to avoid long- acting injectable and he continues to struggle with reality testing and has no insight into his illness. Also what he reports as improvement from the medication is incongruent with both his presentation and his past understanding of his mood prior to starting medication 10/26,Although patient is better than when he was 1st admitted, he remains without any insight; director underwriter sales is concerned that without his parents present and patient at home, he will quickly dysregulated, stop taking his medications and find himself in harm's way. Patient asked if He was allowed to leave respite if he wanted to and team Believes that patient is at risk for elopement. Of course he could also leave his parent's house, however at least his parents Would be back in the [place]. At this point it is best for patient to remain on the unit to receive treatment and discharged to the safety of his parent's home. Patient also needs to get his Abilify Maintena shot which will be available tomorrow, making transition to Respite not an option. 10/27 Patient Received Abilify Maintena WORKING FORMULATION: Patient has history of being emotionally sensitive and having feelings easily hurt by others, with some difficulty forming lasting relationships.? After review with parents, there does not seem to a ASD. Over past few years, it seems that patient has had a slowly increasing amount of disorganized thinking and behavior, fully revealing itself with patients suicide attempt last year and continuing to this admission.? There is some amount of episodic nature to some of his disorganized behaviors such as making impromptu trips to foreign countries (that don't work out).? However there does not seem to be any other associated manic type behaviors. In-between these impromptu trips, patient has disorganized thinking and behaviors relative to his past ability and achievements, intermittently waking and talking slowly; less and less ability to work).? It seems that his main psychotic symptoms is his disorganized behaviors. On admission, patient had catatonia and was hardly moving, fixed stare, not eating. This was resolved with Ativan q.i.d. which was tapered off. Over course of admission, it has been difficult to discern between catatonia and negative symptoms (flattened affect, alogia, Emotionally restricted, little motivation). Patient remains with some slowed movements (though no limb rigidity on exam) and with speech latency, taking in a formal and odd manner; however, This seems to be more likely a combination of some negative symptoms and some disorganization and bizarre thinking (patient has said at times that it seems respectful for him to move slowly). Patient has improved since admission. He says he will continue to take Abilify p.o. and consents to having a VNA. He is going to return to live with his parents on discharge. However despite his improvement, he remains with impaired insight and continues to have robotic-like mannerisms, giving rote answers to questions and saying with a flat affect that he is very happy and excited; he will say that the medication is working very well and daily repeat nearly the same refrain of my mood is better... I have increased productivity and a sense of well-being. This leads to some concern that patient may be saying what he thinks he supposed to say rather than his belief and combi curtis with his lack of insight he is vulnerable to non-adherence and future decompensation. This is been thoroughly discussed with patient's parents who understand; however they agree that he is doing better than on admission and that he is not in imminent risk of harm to himself or others. They agree that he can return to the house as long as he continues with treatment. PLAN: Q15 min safety checks, Section 7 involuntary commitment; COURT ORDERED SUBSTITUTED JUDGMENT for tx/mediations Schizoaffective disorder?(provisional; has hx of manic-like episodes; otherwise disorganized speech, behaviors and negative symptoms w/out mood symptoms) Received Abilify Maintenna 400mg IM q28 days; given on 10/27 Continue Abilify 30 mg q.h.s. 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 Antipsychotic Medications allowed by court order: Seroquel Ativan up to 8 mg daily Thorazine Prolixin immediate release/long-acting Haldol Abilify Zyprexa [place] Monitor response to medications. Monitor for safety in the milieu. Discharge on stabilization. Patient seen. Chart reviewed. Discussed with team. Obtain collateral contact info?as needed I spent minutes with the patient and/or on the patient floor today, greater than?50% of which was spent counseling/coordinating care. Patient educated on: therapeutic strategies Informed Consent: understands Reason for contiued inpatient stay Substantial Risk for: rapid decompensation
[2021-10-27 18:00] VITALS: BP 156/86; PULSE 97; RESP 18; TEMP 37.2; O2SAT 96
[2021-10-27] MEDS: ARIPiprazole 30 MG TABLET PO (20:06)
[2021-10-28 06:00] VITALS: BP 109/74; PULSE 91; RESP 16; TEMP 36.6; O2SAT 100
[2021-10-28] MEDS: LORazepam 1 MG TABLET PO ×2 (08:31→19:52)
--- NOTE | 2021-10-28 17:20 | HO.PSYCHPN ---
Subjective Subjective Date of Service: 10/28/21 Reason For Visit: psychosis Interim History: Patient remains the same. Says he is looking forward to discharging Sunday. He says he no longer wants a VNA. However, he says that he is considering remaining on long-acting injectable Abilify Maintena. Patient expresses gratitude for real estate underwriter Mental Status Exam Mental Status Exam Narrative: Patient Appearance:?Appropriate Patient Orientation:?Person, Place and Situation Level of Consciousness:?Awake and Alert Patient Behavior:?Guarded; somewhat fixed stare Mood Description:? Happy and excited (Odd expansive affect at times) Affect Description: incongruent,?Blunted to flat Ability to Follow Directions:?Good Speech Pattern:?Spontaneous Speech but with latency Memory Description:?Episodic Impaired Delusions:?none expressed Thought Process:?goal oriented and linear but also Rumination, Evasive and Slowed Thinking Thought Content:?no SI/HI; Delusional in the sense that he has no insight that he has any impairment at all Judgement and Insight:? Impaired Diagnostics Vital Signs (24Hr): Vital Signs - 24 hr 10/27/21 18:00 10/28/21 06:00 Temperature 99.0 F 98 F Pulse Rate 97 91 Respiratory Rate 18 16 Blood Pressure 156/86 H 109/74 Pulse Oximetry 96 100 BMI result Body Mass Index 20.6 Labs Results: 09/19/21 10:09 09/19/21 10:09 Medications Medications Current Medications Acetaminophen (Acetaminophen 325 Mg Tablet) 650 mg PO Q6H PRN PRN Reason: Headache/Pain Mild Scale (1-3) Al Hydroxide/Mg Hydroxide (Magnesium Hydrox/Alum Hydrox 30 Ml Oral.Susp) 30 ml PO Q6H PRN PRN Reason: Heartburn/Nausea Aripiprazole (Aripiprazole 30 Mg Tablet) 30 mg PO BEDTIME KEITH Last Admin: 10/27/21 20:06 Dose: 30 mg Documented by: Haloperidol Lactate (Haloperidol Lactate 5 Mg/Ml Vial) 5 mg IM BEDTIME PRN PRN Reason: refusal of PO Abilify Hydroxyzine HCl (Hydroxyzine Hcl 25 Mg Tablet) 25 mg PO BEDTIME PRN PRN Reason: Anxiety Lorazepam (Lorazepam 1 Mg Tablet) 1 mg PO BID KEITH Stop: 10/28/21 23:59 Last Admin: 10/28/21 08:31 Dose: 1 mg Documented by: Lorazepam (Lorazepam 1 Mg Tablet) 1 mg PO DAILY KEITH Magnesium Hydroxide (Milk Of Magnesia 30 Ml Oral.Susp) 30 ml PO DAILY PRN PRN Reason: Constipation Trazodone HCl (Trazodone Hcl 50 Mg Tablet) 50 mg PO BEDTIME PRN PRN Reason: Insomnia Allergies Allergies Allergy/AdvReac Type Severity Reaction Status Date / Time No Known Allergies Allergy Verified 09/18/21 20:22 Assessment & Plan Assessment & Plan (1) Schizophrenia: Status: Acute Code(s): F20.9 - Schizophrenia, unspecified Plan HPI: Pt is a 27 y.o. male who carries a dx of schizophrenia, r/o bipolar DO/ schizoaffective disorder. He has hx of being a high functioning individual until mid 20s, in which he became increasingly withdrawn, paranoid, using cannabis and hallucinogens, esoteric, and ultimately unable to sustain employment. Has had impulsive and risk taking behaviors, i.e. disappearing, alcohol abuse. Pt endorses neg sx of schizophrenia, i.e. flat affect, thought blocking, slowed movement. Has poor sleep and appetite. Pt arrives to [facility] due to parents concern with worsening psychotic sx/ catatonic behavior [place] the mall, as pt became withdrawn, stopped responding, staring at the floor, not redirectable. On admission,admitting provider notes that Parents asked for head CT or MRI/ neuro workup to rule out organic causes, however pt?s sx appear to be a function of primary psych diagnosis. They are concerned with pt?s level of risk taking behavior when he is decompensation i.e. becomes increasingly withdrawn, flat, non-verbal. Risk taking bx includes drinking to excess, taking off in the night at odd hours and disappearing to the point that parents have had to file missing person?s report. Pt has hx of significant suicide attempt in 07/2020, pt was similarly withdrawn, illogical, depressed, and flat. Parents report pt had improvement in sx on seroquel, however he has been non-adherent with treatment in the community. Parents feel unable to care for him at home. Pt adamantly refuses medication, has lack of insight into diagnosis. No medication started. HOSPITAL COURSE: 09/22 patient remains with some catatonic features however he is eating, talking and moving. He also lacks nearly all insight. However, while significant speech latency remains, and patient has flat affect with somewhat of a fixed stare, his thought process is logical and goal oriented. He refuses all medications. Patient refuses Ativan. While Ativan to would likely be helpful, at this point real estate underwriter does not find patient impaired to the point where he cannot input into medical decision making, as patient's thought content is organized and his catatonic symptoms seem to be improving. Will continue to monitor. 09/24: will schedule seroquel and continue to offer for psychotic sx 09/25: Pt refusing seroquel, guarded, appears internally preoccupied 09/26 no change in presentation; remains without insight and catatonic features. 09/27 no change; patient not phase by hearing that [employer] is no longer available; disputes that he does not have any money in his bank account. Patient said he chooses not to talk to this real estate underwriter this time -Pt denies any head trauma; parents deny any head trauma that they know of. Patient has some specific genetic loading for Schizoaffective/schizophrenia and the course of symptoms follows the known pattern of this illness; and Seroquel seemed to help resolve symptoms. Also, The episodic nature of patients symptoms, though worsening over recent months, have been going on for couple of years making any organic cause of symptoms, other than psychiatric, very unlikely. At this point, Head CT is unlikely to provide much information, but real estate underwriter will consult with neurology. Patient has predominantly negative symptoms and does not have symptoms associated with rare illness of Anti-NMDA receptor Encephalitis. 09/28 no change. Will proceed with involuntary commitment as patient has no insight into his disabling symptoms and is not organized enough to care for himself in the community. 09/29 Court ordered involuntary commitment and substituted judgment for medication/tx pt told real estate underwriter he did not want to talk; said he thinks he understands court proceedings. 09/30 given ativan 1mg and within 20 minutes significant reduction in catatonic symptoms including speech latency and moving slowly; still does not have insight; does not want meds and struggles to understand court order. 10/01: Id Improved with Ativan. No changes made. 10/03 holding Seroquel for now; will continue to treat catatonia with ativan. At this point real estate underwriter still needs help differentiating between bipolar/schizoaffective-bipolar type and schizophrenia. Patient remains with speech latency and slow movements, however these have improved; most significantly patient is able to talk spontaneously and have a reasonable given take conversation; able to talk with peers. He struggles with insight and understanding that his symptoms represent an illness more debilitating than stress, however he is open to continuing to discuss it 10/04 Not much change. Patient continues to have improved spontaneousness with his speech and is walking a little more fluidly than on admission, however both remain slowed. Patient has the insight to acknowledge that Ativan has probably been helpful to him. He had a visit from his mother today but unfortunately she left before could meet with this real estate underwriter. Both patient and real estate underwriter agree to involve his parents in discussions prior to starting additional medication. As for now, he remains with catatonic symptoms and real estate underwriter wants to continue to let Ativan work before starting a mood stabilizer or antipsychotic. 10/06 after further reviewing history with patient's parents, it seems that patient has had an a slowly increasing amount of disorganized thinking and behavior, fully revealing itself with patient suicide last year and continuing to this admission. There is some amount of episodic nature to some of his disorganized behaviors such as not infrequently making impromptu trips to foreign countries. However there does not seem to be any other associated manic type behaviors and in-between these impromptu trips, patient remained with disorganized thinking and behaviors relative to his past ability and achievements. It seems that disorganized behaviors is the prominent psychotic symptoms 10/07 patient reports tolerating Abilify. Will increase this medication to see if can be helpful in reducing disorganized thinking and behavior says. Patient still has catatonic like symptoms however so will keep the Ativan on and try to balance treating disorganization with resolving catatonia. 10/09: Patient superficial, remains without insight remains with significant negative symptoms, slowed speech and movements. Patient repeats the same refrain regarding how he is doing. Does not grasp the degree of his recent or history of unsafe behaviors or that his level of function is far below where used to be. Does not think he has psychiatric illness. 10/13 pt gave a presentation today that was basic, but organized. He remains below baseline and w/out insight, with odd interactions. Unsure if abilify is helping; will continue current dose and monitor 10/18/21 Oriana:Limited insight guarded difficult to evaluate safety thinking rote type reponses slowed mentation encourage change to abilify maintena Current note for October 19 2021 Patient seen in psychiatric follow-up. Patient odd bili detached talking about discharge in a way as if he had Ohri had a discharge plan will not consider long-acting injectable not able or willing to discuss his alcohol use prior to admission. Some increase range of affect on Abilify remains guarded limited engagement. Needs further coordination with family for discharge planning Current note for 10/20/2021 Patient seen in psychiatric follow-up. The patient continues to have a somewhat odd affect inappropriate smiling at times mildly pressured about discharge but not in a coherent way. He has had difficulty ascending to any recommendations regarding discharge. Plan to meet with the parents patient continue Abilify 30 mg taper lorazepam down to 1 mg 3 times a day. Patient had been asking other patients can go home with to when confronted with any behavior or real conversations regarding behavior prior to admission patient just essentially into [place] regarding drinking a want to use or behavior. Difficulty making realistic planning. Encourage long-acting injectable some response observable 10/21/21 Pt with man affect remains odd guarded limited insight will not deal with or help plan for d/c refusing recommendations has difficulty taking in info re psych illness see sw note encourage maintena 10/22/2021atient seen in psychiatric follow-up gradually improving but continues resistant to outpatient supports. Patient has generally not consented to treatment after hospitalization at least after recent hospitalization he does state he will continue Abilify 10/23/2021 Patient defended flat rote answers continues to not be able to engage in a way that he feels he can be real; difficult to engage in real manner blunted but improved cont abilify 30 mg ativan 10/25 Ric: Will proceed with long-acting injectable; Patient says that he will remain adherent with medication however he is working hard to avoid long-acting injectable and he continues to struggle with reality testing and has no insight into his illness. Also what he reports as improvement from the medication is incongruent with both his presentation and his past understanding of his mood prior to starting medication 10/26,Although patient is better than when he was 1st admitted, he remains without any insight; real estate underwriter is concerned that without his parents present and patient at home, he will quickly dysregulated, stop taking his medications and find himself in harm's way. Patient asked if He was allowed to leave respite if he wanted to and team Believes that patient is at risk for elopement. Of course he could also leave his parent's house, however at least his parents Would be back in the [place]. At this point it is best for patient to remain on the unit to receive treatment and discharged to the safety of his parent's home. Patient also needs to get his Abilify Maintena shot which will be available tomorrow, making transition to Respite not an option. 10/27 Patient Received Abilify Maintena WORKING FORMULATION: Patient has history of being emotionally sensitive and having feelings easily hurt by others, with some difficulty forming lasting relationships.? After review with parents, there does not seem to a ASD. Over past few years, it seems that patient has had a slowly increasing amount of disorganized thinking and behavior, fully revealing itself with patients suicide attempt last year and continuing to this admission.? There is some amount of episodic nature to some of his disorganized behaviors such as making impromptu trips to foreign countries (that don't work out).? However there does not seem to be any other associated manic type behaviors. In-between these impromptu trips, patient has disorganized thinking and behaviors relative to his past ability and achievements, intermittently waking and talking slowly; less and less ability to work).? It seems that his main psychotic symptoms is his disorganized behaviors. On admission, patient had catatonia and was hardly moving, fixed stare, not eating. This was resolved with Ativan q.i.d. which was tapered off. Over course of admission, it has been difficult to discern between catatonia and negative symptoms (flattened affect, alogia, Emotionally restricted, little motivation). Patient remains with some slowed movements (though no limb rigidity on exam) and with speech latency, taking in a formal and odd manner; however, This seems to be more likely a combination of some negative symptoms and some disorganization and bizarre thinking (patient has said at times that it seems respectful for him to move slowly). Patient has improved since admission. He says he will continue to take Abilify p.o. and consents to having a VNA. He is going to return to live with his parents on discharge. However despite his improvement, he remains with impaired insight and continues to have robotic-like mannerisms, giving rote answers to questions and saying with a flat affect that he is very happy and excited; he will say that the medication is working very well and daily repeat nearly the same refrain of my mood is better... I have increased productivity and a sense of well-being. This leads to some concern that patient may be saying what he thinks he supposed to say rather than his belief and combined with his lack of insight he is vulnerable to non-adherence and future decompensation. This is been thoroughly discussed with patient's parents who understand; however they agree that he is doing better than on admission and that he is not in imminent risk of harm to himself or others. They agree that he can return to the house as long as he continues with treatment. PLAN: Discharge planned for 10/31/21 to [facility] min safety checks, Section 7 involuntary commitment; COURT ORDERED SUBSTITUTED JUDGMENT for tx/mediations Schizoaffective disorder?(provisional; has hx of manic-like episodes; otherwise disorganized speech, behaviors and negative symptoms w/out mood symptoms) Received Abilify Maintenna 400mg IM q28 days; given on 10/27 Continue Abilify 30 mg q.h.s. 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 Antipsychotic Medications allowed by court order: Seroquel Ativan up to 8 mg daily Thorazine Prolixin immediate release/long-acting Haldol Abilify Zyprexoleg Daly Monitor response to medications. Monitor for safety in the milieu. Discharge on stabilization. Patient seen. Chart reviewed. Discussed with team. Obtain collateral contact info?as needed I spent minutes with the patient and/or on the patient floor today, greater than?50% of which was spent counseling/coordinating care. Patient educated on: therapeutic strategies Informed Consent: understands Reason for contiued inpatient stay Substantial Risk for: med/psych decompensation
[2021-10-28 19:35] VITALS: BP 145/82; PULSE 82
[2021-10-28] MEDS: ARIPiprazole 30 MG TABLET PO (19:52)
[2021-10-29 06:00] VITALS: BP 128/79; PULSE 87; RESP 16; TEMP 37; O2SAT 99
[2021-10-29] MEDS: LORazepam 1 MG TABLET PO (09:34)
--- NOTE | 2021-10-29 11:28 | HO.PSYCHPN ---
Subjective Subjective Date of Service: 10/29/21 Reason For Visit: psychosis Subjective Notes: Conditional Voluntary Interim History: Pt pleasant on approach. he has been visible on the unit, often inviting peers to join him either to play cards or walk in [place]. constricted affect, almost expressionless but in no distress. He denies SI/HI. He denies VH/AH. He asks for ativan taper that he had discussed with his attending Dr. Larios. No behavioral concerns. Medication Compliance: Yes Side effects from medications: No Review of Systems Review of Systems CVS: No c/o chest pain, palpitations, no SOB AUTO DISMANTLER: No c/o dizziness, headache GI: No c/o Nausea, Vomiting, diarrhea, constipation or heartburn -Denies hx of seizures -Denies hx of TBI/ concussion -Denies hx of cardiac issues Mental Status Exam Mental Status Exam Narrative: Patient Appearance:?Appropriate Patient Orientation:?Person, Place and Situation Level of Consciousness:?Awake and Alert Patient Behavior:?Guarded; somewhat fixed stare Mood Description:? Happy and excited (Odd expansive affect at times) Affect Description: incongruent,?Blunted to flat Ability to Follow Directions:?Good Speech Pattern:?Spontaneous Speech but with latency Memory Description:?Episodic Impaired Delusions:?none expressed Thought Process:?goal oriented and linear but also Rumination, Evasive and Slowed Thinking Thought Content:?no SI/HI; Delusional in the sense that he has no insight that he has any impairment at all Judgement and Insight:? Impaired Diagnostics Vital Signs (24Hr): Vital Signs - 24 hr 10/30/21 16:00 10/31/21 06:00 Temperature 98.7 F 98.4 F Pulse Rate 88 81 Respiratory Rate 16 Blood Pressure 148/88 H 122/82 Pulse Oximetry 100 BMI result Body Mass Index 20.6 Labs Results: 09/19/21 10:09 09/19/21 10:09 Medications Medications Current Medications Acetaminophen (Acetaminophen 325 Mg Tablet) 650 mg PO Q6H PRN PRN Reason: Headache/Pain Mild Scale (1-3) Al Hydroxide/Mg Hydroxide (Magnesium Hydrox/Alum Hydrox 30 Ml Oral.Susp) 30 ml PO Q6H PRN PRN Reason: Heartburn/Nausea Aripiprazole (Aripiprazole 30 Mg Tablet) 30 mg PO BEDTIME KEITH Last Admin: 10/30/21 22:33 Dose: 30 mg Documented by: Haloperidol Lactate (Haloperidol Lactate 5 Mg/Ml Vial) 5 mg IM BEDTIME PRN PRN Reason: refusal of PO Abilify Hydroxyzine HCl (Hydroxyzine Hcl 25 Mg Tablet) 25 mg PO BEDTIME PRN PRN Reason: Anxiety Lorazepam (Lorazepam 1 Mg Tablet) 1 mg PO DAILY KEITH Last Admin: 10/31/21 08:39 Dose: Not Given Documented by: Magnesium Hydroxide (Milk Of Magnesia 30 Ml Oral.Susp) 30 ml PO DAILY PRN PRN Reason: Constipation Trazodone HCl (Trazodone Hcl 50 Mg Tablet) 50 mg PO BEDTIME PRN PRN Reason: Insomnia Allergies Allergies Allergy/AdvReac Type Severity Reaction Status Date / Time No Known Allergies Allergy Verified 09/18/21 20:22 Assessment & Plan Assessment & Plan (1) Schizophrenia: Status: Acute Code(s): F20.9 - Schizophrenia, unspecified Plan HPI: Pt is a 27 y.o. male who carries a dx of schizophrenia, r/o bipolar DO/ schizoaffective disorder. He has hx of being a high functioning individual until mid 20s, in which he became increasingly withdrawn, paranoid, using cannabis and hallucinogens, esoteric, and ultimately unable to sustain employment. Has had impulsive and risk taking behaviors, i.e. disappearing, alcohol abuse. Pt endorses neg sx of schizophrenia, i.e. flat affect, thought blocking, slowed movement. Has poor sleep and appetite. Pt arrives to [facility] due to parents concern with worsening psychotic sx/ cat[place], as pt became withdrawn, stopped responding, staring at the floor, not redirectable. On admission,admitting provider notes that Parents asked for head CT or MRI/ neuro workup to rule out organic causes, however pt?s sx appear to be a function of primary psych diagnosis. They are concerned with pt?s level of risk taking behavior when he is decompensation i.e. becomes increasingly withdrawn, flat, non-verbal. Risk taking bx includes drinking to excess, taking off in the night at odd hours and disappearing to the point that parents have had to file missing person?s report. Pt has hx of significant suicide attempt in 07/2020, pt was similarly withdrawn, illogical, depressed, and flat. Parents report pt had improvement in sx on seroquel, however he has been non-adherent with treatment in the community. Parents feel unable to care for him at home. Pt adamantly refuses medication, has lack of insight into diagnosis. No medication started. HOSPITAL COURSE: 09/22 patient remains with some catatonic features however he is eating, talking and moving. He also lacks nearly all insight. However, while significant speech latency remains, and patient has flat affect with somewhat of a fixed stare, his thought process is logical and goal oriented. He refuses all medications. Patient refuses Ativan. While Ativan to would likely be helpful, at this point telegraphic typewriter repairer does not find patient impaired to the point where he cannot input into medical decision making, as patient's thought content is organized and his catatonic symptoms seem to be improving. Will continue to monitor. 09/24: will schedule seroquel and continue to offer for psychotic sx 09/25: Pt refusing seroquel, guarded, appears internally preoccupied 09/26 no change in presentation; remains without insight and catatonic features. 09/27 no change; patient not phase by hearing that [employer] is no longer available; disputes that he does not have any money in his bank account. Patient said he chooses not to talk to this telegraphic typewriter repairer this time -Pt denies any head trauma; parents deny any head trauma that they know of. Patient has some specific genetic loading for Schizoaffective/schizophrenia and the course of symptoms follows the known pattern of this illness; and Seroquel seemed to help resolve symptoms. Also, The episodic nature of patients symptoms, though worsening over recent months, have been going on for couple of years making any organic cause of symptoms, other than psychiatric, very unlikely. At this point, Head CT is unlikely to provide much information, but telegraphic typewriter repairer will consult with neurology. Patient has predominantly negative symptoms and does not have symptoms associated with rare illness of Anti-NMDA receptor Encephalitis. 09/28 no change. Will proceed with involuntary commitment as patient has no insight into his disabling symptoms and is not organized enough to care for himself in the community. 09/29 Court ordered involuntary commitment and substituted judgment for medication/tx pt told telegraphic typewriter repairer he did not want to talk; said he thinks he understands court proceedings. 09/30 given ativan 1mg and within 20 minutes significant reduction in catatonic symptoms including speech latency and moving slowly; still does not have insight; does not want meds and struggles to understand court order. 10/01: Id Improved with Ativan. No changes made. 10/03 holding Seroquel for now; will continue to treat catatonia with ativan. At this point telegraphic typewriter repairer still needs help differentiating between bipolar/schizoaffective-bipolar type and schizophrenia. Patient remains with speech latency and slow movements, however these have improved; most significantly patient is able to talk spontaneously and have a reasonable given take conversation; able to talk with peers. He struggles with insight and understanding that his symptoms represent an illness more debilitating than stress, however he is open to continuing to discuss it 10/04 Not much change. Patient continues to have improved spontaneousness with his speech and is walking a little more fluidly than on admission, however both remain slowed. Patient has the insight to acknowledge that Ativan has probably been helpful to him. He had a visit from his mother today but unfortunately she left before could meet with this telegraphic typewriter repairer. Both patient and telegraphic typewriter repairer agree to involve his parents in discussions prior to starting additional medication. As for now, he remains with catatonic symptoms and telegraphic typewriter repairer wants to continue to let Ativan work before starting a mood stabilizer or antipsychotic. 10/06 after further reviewing history with patient's parents, it seems that patient has had an a slowly increasing amount of disorganized thinking and behavior, fully revealing itself with patient suicide last year and continuing to this admission. There is some amount of episodic nature to some of his disorganized behaviors such as not infrequently making impromptu trips to foreign countries. However there does not seem to be any other associated manic type behaviors and in-between these impromptu trips, patient remained with disorganized thinking and behaviors relative to his past ability and achievements. It seems that disorganized behaviors is the prominent psychotic symptoms 10/07 patient reports tolerating Abilify. Will increase this medication to see if can be helpful in reducing disorganized thinking and behavior says. Patient still has catatonic like symptoms however so will keep the Ativan on and try to balance treating disorganization with resolving catatonia. 10/09: Patient superficial, remains without insight remains with significant negative symptoms, slowed speech and movements. Patient repeats the same refrain regarding how he is doing. Does not grasp the degree of his recent or history of unsafe behaviors or that his level of function is far below where used to be. Does not think he has psychiatric illness. 10/13 pt gave a presentation today that was basic, but organized. He remains below baseline and w/out insight, with odd interactions. Unsure if abilify is helping; will continue current dose and monitor 10/18/21 Oriana:Limited insight guarded difficult to evaluate safety thinking rote type reponses slowed mentation encourage change to abilify maintena Current note for October 19 2021 Patient seen in psychiatric follow-up. Patient odd fuad detached talking about discharge in a way as if he had Ohri had a discharge plan will not consider long-acting injectable not able or willing to discuss his alcohol use prior to admission. Some increase range of affect on Abilify remains guarded limited engagement. Needs further coordination with family for discharge planning Current note for 10/20/2021 Patient seen in psychiatric follow-up. The patient continues to have a somewhat odd affect inappropriate smiling at times mildly pressured about discharge but not in a coherent way. He has had difficulty ascending to any recommendations regarding discharge. Plan to meet with the parents patient continue Abilify 30 mg taper lorazepam down to 1 mg 3 times a day. Patient had been asking other patients can go home with to when confronted with any behavior or real conversations regarding behavior prior to admission patient just essentially into [place] regarding drinking a want to use or behavior. Difficulty making realistic planning. Encourage long-acting injectable some response observable 10/21/21 Pt with man affect remains odd guarded limited insight will not deal with or help plan for d/c refusing recommendations has difficulty taking in info re psych illness see sw note encourage maintena 10/22/2021atient seen in psychiatric follow-up gradually improving but continues resistant to outpatient supports. Patient has generally not consented to treatment after hospitalization at least after recent hospitalization he does state he will continue Abilify 10/23/2021 Patient defended flat rote answers continues to not be able to engage in a way that he feels he can be real; difficult to engage in real manner blunted but improved cont abilify 30 mg ativan 10/25 Ric: Will proceed with long-acting injectable; Patient says that he will remain adherent with medication however he is working hard to avoid long-acting injectable and he continues to struggle with reality testing and has no insight into his illness. Also what he reports as improvement from the medication is incongruent with both his presentation and his past understanding of his mood prior to starting medication 10/26,Although patient is better than when he was 1st admitted, he remains without any insight; telegraphic typewriter repairer is concerned that without his parents present and patient at home, he will quickly dysregulated, stop taking his medications and find himself in harm's way. Patient asked if He was allowed to leave respite if he wanted to and team Believes that patient is at risk for elopement. Of course he could also leave his parent's house, however at least his parents Would be back in the [place]. At this point it is best for patient to remain on the unit to receive treatment and discharged to the safety of his parent's home. Patient also needs to get his Abilify Maintena shot which will be available tomorrow, making transition to Respite not an option. 10/27 Patient Received Abilify Maintena 10/29 continue current tx. WORKING FORMULATION: Patient has history of being emotionally sensitive and having feelings easily hurt by others, with some difficulty forming lasting relationships.? After review with parents, there does not seem to a ASD. Over past few years, it seems that patient has had a slowly increasing amount of disorganized thinking and behavior, fully revealing itself with patients suicide attempt last year and continuing to this admission.? There is some amount of episodic nature to some of his disorganized behaviors such as making impromptu trips to foreign countries (that don't work out).? However there does not seem to be any other associated manic type behaviors. In-between these impromptu trips, patient has disorganized thinking and behaviors relative to his past ability and achievements, intermittently waking and talking slowly; less and less ability to work).? It seems that his main psychotic symptoms is his disorganized behaviors. On admission, patient had catatonia and was hardly moving, fixed stare, not eating. This was resolved with Ativan q.i.d. which was tapered off. Over course of admission, it has been difficult to discern between catatonia and negative symptoms (flattened affect, alogia, Emotionally restricted, little motivation). Patient remains with some slowed movements (though no limb rigidity on exam) and with speech latency, taking in a formal and odd manner; however, This seems to be more likely a combination of some negative symptoms and some disorganization and bizarre thinking (patient has said at times that it seems respectful for him to move slowly). Patient has improved since admission. He says he will continue to take Abilify p.o. and consents to having a VNA. He is going to return to live with his parents on discharge. However despite his improvement, he remains with impaired insight and continues to have robotic-like mannerisms, giving rote answers to questions and saying with a flat affect that he is very happy and excited; he will say that the medication is working very well and daily repeat nearly the same refrain of my mood is better... I have increased productivity and a sense of well-being. This leads to some concern that patient may be saying what he thinks he supposed to say rather than his belief and combined with his lack of insight he is vulnerable to non-adherence and future decompensation. This is been thoroughly discussed with patient's parents who understand; however they agree that he is doing better than on admission and that he is not in imminent risk of harm to himself or others. They agree that he can return to the house as long as he continues with treatment. PLAN: Discharge planned for 10/31/21 to [facility] min safety checks, Section 7 involuntary commitment; COURT ORDERED SUBSTITUTED JUDGMENT for tx/mediations Schizoaffective disorder?(provisional; has hx of manic-like episodes; otherwise disorganized speech, behaviors and negative symptoms w/out mood symptoms) Received Abilify Maintenna 400mg IM q28 days; given on 10/27 Continue Abilify 30 mg q.h.s. 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 Antipsychotic Medications allowed by court order: Seroquel Ativan up to 8 mg daily Thorazine Prolixin immediate release/long-acting Haldol Abilify Zyprexa [place] Monitor response to medications. Monitor for safety in the milieu. Discharge on stabilization. Patient seen. Chart reviewed. Discussed with team. Obtain collateral contact info?as needed I spent minutes with the patient and/or on the patient floor today, greater than?50% of which was spent counseling/coordinating care. Reason for contiued inpatient stay Substantial Risk for: inability to function
[2021-10-29 19:59] VITALS: BP 158/82; PULSE 76; RESP 16; TEMP 36.6; O2SAT 96
[2021-10-29] MEDS: ARIPiprazole 30 MG TABLET PO (21:29)
[2021-10-30 06:00] VITALS: BP 126/76; PULSE 84; RESP 16; TEMP 37.2; O2SAT 100
[2021-10-30] MEDS: LORazepam 1 MG TABLET PO (08:34)
--- NOTE | 2021-10-30 12:15 | P.PNPSI_ITS ---
Subjective Subjective Date of Service: 10/30/21 Reason For Visit: psychosis Subjective Notes: Conditional Voluntary Interim History: Pt pleasant on approach. Continues to be visible on the unit, often inviting peers to join him either to play cards or walk in [place]. constricted affect, almost expressionless but in no distress. He denies SI/HI. He denies VH/AH. He asks for ativan taper that he had discussed with his attending Dr. Larios. No behavioral concerns. Review of Systems Review of Systems CVS: No c/o chest pain, palpitations, no SOB [employer]: No c/o dizziness, headache GI: No c/o Nausea, Vomiting, diarrhea, constipation or heartburn -Denies hx of seizures -Denies hx of TBI/ concussion -Denies hx of cardiac issues Mental Status Exam Mental Status Exam Narrative: Patient Appearance:?Appropriate Patient Orientation:?Person, Place and Situation Level of Consciousness:?Awake and Alert Patient Behavior:?Guarded; somewhat fixed stare Mood Description:? Happy and excited (Odd expansive affect at times) Affect Description: incongruent,?Blunted to flat Ability to Follow Directions:?Good Speech Pattern:?Spontaneous Speech but with latency Memory Description:?Episodic Impaired Delusions:?none expressed Thought Process:?goal oriented and linear but also Rumination, Evasive and Slowed Thinking Thought Content:?no SI/HI; Delusional in the sense that he has no insight that he has any impairment at all Judgement and Insight:? Impaired Patient Appearance: Appropriate Patient Orientation: Person, Place and Situation Level of Consciousness: Awake, Restless and Alert Patient Behavior: Guarded, Anxious, Avoidant and Good Eye Contact Mood Description: Happy (Odd expansive affect at times), Blunted and Apprehensive Affect Description: Blunted Patient Cognition Impaired: No Ability to Follow Directions: Good Speech Pattern: Spontaneous Speech and Delayed Memory Description: Episodic Impaired Diagnostics Vital Signs (24Hr): Vital Signs - 24 hr 10/30/21 16:00 10/31/21 06:00 Temperature 98.7 F 98.4 F Pulse Rate 88 81 Respiratory Rate 16 Blood Pressure 148/88 H 122/82 Pulse Oximetry 100 BMI result Body Mass Index 20.6 Labs Results: 09/19/21 10:09 09/19/21 10:09 Medications Medications Current Medications Acetaminophen (Acetaminophen 325 Mg Tablet) 650 mg PO Q6H PRN PRN Reason: Headache/Pain Mild Scale (1-3) Al Hydroxide/Mg Hydroxide (Magnesium Hydrox/Alum Hydrox 30 Ml Oral.Susp) 30 ml PO Q6H PRN PRN Reason: Heartburn/Nausea Aripiprazole (Aripiprazole 30 Mg Tablet) 30 mg PO BEDTIME [facility] Last Admin: 10/30/21 22:33 Dose: 30 mg Documented by: Haloperidol Lactate (Haloperidol Lactate 5 Mg/Ml Vial) 5 mg IM BEDTIME PRN PRN Reason: refusal of PO Abilify Hydroxyzine HCl (Hydroxyzine Hcl 25 Mg Tablet) 25 mg PO BEDTIME PRN PRN Reason: Anxiety Lorazepam (Lorazepam 1 Mg Tablet) 1 mg PO DAILY [facility] Last Admin: 10/31/21 08:39 Dose: Not Given Documented by: Magnesium Hydroxide (Milk Of Magnesia 30 Ml Oral.Susp) 30 ml PO DAILY PRN PRN Reason: Constipation Trazodone HCl (Trazodone Hcl 50 Mg Tablet) 50 mg PO BEDTIME PRN PRN Reason: Insomnia Allergies Allergies Allergy/AdvReac Type Severity Reaction Status Date / Time No Known Allergies Allergy Verified 09/18/21 20:22 Assessment & Plan Assessment & Plan (1) Schizophrenia: Status: Acute Code(s): F20.9 - Schizophrenia, unspecified Plan HPI: Pt is a 27 y.o. male who carries a dx of schizophrenia, r/o bipolar DO/ schizoaffective disorder. He has hx of being a high functioning individual until mid 20s, in which he became increasingly withdrawn, paranoid, using cannabis and hallucinogens, esoteric, and ultimately unable to sustain employment. Has had impulsive and risk taking behaviors, i.e. disappearing, alcohol abuse. Pt endorses neg sx of schizophrenia, i.e. flat affect, thought blocking, slowed movement. Has poor sleep and appetite. Pt arrives to [facility] due to parents concern with worsening psychotic sx/ catat[place], as pt became withdrawn, stopped responding, staring at the floor, not redirectable. On admission,admitting provider notes that Parents asked for head CT or MRI/ neuro workup to rule out organic causes, however pt?s sx appear to be a function of primary psych diagnosis. They are concerned with pt?s level of risk taking behavior when he is decompensation i.e. becomes increasingly withdrawn, flat, non-verbal. Risk taking bx includes drinking to excess, taking off in the night at odd hours and disappearing to the point that parents have had to file missing person?s report. Pt has hx of significant suicide attempt in 07/2020, pt was similarly withdrawn, illogical, depressed, and flat. Parents report pt had impr ovement in sx on seroquel, however he has been non-adherent with treatment in the community. Parents feel unable to care for him at home. Pt adamantly refuses medication, has lack of insight into diagnosis. No medication started. HOSPITAL COURSE: 09/22 patient remains with some catatonic features however he is eating, talking and moving. He also lacks nearly all insight. However, while significant speech latency remains, and patient has flat affect with somewhat of a fixed stare, his thought process is logical and goal oriented. He refuses all medications. Patient refuses Ativan. While Ativan to would likely be helpful, at this point property underwriter does not find patient impaired to the point where he cannot input into medical decision making, as patient's thought content is organized and his catatonic symptoms seem to be improving. Will continue to monitor. 09/24: will schedule seroquel and continue to offer for psychotic sx 09/25: Pt refusing seroquel, guarded, appears internally preoccupied 09/26 no change in presentation; remains without insight and catatonic features. 09/27 no change; patient not phase by hearing that [employer] is no longer available; disputes that he does not have any money in his bank account. Patient said he chooses not to talk to this property underwriter this time -Pt denies any head trauma; parents deny any head trauma that they know of. Patient has some specific genetic loading for Schizoaffective/schizophrenia and the course of symptoms follows the known pattern of this illness; and Seroquel seemed to help resolve symptoms. Also, The episodic nature of patients symptoms, though worsening over recent months, have been going on for couple of years making any organic cause of symptoms, other than psychiatric, very unlikely. At this point, Head CT is unlikely to provide much information, but property underwriter will consult with neurology. Patient has predominantly negative symptoms and does not have symptoms associated with rare illness of Anti-NMDA receptor Encephalitis. 09/28 no change. Will proceed with involuntary commitment as patient has no insight into his disabling symptoms and is not organized enough to care for himself in the community. 09/29 Court ordered involuntary commitment and substituted judgment for medication/tx pt told property underwriter he did not want to talk; said he thinks he understands court proceedings. 09/30 given ativan 1mg and within 20 minutes significant reduction in catatonic symptoms including speech latency and moving slowly; still does not have insight; does not want meds and struggles to understand court order. 10/01: Id Improved with Ativan. No changes made. 10/03 holding Seroquel for now; will continue to treat catatonia with ativan. At this point property underwriter still needs help differentiating between bipolar/santos izoaffective-bipolar type and schizophrenia. Patient remains with speech latency and slow movements, however these have improved; most significantly patient is able to talk spontaneously and have a reasonable given take conversation; able to talk with peers. He struggles with insight and understan ding that his symptoms represent an illness more debilitating than stress, however he is open to continuing to discuss it 10/04 Not much change. Patient continues to have improved spontaneousness with his speech and is walking a little more fluidly than on admission, however both remain slowed. Patient has the insight to acknowledge that Ativan has probably been helpful to him. He had a visit from his mother today but unfortunately she left before could meet with this property underwriter. Both patient and property underwriter agree to involve his parents in discussions prior to starting additional medication. As for now, he remains with catatonic symptoms and property underwriter wants to continue to let Ativan work before starting a mood stabilizer or antipsychotic. 10/06 after further reviewing history with patient's parents, it seems that patient has had an a slowly increasing amount of disorganized thinking and behavior, fully revealing itself with patient suicide last year and continuing to this admission. There is some amount of episodic nature to some of his disorganized behaviors such as not infrequently making impromptu trips to foreign countries. However there does not seem to be any other associated manic type behaviors and in-between these impromptu trips, patient remained with disorganized thinking and behaviors relative to his past ability and achievements. It seems that disorganized behaviors is the prominent psychotic symptoms 10/07 patient reports tolerating Abilify. Will increase this medication to see if can be helpful in reducing disorganized thinking and behavior says. Patient still has catatonic like symptoms however so will keep the Ativan on and try to balance treating disorganization with resolving catatonia. 10/09: Patient superficial, remains without insight remains with significant negative symptoms, slowed speech and movements. Patient repeats the same refrain regarding how he is doing. Does not grasp the degree of his recent or history of unsafe behaviors or that his level of function is far below where used to be. Does not think he has psychiatric illness. 10/13 pt gave a presentation today that was basic, but organized. He remains below baseline and w/out insight, with odd interactions. Unsure if abilify is helping; will continue current dose and monitor 10/18/21 Oriana:Limited insight guarded difficult to evaluate safety thinking rote type reponses slowed mentation encourage change to abilify maintena Current note for October 19 2021 Patient seen in psychiatric follow-up. Patient odd bili detached talking about discharge in a way as if he had Ohri had a discharge plan will not consider long-acting injectable not able or willing to discuss his alcohol use prior to admission. Some increase range of affect on Abilify remains guarded limited engagement. Needs further coordination with family for discharge planning Current note for 10/20/2021 Patient seen in psychiatric follow-up. The patient continues to have a somewhat odd affect inappropriate smiling at times mildly pressured about discharge but not in a coherent way. He has had difficulty ascending to any recommendations regarding discharge. Plan to meet with the parents patient continue Abilify 30 mg taper lorazepam down to 1 mg 3 times a day. Patient had been asking other patients can go home with to when confronted with any behavior or real conversations regarding behavior prior to admission patient just essentially into [place] regarding drinking a want to use or behavior. Difficulty making realistic planning. Encourage long-acting injectable some response observable 10/21/21 Pt with man affect remains odd guarded limited insight will not deal with or help plan for d/c refusing recommendations has difficulty taking in info re psych illness see sw note encourage maintena 10/22/2021atient seen in psychiatric follow-up gradually improving but continues resistant to outpatient supports. Patient has generally not consented to treatment after hospitalization at least after recent hospitalization he does state he will continue Abilify 10/23/2021 Patient defended flat rote answers continues to not be able to engage in a way that he feels he can be real; difficult to engage in real manner blunted but improved cont abilify 30 mg ativan 10/25 Ric: Will proceed with long-acting injectable; Patient says that he will remain adherent with medication however he is working hard to avoid long- acting injectable and he continues to struggle with reality testing and has no insight into his illness. Also what he reports as improvement from the medication is incongruent with both his presentation and his past understanding of his mood prior to starting medication 10/26,Although patient is better than when he was 1st admitted, he remains without any insight; property underwriter is concerned that without his parents present and patient at home, he will quickly dysregulated, stop taking his medications and find himself in harm's way. Patient asked if He was allowed to leave respite if he wanted to and team Believes that patient is at risk for elopement. Of course he could also leave his parent's house, however at least his parents Would be back in the [place]. At this point it is best for patient to remain on the unit to receive treatment and discharged to the safety of his parent's home. Patient also needs to get his Abilify Maintena shot which will be available tomorrow, making transition to Respite not an option. 10/27 Patient Received Abilify Maintena 10/29 continue current tx. 10/30 continue tx. WORKING FORMULATION: Patient has history of being emotionally sensitive and having feelings easily hurt by others, with some difficulty forming lasting relationships.? After review with parents, there does not seem to a ASD. Over past few years, it seems that patient has had a slowly increasing amount of disorganized thinking and behavior, fully revealing itself with patients suicide attempt last year and continuing to this admission.? There is some amount of episodic nature to some of his disorganized behaviors such as making impromptu trips to foreign countries (that don't work out).? However there does not seem to be any other associated manic type behaviors. In-between these impromptu trips, patient has disorganized thinking and behaviors relative to his past ability and achievements, intermittently waking and talking slowly; less and less ability to work).? It seems that his main psychotic symptoms is his disorganized behaviors. On admission, patient had catatonia and was hardly moving, fixed stare, not eating. This was resolved with Ativan q.i.d. which was tapered off. Over course of admission, it has been difficult to discern between catatonia and negative symptoms (flattened affect, alogia, Emotionally restricted, little motivation). Patient remains with some slowed movements (though no limb rigidity on exam) and with speech latency, taking in a formal and odd manner; however, This seems to be more likely a combination of some negative symptoms and some disorganization and bizarre thinking (patient has said at times that it seems respectful for him to move slowly). Patient has improved since admission. He says he will continue to take Abilify p.o. and consents to having a VNA. He is going to return to live with his parents on discharge. However despite his improvement, he remains with impaired insight and continues to have robotic-like mannerisms, giving rote answers to questions and saying with a flat affect that he is very happy and excited; he will say that the medication is working very well and daily repeat nearly the same refrain of my mood is better... I have increased productivity and a sense of well-being. This leads to some concern that patient may be saying what he thinks he supposed to say rather than his belief and combined with his lack of insight he is vulnerable to non-adherence and future decompensation. This is been thoroughly discussed with patient's parents who understand; however they agree that he is doing better than on admission and t hat he is not in imminent risk of harm to himself or others. They agree that he can return to the house as long as he continues with treatment. PLAN: Discharge planned for 10/31/21 to [facility] min safety checks, Section 7 involuntary commitment; COURT ORDERED SUBSTITUTED JUDGMENT for tx/mediations Schizoaffective disorder?(provisional; has hx of manic-like episodes; otherwise disorganized speech, behaviors and negative symptoms w/out mood symptoms) Received Abilify Maintenna 400mg IM q28 days; given on 10/27 Continue Abilify 30 mg q.h.s. 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 Antipsychotic Medications allowed by court order: Seroquel Ativan up to 8 mg daily Thorazine Prolixin immediate release/long-acting Haldol Abilify Zyprexa Geodon Monitor response to medications. Monitor for safety in the milieu. Discharge on stabilization. Patient seen. Chart reviewed. Discussed with team. Obtain collateral contact info?as needed I spent minutes with the patient and/or on the patient floor today, greater than?50% of which was spent counseling/coordinating care. Reason for contiued inpatient stay Substantial Risk for: inability to function
[2021-10-30 16:00] VITALS: BP 148/88; PULSE 88; TEMP 37.1
[2021-10-30] MEDS: ARIPiprazole 30 MG TABLET PO (22:33)
[2021-10-31 06:00] VITALS: BP 122/82; PULSE 81; RESP 16; TEMP 36.9; O2SAT 100
--- NOTE | 2021-10-31 09:18 | PM.PSYDC ---
DS: Providers Provider Date of Service: 10/31/21 Date of admission: 09/20/21 13:47 Date of discharge: 10/31/21 Primary care physician: Unknown Physician Attending physician on admission: Pedro Larios Attending physician on discharge: Pedro Larios DS: Diagnosis Discharge Diagnosis (1) Schizophrenia: Status: Acute DS: Medications Discharge Medications Home Medications: Home Medications Medication Instructions Recorded Confirmed No Known Home Meds 09/18/21 09/18/21 Previous Rx's Medication Instructions Recorded aripiprazole 30 mg tablet (Abilify) 30 mg PO BEDTIME 14 Days #14 tab 10/31/21 aripiprazole 400 mg intramuscular 400 mg IM Q28D 28 Days #1 ea 10/31/21 suspension,extended release (Abilify Maintena) Mental Status Exam Mental Status Exam Narrative: Patient Appearance:?Appropriate Patient Orientation:?Person, Place and Situation Level of Consciousness:?Awake and Alert Patient Behavior:?Guarded; somewhat fixed stare Mood Description:? Happy and excited (Odd expansive affect at times) Affect Description: incongruent,?Blunted to flat Ability to Follow Directions:?Good Speech Pattern:?Spontaneous Speech but with latency Memory Description:?Episodic Impaired Delusions:?none expressed Thought Process:?goal oriented and linear but also Rumination, Evasive and Slowed Thinking Thought Content:?no SI/HI; Delusional in the sense that he has no insight that he has any impairment at all Judgement and Insight:? Impaired Patient Appearance: Appropriate Patient Orientation: Person, Place and Situation Level of Consciousness: Awake, Restless and Alert Patient Behavior: Guarded, Anxious, Avoidant and Good Eye Contact Mood Description: Happy (Odd expansive affect at times), Blunted and Apprehensive Affect Description: Blunted Patient Cognition Impaired: No Ability to Follow Directions: Good Speech Pattern: Spontaneous Speech and Delayed Memory Description: Episodic Impaired Data Data Completed and Pending Completed studies during hospitalization [Text1]: 09/19/21 09/19/21 10:09 10:09 WBC 6.9 Sodium 140 DS: Summary Hospital Course Hospital Course: HPI: Pt is a 27 y.o. male who carries a dx of schizophrenia, r/o bipolar DO/ schizoaffective disorder. He has hx of being a high functioning individual until mid 20s, in which he became increasingly withdrawn, paranoid, using cannabis and hallucinogens, esoteric, and ultimately unable to sustain employment. Has had impulsive and risk taking behaviors, i.e. disappearing, alcohol abuse. Pt endorses neg sx of schizophrenia, i.e. flat affect, thought blocking, slowed movement. Has poor sleep and appetite. Pt arrives to [facility] due to parents concern with worsening psychotic sx/ catat[place], as pt became withdrawn, stopped responding, staring at the floor, not redirectable. On admission,admitting provider notes that Parents asked for head CT or MRI/ neuro workup to rule out organic causes, however pt?s sx appear to be a function of primary psych diagnosis. They are concerned with pt?s level of risk taking behavior when he is decompensation i.e. becomes increasingly withdrawn, flat, non-verbal. Risk taking bx includes drinking to excess, taking off in the night at odd hours and disappearing to the point that parents have had to file missing person?s report. Pt has hx of significant suicide attempt in 07/2020 (yet poor insight into this event) and pt was similarly withdrawn, illogical, depressed, and flat. Parents feel unable to care for him at home. Pt adamantly refuses medication, has lack of insight into diagnosis. Complicated Hospital course. In brief: History revealed that Patient has history of being emotionally sensitive and having feelings easily hurt by others, with some difficulty forming lasting relationships.? After review with parents, there does not seem to a ASD. Over past few years, it seems that patient has had a slowly increasing amount of disorganized thinking and behavior, fully revealing itself with patients suicide attempt last year and continuing to this admission.? There is some amount of episodic nature to some of his disorganized behaviors such as making impromptu trips to foreign countries (that don't work out).? However there does not seem to be any other associated manic type behaviors. In-between these impromptu trips, patient has disorganized thinking and behaviors relative to his past ability and achievements, intermittently waking and talking slowly; less and less ability to work).? It seems that his main psychotic symptoms is his disorganized behaviors. On admission, patient had catatonia and was hardly moving, fixed stare, not eating. This was resolved with Ativan q.i.d. which was tapered off. Over course of admission, it has been difficult to discern between catatonia and negative symptoms (flattened affect, alogia, Emotionally restricted, little motivation). Patient remains with some slowed movements (though no limb rigidity on exam) and with speech latency, taking in a formal and odd manner; however, This seems to be more likely a combination of some negative symptoms and some disorganization and bizarre thinking (patient has said at times that it seems respectful for him to move slowly). COURT ORDERED Involuntary commitment and Substituted Judgment. Patient was started on Abilify and eventually received Abilify Maintenna. Patient did improve since admission however his improvement was modest at best and he never gained insight. He remained mostly superficial. ? However despite his improvement, he remains with little insight, some speech latency and continues to have robotic-like mannerisms, giving rote answers to questions and saying with a flat affect that he is very happy and excited; ? he will say that the medication is working very well and daily repeat nearly the same refrain of? my mood is better... I have increased productivity and a sense of well-being. This leads to some concern that patient may be saying what he thinks he supposed to say rather than his belief and combined with his lack of insight he is vulnerable to non-adherence and future decompensation. He says he will continue to take Abilify p.o. and consents to having a VNA.? He is going to return to live with his parents on discharge. This is been thoroughly discussed with patient's parents who understand and agree that he has not returned to baseline; however they agree that he is doing better than on admission and that he is not in imminent risk of harm to himself or others. They agree that he can return to the house as long as he continues with treatment. Schizoaffective disorder?(provisional; has hx of manic-like episodes; otherwise disorganized speech, behaviors and negative symptoms w/out mood symptoms) Received Abilify Maintenna 400mg IM q28 days; given on 10/27 Continue Abilify 30 mg q.h.s. for 2 weeks Additional relevant hx: until about 2 years ago, patient was doing well without any obvious problems, college graduate, working.? However there was a 6 month prodrome during which time patient started to decline and there was a significant change in his behavior. ? She said he was unstable....? Living in his car....? Going from job to job...? Could not express himself or talk clearly....? Moving very slowly. Soon after that patient attempted suicide by slitting his wrists and throat and he was admitted to [facility] apt to.? Afterwards he was on Seroquel for a short time during which time mother thinks patient was doing better, however he soon stop this medication and again started to decline in functioning.? He moved to [place] on a whim, saying 1 morning he was going to move to [place] and left that same day for several months during which time parents did not have much contact with him.? At some point he came back and was in [place] this past summer, confused, again having psychotic symptoms....? Psychotic catatonia...? Staring, moving slowly, taking baby steps he again moved to [facility] in March.? They had little contact with him until he called towards the end of June saying he was very hungry and had no money, could his parents please send money.? His father flew out there which is around the same time he was at the airport, acting very confused and arrested by the police who realized he needed psychiatric evaluation.? At this point patient had lost all his belongings, including his car, had not been eating or sleeping and had been wandering confused.? He was admitted to a psychiatric hospital in [facility] for about 3 weeks, was started on Risperdal but discontinued when he came back to [place].? Patient again became and catatonic like state in was admitted to this hospital.? After hearing all this, patient did not disagree however also says he thinks he is fine and able to discharge.? He does not want to sign in and does not want to take medication though he said he'd think about it.? Patient's mother said that she and her are no longer going to support him financially and at this point he no longer has a place to stay, cannot stay with them and the Airbnb is no longer.? She said that she could not have him living with them due to his excessive drinking.? She also reports excessive cannabis intake. Time spent discussing smoking cessation with patient: 3 to 10 minutes Status at Discharge Functional status at discharge: independent ambulation Overall status at discharge: patient is not back to baseline Time Spent with Patient Time attestation: Total time spent providing and/or coordinating discharge services: Time spent: Less than 30 minutes Discharge Plan Discharge Patient Disposition: Home, Self-Care Discharge Diagnosis: Schizoaffective disorder (vs schizophrenia) Referrals: Katerina Bucio [Other] - 11/01/21 1:00 pm (Initial Diagnostic Evaluation with therapist Appointment is in person at [address] [place] [address] in [place], [place]. Should you have any issues regarding appointment please call [facility].) Camden Newtown [Other] - 11/10/21 10:20 am (Initial Psychiatric Evaluation for medication management services Appointment is by tele-health. Please check your email for a link to appointment. Should you have issues regarding tele-health appointment please call [facility] ) Camden Carpenter [Other] - 12/01/21 12:20 pm (Medication Management appointment with psychiatric provider Appointment is by tele-health. Please check your email for a link to appointment. Should you have issues regarding tele-health appointment please call [facility] ) Berenice Stevenson Visiting RN [Other] - 1 Week (fax- [phone] The Visiting RN service will be starting on 11/01/21. The RN will call the home to set a visit time. ) Physician,Hesham J [Primary Care Provider] - 1 Week Discharge Medications: New aripiprazole [Abilify] 30 mg Tablet 30 mg PO BEDTIME 14 Days Qty: 14 0RF Rx Instructions: take for 2 weeks to overlap Abilify Maintena; then continue with Abilify Maintena q28 days Abilify Maintena 400 mg suspension,extended rel recon 400 mg IM Q28D 28 Days Qty: 1 0RF Rx Instructions: Last admin 10/27/21; next dose due 11/24/21 No Action No Known Home Meds Discharge Orders: Discharge Order (Routine); Ordered 10/31/21 Ordered By: Pedro Larios Diet: regular diet Activity on Discharge: As tolerated Stand Alone Forms: Patient Portal Discharge page, Community Support Care Plan Goals: Maintain mood and safe behaviors Take medications as prescribed Continue to pursue sobriety Practice coping skills Continue with outpatient providers and reach out to them as needed Health Concerns: Mood stability and behaviors Sobriety Plan of Treatment: Follow up with your psychiatric provider and other outpatient providers regarding above concerns Take medications as prescribed Assessment: Risk assessment at time of discharge:? Patient was interviewed prior to discharge and found to be fully oriented and without any SI or HI. Patient has insight and demonstrates good judgment in terms of wanting to pursue treatment. Patient is not in imminent risk of harm to self or others and has a safety plan that includes presenting to the closest ER or calling 911 if feeling unsafe.? Patient has been observed closely by nursing and unit staff throughout admission; patient has not engaged in any behaviors that suggest dangerousness to self or others and has demonstrated appropriate behaviors and impulse control Discharge Date/Time: 10/31/21 14:35
== END 2021-10-31 14:35 | disposition home or self-care (01) | DRG 750 ==
LOC: HO.ED 09-20 08:10 → HO.PM5 09-20 13:49
PROVIDERS: Physician Assistant; Admitting Provider Psychiatry & Neurology Psychiatry; Emergency Provider Emergency Medicine Emergency Medical Services; Visit Provider Psychiatry & Neurology Psychiatry
DX: F20.2 Catatonic schizophrenia (principal); Z20.822 Contact with and (suspected) exposure to COVID-19; Z79.899 Other long term (current) drug therapy
CPT/HCPCS: 36415; 80053; 85025; 87635; 93005; 99285; J0401

== ENCOUNTER 2024-06-08 16:27 | Inpatient (IN) | payer OTHER, SELFPAY ==
[2024-06-08 16:38] VITALS: RESP 16; BMI 23.1
[2024-06-08 16:40] VITALS: RESP 16
--- NOTE | 2024-06-08 16:55 | MHC.CARE ---
Per N pt was assessed by crisis in the community due to inability to care for himself. They are recommending IPLOC
[2024-06-08 17:03] LABS: MANUAL DIFF FLAG NO
[2024-06-08 17:05] LABS: Basophils Absolute Auto 0.1 X10*3/uL (0.0-0.2); Basophils Percent Auto 0.7 % (0-2); Eosinophils Percent Auto 0.3 % (0-4); Hematocrit 45.8 % (42.0-52.0); Hemoglobin 16.5 g/dl (14.0-18.0); Imm Gran Abs Auto 0.02 X10*3/uL (0.00-0.03); Imm Gran Pct Auto 0.3 % (0.0-0.4); Lymphocytes Absolute Auto 0.9 X10*3/uL (1.2-4.9); Lymphocytes Percent Auto 12.5 % (20-40); Mean Corpuscular Hemoglobin 31.3 pg (27.0-33.0); Mean Corpuscular Volume 86.9 fL (80.0-98.0); Mean Platelet Volume 11.9 fL (9.4-12.4); Monocytes Absolute Auto 0.5 X10*3/uL (0.1-1.2); Monocytes Percent Auto 7.6 % (2-11); Neutrophils Absolute Auto 5.6 x10*3/uL (2.0-8.3); Neutrophils Percent Auto 78.6 % (45-73); Platelet Count 138 X10*3/uL (160-400); Red Blood Count 5.27 X10*6/uL (4.60-5.80); Red Cell Distribution Width 12.2 % (11.0-16.0); White Blood Count 7.1 X10*3/uL (4.8-10.8)
--- NOTE | 2024-06-08 17:17 | PC.NURSE ---
Figueroa comes in from home on a section 12 after being seen by BHN in the field. Per S12, patient has not been caring for himself at home, he has decreased psychomotor function and is unable to make comprehensive safe decisions for himself at this time. Pt reports to this RN that he feels as though he is taking care of himself just fine, and sees no reason as to why his parents would put him here. Pts speech is delayed, soft spoken but calm and cooperative, agreeable to treatment. pt requested to hold off on vitals at this time, pt aware of need for urine sample. patient offers no complaints to this RN. Sitting in room, staring at ground, unable to maintain eye contact during conversation. Parents did stop by to drop off belongings, pt did not want to see his parents. parents aware of plan of care for inpatient bedsearch at this time
[2024-06-08 17:21] LABS: Alanine Aminotransferase 22 U/L (0-40); Albumin Level 5.1 g/dL (3.5-5.0); Alkaline Phosphatase 51 U/L (39-117); Anion Gap 16 (12-20); Aspartate Amino Transferase 21 U/L (5-37); Blood Urea Nitrogen 11 mg/dL (9-16); Calcium 10.2 mg/dL (8.4-10.2); Carbon Dioxide 23 mmol/L (22-29); Chloride 105 mmol/L (96-108); Creatinine Clr Calc Pharmacy 161.9; Estimated Glomerular Filt Rate > 60; Ethanol < 10 mg/dL; Glucose Random 118 mg/dL (60-115); Potassium 4.1 mmol/L (3.3-5.1); Sodium 140 mmol/L (135-145); Total Protein 7.7 g/dL (6.5-8.0)
--- NOTE | 2024-06-08 17:24 | PC.NURSE ---
RE: med rec this RN verified medications with family members and medical record
--- NOTE | 2024-06-08 18:03 | ED.GENADULT ---
HPI - General Adult General Chief complaint: Psychiatric Symptoms Stated complaint: sect 12, flight risk, not cooperating w/ family Time Seen by Provider: 06/08/24 17:32 Source: patient, RN notes reviewed and old records reviewed Mode of arrival: EMS Limitations: no limitations History of Present Illness ED Provider: Jane HPI narrative: 28-year-old male past medical history significant for schizophrenia presents for evaluation of inability to care for himself. The patient is parents were confused due to CAD is hernia and not caring for himself. N clinician evaluated the patient at his house and section 12 the patient for inpatient psychiatric care. The patient reports that he feels well and has no complaints Related Data Home Medications ?Medication ?Instructions ?Recorded ?Confirmed clozapine 100 mg tablet 100 mg PO BEDTIME 06/08/24 06/08/24 clozapine 25 mg tablet See Rx Instructions .Route .COMPLEX 06/08/24 06/08/24 paliperidone palmitate 117 mg/0.75 117 mg IM QMONTH 06/08/24 06/08/24 mL intramuscular syringe (Invega Sustenna) Allergies Allergy/AdvReac Type Severity Reaction Status Date / Time No Known Allergies Allergy Verified 06/08/24 16:40 Review of Systems Constitutional: Constitutional: Denies chills, Denies fever(s) and Denies headache(s) ENT: Denies headache(s) and Denies sore throat Cardiovascular: Cardiovascular: Denies chest pain and Denies dyspnea Respiratory: Respiratory: Denies cough and Denies dyspnea Gastrointestinal: Gastrointestinal: Denies abdominal pain Musculoskeletal: Musculoskeletal: Denies back pain Integumentary/Breasts: Skin/Breast: Denies rash Neurologic: Denies headache(s) Psychiatric: Psychiatric: Denies suicidal ideation [facility] Past Medical History Medical History (Updated 06/08/24 @ 18:12 by Felix Lara) Schizophrenia Social History Social History Household Members: None Housing: Apartment Do you presently have visiting nurse or other home services: No Unable to assess alcohol history related to: Refusing to respond Patient Tobacco Use Status: Never used Tobacco e-Cigarette/Vaping Use: Never Used Second Hand Smoke Exposure: No (N/A) Use of substances other than those prescribed or required for medical reasons: Refusing to respond Advance Directives: No Advance Directives Information Provided: Yes service: No Sexual orientation: Straight/Heterosexual Physical Exam ED Vital Signs: Vital Signs - 24 hr 06/08/24 16:38 06/08/24 16:40 Respiratory Rate 16 16 BMI result Body Mass Index 23.1 Const General: healthy appearing, comfortable, no acute distress, alert and awake Nutritional Appearance: well nourished Orientation/consciousness: patient oriented x3 HENMT Head: Yes normocephalic and Yes atraumatic Eyes Eyelids: Yes eyelids normal Conjunctivae: conjunctivae normal Sclerae: sclerae normal Corneas: corneas normal Pupils: Equal, round and reactive pupils present EOM: EOMs intact bilaterally Neck Neck: Yes full ROM Resp Effort & Inspection: normal respiratory effort, able to speak in complete sentences and not labored Cardio Rate: regular rate Rhythm: regular rhythm GI Inspection: No distended Palpation (GI): Soft to palpation, not firm, nontender, no guarding and not rigid Skin General skin exam: no rashes or lesions noted and elasticity normal Neuro General: patient oriented x3 Cranial nerves: Yes Equal, round and reactive pupils present and Yes Bilaterally intact EOM present Extrem Other: Moving all extremities well without any obvious deformities Psych Appearance: grossly normal Mental Status: mental status grossly normal Speech and movement: Slowed speech present (Psych) Affect: Indifferent affect present Attitude: cooperative Thought process: Normal thought process present Medical Decision Making Medical Decision Making [facility] Narrative: 28-year-old male with history of schizophrenia presents for evaluation of catatonia and inability to care for himself. The patient offers no complaints, vital signs are stable, he has no complaints or concerns at this time. Plan for basic labs, tox screen for basic medical clearance and the patient will continue bed search for inpatient psychiatric care Differential Diagnosis Differential Diagnoses: The differential diagnosis associated with the presentation includes Schizophrenia Noncompliance Catatonia Anxiety Admission/Observation Consideration of admission/observation: Escalation of care including admission/observation considered Considered for psychiatric admission Lab Data [facility] Lab Attestation statement: I reviewed the patient's lab results. No leukocytosis or anemia. The patient does have a platelet count that is just below normal at 138 K. unclear etiology. Electrolytes within normal limits. 06/08/24 16:58 06/08/24 16:58 Labs: Lab Results 06/08/24 Range/Units 16:58 WBC 7.1 (4.8-10.8) X10*3/uL RBC 5.27 (4.60-5.80) X10*6/uL Hgb 16.5 (14.0-18.0) g/dl Hct 45.8 (42.0-52.0) % MCV 86.9 (80.0-98.0) fL MCH 31.3 (27.0-33.0) pg MCHC 36.0 (31.0-36.0) g/dl RDW 12.2 (11.0-16.0) % Plt Count 138 L (160-400) X10*3/uL MPV 11.9 (9.4-12.4) fL Immature Gran % (Auto) 0.3 (0.0-0.4) % Neut % (Auto) 78.6 H (45-73) % Lymph % (Auto) 12.5 L (20-40) % Linn % (Auto) 7.6 (2-11) % Eos % (Auto) 0.3 (0-4) % Baso % (Auto) 0.7 (0-2) % Lymph # (Auto) 0.9 L (1.2-4.9) X10*3/uL Linn # (Auto) 0.5 (0.1-1.2) X10*3/uL Eos # (Auto) 0.0 (0.0-0.4) X10*3/uL Baso # (Auto) 0.1 (0.0-0.2) X10*3/uL Abs Immat Gran (auto) 0.02 (0.00-0.03) X10*3/uL Absolute Neuts (auto) 5.6 (2.0-8.3) x10*3/uL Absolute Nucleated RBC 0.000 (0.0-0.012) X10*3/uL Nucleated RBC % (auto) 0.0 (0.0-0.2) /100WBC Sodium 140 (135-145) mmol/L Potassium 4.1 (3.3-5.1) mmol/L Chloride 105 (96-108) mmol/L Carbon Dioxide 23 (22-29) mmol/L Anion Gap 16 (12-20) BUN 11 (9-16) mg/dL Creatinine 0.77 (0.5-1.4) mg/dL Estim Creat Clear Calc 161.9 Estimated GFR > 60 Random Glucose 118 H (60-115) mg/dL Calcium 10.2 (8.4-10.2) mg/dL Total Bilirubin 2.0 H (0.0-1.0) mg/dL AST 21 (5-37) U/L ALT 22 (0-40) U/L Alkaline Phosphatase 51 (39-117) U/L Total Protein 7.7 (6.5-8.0) g/dL Albumin 5.1 H (3.5-5.0) g/dL Ethyl Alcohol < 10 mg/dL Discharge Plan Discharge Clinical Impression: Schizophrenia Patient Disposition: Still a Patient Prescriptions: No Action Invega Sustenna 117 mg/0.75 mL syringe 117 mg IM QMONTH clozapine 100 mg tablet 100 mg PO BEDTIME clozapine 25 mg tablet See Rx Instructions .ROUTE .COMPLEX Rx Instructions: Take 1 tab at bedtime for 2 days, then 2 tabs at bed for 2 days, then 3 tabs at bed for 2 days Interventions: Bullitt-Suicide Risk Severity Scale Last Done: 06/08/24 16:41 Print Language: Latvian
--- NOTE | 2024-06-08 18:04 | PHA.MEDREC ---
Addendum entered by Kellen Meek [facility] 06/08/24 18:13: Telma spoke with patients father who confirmed his last dose of invega was 05/27/24. Father also confirmed patient start clozaril for first time on 05/21/24. Patient only took the first two doses and began refusing on third dose. Original Note: Pharmacy Consult ? Medication Reconciliation Pharmacy has reviewed the medication reconciliation done by nursing.
[2024-06-08] MEDS: cloZAPine 25 MG TABLET PO (20:30)
[2024-06-08 23:22] LABS: Amphetamine Screen Urine Not Detected (Not Detect); Barbiturates, Urine Not Detected (Not Detect); Benzodiazepines Screen Urine Not Detected (Not Detect); Buprenorphine Scr Not Detected (Not Detect); Cannabinoid Screen Urine Not Detected (Not Detect); Cocaine Screen Urine Not Detected (Not Detect); Fentanyl, urine Not Detected (Not Detect); Methadone Screen, Urine Not Detected (Not Detect); Opiate Screen Urine Not Detected (Not Detect); Oxycodone Screen Urine Not Detected (Not Detect); Phencyclidine Screen Urine Not Detected (Not Detect)
[2024-06-09 06:17] VITALS: BP 113/61; PULSE 52; RESP 16; TEMP 36.7; O2SAT 99
--- NOTE | 2024-06-09 06:58 | PC.NURSE ---
Assumed care of patient at 0645, patient appears to be in no apparent distress this am, sleeping, respirations even and unlabored. Continue plan of care for inpatient bedsearch
--- NOTE | 2024-06-09 08:49 | PC.NURSE ---
Pt refusing EKG at this time
--- NOTE | 2024-06-09 10:30 | MHC.CARE ---
Pt will be an inpatient psychiatric bedsearch.
[2024-06-09 15:09] VITALS: BP 151/85; PULSE 89; RESP 14; TEMP 37.1; O2SAT 99
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
[2024-06-09 17:43] VITALS: BMI 20.5
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
[2024-06-09 20:30] VITALS: BP 130/71; PULSE 76; RESP 16; TEMP 36.5; O2SAT 97
[2024-06-09] MEDS: LORazepam 1 MG TABLET PO (21:28)
[2024-06-10 08:00] VITALS: BP 120/68; PULSE 55; RESP 14; TEMP 36.5; O2SAT 97
[2024-06-10] MEDS: LORazepam 1 MG TABLET PO (09:22)
[2024-06-10] MEDS: ARIPiprazole 10 MG TABLET PO (11:14)
--- NOTE | 2024-06-10 12:56 | MHC.CLN ---
RE: CONSULT HT 6'2 WT 160# IBW 190#+/-10% PT IS 84% IBW RANGE INDICATES MILDLY UNDER WT FOR HT BMI 20.5 WNL PT APPEARS THIN PAST WT HX 169.6# (09/18/21)-WT WITHIN UBW RANGE X 2 YEARS PT REPORTS NOT TAKING PSYCH MEDS X2 WEEKS DIET RX; REGULAR FINGER FOODS, SAFETY TRAY RECOMMEND ADDING NUTRITION SUPPLEMENT TO INCREASE KCALS WILL ADD MAGIC CUP TID TO PROVIDE AN ADDITIONAL 870KCALS, 27G PROTEIN MONITOR PO INTAKE AND ENCOURAGE SUPPLEMENT
[2024-06-10] MEDS: LORazepam 1 MG TABLET 2 MG PO ×2 (14:47→21:02)
--- NOTE | 2024-06-10 16:58 | HO.PSYCHPN ---
Subjective Subjective Date of Service: 06/10/24 Reason For Visit: catatonia Interim History: reports the following re medications Hx: abilify - high dosing caused restlessness clozaril - drowsiness on even 25 mg invega - not drowsy but elevated prolactin seroquel - drowsy and dry mouth haldol - dystonia would like to try cobenfy. willing to return to abilify at lower dose for now pending availability or cobenfy. per staff, refusing clozaril, taking ativan. Mental Status Exam Mental Status Exam Narrative: very tall and thin, wearing adrián, somewhat disheveled appearance. cooperative, though delayed in responses, less so than yesterday. speech decr in rate, amount. nml loudness. decr prosody. incr latency. thoughts linear and logical. affect blunted, hypo-intense, non-labile. mood pleasant. no SI/SIBI/HI/AVH. Diagnostics Vital Signs (24Hr): Vital Signs - 24 hr 06/09/24 20:30 06/10/24 08:00 Temperature 97.7 F 97.7 F Pulse Rate 76 55 Respiratory Rate 16 14 Blood Pressure 130/71 120/68 Pulse Oximetry 97 97 Oxygen Delivery Method Room Air Room Air BMI result Body Mass Index 20.5 Labs 06/08/24 16:58 06/08/24 16:58 Labs: Laboratory Results - last 48 hr 06/08/24 06/08/24 16:58 23:04 WBC 7.1 RBC 5.27 Hgb 16.5 Hct 45.8 MCV 86.9 MCH 31.3 MCHC 36.0 RDW 12.2 Plt Count 138 L MPV 11.9 Immature Gran % (Auto) 0.3 Neut % (Auto) 78.6 H Lymph % (Auto) 12.5 L [place] % (Auto) 7.6 Eos % (Auto) 0.3 Baso % (Auto) 0.7 Lymph # (Auto) 0.9 L [place] # (Auto) 0.5 Eos # (Auto) 0.0 Baso # (Auto) 0.1 Abs Immat Gran (auto) 0.02 Absolute Neuts (auto) 5.6 Absolute Nucleated RBC 0.000 Nucleated RBC % (auto) 0.0 Sodium 140 Potassium 4.1 Chloride 105 Carbon Dioxide 23 Anion Gap 16 BUN 11 Creatinine 0.77 Estim Creat Clear Calc 161.9 Estimated GFR > 60 Random Glucose 118 H Calcium 10.2 Total Bilirubin 2.0 H AST 21 ALT 22 Alkaline Phosphatase 51 Total Protein 7.7 Albumin 5.1 H Urine Opiates Screen Not Detected Ur Buprenorphine Scrn Not Detected Ur Oxycodone Screen Not Detected Urine Methadone Screen Not Detected Urine Fentanyl Screen Not Detected Ur Barbiturates Screen Not Detected Ur Phencyclidine Scrn Not Detected Ur Amphetamines Screen Not Detected U Benzodiazepines Scrn Not Detected Urine Cocaine Screen Not Detected U Marijuana (THC) Screen Not Detected Ethyl Alcohol < 10 Medications Medications Current Medications Acetaminophen (Acetaminophen 325 Mg Tablet) 650 mg PO Q6H PRN PRN Reason: Headache/Pain Mild Scale (1-3) Al Hydroxide/Mg Hydroxide (Magnesium Hydrox/Alum Hydrox 30 Ml Oral.Susp) 30 ml PO Q6H PRN PRN Reason: Heartburn/Nausea Aripiprazole (Aripiprazole 10 Mg Tablet) 10 mg PO DAILY [facility] Last Admin: 06/10/24 11:14 Dose: 10 mg Clozapine (Clozapine 25 Mg Tablet) 25 mg PO BEDTIME [facility] Hydroxyzine HCl (Hydroxyzine Hcl 25 Mg Tablet) 25 mg PO Q6H PRN PRN Reason: Anxiety Lorazepam (Lorazepam 1 Mg Tablet) 2 mg PO TID [facility] Last Admin: 06/10/24 14:47 Dose: 2 mg Magnesium Hydroxide (Milk Of Magnesia 30 Ml Oral.Susp) 30 ml PO DAILY PRN PRN Reason: Constipation Nicotine Polacrilex (Nicotine Polacrilex 2 Mg Gum) 4 mg BUCCAL Q2H PRN PRN Reason: Nicotine Cravings Trazodone HCl (Trazodone Hcl 50 Mg Tablet) 50 mg PO BEDTIME MRX1 PRN PRN Reason: Insomnia Allergies Allergies Allergy/AdvReac Type Severity Reaction Status Date / Time No Known Allergies Allergy Verified 06/08/24 16:40 Assessment & Plan Assessment & Plan (1) Schizophrenia: Status: Acute Code(s): F20.9 - Schizophrenia, unspecified Plan 06/09: titrate clozapine, to 50 from 25 tonight. add ativan 1 TID for catatonia. titrate as tolerated. reportedly on invega sustenna 117 per month. 06/10: refusing clozapine. DC. willing to return to lower dose abilify for now pending insurance approval of cobenfy. restart at 10 mg daily. increase ativan to 2 mg TID for catatonia. Reason for continued inpatient stay Substantial Risk for: inability to function Time Spent With Patient Time: Total time managing care of this patient today __35__ minutes.
[2024-06-10 20:00] VITALS: BP 145/84; PULSE 104; RESP 16; TEMP 37.1; O2SAT 99
[2024-06-11 09:03] VITALS: BP 140/66; PULSE 64; RESP 16; TEMP 36.8; O2SAT 97
[2024-06-11] MEDS: ARIPiprazole 10 MG TABLET PO ×2 (09:22→21:40)
[2024-06-11] MEDS: LORazepam 1 MG TABLET 2 MG PO (09:23)
--- NOTE | 2024-06-11 14:58 | HO.PSYCHPN ---
Subjective Subjective Date of Service: 06/11/24 Reason For Visit: catatonia Interim History: feeling better in terms of general mood. agreeable to increase abilify to 20 while we pursue gela ASHKAN, switch dosing to HS as he believes it sedates him a bit. also agreeable to increase ativan to 3 mg TID for catatonia. signed CV. per staff, 12b up tomorrow. pacing. mother visited. denies psych Sx. Mental Status Exam Mental Status Exam Narrative: very tall and thin, wearing adrián, somewhat disheveled appearance. cooperative, though delayed in responses, less so than prior. speech decr in rate, amount. nml loudness. decr prosody. incr latency. thoughts linear and logical. affect blunted, hypo-intense, non-labile. mood better. no SI/SIBI/HI/AVH expressed. Diagnostics Vital Signs (24Hr): Vital Signs - 24 hr 06/10/24 20:00 06/11/24 09:03 Temperature 98.7 F 98.3 F Pulse Rate 104 H 64 Respiratory Rate 16 16 Blood Pressure 145/84 H 140/66 H Pulse Oximetry 99 97 Oxygen Delivery Method Room Air Room Air BMI result Body Mass Index 20.5 Labs 06/08/24 16:58 06/08/24 16:58 Medications Medications Current Medications Acetaminophen (Acetaminophen 325 Mg Tablet) 650 mg PO Q6H PRN PRN Reason: Headache/Pain Mild Scale (1-3) Al Hydroxide/Mg Hydroxide (Magnesium Hydrox/Alum Hydrox 30 Ml Oral.Susp) 30 ml PO Q6H PRN PRN Reason: Heartburn/Nausea Aripiprazole (Aripiprazole 10 Mg Tablet) 10 mg PO ONCE ONE Stop: 06/11/24 21:01 Aripiprazole (Aripiprazole 20 Mg Tablet) 20 mg PO BEDTIME KEITH Hydroxyzine HCl (Hydroxyzine Hcl 25 Mg Tablet) 25 mg PO Q6H PRN PRN Reason: Anxiety Lorazepam (Lorazepam 1 Mg Tablet) 3 mg PO TID [facility] Magnesium Hydroxide (Milk Of Magnesia 30 Ml Oral.Susp) 30 ml PO DAILY PRN PRN Reason: Constipation Nicotine Polacrilex (Nicotine Polacrilex 2 Mg Gum) 4 mg BUCCAL Q2H PRN PRN Reason: Nicotine Cravings Trazodone HCl (Trazodone Hcl 50 Mg Tablet) 50 mg PO BEDTIME MRX1 PRN PRN Reason: Insomnia Allergies Allergies Allergy/AdvReac Type Severity Reaction Status Date / Time No Known Allergies Allergy Verified 06/08/24 16:40 Assessment & Plan Assessment & Plan (1) Schizophrenia: Status: Acute Code(s): F20.9 - Schizophrenia, unspecified Plan 06/09: titrate clozapine, to 50 from 25 tonight. add ativan 1 TID for catatonia. titrate as tolerated. reportedly on invega sustenna 117 per month. 06/10: refusing clozapine. DC. willing to return to lower dose abilify for now pending insurance approval of cobenfy. restart at 10 mg daily. increase ativan to 2 mg TID for catatonia. 06/11: will need PA for cobenfy. increase ativan to 3 TID for catatonia. change abilify to HS and increase dosing to 20 mg daily. less PMR. Reason for continued inpatient stay Substantial Risk for: harm to self and inability to function Time Spent With Patient Time: Total time managing care of this patient today __25__ minutes.
[2024-06-11] MEDS: LORazepam 1 MG TABLET 3 MG PO ×2 (15:45→21:40)
[2024-06-11 20:00] VITALS: BP 176/81; PULSE 100; RESP 16; TEMP 37.1; O2SAT 95
[2024-06-12 08:00] VITALS: RESP 18
[2024-06-12] MEDS: LORazepam 1 MG TABLET 3 MG PO ×3 (08:47→21:25)
--- NOTE | 2024-06-12 16:12 | HO.PSYCHPN ---
Subjective Subjective Date of Service: 06/12/24 Reason For Visit: catatonia Interim History: no complaints. not finding ativan 2 TID sedating. has not discussed with his parents that they want him on clozaril in order to come home. per staff, slept 8 hours. no dep/anx. visible. +meds. slow. cooperative. pacing. declined shower. Mental Status Exam Mental Status Exam Narrative: very tall and thin, wearing own clothes, somewhat disheveled appearance. cooperative, though delayed in responses, less so than prior. speech decr in rate, amount. nml loudness. decr prosody. incr latency. thoughts linear and logical. affect blunted, hypo-intense, non-labile. mood not assessed. no SI/SIBI/HI/AVH expressed. Diagnostics Vital Signs (24Hr): Vital Signs - 24 hr 06/11/24 20:00 06/12/24 08:00 Temperature 98.8 F Pulse Rate 100 Respiratory Rate 16 18 Blood Pressure 176/81 H Pulse Oximetry 95 Oxygen Delivery Method Room Air BMI result Body Mass Index 20.5 Labs 06/08/24 16:58 06/08/24 16:58 Medications Medications Current Medications Acetaminophen (Acetaminophen 325 Mg Tablet) 650 mg PO Q6H PRN PRN Reason: Headache/Pain Mild Scale (1-3) Al Hydroxide/Mg Hydroxide (Magnesium Hydrox/Alum Hydrox 30 Ml Oral.Susp) 30 ml PO Q6H PRN PRN Reason: Heartburn/Nausea Aripiprazole (Aripiprazole 20 Mg Tablet) 20 mg PO BEDTIME [facility] Hydroxyzine HCl (Hydroxyzine Hcl 25 Mg Tablet) 25 mg PO Q6H PRN PRN Reason: Anxiety Lorazepam (Lorazepam 1 Mg Tablet) 3 mg PO TID [facility] Last Admin: 06/12/24 15:48 Dose: 3 mg Magnesium Hydroxide (Milk Of Magnesia 30 Ml Oral.Susp) 30 ml PO DAILY PRN PRN Reason: Constipation Nicotine Polacrilex (Nicotine Polacrilex 2 Mg Gum) 4 mg BUCCAL Q2H PRN PRN Reason: Nicotine Cravings Trazodone HCl (Trazodone Hcl 50 Mg Tablet) 50 mg PO BEDTIME MRX1 PRN PRN Reason: Insomnia Allergies Allergies Allergy/AdvReac Type Severity Reaction Status Date / Time No Known Allergies Allergy Verified 06/08/24 16:40 Assessment & Plan Assessment & Plan (1) Schizophrenia: Status: Acute Code(s): F20.9 - Schizophrenia, unspecified Plan 06/09: titrate clozapine, to 50 from 25 tonight. add ativan 1 TID for catatonia. titrate as tolerated. reportedly on invega sustenna 117 per month. 06/10: refusing clozapine. DC. willing to return to lower dose abilify for now pending insurance approval of cobenfy. restart at 10 mg daily. increase ativan to 2 mg TID for catatonia. 06/11: will need PA for cobenfy. increase ativan to 3 TID for catatonia. change abilify to HS and increase dosing to 20 mg daily. less PMR. 06/12: PA denied by insurance company. no sedation from ativan dosing increase. remains slowed, but less so than at admission. signed CV yesterday. first dose of abilify 20 mg at HS tonight. continue current mgmt. Reason for continued inpatient stay Substantial Risk for: harm to self, inability to function and rapid decompensation Time Spent With Patient Time: Total time managing care of this patient today __25__ minutes.
[2024-06-12 20:00] VITALS: BP 148/73; PULSE 87; RESP 16; TEMP 36.3; O2SAT 97
[2024-06-12] MEDS: ARIPiprazole 20 MG TABLET PO (21:25)
[2024-06-13 07:35] VITALS: BP 131/65; PULSE 63; RESP 14; TEMP 36.3; O2SAT 97
[2024-06-13] MEDS: LORazepam 1 MG TABLET 3 MG PO (08:41)
[2024-06-13] MEDS: LORazepam 1 MG TABLET 4 MG PO ×2 (15:23→20:30)
--- NOTE | 2024-06-13 16:33 | P.PNPSI_ITS ---
Subjective Subjective Date of Service: 06/13/24 Reason For Visit: catatonia Interim History: agreeable to increase ativan to 4 mg TID for catatonia. informed cobendanelle was denied. encouraged to consider clozaril and parents' statement that he will not be able to return to their home unless he is taking clozaril. would like ton continue at abilify 20 mg for now. per staff, flat, withdrawn. slowed. took a shower. slept 7+ hours. Mental Status Exam Mental Status Exam Narrative: very tall and thin, wearing own clothes, somewhat disheveled appearance. cooperative, though delayed in responses, less so than prior. speech decr in rate, amount. nml loudness. decr prosody. incr latency. thoughts linear and logical. affect blunted, hypo-intense, non-labile. mood not assessed. no SI/SIBI/HI/AVH expressed. Diagnostics Vital Signs (24Hr): Vital Signs - 24 hr 06/12/24 20:00 06/13/24 07:35 Temperature 97.4 F 97.3 F Pulse Rate 87 63 Respiratory Rate 16 14 Blood Pressure 148/73 H 131/65 Pulse Oximetry 97 97 Oxygen Delivery Method Room Air Room Air BMI result Body Mass Index 20.5 Labs 06/08/24 16:58 06/08/24 16:58 Medications Medications Current Medications Acetaminophen (Acetaminophen 325 Mg Tablet) 650 mg PO Q6H PRN PRN Reason: Headache/Pain Mild Scale (1-3) Al Hydroxide/Mg Hydroxide (Magnesium Hydrox/Alum Hydrox 30 Ml Oral.Susp) 30 ml PO Q6H PRN PRN Reason: Heartburn/Nausea Aripiprazole (Aripiprazole 20 Mg Tablet) 20 mg PO BEDTIME [facility] Last Admin: 06/12/24 21:25 Dose: 20 mg Hydroxyzine HCl (Hydroxyzine Hcl 25 Mg Tablet) 25 mg PO Q6H PRN PRN Reason: Anxiety Lorazepam (Lorazepam 1 Mg Tablet) 4 mg PO TID [facility] Last Admin: 06/13/24 15:23 Dose: 4 mg Magnesium Hydroxide (Milk Of Magnesia 30 Ml Oral.Susp) 30 ml PO DAILY PRN PRN Reason: Constipation Nicotine Polacrilex (Nicotine Polacrilex 2 Mg Gum) 4 mg BUCCAL Q2H PRN PRN Reason: Nicotine Cravings Trazodone HCl (Trazodone Hcl 50 Mg Tablet) 50 mg PO BEDTIME MRX1 PRN PRN Reason: Insomnia Allergies Allergies Allergy/AdvReac Type Severity Reaction Status Date / Time No Known Allergies Allergy Verified 06/08/24 16:40 Assessment & Plan Assessment & Plan (1) Schizophrenia: Status: Acute Code(s): F20.9 - Schizophrenia, unspecified Plan 06/09: titrate clozapine, to 50 from 25 tonight. add ativan 1 TID for catatonia. titrate as tolerated. reportedly on invega sustenna 117 per month. 06/10: refusing clozapine. DC. willing to return to lower dose abilify for now pending insurance approval of cobenfy. restart at 10 mg daily. increase ativan to 2 mg TID for catatonia. 06/11: will need PA for cobenfy. increase ativan to 3 TID for catatonia. change abilify to HS and increase dosing to 20 mg daily. less PMR. 06/12: PA denied by insurance company. no sedation from ativan dosing increase. remains slowed, but less so than at admission. signed CV yesterday. first dose of abilify 20 mg at HS tonight. continue current mgmt. 06/13: increase ativan to 4 TID for catatonia. continue regimen otherwise. remains quite slowed. Reason for continued inpatient stay Substantial Risk for: inability to function and rapid decompensation Time Spent With Patient Time: Total time managing care of this patient today __35__ minutes.
[2024-06-13 20:00] VITALS: BP 145/82; PULSE 116; RESP 18; TEMP 36.9; O2SAT 96
[2024-06-13] MEDS: ARIPiprazole 20 MG TABLET PO (20:30)
[2024-06-14 07:45] VITALS: BP 130/71; PULSE 56; RESP 12; TEMP 36.8; O2SAT 98
[2024-06-14] MEDS: LORazepam 1 MG TABLET 4 MG PO ×3 (08:42→20:06)
--- NOTE | 2024-06-14 10:16 | P.PNPSI_ITS ---
Subjective Subjective Date of Service: 06/14/24 Reason For Visit: catatonia Interim History: noted challenges around Coben[employer] being denied, declining [place] rule and preferring to take Abilify. High-dose Ativan for catatonia in place. Patient is in the milieu. Watching television. Was observed to be eating and drinking. Significant psychomotor retardation still evident. When asked how he was doing ok I think , is there anything I can help with? I cant say so . Medication Compliance: Yes Side effects from medications: No Attending Groups: Intermittent Review of Systems Acute medical concerns: No Review of Systems Review of Systems Unremarkable Mental Status Exam Mental Status Exam Narrative: very tall and thin, in day area, watching television, wearing own clothes, somewhat disheveled appearance. cooperative, though delayed in responses, less so than prior. speech decr in rate, amount. nml loudness. decr prosody. incr latency. thoughts linear and logical. affect blunted, hypo-intense, non- labile. mood not assessed. no SI/SIBI/HI/AVH expressed. Diagnostics Vital Signs (24Hr): Vital Signs - 24 hr 06/13/24 20:00 06/14/24 07:45 Temperature 98.4 F 98.2 F Pulse Rate 116 H 56 Respiratory Rate 18 12 Blood Pressure 145/82 H 130/71 Pulse Oximetry 96 98 Oxygen Delivery Method Room Air Room Air BMI result Body Mass Index 20.5 Labs 06/08/24 16:58 06/08/24 16:58 Medications Medications Current Medications Acetaminophen (Acetaminophen 325 Mg Tablet) 650 mg PO Q6H PRN PRN Reason: Headache/Pain Mild Scale (1-3) Al Hydroxide/Mg Hydroxide (Magnesium Hydrox/Alum Hydrox 30 Ml Oral.Susp) 30 ml PO Q6H PRN PRN Reason: Heartburn/Nausea Aripiprazole (Aripiprazole 20 Mg Tablet) 20 mg PO BEDTIME [facility] Last Admin: 06/13/24 20:30 Dose: 20 mg Hydroxyzine HCl (Hydroxyzine Hcl 25 Mg Tablet) 25 mg PO Q6H PRN PRN Reason: Anxiety Lorazepam (Lorazepam 1 Mg Tablet) 4 mg PO TID [facility] Last Admin: 06/14/24 08:42 Dose: 4 mg Magnesium Hydroxide (Milk Of Magnesia 30 Ml Oral.Susp) 30 ml PO DAILY PRN PRN Reason: Constipation Nicotine Polacrilex (Nicotine Polacrilex 2 Mg Gum) 4 mg BUCCAL Q2H PRN PRN Reason: Nicotine Cravings Trazodone HCl (Trazodone Hcl 50 Mg Tablet) 50 mg PO BEDTIME MRX1 PRN PRN Reason: Insomnia Allergies Allergies Allergy/AdvReac Type Severity Reaction Status Date / Time No Known Allergies Allergy Verified 06/08/24 16:40 Assessment & Plan Assessment & Plan (1) Schizophrenia: Status: Acute Code(s): F20.9 - Schizophrenia, unspecified Plan 06/09: titrate clozapine, to 50 from 25 tonight. add ativan 1 TID for catatonia. titrate as tolerated. reportedly on invega sustenna 117 per month. 06/10: refusing clozapine. DC. willing to return to lower dose abilify for now pending insurance approval of cobenfy. restart at 10 mg daily. increase ativan to 2 mg TID for catatonia. 06/11: will need PA for cobenfy. increase ativan to 3 TID for catatonia. change abilify to HS and increase dosing to 20 mg daily. less PMR. 06/12: PA denied by insurance company. no sedation from ativan dosing increase. remains slowed, but less so than at admission. signed CV yesterday. first dose of abilify 20 mg at HS tonight. continue current mgmt. 06/13: increase ativan to 4 TID for catatonia. continue regimen otherwise. remains quite slowed. 06/14/2024: No changes Reason for continued inpatient stay Substantial Risk for: inability to function Time Spent With Patient Time: Total time managing care of this patient today ____ minutes.
[2024-06-14 20:00] VITALS: BP 155/85; PULSE 68; RESP 16; TEMP 36.3; O2SAT 99
[2024-06-14] MEDS: ARIPiprazole 20 MG TABLET PO (20:06)
[2024-06-15 07:40] VITALS: BP 132/63; PULSE 64; RESP 12; TEMP 36.9; O2SAT 96
[2024-06-15] MEDS: LORazepam 1 MG TABLET 4 MG PO ×3 (08:50→21:36)
--- NOTE | 2024-06-15 10:26 | HO.PSYCHPN ---
Subjective Subjective Date of Service: 06/15/24 Reason For Visit: catatonia Medical Problems Affecting Mental Status: No Interim History: No major changes. Adherent with Ativan for catatonia and soends time in milieu-TV and groups and meals. Significant psychomotor retardation still evident. When asked how he was doing ok , No further expansion. Denied SI when asked directly and reported feeling safe. Medication Compliance: Yes Side effects from medications: No Attending Groups: Yes Review of Systems Acute medical concerns: No Review of Systems Review of Systems Unremarkable Mental Status Exam Mental Status Exam Narrative: very tall and thin, in day area, wearing own clothes, somewhat disheveled appearance. cooperative, though delayed in response. speech decr in rate, amount. nml loudness. decr prosody. incr latency. thoughts linear and logical. affect blunted, hypo-intense, non-labile. mood not assessed. no SI/SIBI/HI/AVH expressed. Diagnostics Vital Signs (24Hr): Vital Signs - 24 hr 06/14/24 20:00 06/15/24 07:40 Temperature 97.3 F 98.4 F Pulse Rate 68 64 Respiratory Rate 16 12 Blood Pressure 155/85 H 132/63 Pulse Oximetry 99 96 Oxygen Delivery Method Room Air Room Air BMI result Body Mass Index 20.5 Labs 06/08/24 16:58 06/08/24 16:58 Medications Medications Current Medications Acetaminophen (Acetaminophen 325 Mg Tablet) 650 mg PO Q6H PRN PRN Reason: Headache/Pain Mild Scale (1-3) Al Hydroxide/Mg Hydroxide (Magnesium Hydrox/Alum Hydrox 30 Ml Oral.Susp) 30 ml PO Q6H PRN PRN Reason: Heartburn/Nausea Aripiprazole (Aripiprazole 20 Mg Tablet) 20 mg PO BEDTIME [facility] Last Admin: 06/14/24 20:06 Dose: 20 mg Hydroxyzine HCl (Hydroxyzine Hcl 25 Mg Tablet) 25 mg PO Q6H PRN PRN Reason: Anxiety Lorazepam (Lorazepam 1 Mg Tablet) 4 mg PO TID [facility] Last Admin: 06/15/24 08:50 Dose: 4 mg Magnesium Hydroxide (Milk Of Magnesia 30 Ml Oral.Susp) 30 ml PO DAILY PRN PRN Reason: Constipation Nicotine Polacrilex (Nicotine Polacrilex 2 Mg Gum) 4 mg BUCCAL Q2H PRN PRN Reason: Nicotine Cravings Trazodone HCl (Trazodone Hcl 50 Mg Tablet) 50 mg PO BEDTIME MRX1 PRN PRN Reason: Insomnia Allergies Allergies Allergy/AdvReac Type Severity Reaction Status Date / Time No Known Allergies Allergy Verified 06/08/24 16:40 Assessment & Plan Assessment & Plan (1) Schizophrenia: Status: Acute Code(s): F20.9 - Schizophrenia, unspecified Plan 06/09: titrate clozapine, to 50 from 25 tonight. add ativan 1 TID for catatonia. titrate as tolerated. reportedly on invega sustenna 117 per month. 06/10: refusing clozapine. DC. willing to return to lower dose abilify for now pending insurance approval of cobenfy. restart at 10 mg daily. increase ativan to 2 mg TID for catatonia. 06/11: will need PA for cobenfy. increase ativan to 3 TID for catatonia. change abilify to HS and increase dosing to 20 mg daily. less PMR. 06/12: PA denied by insurance company. no sedation from ativan dosing increase. remains slowed, but less so than at admission. signed CV yesterday. first dose of abilify 20 mg at HS tonight. continue current mgmt. 06/13: increase ativan to 4 TID for catatonia. continue regimen otherwise. remains quite slowed. 06/15/2024: No changes Reason for continued inpatient stay Substantial Risk for: inability to function Time Spent With Patient Time: Total time managing care of this patient today ____ minutes.
[2024-06-15 19:17] VITALS: BP 147/74; PULSE 88; RESP 14; TEMP 36.5; O2SAT 100
[2024-06-15] MEDS: ARIPiprazole 20 MG TABLET PO (21:36)
[2024-06-16 07:40] VITALS: BP 136/69; PULSE 62; RESP 14; TEMP 36.7; O2SAT 95
[2024-06-16] MEDS: LORazepam 1 MG TABLET 4 MG PO (08:33)
--- NOTE | 2024-06-16 14:42 | HO.PSYCHPN ---
Subjective Subjective Date of Service: 06/16/24 Reason For Visit: catatonia Interim History: not feeling sedated from ativan. remains with PMR. agreeable to increase dosing to 5 TID. no complaints or requests. per staff, taking meds. denying psych Sx. slept 9 hours. Mental Status Exam Mental Status Exam Narrative: very tall and thin, in day area, wearing own clothes, somewhat disheveled appearance. cooperative, though delayed in response. speech decr in rate, amount. nml loudness. decr prosody. incr latency. thoughts linear and logical. affect blunted, hypo-intense, non-labile. mood not assessed. no SI/SIBI/HI/AVH expressed. Diagnostics Vital Signs (24Hr): Vital Signs - 24 hr 06/15/24 19:17 06/16/24 07:40 Temperature 97.7 F 98.1 F Pulse Rate 88 62 Respiratory Rate 14 14 Blood Pressure 147/74 H 136/69 Pulse Oximetry 100 95 Oxygen Delivery Method Room Air Room Air BMI result Body Mass Index 20.5 Labs 06/08/24 16:58 06/08/24 16:58 Medications Medications Current Medications Acetaminophen (Acetaminophen 325 Mg Tablet) 650 mg PO Q6H PRN PRN Reason: Headache/Pain Mild Scale (1-3) Al Hydroxide/Mg Hydroxide (Magnesium Hydrox/Alum Hydrox 30 Ml Oral.Susp) 30 ml PO Q6H PRN PRN Reason: Heartburn/Nausea Aripiprazole (Aripiprazole 20 Mg Tablet) 20 mg PO BEDTIME [facility] Last Admin: 06/15/24 21:36 Dose: 20 mg Hydroxyzine HCl (Hydroxyzine Hcl 25 Mg Tablet) 25 mg PO Q6H PRN PRN Reason: Anxiety Lorazepam (Lorazepam 1 Mg Tablet) 5 mg PO TID [facility] Magnesium Hydroxide (Milk Of Magnesia 30 Ml Oral.Susp) 30 ml PO DAILY PRN PRN Reason: Constipation Nicotine Polacrilex (Nicotine Polacrilex 2 Mg Gum) 4 mg BUCCAL Q2H PRN PRN Reason: Nicotine Cravings Trazodone HCl (Trazodone Hcl 50 Mg Tablet) 50 mg PO BEDTIME MRX1 PRN PRN Reason: Insomnia Allergies Allergies Allergy/AdvReac Type Severity Reaction Status Date / Time No Known Allergies Allergy Verified 06/08/24 16:40 Assessment & Plan Assessment & Plan (1) Schizophrenia: Status: Acute Code(s): F20.9 - Schizophrenia, unspecified Plan 06/09: titrate clozapine, to 50 from 25 tonight. add ativan 1 TID for catatonia. titrate as tolerated. reportedly on invega sustenna 117 per month. 06/10: refusing clozapine. DC. willing to return to lower dose abilify for now pending insurance approval of cobenfy. restart at 10 mg daily. increase ativan to 2 mg TID for catatonia. 06/11: will need PA for cobenfy. increase ativan to 3 TID for catatonia. change abilify to HS and increase dosing to 20 mg daily. less PMR. 06/12: PA denied by insurance company. no sedation from ativan dosing increase. remains slowed, but less so than at admission. signed CV yesterday. first dose of abilify 20 mg at HS tonight. continue current mgmt. 06/13: increase ativan to 4 TID for catatonia. continue regimen otherwise. remains quite slowed. 06/15/2024: No changes 06/16: remains slowed, not sedated. increase ativan to 5 TID. Reason for continued inpatient stay Substantial Risk for: inability to function and rapid decompensation Time Spent With Patient Time: Total time managing care of this patient today __25__ minutes.
[2024-06-16] MEDS: LORazepam 1 MG TABLET 5 MG PO ×2 (15:18→20:35)
[2024-06-16 20:25] VITALS: BP 155/82; PULSE 100; RESP 16; TEMP 36.2; O2SAT 100
[2024-06-16] MEDS: ARIPiprazole 20 MG TABLET PO (20:35)
[2024-06-17 07:54] VITALS: BP 149/67; PULSE 67; RESP 16; TEMP 37; O2SAT 97
[2024-06-17] MEDS: LORazepam 1 MG TABLET 5 MG PO (09:08)
[2024-06-17] MEDS: LORazepam 1 MG TABLET 4 MG PO ×3 (13:05→21:05)
--- NOTE | 2024-06-17 14:09 | P.PNPSI_ITS ---
Subjective Subjective Date of Service: 06/17/24 Reason For Visit: catatonia Interim History: pt reports he is donig well, no complaints or requests. denies feeling sedated. remains with significant PMR. agreeable to increase ativan dosing from 5 TID to 4 QID. per staff, attending 4 groups. easier to engage. less slow. +AH. Mental Status Exam Mental Status Exam Narrative: very tall and thin, in day area, wearing own clothes, adequately dressed and groomed. cooperative, though delayed in response. speech decr in rate, amount. nml loudness. decr prosody. incr latency. thoughts linear and logical. affect blunted, hypo-intense, non-labile. mood not assessed. no SI/SIBI/HI/AVH expressed. Diagnostics Vital Signs (24Hr): Vital Signs - 24 hr 06/16/24 20:25 06/17/24 07:54 Temperature 97.1 F 98.6 F Pulse Rate 100 67 Respiratory Rate 16 16 Blood Pressure 155/82 H 149/67 H Pulse Oximetry 100 97 Oxygen Delivery Method Room Air Room Air BMI result Body Mass Index 20.5 Labs 06/08/24 16:58 06/08/24 16:58 Medications Medications Current Medications Acetaminophen (Acetaminophen 325 Mg Tablet) 650 mg PO Q6H PRN PRN Reason: Headache/Pain Mild Scale (1-3) Al Hydroxide/Mg Hydroxide (Magnesium Hydrox/Alum Hydrox 30 Ml Oral.Susp) 30 ml PO Q6H PRN PRN Reason: Heartburn/Nausea Aripiprazole (Aripiprazole 20 Mg Tablet) 20 mg PO BEDTIME [facility] Last Admin: 06/16/24 20:35 Dose: 20 mg Hydroxyzine HCl (Hydroxyzine Hcl 25 Mg Tablet) 25 mg PO Q6H PRN PRN Reason: Anxiety Lorazepam (Lorazepam 1 Mg Tablet) 4 mg PO QID [facility] Last Admin: 06/17/24 13:05 Dose: 4 mg Magnesium Hydroxide (Milk Of Magnesia 30 Ml Oral.Susp) 30 ml PO DAILY PRN PRN Reason: Constipation Nicotine Polacrilex (Nicotine Polacrilex 2 Mg Gum) 4 mg BUCCAL Q2H PRN PRN Reason: Nicotine Cravings Trazodone HCl (Trazodone Hcl 50 Mg Tablet) 50 mg PO BEDTIME MRX1 PRN PRN Reason: Insomnia Allergies Allergies Allergy/AdvReac Type Severity Reaction Status Date / Time No Known Allergies Allergy Verified 06/08/24 16:40 Assessment & Plan Assessment & Plan (1) Schizophrenia: Status: Acute Code(s): F20.9 - Schizophrenia, unspecified Plan 06/09: titrate clozapine, to 50 from 25 tonight. add ativan 1 TID for catatonia. titrate as tolerated. reportedly on invega sustenna 117 per month. 06/10: refusing clozapine. DC. willing to return to lower dose abilify for now pending insurance approval of cobenfy. restart at 10 mg daily. increase ativan to 2 mg TID for catatonia. 06/11: will need PA for cobenfy. increase ativan to 3 TID for catatonia. change abilify to HS and increase dosing to 20 mg daily. less PMR. 06/12: PA denied by insurance company. no sedation from ativan dosing increase. remains slowed, but less so than at admission. signed CV yesterday. first dose of abilify 20 mg at HS tonight. continue current mgmt. 06/13: increase ativan to 4 TID for catatonia. continue regimen otherwise. remains quite slowed. 06/15/2024: No changes 06/16: remains slowed, not sedated. increase ativan to 5 TID. 06/17: PMR continues, improved from admission. not sedated. increase ativan to 4 QID. Reason for continued inpatient stay Substantial Risk for: inability to function and rapid decompensation Time Spent With Patient Time: Total time managing care of this patient today __25__ minutes.
[2024-06-17 21:04] VITALS: BP 133/76; PULSE 85; RESP 14; TEMP 36.7; O2SAT 98
[2024-06-17] MEDS: ARIPiprazole 20 MG TABLET PO (21:05)
[2024-06-18 07:26] VITALS: BP 126/71; PULSE 70; RESP 14; TEMP 36.4; O2SAT 97
[2024-06-18] MEDS: LORazepam 1 MG TABLET 4 MG PO (08:51)
[2024-06-18] MEDS: LORazepam 1 MG TABLET 5 MG PO ×3 (13:08→21:24)
--- NOTE | 2024-06-18 13:43 | P.PNPSI_ITS ---
Subjective Subjective Date of Service: 06/18/24 Reason For Visit: catatonia Interim History: no change in presentation. willing to increase ativan to 5 mg QID. wants to keep abilify at 20 mg daily. per staff, pleasant. likes groups. slept 7+ hours. Mental Status Exam Mental Status Exam Narrative: very tall and thin, in day area, wearing own clothes, adequately dressed and groomed. cooperative, though delayed in response. speech decr in rate, amount. nml loudness. decr prosody. incr latency. thoughts linear and logical. affect blunted, hypo-intense, non-labile. mood not assessed. no SI/SIBI/HI/AVH expressed. Diagnostics Vital Signs (24Hr): Vital Signs - 24 hr 06/17/24 21:04 06/18/24 07:26 Temperature 98.0 F 97.5 F Pulse Rate 85 70 Respiratory Rate 14 14 Blood Pressure 133/76 126/71 Pulse Oximetry 98 97 Oxygen Delivery Method Room Air Room Air BMI result Body Mass Index 20.5 Labs 06/08/24 16:58 06/08/24 16:58 Medications Medications Current Medications Acetaminophen (Acetaminophen 325 Mg Tablet) 650 mg PO Q6H PRN PRN Reason: Headache/Pain Mild Scale (1-3) Al Hydroxide/Mg Hydroxide (Magnesium Hydrox/Alum Hydrox 30 Ml Oral.Susp) 30 ml PO Q6H PRN PRN Reason: Heartburn/Nausea Aripiprazole (Aripiprazole 20 Mg Tablet) 20 mg PO BEDTIME [facility] Last Admin: 06/17/24 21:05 Dose: 20 mg Hydroxyzine HCl (Hydroxyzine Hcl 25 Mg Tablet) 25 mg PO Q6H PRN PRN Reason: Anxiety Lorazepam (Lorazepam 1 Mg Tablet) 5 mg PO QID [facility] Last Admin: 06/18/24 13:08 Dose: 5 mg Magnesium Hydroxide (Milk Of Magnesia 30 Ml Oral.Susp) 30 ml PO DAILY PRN PRN Reason: Constipation Nicotine Polacrilex (Nicotine Polacrilex 2 Mg Gum) 4 mg BUCCAL Q2H PRN PRN Reason: Nicotine Cravings Trazodone HCl (Trazodone Hcl 50 Mg Tablet) 50 mg PO BEDTIME MRX1 PRN PRN Reason: Insomnia Allergies Allergies Allergy/AdvReac Type Severity Reaction Status Date / Time No Known Allergies Allergy Verified 06/08/24 16:40 Assessment & Plan Assessment & Plan (1) Schizophrenia: Status: Acute Code(s): F20.9 - Schizophrenia, unspecified Plan 06/09: titrate clozapine, to 50 from 25 tonight. add ativan 1 TID for catatonia. titrate as tolerated. reportedly on invega sustenna 117 per month. 06/10: refusing clozapine. DC. willing to return to lower dose abilify for now pending insurance approval of cobenfy. restart at 10 mg daily. increase ativan to 2 mg TID for catatonia. 06/11: will need PA for cobenfy. increase ativan to 3 TID for catatonia. change abilify to HS and increase dosing to 20 mg daily. less PMR. 06/12: PA denied by insurance company. no sedation from ativan dosing increase. remains slowed, but less so than at admission. signed CV yesterday. first dose of abilify 20 mg at HS tonight. continue current mgmt. 06/13: increase ativan to 4 TID for catatonia. continue regimen otherwise. remains quite slowed. 06/15/2024: No changes 06/16: remains slowed, not sedated. increase ativan to 5 TID. 06/17: PMR continues, improved from admission. not sedated. increase ativan to 4 QID. 06/18: no change from yesterday. increase ativan to 5 QID. slept 7+ hours, no sedation days. Reason for continued inpatient stay Substantial Risk for: inability to function Time Spent With Patient Time: Total time managing care of this patient today __25__ minutes.
[2024-06-18 20:00] VITALS: BP 139/83; PULSE 86; RESP 14; TEMP 37.1; O2SAT 98
[2024-06-18] MEDS: ARIPiprazole 20 MG TABLET PO (21:24)
[2024-06-19 07:20] VITALS: BP 138/71; PULSE 67; RESP 14; TEMP 36.4; O2SAT 96
[2024-06-19] MEDS: LORazepam 1 MG TABLET 5 MG PO ×4 (08:56→21:45)
--- NOTE | 2024-06-19 15:34 | P.PNPSI_ITS ---
Subjective Subjective Date of Service: 06/19/24 Reason For Visit: catatonia Interim History: per reports feeling better, on being asked in what way responds, increased comfortability and openness. agreeable to continue current mgmt for now. slightly faster than yesterday. per staff, denies dep/anx. taking meds. improving PMR. watching TV with peers. denies SI/HI. slept 8 hours. Mental Status Exam Mental Status Exam Narrative: very tall and thin, in day area, wearing own clothes, adequately dressed and groomed. cooperative, though delayed in response. speech decr in rate, amount. nml loudness. decr prosody. incr latency. thoughts linear and logical. affect blunted, hypo-intense, non-labile. mood fair. no SI/SIBI/HI/AVH expressed. Diagnostics Vital Signs (24Hr): Vital Signs - 24 hr 06/18/24 20:00 06/19/24 07:20 Temperature 98.8 F 97.6 F Pulse Rate 86 67 Respiratory Rate 14 14 Blood Pressure 139/83 138/71 Pulse Oximetry 98 96 Oxygen Delivery Method Room Air Room Air BMI result Body Mass Index 20.5 Labs 06/08/24 16:58 06/08/24 16:58 Medications Medications Current Medications Acetaminophen (Acetaminophen 325 Mg Tablet) 650 mg PO Q6H PRN PRN Reason: Headache/Pain Mild Scale (1-3) Al Hydroxide/Mg Hydroxide (Magnesium Hydrox/Alum Hydrox 30 Ml Oral.Susp) 30 ml PO Q6H PRN PRN Reason: Heartburn/Nausea Aripiprazole (Aripiprazole 20 Mg Tablet) 20 mg PO BEDTIME [facility] Last Admin: 06/18/24 21:24 Dose: 20 mg Hydroxyzine HCl (Hydroxyzine Hcl 25 Mg Tablet) 25 mg PO Q6H PRN PRN Reason: Anxiety Lorazepam (Lorazepam 1 Mg Tablet) 5 mg PO QID [facility] Last Admin: 06/19/24 13:30 Dose: 5 mg Magnesium Hydroxide (Milk Of Magnesia 30 Ml Oral.Susp) 30 ml PO DAILY PRN PRN Reason: Constipation Nicotine Polacrilex (Nicotine Polacrilex 2 Mg Gum) 4 mg BUCCAL Q2H PRN PRN Reason: Nicotine Cravings Trazodone HCl (Trazodone Hcl 50 Mg Tablet) 50 mg PO BEDTIME MRX1 PRN PRN Reason: Insomnia Allergies Allergies Allergy/AdvReac Type Severity Reaction Status Date / Time No Known Allergies Allergy Verified 06/08/24 16:40 Assessment & Plan Assessment & Plan (1) Schizophrenia: Status: Acute Code(s): F20.9 - Schizophrenia, unspecified Plan 06/09: titrate clozapine, to 50 from 25 tonight. add ativan 1 TID for catatonia. titrate as tolerated. reportedly on invega sustenna 117 per month. 06/10: refusing clozapine. DC. willing to return to lower dose abilify for now pending insurance approval of cobenfy. restart at 10 mg daily. increase ativan to 2 mg TID for catatonia. 06/11: will need PA for cobenfy. increase ativan to 3 TID for catatonia. change abilify to HS and increase dosing to 20 mg daily. less PMR. 06/12: PA denied by insurance company. no sedation from ativan dosing increase. remains slowed, but less so than at admission. signed CV yesterday. first dose of abilify 20 mg at HS tonight. continue current mgmt. 06/13: increase ativan to 4 TID for catatonia. continue regimen otherwise. remains quite slowed. 06/15/2024: No changes 06/16: remains slowed, not sedated. increase ativan to 5 TID. 06/17: PMR continues, improved from admission. not sedated. increase ativan to 4 QID. 06/18: no change from yesterday. increase ativan to 5 QID. slept 7+ hours, no sedation days. 06/19: slept 8 hours overnight, no daytime sedation. continue current mgmt. unless substance improvement overnight, will increase to 6 mg QID ativan. Reason for continued inpatient stay Substantial Risk for: inability to function and rapid decompensation Time Spent With Patient Time: Total time managing care of this patient today __25__ minutes.
[2024-06-19 19:54] VITALS: BP 137/74; PULSE 89; RESP 16; TEMP 37; O2SAT 98
[2024-06-19] MEDS: ARIPiprazole 20 MG TABLET PO (21:45)
[2024-06-20 07:36] VITALS: BP 126/67; PULSE 68; RESP 14; TEMP 36.9; O2SAT 97
[2024-06-20 08:00] VITALS: BP 126/67; PULSE 68; RESP 18; TEMP 36.9; O2SAT 97
[2024-06-20] MEDS: LORazepam 1 MG TABLET 5 MG PO (08:40)
[2024-06-20] MEDS: LORazepam 1 MG TABLET 6 MG PO ×3 (14:32→21:21)
--- NOTE | 2024-06-20 15:16 | HO.PSYCHPN ---
Subjective Subjective Date of Service: 06/20/24 Reason For Visit: catatonia Interim History: continues daily small improvements in reaction time/action time. not sedated. agreeable to increase ativan to 6 QID. per staff, slow. slept 8 hours. feeling better. Mental Status Exam Mental Status Exam Narrative: very tall and thin, in day area, wearing own clothes, adequately dressed and groomed. cooperative, though delayed in response. speech decr in rate, amount. nml loudness. decr prosody. incr latency. thoughts linear and logical. affect blunted, hypo-intense, non-labile. mood fair. no SI/SIBI/HI/AVH expressed. Diagnostics Vital Signs (24Hr): Vital Signs - 24 hr 06/19/24 19:54 06/20/24 07:36 06/20/24 08:00 Temperature 98.6 F 98.5 F 98.5 F Pulse Rate 89 68 68 Respiratory Rate 16 14 18 Blood Pressure 137/74 126/67 126/67 Pulse Oximetry 98 97 97 Oxygen Delivery Method Room Air Room Air Room Air BMI result Body Mass Index 20.5 Labs 06/08/24 16:58 06/08/24 16:58 Medications Medications Current Medications Acetaminophen (Acetaminophen 325 Mg Tablet) 650 mg PO Q6H PRN PRN Reason: Headache/Pain Mild Scale (1-3) Al Hydroxide/Mg Hydroxide (Magnesium Hydrox/Alum Hydrox 30 Ml Oral.Susp) 30 ml PO Q6H PRN PRN Reason: Heartburn/Nausea Aripiprazole (Aripiprazole 20 Mg Tablet) 20 mg PO BEDTIME [facility] Last Admin: 06/19/24 21:45 Dose: 20 mg Hydroxyzine HCl (Hydroxyzine Hcl 25 Mg Tablet) 25 mg PO Q6H PRN PRN Reason: Anxiety Lorazepam (Lorazepam 1 Mg Tablet) 6 mg PO QID [facility] Magnesium Hydroxide (Milk Of Magnesia 30 Ml Oral.Susp) 30 ml PO DAILY PRN PRN Reason: Constipation Nicotine Polacrilex (Nicotine Polacrilex 2 Mg Gum) 4 mg BUCCAL Q2H PRN PRN Reason: Nicotine Cravings Trazodone HCl (Trazodone Hcl 50 Mg Tablet) 50 mg PO BEDTIME MRX1 PRN PRN Reason: Insomnia Allergies Allergies Allergy/AdvReac Type Severity Reaction Status Date / Time No Known Allergies Allergy Verified 06/08/24 16:40 Assessment & Plan Assessment & Plan (1) Schizophrenia: Status: Acute Code(s): F20.9 - Schizophrenia, unspecified Plan 06/09: titrate clozapine, to 50 from 25 tonight. add ativan 1 TID for catatonia. titrate as tolerated. reportedly on invega sustenna 117 per month. 06/10: refusing clozapine. DC. willing to return to lower dose abilify for now pending insurance approval of cobenfy. restart at 10 mg daily. increase ativan to 2 mg TID for catatonia. 06/11: will need PA for cobenfy. increase ativan to 3 TID for catatonia. change abilify to HS and increase dosing to 20 mg daily. less PMR. 06/12: PA denied by insurance company. no sedation from ativan dosing increase. remains slowed, but less so than at admission. signed CV yesterday. first dose of abilify 20 mg at HS tonight. continue current mgmt. 06/13: increase ativan to 4 TID for catatonia. continue regimen otherwise. remains quite slowed. 06/15/2024: No changes 06/16: remains slowed, not sedated. increase ativan to 5 TID. 06/17: PMR continues, improved from admission. not sedated. increase ativan to 4 QID. 06/18: no change from yesterday. increase ativan to 5 QID. slept 7+ hours, no sedation days. 06/19: slept 8 hours overnight, no daytime sedation. continue current mgmt. unless substance improvement overnight, will increase to 6 mg QID ativan. 06/20: gradual daily improvements. remains very substantially slowed. increase ativan to 6 mg QID for catatonia. otherwise continue current mgmt. Reason for continued inpatient stay Substantial Risk for: inability to function and rapid decompensation Time Spent With Patient Time: Total time managing care of this patient today __25__ minutes.
[2024-06-20 20:00] VITALS: BP 134/73; PULSE 81; RESP 16; TEMP 36.7; O2SAT 97
[2024-06-20] MEDS: ARIPiprazole 20 MG TABLET PO (21:21)
[2024-06-21 07:30] VITALS: BP 118/59; PULSE 63; RESP 16; TEMP 36.3; O2SAT 93
--- NOTE | 2024-06-21 07:58 | HO.PSYCHPN ---
Subjective Subjective Date of Service: 06/21/24 Reason For Visit: catatonia Subjective Notes: Conditional Voluntary Interim History: Pt reports improvement in ability to move and talk. He denies paranoid ideas. He also denies psychosis. May be internally preoccupied, but not forthcoming. He is not over sedated with 24mg of ativan/day for catatonia. No behavioral concerns. Review of Systems Review of Systems Unremarkable Constitutional: Denies chills, Denies fever(s) and Denies headache(s) Denies headache(s) and Denies sore throat Cardiovascular: Denies chest pain and Denies dyspnea Respiratory: Denies cough and Denies dyspnea Gastrointestinal: Denies abdominal pain Musculoskeletal: Denies back pain Skin/Breast: Denies rash Denies headache(s) Psychiatric: Denies suicidal ideation Mental Status Exam Mental Status Exam Narrative: very tall and thin, in day area, wearing own clothes, adequately dressed and groomed. cooperative, though delayed in response. speech decr in rate, amount. nml loudness. decr prosody. incr latency. thoughts linear and logical. affect blunted, hypo-intense, non-labile. mood fair. no SI/SIBI/HI/AVH expressed. Diagnostics Vital Signs (24Hr): Vital Signs - 24 hr 06/20/24 08:00 06/20/24 20:00 Temperature 98.5 F 98.1 F Pulse Rate 68 81 Respiratory Rate 18 16 Blood Pressure 126/67 134/73 Pulse Oximetry 97 97 Oxygen Delivery Method Room Air Room Air BMI result Body Mass Index 20.5 Labs 06/08/24 16:58 06/08/24 16:58 Medications Medications Current Medications Acetaminophen (Acetaminophen 325 Mg Tablet) 650 mg PO Q6H PRN PRN Reason: Headache/Pain Mild Scale (1-3) Al Hydroxide/Mg Hydroxide (Magnesium Hydrox/Alum Hydrox 30 Ml Oral.Susp) 30 ml PO Q6H PRN PRN Reason: Heartburn/Nausea Aripiprazole (Aripiprazole 20 Mg Tablet) 20 mg PO BEDTIME [facility] Last Admin: 06/20/24 21:21 Dose: 20 mg Hydroxyzine HCl (Hydroxyzine Hcl 25 Mg Tablet) 25 mg PO Q6H PRN PRN Reason: Anxiety Lorazepam (Lorazepam 1 Mg Tablet) 6 mg PO QID [facility] Last Admin: 06/20/24 21:21 Dose: 6 mg Magnesium Hydroxide (Milk Of Magnesia 30 Ml Oral.Susp) 30 ml PO DAILY PRN PRN Reason: Constipation Nicotine Polacrilex (Nicotine Polacrilex 2 Mg Gum) 4 mg BUCCAL Q2H PRN PRN Reason: Nicotine Cravings Trazodone HCl (Trazodone Hcl 50 Mg Tablet) 50 mg PO BEDTIME MRX1 PRN PRN Reason: Insomnia Allergies Allergies Allergy/AdvReac Type Severity Reaction Status Date / Time No Known Allergies Allergy Verified 06/08/24 16:40 Assessment & Plan Assessment & Plan (1) Schizophrenia: Status: Acute Code(s): F20.9 - Schizophrenia, unspecified Plan 06/09: titrate clozapine, to 50 from 25 tonight. add ativan 1 TID for catatonia. titrate as tolerated. reportedly on invega sustenna 117 per month. 06/10: refusing clozapine. DC. willing to return to lower dose abilify for now pending insurance approval of cobenfy. restart at 10 mg daily. increase ativan to 2 mg TID for catatonia. 06/11: will need PA for cobenfy. increase ativan to 3 TID for catatonia. change abilify to HS and increase dosing to 20 mg daily. less PMR. 06/12: PA denied by insurance company. no sedation from ativan dosing increase. remains slowed, but less so than at admission. signed CV yesterday. first dose of abilify 20 mg at HS tonight. continue current mgmt. 06/13: increase ativan to 4 TID for catatonia. continue regimen otherwise. remains quite slowed. 06/15/2024: No changes 06/16: remains slowed, not sedated. increase ativan to 5 TID. 06/17: PMR continues, improved from admission. not sedated. increase ativan to 4 QID. 06/18: no change from yesterday. increase ativan to 5 QID. slept 7+ hours, no sedation days. 06/19: slept 8 hours overnight, no daytime sedation. continue current mgmt. unless substance improvement overnight, will increase to 6 mg QID ativan. 06/20: gradual daily improvements. remains very substantially slowed. increase ativan to 6 mg QID for catatonia. otherwise continue current mgmt. 06/21 continue tx. may consider ECT is partial response from benzo. Reason for continued inpatient stay Substantial Risk for: inability to function Time Spent With Patient Time: Total time managing care of this patient today ____ minutes.
[2024-06-21] MEDS: LORazepam 1 MG TABLET 6 MG PO ×4 (08:48→20:42)
[2024-06-21 19:45] VITALS: BP 115/69; PULSE 73; RESP 16; TEMP 36.4; O2SAT 96
[2024-06-21] MEDS: ARIPiprazole 20 MG TABLET PO (20:42)
[2024-06-22 08:00] VITALS: BP 116/65; PULSE 60; RESP 16; TEMP 36.6; O2SAT 97
[2024-06-22] MEDS: LORazepam 1 MG TABLET 6 MG PO ×4 (08:32→21:15)
--- NOTE | 2024-06-22 10:15 | HO.PSYCHPN ---
Subjective Subjective Date of Service: 06/22/24 Reason For Visit: catatonia Interim History: Pt reports improvement in ability to move and talk. He denies paranoid ideas. He also denies psychosis. May be internally preoccupied, but not forthcoming. He is not over sedated with 24mg of ativan/day for catatonia. No behavioral concerns. Review of Systems Review of Systems Unremarkable Constitutional: Denies chills, Denies fever(s) and Denies headache(s) Denies headache(s) and Denies sore throat Cardiovascular: Denies chest pain and Denies dyspnea Respiratory: Denies cough and Denies dyspnea Gastrointestinal: Denies abdominal pain Musculoskeletal: Denies back pain Skin/Breast: Denies rash Denies headache(s) Psychiatric: Denies suicidal ideation Mental Status Exam Mental Status Exam Narrative: very tall and thin, in day area, wearing own clothes, adequately dressed and groomed. cooperative, though delayed in response. speech decr in rate, amount. nml loudness. decr prosody. incr latency. thoughts linear and logical. affect blunted, hypo-intense, non-labile. mood fair. no SI/SIBI/HI/AVH expressed. Diagnostics Vital Signs (24Hr): Vital Signs - 24 hr 06/21/24 19:45 06/22/24 08:00 Temperature 97.6 F 97.9 F Pulse Rate 73 60 Respiratory Rate 16 16 Blood Pressure 115/69 116/65 Pulse Oximetry 96 97 Oxygen Delivery Method Room Air Room Air BMI result Body Mass Index 20.5 Labs 06/08/24 16:58 06/08/24 16:58 Medications Medications Current Medications Acetaminophen (Acetaminophen 325 Mg Tablet) 650 mg PO Q6H PRN PRN Reason: Headache/Pain Mild Scale (1-3) Al Hydroxide/Mg Hydroxide (Magnesium Hydrox/Alum Hydrox 30 Ml Oral.Susp) 30 ml PO Q6H PRN PRN Reason: Heartburn/Nausea Aripiprazole (Aripiprazole 20 Mg Tablet) 20 mg PO BEDTIME [facility] Last Admin: 06/21/24 20:42 Dose: 20 mg Hydroxyzine HCl (Hydroxyzine Hcl 25 Mg Tablet) 25 mg PO Q6H PRN PRN Reason: Anxiety Lorazepam (Lorazepam 1 Mg Tablet) 6 mg PO QID [facility] Last Admin: 06/22/24 08:32 Dose: 6 mg Magnesium Hydroxide (Milk Of Magnesia 30 Ml Oral.Susp) 30 ml PO DAILY PRN PRN Reason: Constipation Nicotine Polacrilex (Nicotine Polacrilex 2 Mg Gum) 4 mg BUCCAL Q2H PRN PRN Reason: Nicotine Cravings Trazodone HCl (Trazodone Hcl 50 Mg Tablet) 50 mg PO BEDTIME MRX1 PRN PRN Reason: Insomnia Allergies Allergies Allergy/AdvReac Type Severity Reaction Status Date / Time No Known Allergies Allergy Verified 06/08/24 16:40 Assessment & Plan Assessment & Plan (1) Schizophrenia: Status: Acute Code(s): F20.9 - Schizophrenia, unspecified Plan 06/09: titrate clozapine, to 50 from 25 tonight. add ativan 1 TID for catatonia. titrate as tolerated. reportedly on invega sustenna 117 per month. 06/10: refusing clozapine. DC. willing to return to lower dose abilify for now pending insurance approval of cobenfy. restart at 10 mg daily. increase ativan to 2 mg TID for catatonia. 06/11: will need PA for cobenfy. increase ativan to 3 TID for catatonia. change abilify to HS and increase dosing to 20 mg daily. less PMR. 06/12: PA denied by insurance company. no sedation from ativan dosing increase. remains slowed, but less so than at admission. signed CV yesterday. first dose of abilify 20 mg at HS tonight. continue current mgmt. 06/13: increase ativan to 4 TID for catatonia. continue regimen otherwise. remains quite slowed. 06/15/2024: No changes 06/16: remains slowed, not sedated. increase ativan to 5 TID. 06/17: PMR continues, improved from admission. not sedated. increase ativan to 4 QID. 06/18: no change from yesterday. increase ativan to 5 QID. slept 7+ hours, no sedation days. 06/19: slept 8 hours overnight, no daytime sedation. continue current mgmt. unless substance improvement overnight, will increase to 6 mg QID ativan. 06/20: gradual daily improvements. remains very substantially slowed. increase ativan to 6 mg QID for catatonia. otherwise continue current mgmt. 06/21 continue tx. may consider ECT is partial response from benzo. 06/22 partial response to benzos but keep in mind he is on 24mg/day, recommend to consider ECT. discuss with family and pt. Reason for continued inpatient stay Substantial Risk for: inability to function Time Spent With Patient Time: Total time managing care of this patient today ____ minutes.
[2024-06-22 20:00] VITALS: BP 133/81; PULSE 90; RESP 16; TEMP 36.8; O2SAT 99
[2024-06-22] MEDS: ARIPiprazole 20 MG TABLET PO (21:15)
[2024-06-23 07:42] VITALS: BP 126/62; PULSE 57; RESP 14; TEMP 36.7; O2SAT 97
[2024-06-23] MEDS: LORazepam 1 MG TABLET 6 MG PO (08:46)
--- NOTE | 2024-06-23 10:11 | P.PNPSI_ITS ---
Subjective Subjective Date of Service: 06/23/24 Reason For Visit: catatonia Subjective Notes: Conditional Voluntary Interim History: Pt remains worrell luggish slowed but gradually improving. Atending some grp has been on 26 mg lorazepam daily. Medication Compliance: Yes Mental Status Exam Mental Status Exam Narrative: pt casually dressed slowed mentation psychomotor retarded mood dysphoric affect constricted denies si hi aud lewis Diagnostics Vital Signs (24Hr): Vital Signs - 24 hr 06/22/24 20:00 06/23/24 07:42 Temperature 98.2 F 98.0 F Pulse Rate 90 57 Respiratory Rate 16 14 Blood Pressure 133/81 126/62 Pulse Oximetry 99 97 Oxygen Delivery Method Room Air Room Air BMI result Body Mass Index 20.5 Labs 06/08/24 16:58 06/08/24 16:58 Medications Medications Current Medications Acetaminophen (Acetaminophen 325 Mg Tablet) 650 mg PO Q6H PRN PRN Reason: Headache/Pain Mild Scale (1-3) Al Hydroxide/Mg Hydroxide (Magnesium Hydrox/Alum Hydrox 30 Ml Oral.Susp) 30 ml PO Q6H PRN PRN Reason: Heartburn/Nausea Aripiprazole (Aripiprazole 20 Mg Tablet) 20 mg PO BEDTIME [facility] Last Admin: 06/22/24 21:15 Dose: 20 mg Hydroxyzine HCl (Hydroxyzine Hcl 25 Mg Tablet) 25 mg PO Q6H PRN PRN Reason: Anxiety Lorazepam (Lorazepam 1 Mg Tablet) 6 mg PO QID [facility] Last Admin: 06/23/24 08:46 Dose: 6 mg Magnesium Hydroxide (Milk Of Magnesia 30 Ml Oral.Susp) 30 ml PO DAILY PRN PRN Reason: Constipation Nicotine Polacrilex (Nicotine Polacrilex 2 Mg Gum) 4 mg BUCCAL Q2H PRN PRN Reason: Nicotine Cravings Trazodone HCl (Trazodone Hcl 50 Mg Tablet) 50 mg PO BEDTIME MRX1 PRN PRN Reason: Insomnia Allergies Allergies Allergy/AdvReac Type Severity Reaction Status Date / Time No Known Allergies Allergy Verified 06/08/24 16:40 Assessment & Plan Assessment & Plan (1) Schizophrenia: Status: Acute Code(s): F20.9 - Schizophrenia, unspecified Plan 06/09: titrate clozapine, to 50 from 25 tonight. add ativan 1 TID for catatonia. titrate as tolerated. reportedly on invega sustenna 117 per month. 12/10: refusing clozapine. DC. willing to return to lower dose abilify for now pending insurance approval of cobenfy. restart at 10 mg daily. increase ativan to 2 mg TID for catatonia. 06/11: will need PA for cobenfy. increase ativan to 3 TID for catatonia. change abilify to HS and increase dosing to 20 mg daily. less PMR. 06/12: PA denied by insurance company. no sedation from ativan dosing increase. remains slowed, but less so than at admission. signed CV yesterday. first dose of abilify 20 mg at HS tonight. continue current mgmt. 06/13: increase ativan to 4 TID for catatonia. continue regimen otherwise. remains quite slowed. 06/15/2024: No changes 06/16: remains slowed, not sedated. increase ativan to 5 TID. 06/17: PMR continues, improved from admission. not sedated. increase ativan to 4 QID. 06/18: no change from yesterday. increase ativan to 5 QID. slept 7+ hours, no sedation days. 06/19: slept 8 hours overnight, no daytime sedation. continue current mgmt. unless substance improvement overnight, will increase to 6 mg QID ativan. 06/20: gradual daily improvements. remains very substantially slowed. increase ativan to 6 mg QID for catatonia. otherwise continue current mgmt. 06/21 continue tx. may consider ECT is partial response from benzo. 06/22 partial response to benzos but keep in mind he is on 24mg/day, recommend to consider ECT. discuss with family and pt. 06/23/24 Pt flat mild dysphoia on 24 mg lorazepam abilify 20 mg will see if pt tolerates ana 5 qid. Consider ect if relapse sx or depressive sx Reason for continued inpatient stay Substantial Risk for: inability to function and rapid decompensation Time Spent With Patient Time: Total time managing care of this patient today ____ minutes.
[2024-06-23] MEDS: LORazepam 1 MG TABLET 5 MG PO ×3 (13:02→21:29)
[2024-06-23 20:00] VITALS: BP 141/80; PULSE 98; RESP 16; TEMP 36.4; O2SAT 96
[2024-06-23] MEDS: ARIPiprazole 20 MG TABLET PO (21:28)
[2024-06-24 07:43] VITALS: BP 117/69; PULSE 61; RESP 14; TEMP 36.3; O2SAT 98
[2024-06-24] MEDS: LORazepam 1 MG TABLET 5 MG PO ×4 (08:42→21:05)
--- NOTE | 2024-06-24 09:02 | HO.PSYCHPN ---
Subjective Subjective Date of Service: 06/24/24 Reason For Visit: catatonia Subjective Notes: Conditional Voluntary Interim History: Attending groups. Pt reports feeling okay today; pt stated, I feel like I have the same level of energy even though the Ativan is less . He reports sleeping well. denies SI/HI/VH/AH. Medication Compliance: Yes Side effects from medications: No Attending Groups: Yes Review of Systems Constitutional: Reports as per HPI Eyes: Reports as per HPI Reports as per HPI Cardiovascular: Reports as per HPI Respiratory: Reports as per HPI Gastrointestinal: Reports as per HPI Genitourinary: Reports as per HPI Musculoskeletal: Reports as per HPI Skin/Breast: Reports as per HPI Reports as per HPI Psychiatric: Reports as per HPI Endocrine: Reports as per HPI Hematologic/Lymphatic: Reports as per HPI Allergic/Immunologic: Reports as per HPI Mental Status Exam Mental Status Exam Patient Appearance: Appropriate Patient Orientation: Person, Place, Time and Situation Level of Consciousness: Awake Patient Behavior: Cooperative and Good Eye Contact Mood Description: Calm Affect Description: Flat Ability to Follow Directions: Good Speech Pattern: Clear and Soft-Spoken Memory Description: Intact Hallucinations: None Thought Process: Intact Diagnostics Vital Signs (24Hr): Vital Signs - 24 hr 06/23/24 20:00 06/24/24 07:43 Temperature 97.6 F 97.3 F Pulse Rate 98 61 Respiratory Rate 16 14 Blood Pressure 141/80 H 117/69 Pulse Oximetry 96 98 Oxygen Delivery Method Room Air Room Air BMI result Body Mass Index 20.5 Labs 06/08/24 16:58 06/08/24 16:58 Medications Medications Current Medications Acetaminophen (Acetaminophen 325 Mg Tablet) 650 mg PO Q6H PRN PRN Reason: Headache/Pain Mild Scale (1-3) Al Hydroxide/Mg Hydroxide (Magnesium Hydrox/Alum Hydrox 30 Ml Oral.Susp) 30 ml PO Q6H PRN PRN Reason: Heartburn/Nausea Aripiprazole (Aripiprazole 20 Mg Tablet) 20 mg PO BEDTIME [facility] Last Admin: 06/23/24 21:28 Dose: 20 mg Hydroxyzine HCl (Hydroxyzine Hcl 25 Mg Tablet) 25 mg PO Q6H PRN PRN Reason: Anxiety Lorazepam (Lorazepam 1 Mg Tablet) 5 mg PO QID [facility] Last Admin: 06/24/24 08:42 Dose: 5 mg Magnesium Hydroxide (Milk Of Magnesia 30 Ml Oral.Susp) 30 ml PO DAILY PRN PRN Reason: Constipation Nicotine Polacrilex (Nicotine Polacrilex 2 Mg Gum) 4 mg BUCCAL Q2H PRN PRN Reason: Nicotine Cravings Trazodone HCl (Trazodone Hcl 50 Mg Tablet) 50 mg PO BEDTIME MRX1 PRN PRN Reason: Insomnia Allergies Allergies Allergy/AdvReac Type Severity Reaction Status Date / Time No Known Allergies Allergy Verified 06/08/24 16:40 Assessment & Plan Assessment & Plan (1) Schizophrenia: Status: Acute Code(s): F20.9 - Schizophrenia, unspecified Plan 06/09: titrate clozapine, to 50 from 25 tonight. add ativan 1 TID for catatonia. titrate as tolerated. reportedly on invega sustenna 117 per month. 06/10: refusing clozapine. DC. willing to return to lower dose abilify for now pending insurance approval of cobenfy. restart at 10 mg daily. increase ativan to 2 mg TID for catatonia. 06/11: will need PA for cobenfy. increase ativan to 3 TID for catatonia. change abilify to HS and increase dosing to 20 mg daily. less PMR. 06/12: PA denied by insurance company. no sedation from ativan dosing increase. remains slowed, but less so than at admission. signed CV yesterday. first dose of abilify 20 mg at HS tonight. continue current mgmt. 06/13: increase ativan to 4 TID for catatonia. continue regimen otherwise. remains quite slowed. 06/15/2024: No changes 06/16: remains slowed, not sedated. increase ativan to 5 TID. 06/17: PMR continues, improved from admission. not sedated. increase ativan to 4 QID. 06/18: no change from yesterday. increase ativan to 5 QID. slept 7+ hours, no sedation days. 06/19: slept 8 hours overnight, no daytime sedation. continue current mgmt. unless substance improvement overnight, will increase to 6 mg QID ativan. 06/20: gradual daily improvements. remains very substantially slowed. increase ativan to 6 mg QID for catatonia. otherwise continue current mgmt. 06/21 continue tx. may consider ECT is partial response from benzo. 06/22 partial response to benzos but keep in mind he is on 24mg/day, recommend to consider ECT. discuss with family and pt. 06/23/24 Pt flat mild dysphoia on 24 mg lorazepam abilify 20 mg will see if pt tolerates ana 5 qid. Consider ect if relapse sx or depressive sx 06/24: continue current tx plan. Patient educated on: medication risk/benefits Reason for continued inpatient stay Substantial Risk for: med/psych decompensation Time Spent With Patient Time: Total time managing care of this patient today _20___ minutes.
[2024-06-24 20:00] VITALS: BP 152/87; PULSE 77; RESP 16; TEMP 36.8; O2SAT 99
[2024-06-24] MEDS: ARIPiprazole 20 MG TABLET PO (21:05)
[2024-06-25 07:20] VITALS: BP 152/67; PULSE 58; RESP 14; TEMP 36.8; O2SAT 97
[2024-06-25] MEDS: LORazepam 1 MG TABLET 5 MG PO ×4 (08:56→22:11)
--- NOTE | 2024-06-25 10:54 | P.PNPSI_ITS ---
Subjective Subjective Date of Service: 06/25/24 Reason For Visit: catatonia Subjective Notes: Conditional Voluntary Interim History: Patient was seen and discussed in rounds today. Records and plans were reviewed. He is eating and sleeping adequately. No endorsement of depression or anxiety. He is more engaged and generally doing better. No complaints about anxiety. No changes were made today Review of Systems Review of Systems Yes all other systems are reviewed and are negative Mental Status Exam Mental Status Exam Narrative: In today's visit he is alert, oriented and pleasant. Normal. Moderate eye contact. Affect is appropriate and varied. No signs of psychosis. No AVH. He is able to move all his limbs. No abnormalities of gait. No SI. Cognitively intact. Judgment is intact Diagnostics Vital Signs (24Hr): Vital Signs - 24 hr 06/24/24 20:00 06/25/24 07:20 Temperature 98.3 F 98.2 F Pulse Rate 77 58 Respiratory Rate 16 14 Blood Pressure 152/87 H 152/67 H Pulse Oximetry 99 97 Oxygen Delivery Method Room Air Room Air BMI result Body Mass Index 20.5 Labs 06/08/24 16:58 06/08/24 16:58 Medications Medications Current Medications Acetaminophen (Acetaminophen 325 Mg Tablet) 650 mg PO Q6H PRN PRN Reason: Headache/Pain Mild Scale (1-3) Al Hydroxide/Mg Hydroxide (Magnesium Hydrox/Alum Hydrox 30 Ml Oral.Susp) 30 ml PO Q6H PRN PRN Reason: Heartburn/Nausea Aripiprazole (Aripiprazole 20 Mg Tablet) 20 mg PO BEDTIME [facility] Last Admin: 06/24/24 21:05 Dose: 20 mg Hydroxyzine HCl (Hydroxyzine Hcl 25 Mg Tablet) 25 mg PO Q6H PRN PRN Reason: Anxiety Lorazepam (Lorazepam 1 Mg Tablet) 5 mg PO QID [facility] Last Admin: 06/25/24 08:56 Dose: 5 mg Magnesium Hydroxide (Milk Of Magnesia 30 Ml Oral.Susp) 30 ml PO DAILY PRN PRN Reason: Constipation Nicotine Polacrilex (Nicotine Polacrilex 2 Mg Gum) 4 mg BUCCAL Q2H PRN PRN Reason: Nicotine Cravings Trazodone HCl (Trazodone Hcl 50 Mg Tablet) 50 mg PO BEDTIME MRX1 PRN PRN Reason: Insomnia Allergies Allergies Allergy/AdvReac Type Severity Reaction Status Date / Time No Known Allergies Allergy Verified 06/08/24 16:40 Assessment & Plan Assessment & Plan (1) Schizophrenia: Status: Acute Code(s): F20.9 - Schizophrenia, unspecified Plan 06/09: titrate clozapine, to 50 from 25 tonight. add ativan 1 TID for catatonia. titrate as tolerated. reportedly on invega sustenna 117 per month. 06/10: refusing clozapine. DC. willing to return to lower dose abilify for now pending insurance approval of cobenfy. restart at 10 mg daily. increase ativan to 2 mg TID for catatonia. 06/11: will need PA for cobenfy. increase ativan to 3 TID for catatonia. change abilify to HS and increase dosing to 20 mg daily. less PMR. 06/12: PA denied by insurance company. no sedation from ativan dosing increase. remains slowed, but less so than at admission. signed CV yesterday. first dose of abilify 20 mg at HS tonight. continue current mgmt. 06/13: increase ativan to 4 TID for catatonia. continue regimen otherwise. remains quite slowed. 06/15/2024: No changes 06/16: remains slowed, not sedated. increase ativan to 5 TID. 06/17: PMR continues, improved from admission. not sedated. increase ativan to 4 QID. 06/18: no change from yesterday. increase ativan to 5 QID. slept 7+ hours, no sedation days. 06/19: slept 8 hours overnight, no daytime sedation. continue current mgmt. unless substance improvement overnight, will increase to 6 mg QID ativan. 06/20: gradual daily improvements. remains very substantially slowed. increase ativan to 6 mg QID for catatonia. otherwise continue current mgmt. 06/21 continue tx. may consider ECT is partial response from benzo. 06/22 partial response to benzos but keep in mind he is on 24mg/day, recommend to consider ECT. discuss with family and pt. 06/23/24 Pt flat mild dysphoia on 24 mg lorazepam abilify 20 mg will see if pt tolerates ana 5 qid. Consider ect if relapse sx or depressive sx 06/24: continue current tx plan. 06/25: Continue current regimen and plans Reason for continued inpatient stay Substantial Risk for: med/psych decompensation Time Spent With Patient Time: Total time managing care of this patient today ____ minutes.
[2024-06-25 20:35] VITALS: BP 137/70; PULSE 78; TEMP 36.1; O2SAT 98
[2024-06-25] MEDS: ARIPiprazole 20 MG TABLET PO (22:11)
[2024-06-26 07:00] VITALS: BMI 21.0
[2024-06-26 07:42] VITALS: BP 134/62; PULSE 59; RESP 14; TEMP 36.4; O2SAT 97
[2024-06-26] MEDS: LORazepam 1 MG TABLET 5 MG PO ×2 (08:48→12:36)
--- NOTE | 2024-06-26 15:38 | P.PNPSI_ITS ---
Subjective Subjective Date of Service: 06/26/24 Reason For Visit: catatonia Interim History: less PMR than when last seen by this real estate underwriter. agreeable to further ativan reduction. per staff, less verbal. giggly. slept 7 hours. Mental Status Exam Mental Status Exam Narrative: very tall and thin, in day area, wearing own clothes, adequately dressed and groomed. cooperative, though delayed in response. speech decr in rate, amount. nml loudness. decr prosody. incr latency. thoughts linear and logical. affect blunted, hypo-intense, non-labile. mood fair. no SI/SIBI/HI/AVH expressed. Diagnostics Vital Signs (24Hr): Vital Signs - 24 hr 06/25/24 20:35 06/26/24 07:42 Temperature 97.0 F 97.5 F Pulse Rate 78 59 Respiratory Rate 14 Blood Pressure 137/70 134/62 Pulse Oximetry 98 97 Oxygen Delivery Method Room Air Room Air BMI result Body Mass Index 20.5 Labs 06/08/24 16:58 06/08/24 16:58 Medications Medications Current Medications Acetaminophen (Acetaminophen 325 Mg Tablet) 650 mg PO Q6H PRN PRN Reason: Headache/Pain Mild Scale (1-3) Al Hydroxide/Mg Hydroxide (Magnesium Hydrox/Alum Hydrox 30 Ml Oral.Susp) 30 ml PO Q6H PRN PRN Reason: Heartburn/Nausea Aripiprazole (Aripiprazole 20 Mg Tablet) 20 mg PO BEDTIME [facility] Last Admin: 06/25/24 22:11 Dose: 20 mg Hydroxyzine HCl (Hydroxyzine Hcl 25 Mg Tablet) 25 mg PO Q6H PRN PRN Reason: Anxiety Lorazepam (Lorazepam 1 Mg Tablet) 4 mg PO QID [facility] Magnesium Hydroxide (Milk Of Magnesia 30 Ml Oral.Susp) 30 ml PO DAILY PRN PRN Reason: Constipation Nicotine Polacrilex (Nicotine Polacrilex 2 Mg Gum) 4 mg BUCCAL Q2H PRN PRN Reason: Nicotine Cravings Trazodone HCl (Trazodone Hcl 50 Mg Tablet) 50 mg PO BEDTIME MRX1 PRN PRN Reason: Insomnia Allergies Allergies Allergy/AdvReac Type Severity Reaction Status Date / Time No Known Allergies Allergy Verified 06/08/24 16:40 Assessment & Plan Assessment & Plan (1) Schizophrenia: Status: Acute Code(s): F20.9 - Schizophrenia, unspecified Plan 06/09: titrate clozapine, to 50 from 25 tonight. add ativan 1 TID for catatonia. titrate as tolerated. reportedly on invega sustenna 117 per month. 06/10: refusing clozapine. DC. willing to return to lower dose abilify for now pending insurance approval of cobenfy. restart at 10 mg daily. increase ativan to 2 mg TID for catatonia. 06/11: will need PA for cobenfy. increase ativan to 3 TID for catatonia. change abilify to HS and increase dosing to 20 mg daily. less PMR. 06/12: PA denied by insurance company. no sedation from ativan dosing increase. remains slowed, but less so than at admission. signed CV yesterday. first dose of abilify 20 mg at HS tonight. continue current mgmt. 06/13: increase ativan to 4 TID for catatonia. continue regimen otherwise. remains quite slowed. 06/15/2024: No changes 06/16: remains slowed, not sedated. increase ativan to 5 TID. 06/17: PMR continues, improved from admission. not sedated. increase ativan to 4 QID. 06/18: no change from yesterday. increase ativan to 5 QID. slept 7+ hours, no sedation days. 06/19: slept 8 hours overnight, no daytime sedation. continue current mgmt. unless substance improvement overnight, will increase to 6 mg QID ativan. 06/20: gradual daily improvements. remains very substantially slowed. increase ativan to 6 mg QID for catatonia. otherwise continue current mgmt. 06/21 continue tx. may consider ECT is partial response from benzo. 06/22 partial response to benzos but keep in mind he is on 24mg/day, recommend to consider ECT. discuss with family and pt. 06/23/24 Pt flat mild dysphoia on 24 mg lorazepam abilify 20 mg will see if pt tolerates ana 5 qid. Consider ect if relapse sx or depressive sx 06/24: continue current tx plan. 06/25: Continue current regimen and plans 06/26: less PMR than when last seen by this real estate underwriter 06/20. decrease ativan to 4 mg QID for the next several days. Reason for continued inpatient stay Substantial Risk for: inability to function and rapid decompensation Time Spent With Patient Time: Total time managing care of this patient today __25__ minutes.
[2024-06-26] MEDS: LORazepam 1 MG TABLET 4 MG PO ×2 (18:08→21:31)
[2024-06-26 20:00] VITALS: BP 136/82; PULSE 71; RESP 16; TEMP 36.8; O2SAT 100
[2024-06-26] MEDS: ARIPiprazole 20 MG TABLET PO (21:31)
[2024-06-27 07:45] VITALS: BP 129/58; PULSE 63; RESP 14; TEMP 36.7; O2SAT 96
[2024-06-27] MEDS: LORazepam 1 MG TABLET 4 MG PO ×4 (08:16→20:43)
--- NOTE | 2024-06-27 12:48 | P.PNPSI_ITS ---
Subjective Subjective Date of Service: 06/27/24 Reason For Visit: catatonia Interim History: remains as for yesterday, improved from admission, but notably slowed from a normal person's reaction time. denies any issues with ativan taper. informed of plan to continue current ativan dosing through sunday. per staff, bright, visible. taking medications. less latency. slept 8 hours overnight. Mental Status Exam Mental Status Exam Narrative: very tall and thin, in day area, wearing own clothes, adequately dressed and groomed. cooperative, though delayed in response. speech decr in rate, amount. nml loudness. decr prosody. incr latency. thoughts linear and logical. affect blunted, hypo-intense, non-labile. mood fair. no SI/SIBI/HI/AVH expressed. Diagnostics Vital Signs (24Hr): Vital Signs - 24 hr 06/26/24 20:00 06/27/24 07:45 Temperature 98.2 F 98.1 F Pulse Rate 71 63 Respiratory Rate 16 14 Blood Pressure 136/82 129/58 L Pulse Oximetry 100 96 Oxygen Delivery Method Room Air Room Air BMI result Body Mass Index 21.0 Labs 06/08/24 16:58 06/08/24 16:58 Medications Medications Current Medications Acetaminophen (Acetaminophen 325 Mg Tablet) 650 mg PO Q6H PRN PRN Reason: Headache/Pain Mild Scale (1-3) Al Hydroxide/Mg Hydroxide (Magnesium Hydrox/Alum Hydrox 30 Ml Oral.Susp) 30 ml PO Q6H PRN PRN Reason: Heartburn/Nausea Aripiprazole (Aripiprazole 20 Mg Tablet) 20 mg PO BEDTIME [facility] Last Admin: 06/26/24 21:31 Dose: 20 mg Hydroxyzine HCl (Hydroxyzine Hcl 25 Mg Tablet) 25 mg PO Q6H PRN PRN Reason: Anxiety Lorazepam (Lorazepam 1 Mg Tablet) 4 mg PO QID [facility] Last Admin: 06/27/24 08:16 Dose: 4 mg Magnesium Hydroxide (Milk Of Magnesia 30 Ml Oral.Susp) 30 ml PO DAILY PRN PRN Reason: Constipation Nicotine Polacrilex (Nicotine Polacrilex 2 Mg Gum) 4 mg BUCCAL Q2H PRN PRN Reason: Nicotine Cravings Trazodone HCl (Trazodone Hcl 50 Mg Tablet) 50 mg PO BEDTIME MRX1 PRN PRN Reason: Insomnia Allergies Allergies Allergy/AdvReac Type Severity Reaction Status Date / Time No Known Allergies Allergy Verified 06/08/24 16:40 Assessment & Plan Assessment & Plan (1) Schizophrenia: Status: Acute Code(s): F20.9 - Schizophrenia, unspecified Plan 06/09: titrate clozapine, to 50 from 25 tonight. add ativan 1 TID for catatonia. titrate as tolerated. reportedly on invega sustenna 117 per month. 06/10: refusing clozapine. DC. willing to return to lower dose abilify for now pending insurance approval of cobenfy. restart at 10 mg daily. increase ativan to 2 mg TID for catatonia. 06/11: will need PA for cobenfy. increase ativan to 3 TID for catatonia. change abilify to HS and increase dosing to 20 mg daily. less PMR. 06/12: PA denied by insurance company. no sedation from ativan dosing increase. remains slowed, but less so than at admission. signed CV yesterday. first dose of abilify 20 mg at HS tonight. continue current mgmt. 06/13: increase ativan to 4 TID for catatonia. continue regimen otherwise. remains quite slowed. 06/15/2024: No changes 06/16: remains slowed, not sedated. increase ativan to 5 TID. 06/17: PMR continues, improved from admission. not sedated. increase ativan to 4 QID. 06/18: no change from yesterday. increase ativan to 5 QID. slept 7+ hours, no sedation days. 06/19: slept 8 hours overnight, no daytime sedation. continue current mgmt. unless substance improvement overnight, will increase to 6 mg QID ativan. 06/20: gradual daily improvements. remains very substantially slowed. increase ativan to 6 mg QID for catatonia. otherwise continue current mgmt. 06/21 continue tx. may consider ECT is partial response from benzo. 06/22 partial response to benzos but keep in mind he is on 24mg/day, recommend to consider ECT. discuss with family and pt. 06/23/24 Pt flat mild dysphoia on 24 mg lorazepam abilify 20 mg will see if pt tolerates ana 5 qid. Consider ect if relapse sx or depressive sx 06/24: continue current tx plan. 06/25: Continue current regimen and plans 06/26: less PMR than when last seen by this marine underwriter 06/20. decrease ativan to 4 mg QID for the next several days. 06/27: as for yesterday. continue current ativan dosing of 4 QID through next time this marine underwriter will see pt, 07/01 morning, unless otherwise indicated. plan to continue taper sunday 07/01. Reason for continued inpatient stay Substantial Risk for: inability to function and rapid decompensation Time Spent With Patient Time: Total time managing care of this patient today _25___ minutes.
[2024-06-27 20:00] VITALS: BP 140/78; PULSE 70; RESP 18; TEMP 36.7; O2SAT 98
[2024-06-27] MEDS: ARIPiprazole 20 MG TABLET PO (20:43)
[2024-06-28 07:55] VITALS: BP 107/52; PULSE 67; RESP 14; TEMP 36.2; O2SAT 96
[2024-06-28] MEDS: LORazepam 1 MG TABLET 4 MG PO ×4 (08:39→20:18)
--- NOTE | 2024-06-28 10:38 | HO.PSYCHPN ---
Subjective Subjective Date of Service: 06/28/24 Reason For Visit: catatonia Interim History: Patient seen and discussed. He is visible on the unit. Quiet. Keeps mostly to himself. Says his mood is Pleasant and improved compared to admission. He denies AVH. He is adherent to medications. Has some latency in responding to questions. Plan to continue current ativan dosing through Sunday. Sleep is improved. Showered. Review of Systems Review of Systems Unremarkable Yes all other systems are reviewed and are negative Constitutional: Reports as per HPI, Denies chills, Denies fever(s) and Denies headache(s) Eyes: Reports as per HPI Reports as per HPI, Denies headache(s) and Denies sore throat Cardiovascular: Reports as per HPI, Denies chest pain and Denies dyspnea Respiratory: Reports as per HPI, Denies cough and Denies dyspnea Gastrointestinal: Reports as per HPI and Denies abdominal pain Genitourinary: Reports as per HPI Musculoskeletal: Reports as per HPI and Denies back pain Skin/Breast: Reports as per HPI and Denies rash Reports as per HPI and Denies headache(s) Psychiatric: Reports as per HPI and Denies suicidal ideation Endocrine: Reports as per HPI Hematologic/Lymphatic: Reports as per HPI Allergic/Immunologic: Reports as per HPI Mental Status Exam Mental Status Exam Narrative: very tall and thin, in day area, wearing own clothes, adequately dressed and groomed. cooperative, though delayed in response. speech decr in rate, amount. nml loudness. decr prosody. incr latency. thoughts linear and logical. affect blunted, hypo-intense, non-labile. mood fair. no SI/SIBI/HI/AVH expressed. Patient Appearance: Appropriate Patient Orientation: Person, Place, Time and Situation Level of Consciousness: Awake Patient Behavior: Cooperative and Good Eye Contact Mood Description: Calm Affect Description: Flat Ability to Follow Directions: Good Speech Pattern: Clear and Soft-Spoken Memory Description: Intact Diagnostics Vital Signs (24Hr): Vital Signs - 24 hr 06/27/24 20:00 06/28/24 07:55 Temperature 98.0 F 97.2 F Pulse Rate 70 67 Respiratory Rate 18 14 Blood Pressure 140/78 H 107/52 L Pulse Oximetry 98 96 Oxygen Delivery Method Room Air Room Air BMI result Body Mass Index 21.0 Labs 06/08/24 16:58 06/08/24 16:58 Medications Medications Current Medications Acetaminophen (Acetaminophen 325 Mg Tablet) 650 mg PO Q6H PRN PRN Reason: Headache/Pain Mild Scale (1-3) Al Hydroxide/Mg Hydroxide (Magnesium Hydrox/Alum Hydrox 30 Ml Oral.Susp) 30 ml PO Q6H PRN PRN Reason: Heartburn/Nausea Aripiprazole (Aripiprazole 20 Mg Tablet) 20 mg PO BEDTIME [facility] Last Admin: 06/27/24 20:43 Dose: 20 mg Hydroxyzine HCl (Hydroxyzine Hcl 25 Mg Tablet) 25 mg PO Q6H PRN PRN Reason: Anxiety Lorazepam (Lorazepam 1 Mg Tablet) 4 mg PO QID [facility] Last Admin: 06/28/24 08:39 Dose: 4 mg Magnesium Hydroxide (Milk Of Magnesia 30 Ml Oral.Susp) 30 ml PO DAILY PRN PRN Reason: Constipation Nicotine Polacrilex (Nicotine Polacrilex 2 Mg Gum) 4 mg BUCCAL Q2H PRN PRN Reason: Nicotine Cravings Trazodone HCl (Trazodone Hcl 50 Mg Tablet) 50 mg PO BEDTIME MRX1 PRN PRN Reason: Insomnia Allergies Allergies Allergy/AdvReac Type Severity Reaction Status Date / Time No Known Allergies Allergy Verified 06/08/24 16:40 Assessment & Plan Assessment & Plan (1) Schizophrenia: Status: Acute Code(s): F20.9 - Schizophrenia, unspecified Plan 06/09: titrate clozapine, to 50 from 25 tonight. add ativan 1 TID for catatonia. titrate as tolerated. reportedly on invega sustenna 117 per month. 06/10: refusing clozapine. DC. willing to return to lower dose abilify for now pending insurance approval of cobenfy. restart at 10 mg daily. increase ativan to 2 mg TID for catatonia. 06/11: will need PA for cobenfy. increase ativan to 3 TID for catatonia. change abilify to HS and increase dosing to 20 mg daily. less PMR. 06/12: PA denied by insurance company. no sedation from ativan dosing increase. remains slowed, but less so than at admission. signed CV yesterday. first dose of abilify 20 mg at HS tonight. continue current mgmt. 06/13: increase ativan to 4 TID for catatonia. continue regimen otherwise. remains quite slowed. 06/15/2024: No changes 06/16: remains slowed, not sedated. increase ativan to 5 TID. 06/17: PMR continues, improved from admission. not sedated. increase ativan to 4 QID. 06/18: no change from yesterday. increase ativan to 5 QID. slept 7+ hours, no sedation days. 06/19: slept 8 hours overnight, no daytime sedation. continue current mgmt. unless substance improvement overnight, will increase to 6 mg QID ativan. 06/20: gradual daily improvements. remains very substantially slowed. increase ativan to 6 mg QID for catatonia. otherwise continue current mgmt. 06/21 continue tx. may consider ECT is partial response from benzo. 06/22 partial response to benzos but keep in mind he is on 24mg/day, recommend to consider ECT. discuss with family and pt. 06/23/24 Pt flat mild dysphoia on 24 mg lorazepam abilify 20 mg will see if pt tolerates ana 5 qid. Consider ect if relapse sx or depressive sx 06/24: continue current tx plan. 06/25: Continue current regimen and plans 06/26: less PMR than when last seen by this technical writer 06/20. decrease ativan to 4 mg QID for the next several days. 06/27: as for yesterday. continue current ativan dosing of 4 QID through next time this technical writer will see pt, 07/01 morning, unless otherwise indicated. plan to continue taper sunday 07/01. 06/28: Continue current management and treatment plan. Reason for continued inpatient stay Substantial Risk for: harm to self, inability to function, rapid decompensation and med/psych decompensation Time Spent With Patient Time: Total time managing care of this patient today ____ minutes.
[2024-06-28 20:00] VITALS: BP 141/80; PULSE 90; RESP 18; TEMP 36.7; O2SAT 100
[2024-06-28] MEDS: ARIPiprazole 20 MG TABLET PO (20:18)
[2024-06-29 08:00] VITALS: BP 135/60; PULSE 58; RESP 14; TEMP 36.4; O2SAT 96
[2024-06-29] MEDS: LORazepam 1 MG TABLET 4 MG PO ×4 (08:30→19:56)
--- NOTE | 2024-06-29 09:58 | P.PNPSI_ITS ---
Subjective Subjective Date of Service: 06/29/24 Reason For Visit: catatonia Interim History: Patient seen and discussed. Reports he is well. Visible in the milieu although doesn't interact a lot with others. Denies any complaints. No sedation. Keeps mostly to himself. Says his mood is good and improved compared to admission. He denies AVH. He is adherent to medications. Plan to continue current ativan dosing through Sunday. Sleep is good. Review of Systems Review of Systems Unremarkable Yes all other systems are reviewed and are negative Constitutional: Reports as per HPI, Denies chills, Denies fever(s) and Denies headache(s) Eyes: Reports as per HPI Reports as per HPI, Denies headache(s) and Denies sore throat Cardiovascular: Reports as per HPI, Denies chest pain and Denies dyspnea Respiratory: Reports as per HPI, Denies cough and Denies dyspnea Gastrointestinal: Reports as per HPI and Denies abdominal pain Genitourinary: Reports as per HPI Musculoskeletal: Reports as per HPI and Denies back pain Skin/Breast: Reports as per HPI and Denies rash Reports as per HPI and Denies headache(s) Psychiatric: Reports as per HPI and Denies suicidal ideation Endocrine: Reports as per HPI Hematologic/Lymphatic: Reports as per HPI Allergic/Immunologic: Reports as per HPI Mental Status Exam Mental Status Exam Narrative: very tall and thin, in day area, wearing own clothes, adequately dressed and groomed. cooperative, though delayed in response. speech decr in rate, amount. nml loudness. decr prosody. incr latency. thoughts linear and logical. affect blunted, hypo-intense, non-labile. mood fair. no SI/SIBI/HI/AVH expressed. Patient Appearance: Appropriate Patient Orientation: Person, Place, Time and Situation Level of Consciousness: Awake Patient Behavior: Cooperative and Good Eye Contact Mood Description: Calm Affect Description: Flat Ability to Follow Directions: Good Speech Pattern: Clear and Soft-Spoken Memory Description: Intact Diagnostics Vital Signs (24Hr): Vital Signs - 24 hr 06/28/24 20:00 06/29/24 08:00 Temperature 98.1 F 97.6 F Pulse Rate 90 58 Respiratory Rate 18 14 Blood Pressure 141/80 H 135/60 Pulse Oximetry 100 96 Oxygen Delivery Method Room Air Room Air BMI result Body Mass Index 21.0 Labs 06/08/24 16:58 06/08/24 16:58 Medications Medications Current Medications Acetaminophen (Acetaminophen 325 Mg Tablet) 650 mg PO Q6H PRN PRN Reason: Headache/Pain Mild Scale (1-3) Al Hydroxide/Mg Hydroxide (Magnesium Hydrox/Alum Hydrox 30 Ml Oral.Susp) 30 ml PO Q6H PRN PRN Reason: Heartburn/Nausea Aripiprazole (Aripiprazole 20 Mg Tablet) 20 mg PO BEDTIME [facility] Last Admin: 06/28/24 20:18 Dose: 20 mg Hydroxyzine HCl (Hydroxyzine Hcl 25 Mg Tablet) 25 mg PO Q6H PRN PRN Reason: Anxiety Lorazepam (Lorazepam 1 Mg Tablet) 4 mg PO QID [facility] Last Admin: 06/29/24 08:30 Dose: 4 mg Magnesium Hydroxide (Milk Of Magnesia 30 Ml Oral.Susp) 30 ml PO DAILY PRN PRN Reason: Constipation Nicotine Polacrilex (Nicotine Polacrilex 2 Mg Gum) 4 mg BUCCAL Q2H PRN PRN Reason: Nicotine Cravings Trazodone HCl (Trazodone Hcl 50 Mg Tablet) 50 mg PO BEDTIME MRX1 PRN PRN Reason: Insomnia Allergies Allergies Allergy/AdvReac Type Severity Reaction Status Date / Time No Known Allergies Allergy Verified 06/08/24 16:40 Assessment & Plan Assessment & Plan (1) Schizophrenia: Status: Acute Code(s): F20.9 - Schizophrenia, unspecified Plan 06/09: titrate clozapine, to 50 from 25 tonight. add ativan 1 TID for catatonia. titrate as tolerated. reportedly on invega sustenna 117 per month. 06/10: refusing clozapine. DC. willing to return to lower dose abilify for now pending insurance approval of cobenfy. restart at 10 mg daily. increase ativan to 2 mg TID for catatonia. 06/11: will need PA for cobenfy. increase ativan to 3 TID for catatonia. change abilify to HS and increase dosing to 20 mg daily. less PMR. 06/12: PA denied by insurance company. no sedation from ativan dosing increase. remains slowed, but less so than at admission. signed CV yesterday. first dose of abilify 20 mg at HS tonight. continue current mgmt. 06/13: increase ativan to 4 TID for catatonia. continue regimen otherwise. remains quite slowed. 06/15/2024: No changes 06/16: remains slowed, not sedated. increase ativan to 5 TID. 06/17: PMR continues, improved from admission. not sedated. increase ativan to 4 QID. 06/18: no change from yesterday. increase ativan to 5 QID. slept 7+ hours, no sedation days. 06/19: slept 8 hours overnight, no daytime sedation. continue current mgmt. unless substance improvement overnight, will increase to 6 mg QID ativan. 06/20: gradual daily improvements. remains very substantially slowed. increase ativan to 6 mg QID for catatonia. otherwise continue current mgmt. 06/21 continue tx. may consider ECT is partial response from benzo. 06/22 partial response to benzos but keep in mind he is on 24mg/day, recommend to consider ECT. discuss with family and pt. 06/23/24 Pt flat mild dysphoia on 24 mg lorazepam abilify 20 mg will see if pt tolerates ana 5 qid. Consider ect if relapse sx or depressive sx 06/24: continue current tx plan. 06/25: Continue current regimen and plans 06/26: less PMR than when last seen by this personal lines underwriter 06/20. decrease ativan to 4 mg QID for the next several days. 06/27: as for yesterday. continue current ativan dosing of 4 QID through next time this personal lines underwriter will see pt, 07/01 morning, unless otherwise indicated. plan to continue taper sunday 07/01. 06/28: Continue current management and treatment plan. 06/29: continue current management and treatment plan. Reason for continued inpatient stay Substantial Risk for: inability to function, rapid decompensation and med/psych decompensation Time Spent With Patient Time: Total time managing care of this patient today ____ minutes.
[2024-06-29] MEDS: ARIPiprazole 20 MG TABLET PO (19:56)
[2024-06-29 20:00] VITALS: BP 151/83; PULSE 84; RESP 15; TEMP 37.4; O2SAT 99
[2024-06-30 08:20] VITALS: BP 120/58; PULSE 68; RESP 16; TEMP 36.6; O2SAT 95
[2024-06-30] MEDS: LORazepam 1 MG TABLET 4 MG PO ×4 (08:39→20:51)
--- NOTE | 2024-06-30 09:43 | P.PNPSI_ITS ---
Subjective Subjective Date of Service: 06/30/24 Reason For Visit: catatonia Subjective Notes: Conditional Voluntary Interim History: Active on unit, attending groups. Patient reports feeling good ; denies any side effects from ativan taper. Pt stated, I'm waiting for it to be done so I can go home. I plan on going for walks outside when I leave . He reports sleeping well. denies any issues at this time. Medication Compliance: Yes Side effects from medications: No Attending Groups: Yes Review of Systems Constitutional: Reports as per HPI Eyes: Reports as per HPI Reports as per HPI Cardiovascular: Reports as per HPI Respiratory: Reports as per HPI Gastrointestinal: Reports as per HPI Genitourinary: Reports as per HPI Musculoskeletal: Reports as per HPI Skin/Breast: Reports as per HPI Reports as per HPI Psychiatric: Reports as per HPI Endocrine: Reports as per HPI Hematologic/Lymphatic: Reports as per HPI Allergic/Immunologic: Reports as per HPI Mental Status Exam Mental Status Exam Patient Appearance: Appropriate Patient Orientation: Person, Place, Time and Situation Level of Consciousness: Awake and Alert Patient Behavior: Appropriate and Cooperative Mood Description: Calm Affect Description: Blunted Ability to Follow Directions: Good Speech Pattern: Clear, Soft-Spoken and Long Pauses Memory Description: Intact Hallucinations: None Thought Process: Intact Thought Content: positive for Intact Diagnostics Vital Signs (24Hr): Vital Signs - 24 hr 06/29/24 20:00 Temperature 99.3 F Pulse Rate 84 Respiratory Rate 15 Blood Pressure 151/83 H Pulse Oximetry 99 BMI result Body Mass Index 21.0 Labs 06/08/24 16:58 06/08/24 16:58 Medications Medications Current Medications Acetaminophen (Acetaminophen 325 Mg Tablet) 650 mg PO Q6H PRN PRN Reason: Headache/Pain Mild Scale (1-3) Al Hydroxide/Mg Hydroxide (Magnesium Hydrox/Alum Hydrox 30 Ml Oral.Susp) 30 ml PO Q6H PRN PRN Reason: Heartburn/Nausea Aripiprazole (Aripiprazole 20 Mg Tablet) 20 mg PO BEDTIME [facility] Last Admin: 06/29/24 19:56 Dose: 20 mg Hydroxyzine HCl (Hydroxyzine Hcl 25 Mg Tablet) 25 mg PO Q6H PRN PRN Reason: Anxiety Lorazepam (Lorazepam 1 Mg Tablet) 4 mg PO QID [facility] Last Admin: 06/30/24 08:39 Dose: 4 mg Magnesium Hydroxide (Milk Of Magnesia 30 Ml Oral.Susp) 30 ml PO DAILY PRN PRN Reason: Constipation Nicotine Polacrilex (Nicotine Polacrilex 2 Mg Gum) 4 mg BUCCAL Q2H PRN PRN Reason: Nicotine Cravings Trazodone HCl (Trazodone Hcl 50 Mg Tablet) 50 mg PO BEDTIME MRX1 PRN PRN Reason: Insomnia Allergies Allergies Allergy/AdvReac Type Severity Reaction Status Date / Time No Known Allergies Allergy Verified 06/08/24 16:40 Assessment & Plan Assessment & Plan (1) Schizophrenia: Status: Acute Code(s): F20.9 - Schizophrenia, unspecified Plan 06/09: titrate clozapine, to 50 from 25 tonight. add ativan 1 TID for catatonia. titrate as tolerated. reportedly on invega sustenna 117 per month. 06/10: refusing clozapine. DC. willing to return to lower dose abilify for now pending insurance approval of cobenfy. restart at 10 mg daily. increase ativan to 2 mg TID for catatonia. 06/11: will need PA for cobenfy. increase ativan to 3 TID for catatonia. change abilify to HS and increase dosing to 20 mg daily. less PMR. 06/12: PA denied by insurance company. no sedation from ativan dosing increase. remains slowed, but less so than at admission. signed CV yesterday. first dose of abilify 20 mg at HS tonight. continue current mgmt. 06/13: increase ativan to 4 TID for catatonia. continue regimen otherwise. remains quite slowed. 06/15/2024: No changes 06/16: remains slowed, not sedated. increase ativan to 5 TID. 06/17: PMR continues, improved from admission. not sedated. increase ativan to 4 QID. 06/18: no change from yesterday. increase ativan to 5 QID. slept 7+ hours, no sedation days. 06/19: slept 8 hours overnight, no daytime sedation. continue current mgmt. unless substance improvement overnight, will increase to 6 mg QID ativan. 06/20: gradual daily improvements. remains very substantially slowed. increase ativan to 6 mg QID for catatonia. otherwise continue current mgmt. 06/21 continue tx. may consider ECT is partial response from benzo. 06/22 partial response to benzos but keep in mind he is on 24mg/day, recommend to consider ECT. discuss with family and pt. 06/23/24 Pt flat mild dysphoia on 24 mg lorazepam abilify 20 mg will see if pt tolerates ana 5 qid. Consider ect if relapse sx or depressive sx 06/24: continue current tx plan. 06/25: Continue current regimen and plans 06/26: less PMR than when last seen by this technical proposal writer 06/20. decrease ativan to 4 mg QID for the next several days. 06/27: as for yesterday. continue current ativan dosing of 4 QID through next time this technical proposal writer will see pt, 07/01 morning, unless otherwise indicated. plan to continue taper sunday 07/01. 06/28: Continue current management and treatment plan. 06/29: continue current management and treatment plan. 06/30: continue current tx plan Patient educated on: diagnosis and medication risk/benefits Reason for continued inpatient stay Substantial Risk for: med/psych decompensation Time Spent With Patient Time: Total time managing care of this patient today _20___ minutes.
[2024-06-30 19:43] VITALS: BP 146/78; PULSE 75; RESP 16; TEMP 36.2; O2SAT 96
[2024-06-30] MEDS: ARIPiprazole 20 MG TABLET PO (20:51)
[2024-07-01 07:35] VITALS: BP 115/58; PULSE 57; RESP 14; TEMP 36.6; O2SAT 97
[2024-07-01] MEDS: LORazepam 1 MG TABLET 4 MG PO ×3 (08:38→20:43)
[2024-07-01 19:15] VITALS: BP 151/82; PULSE 83; RESP 16; TEMP 37.3; O2SAT 98
--- NOTE | 2024-07-01 19:58 | P.PNPSI_ITS ---
Subjective Subjective Date of Service: 07/01/24 Reason For Visit: catatonia Interim History: remains as was last week. asks to decrease ativan, agrees to decrease from 16 mg daily to 12 mg daily. asking about discharge, informed perhaps another 1.5 weeks. per staff, brighter, slept 8 hours. Mental Status Exam Mental Status Exam Narrative: very tall and thin, in day area, wearing own clothes, adequately dressed and groomed. cooperative, though delayed in response. speech decr in rate, amount. nml loudness. decr prosody. incr latency. thoughts linear and logical. affect blunted, hypo-intense, non-labile. mood fair. no SI/SIBI/HI/AVH expressed. Diagnostics Vital Signs (24Hr): Vital Signs - 24 hr 07/01/24 07:35 Temperature 97.8 F Pulse Rate 57 Respiratory Rate 14 Blood Pressure 115/58 L Pulse Oximetry 97 Oxygen Delivery Method Room Air BMI result Body Mass Index 21.0 Labs 06/08/24 16:58 06/08/24 16:58 Medications Medications Current Medications Acetaminophen (Acetaminophen 325 Mg Tablet) 650 mg PO Q6H PRN PRN Reason: Headache/Pain Mild Scale (1-3) Al Hydroxide/Mg Hydroxide (Magnesium Hydrox/Alum Hydrox 30 Ml Oral.Susp) 30 ml PO Q6H PRN PRN Reason: Heartburn/Nausea Aripiprazole (Aripiprazole 20 Mg Tablet) 20 mg PO BEDTIME [facility] Last Admin: 06/30/24 20:51 Dose: 20 mg Hydroxyzine HCl (Hydroxyzine Hcl 25 Mg Tablet) 25 mg PO Q6H PRN PRN Reason: Anxiety Lorazepam (Lorazepam 1 Mg Tablet) 4 mg PO TID [facility] Last Admin: 07/01/24 15:10 Dose: 4 mg Magnesium Hydroxide (Milk Of Magnesia 30 Ml Oral.Susp) 30 ml PO DAILY PRN PRN Reason: Constipation Nicotine Polacrilex (Nicotine Polacrilex 2 Mg Gum) 4 mg BUCCAL Q2H PRN PRN Reason: Nicotine Cravings Trazodone HCl (Trazodone Hcl 50 Mg Tablet) 50 mg PO BEDTIME MRX1 PRN PRN Reason: Insomnia Allergies Allergies Allergy/AdvReac Type Severity Reaction Status Date / Time No Known Allergies Allergy Verified 06/08/24 16:40 Assessment & Plan Assessment & Plan (1) Schizophrenia: Status: Acute Code(s): F20.9 - Schizophrenia, unspecified Plan 06/09: titrate clozapine, to 50 from 25 tonight. add ativan 1 TID for catatonia. titrate as tolerated. reportedly on invega sustenna 117 per month. 06/10: refusing clozapine. DC. willing to return to lower dose abilify for now pending insurance approval of cobenfy. restart at 10 mg daily. increase ativan to 2 mg TID for catatonia. 06/11: will need PA for cobenfy. increase ativan to 3 TID for catatonia. change abilify to HS and increase dosing to 20 mg daily. less PMR. 06/12: PA denied by insurance company. no sedation from ativan dosing increase. remains slowed, but less so than at admission. signed CV yesterday. first dose of abilify 20 mg at HS tonight. continue current mgmt. 06/13: increase ativan to 4 TID for catatonia. continue regimen otherwise. remains quite slowed. 06/15/2024: No changes 06/16: remains slowed, not sedated. increase ativan to 5 TID. 06/17: PMR continues, improved from admission. not sedated. increase ativan to 4 QID. 06/18: no change from yesterday. increase ativan to 5 QID. slept 7+ hours, no sedation days. 06/19: slept 8 hours overnight, no daytime sedation. continue current mgmt. unless substance improvement overnight, will increase to 6 mg QID ativan. 06/20: gradual daily improvements. remains very substantially slowed. increase ativan to 6 mg QID for catatonia. otherwise continue current mgmt. 06/21 continue tx. may consider ECT is partial response from benzo. 06/22 partial response to benzos but keep in mind he is on 24mg/day, recommend to consider ECT. discuss with family and pt. 06/23/24 Pt flat mild dysphoia on 24 mg lorazepam abilify 20 mg will see if pt tolerates ana 5 qid. Consider ect if relapse sx or depressive sx 06/24: continue current tx plan. 06/25: Continue current regimen and plans 06/26: less PMR than when last seen by this flex o writer operator 06/20. decrease ativan to 4 mg QID for the next several days. 06/27: as for yesterday. continue current ativan dosing of 4 QID through next time this flex o writer operator will see pt, 07/01 morning, unless otherwise indicated. plan to continue taper sunday 07/01. 06/28: Continue current management and treatment plan. 06/29: continue current management and treatment plan. 06/30: continue current tx plan 07/01: appears as he did last week. improved from admission, but slowed from normal human range. requesting decrease in ativan dosing, seems to be expressing concern for feeling tired. ativan decreased from 4 QID to 4 TID. educated re benzo withdrawal Sx and need to alert staff if experiencing any. continue ativan 4 TID through early next week if tolerates dose reduction. Reason for continued inpatient stay Substantial Risk for: rapid decompensation Time Spent With Patient Time: Total time managing care of this patient today __25__ minutes.
[2024-07-01] MEDS: ARIPiprazole 20 MG TABLET PO (20:43)
[2024-07-02 07:30] VITALS: BP 123/58; PULSE 65; RESP 12; TEMP 37; O2SAT 96
[2024-07-02] MEDS: LORazepam 1 MG TABLET 4 MG PO ×3 (08:53→20:36)
--- NOTE | 2024-07-02 15:21 | HO.PSYCHPN ---
Subjective Subjective Date of Service: 07/02/24 Reason For Visit: catatonia Interim History: met with patient; discussed with team; reviewed chart Patient sitting in the day room, not moving much however willing to talk with selling underwriter . He says that he is pretty good and that he is feeling better due to the Ativan and Abilify. He feels that he is improving because he says it is easier to speak and move... No complaints and no requests Mental Status Exam Mental Status Exam Narrative: Alert and oriented; tall and thin, thick moyer; wearing own clothes, adequately dressed though marginal hygiene; cooperative, though delayed in response. speech decr in rate, and with latency. nml loudness. decr prosody. thoughts linear and logical. Mood pretty good though affect blunted, hypo-intense, non-labile. no SI/SIBI/HI/AVH expressed. Diagnostics Vital Signs (24Hr): Vital Signs - 24 hr 07/01/24 19:15 07/02/24 07:30 Temperature 99.1 F 98.6 F Pulse Rate 83 65 Respiratory Rate 16 12 Blood Pressure 151/82 H 123/58 L Pulse Oximetry 98 96 Oxygen Delivery Method Room Air Room Air BMI result Body Mass Index 21.0 Labs 06/08/24 16:58 06/08/24 16:58 Medications Medications Current Medications Acetaminophen (Acetaminophen 325 Mg Tablet) 650 mg PO Q6H PRN PRN Reason: Headache/Pain Mild Scale (1-3) Al Hydroxide/Mg Hydroxide (Magnesium Hydrox/Alum Hydrox 30 Ml Oral.Susp) 30 ml PO Q6H PRN PRN Reason: Heartburn/Nausea Aripiprazole (Aripiprazole 20 Mg Tablet) 20 mg PO BEDTIME [facility] Last Admin: 07/01/24 20:43 Dose: 20 mg Hydroxyzine HCl (Hydroxyzine Hcl 25 Mg Tablet) 25 mg PO Q6H PRN PRN Reason: Anxiety Lorazepam (Lorazepam 1 Mg Tablet) 4 mg PO TID [facility] Last Admin: 07/02/24 15:03 Dose: 4 mg Magnesium Hydroxide (Milk Of Magnesia 30 Ml Oral.Susp) 30 ml PO DAILY PRN PRN Reason: Constipation Nicotine Polacrilex (Nicotine Polacrilex 2 Mg Gum) 4 mg BUCCAL Q2H PRN PRN Reason: Nicotine Cravings Trazodone HCl (Trazodone Hcl 50 Mg Tablet) 50 mg PO BEDTIME MRX1 PRN PRN Reason: Insomnia Allergies Allergies Allergy/AdvReac Type Severity Reaction Status Date / Time No Known Allergies Allergy Verified 06/08/24 16:40 Assessment & Plan Assessment & Plan (1) Schizophrenia: Status: Acute Code(s): F20.9 - Schizophrenia, unspecified Plan 06/09: titrate clozapine, to 50 from 25 tonight. add ativan 1 TID for catatonia. titrate as tolerated. reportedly on invega sustenna 117 per month. 06/10: refusing clozapine. DC. willing to return to lower dose abilify for now pending insurance approval of cobenfy. restart at 10 mg daily. increase ativan to 2 mg TID for catatonia. 06/11: will need PA for cobenfy. increase ativan to 3 TID for catatonia. change abilify to HS and increase dosing to 20 mg daily. less PMR. 06/12: PA denied by insurance company. no sedation from ativan dosing increase. remains slowed, but less so than at admission. signed CV yesterday. first dose of abilify 20 mg at HS tonight. continue current mgmt. 06/13: increase ativan to 4 TID for catatonia. continue regimen otherwise. remains quite slowed. 06/15/2024: No changes 06/16: remains slowed, not sedated. increase ativan to 5 TID. 06/17: PMR continues, improved from admission. not sedated. increase ativan to 4 QID. 06/18: no change from yesterday. increase ativan to 5 QID. slept 7+ hours, no sedation days. 06/19: slept 8 hours overnight, no daytime sedation. continue current mgmt. unless substance improvement overnight, will increase to 6 mg QID ativan. 06/20: gradual daily improvements. remains very substantially slowed. increase ativan to 6 mg QID for catatonia. otherwise continue current mgmt. 06/21 continue tx. may consider ECT is partial response from benzo. 06/22 partial response to benzos but keep in mind he is on 24mg/day, recommend to consider ECT. discuss with family and pt. 06/23/24 Pt flat mild dysphoia on 24 mg lorazepam abilify 20 mg will see if pt tolerates ana 5 qid. Consider ect if relapse sx or depressive sx 06/24: continue current tx plan. 06/25: Continue current regimen and plans 06/26: less PMR than when last seen by this selling underwriter 06/20. decrease ativan to 4 mg QID for the next several days. 06/27: as for yesterday. continue current ativan dosing of 4 QID through next time this selling underwriter will see pt, 07/01 morning, unless otherwise indicated. plan to continue taper sunday 07/01. 06/28: Continue current management and treatment plan. 06/29: continue current management and treatment plan. 06/30: continue current tx plan 07/01: appears as he did last week. improved from admission, but slowed from normal human range. requesting decrease in ativan dosing, seems to be expressing concern for feeling tired. ativan decreased from 4 QID to 4 TID. educated re benzo withdrawal Sx and need to alert staff if experiencing any. continue ativan 4 TID through early next week if tolerates dose reduction. 07/02/24 Patient sitting in the day room, not moving much however willing to talk with selling underwriter . He says that he is pretty good and that he is feeling better due to the Ativan and Abilify. He feels that he is improving because he says it is easier to speak and move... No complaints and no requests -review chart and Ativan recently decreased; as patient is improving some, will continue current treatment plan Patient educated on: diagnosis and medication risk/benefits Reason for continued inpatient stay Substantial Risk for: inability to function Time Spent With Patient Time: Total time managing care of this patient today ____ minutes.
[2024-07-02 20:00] VITALS: BP 137/78; PULSE 82; RESP 16; TEMP 36.6; O2SAT 97
[2024-07-02] MEDS: ARIPiprazole 20 MG TABLET PO (20:35)
[2024-07-03 07:30] VITALS: BP 123/59; PULSE 62; RESP 14; TEMP 36.8; O2SAT 95
[2024-07-03] MEDS: LORazepam 1 MG TABLET 4 MG PO ×3 (08:27→20:11)
[2024-07-03 10:00] VITALS: BMI 21.1
--- NOTE | 2024-07-03 15:32 | P.PNPSI_ITS ---
Subjective Subjective Date of Service: 07/03/24 Reason For Visit: catatonia Interim History: movements more slowed than verbal responses. denies withdrawal Sx. per staff, taking meds. visit with mother. PMR but less with speech. slept 7 hours. Mental Status Exam Mental Status Exam Narrative: very tall and thin, in day area, wearing own clothes, adequately dressed and groomed. cooperative, though delayed in response. speech decr in rate, amount. nml loudness. decr prosody. nml latency. thoughts linear and logical. affect blunted, hypo-intense, non-labile. mood fair. no SI/SIBI/HI/AVH expressed. Diagnostics Vital Signs (24Hr): Vital Signs - 24 hr 07/02/24 20:00 07/03/24 07:30 Temperature 97.9 F 98.2 F Pulse Rate 82 62 Respiratory Rate 16 14 Blood Pressure 137/78 123/59 L Pulse Oximetry 97 95 Oxygen Delivery Method Room Air Room Air BMI result Body Mass Index 21.0 Labs 06/08/24 16:58 06/08/24 16:58 Medications Medications Current Medications Acetaminophen (Acetaminophen 325 Mg Tablet) 650 mg PO Q6H PRN PRN Reason: Headache/Pain Mild Scale (1-3) Al Hydroxide/Mg Hydroxide (Magnesium Hydrox/Alum Hydrox 30 Ml Oral.Susp) 30 ml PO Q6H PRN PRN Reason: Heartburn/Nausea Aripiprazole (Aripiprazole 20 Mg Tablet) 20 mg PO BEDTIME [facility] Last Admin: 07/02/24 20:35 Dose: 20 mg Hydroxyzine HCl (Hydroxyzine Hcl 25 Mg Tablet) 25 mg PO Q6H PRN PRN Reason: Anxiety Lorazepam (Lorazepam 1 Mg Tablet) 4 mg PO TID [facility] Last Admin: 07/03/24 14:05 Dose: 4 mg Magnesium Hydroxide (Milk Of Magnesia 30 Ml Oral.Susp) 30 ml PO DAILY PRN PRN Reason: Constipation Nicotine Polacrilex (Nicotine Polacrilex 2 Mg Gum) 4 mg BUCCAL Q2H PRN PRN Reason: Nicotine Cravings Trazodone HCl (Trazodone Hcl 50 Mg Tablet) 50 mg PO BEDTIME MRX1 PRN PRN Reason: Insomnia Allergies Allergies Allergy/AdvReac Type Severity Reaction Status Date / Time No Known Allergies Allergy Verified 06/08/24 16:40 Assessment & Plan Assessment & Plan (1) Schizophrenia: Status: Acute Code(s): F20.9 - Schizophrenia, unspecified Plan 06/09: titrate clozapine, to 50 from 25 tonight. add ativan 1 TID for catatonia. titrate as tolerated. reportedly on invega sustenna 117 per month. 06/10: refusing clozapine. DC. willing to return to lower dose abilify for now pending insurance approval of cobenfy. restart at 10 mg daily. increase ativan to 2 mg TID for catatonia. 06/11: will need PA for cobenfy. increase ativan to 3 TID for catatonia. change abilify to HS and increase dosing to 20 mg daily. less PMR. 06/12: PA denied by insurance company. no sedation from ativan dosing increase. remains slowed, but less so than at admission. signed CV yesterday. first dose of abilify 20 mg at HS tonight. continue current mgmt. 06/13: increase ativan to 4 TID for catatonia. continue regimen otherwise. remains quite slowed. 06/15/2024: No changes 06/16: remains slowed, not sedated. increase ativan to 5 TID. 06/17: PMR continues, improved from admission. not sedated. increase ativan to 4 QID. 06/18: no change from yesterday. increase ativan to 5 QID. slept 7+ hours, no sedation days. 06/19: slept 8 hours overnight, no daytime sedation. continue current mgmt. unless substance improvement overnight, will increase to 6 mg QID ativan. 06/20: gradual daily improvements. remains very substantially slowed. increase ativan to 6 mg QID for catatonia. otherwise continue current mgmt. 06/21 continue tx. may consider ECT is partial response from benzo. 06/22 partial response to benzos but keep in mind he is on 24mg/day, recommend to consider ECT. discuss with family and pt. 06/23/24 Pt flat mild dysphoia on 24 mg lorazepam abilify 20 mg will see if pt tolerates ana 5 qid. Consider ect if relapse sx or depressive sx 06/24: continue current tx plan. 06/25: Continue current regimen and plans 06/26: less PMR than when last seen by this proposal manager writer 06/20. decrease ativan to 4 mg QID for the next several days. 06/27: as for yesterday. continue current ativan dosing of 4 QID through next time this proposal manager writer will see pt, 07/01 morning, unless otherwise indicated. plan to continue taper sunday 07/01. 06/28: Continue current management and treatment plan. 06/29: continue current management and treatment plan. 06/30: continue current tx plan 07/01: appears as he did last week. improved from admission, but slowed from normal human range. requesting decrease in ativan dosing, seems to be expressing concern for feeling tired. ativan decreased from 4 QID to 4 TID. educated re benzo withdrawal Sx and need to alert staff if experiencing any. continue ativan 4 TID through early next week if tolerates dose reduction. 07/02/24 Patient sitting in the day room, not moving much however willing to talk with proposal manager writer . He says that he is pretty good and that he is feeling better due to the Ativan and Abilify. He feels that he is improving because he says it is easier to speak and move... No complaints and no requests -review chart and Ativan recently decreased; as patient is improving some, will continue current treatment plan 07/03: speech less delayed than movements. plan to decrease ativan to 3 TID tomorrow, further reduce and convert to klonopin early next week. Reason for continued inpatient stay Substantial Risk for: inability to function and rapid decompensation Time Spent With Patient Time: Total time managing care of this patient today __25__ minutes.
[2024-07-03 20:00] VITALS: BP 142/68; PULSE 75; RESP 18; TEMP 36.6; O2SAT 98
[2024-07-03] MEDS: ARIPiprazole 20 MG TABLET PO (20:11)
[2024-07-04 08:00] VITALS: BP 130/58; PULSE 67; RESP 15; TEMP 37; O2SAT 95
[2024-07-04] MEDS: LORazepam 1 MG TABLET 4 MG PO (08:59)
[2024-07-04] MEDS: LORazepam 1 MG TABLET 3 MG PO ×2 (14:50→22:44)
--- NOTE | 2024-07-04 15:48 | HO.PSYCHPN ---
Subjective Subjective Date of Service: 07/04/24 Reason For Visit: catatonia Interim History: reports he is doing well. denies any recrudescence of Sx. agrees to family meeting prior to discharge. agreeable to decrease ativan from 4 TID to 3 TID as of today. per staff, taking meds and attending groups. Mental Status Exam Mental Status Exam Narrative: very tall and thin, in day area, wearing own clothes, adequately dressed and groomed. cooperative, though delayed in response. speech decr in rate, amount. nml loudness. decr prosody. nml latency. thoughts linear and logical. affect blunted, hypo-intense, non-labile. mood fair. no SI/SIBI/HI/AVH expressed. Diagnostics Vital Signs (24Hr): Vital Signs - 24 hr 07/03/24 20:00 07/04/24 08:00 Temperature 97.8 F 98.6 F Pulse Rate 75 67 Respiratory Rate 18 15 Blood Pressure 142/68 H 130/58 L Pulse Oximetry 98 95 Oxygen Delivery Method Room Air Room Air BMI result Body Mass Index 21.1 Labs 06/08/24 16:58 06/08/24 16:58 Medications Medications Current Medications Acetaminophen (Acetaminophen 325 Mg Tablet) 650 mg PO Q6H PRN PRN Reason: Headache/Pain Mild Scale (1-3) Al Hydroxide/Mg Hydroxide (Magnesium Hydrox/Alum Hydrox 30 Ml Oral.Susp) 30 ml PO Q6H PRN PRN Reason: Heartburn/Nausea Aripiprazole (Aripiprazole 20 Mg Tablet) 20 mg PO BEDTIME [facility] Last Admin: 07/03/24 20:11 Dose: 20 mg Hydroxyzine HCl (Hydroxyzine Hcl 25 Mg Tablet) 25 mg PO Q6H PRN PRN Reason: Anxiety Lorazepam (Lorazepam 1 Mg Tablet) 3 mg PO TID [facility] Last Admin: 07/04/24 14:50 Dose: 3 mg Magnesium Hydroxide (Milk Of Magnesia 30 Ml Oral.Susp) 30 ml PO DAILY PRN PRN Reason: Constipation Nicotine Polacrilex (Nicotine Polacrilex 2 Mg Gum) 4 mg BUCCAL Q2H PRN PRN Reason: Nicotine Cravings Trazodone HCl (Trazodone Hcl 50 Mg Tablet) 50 mg PO BEDTIME MRX1 PRN PRN Reason: Insomnia Allergies Allergies Allergy/AdvReac Type Severity Reaction Status Date / Time No Known Allergies Allergy Verified 06/08/24 16:40 Assessment & Plan Assessment & Plan (1) Schizophrenia: Status: Acute Code(s): F20.9 - Schizophrenia, unspecified Plan 06/09: titrate clozapine, to 50 from 25 tonight. add ativan 1 TID for catatonia. titrate as tolerated. reportedly on invega sustenna 117 per month. 06/10: refusing clozapine. DC. willing to return to lower dose abilify for now pending insurance approval of cobenfy. restart at 10 mg daily. increase ativan to 2 mg TID for catatonia. 06/11: will need PA for cobenfy. increase ativan to 3 TID for catatonia. change abilify to HS and increase dosing to 20 mg daily. less PMR. 06/12: PA denied by insurance company. no sedation from ativan dosing increase. remains slowed, but less so than at admission. signed CV yesterday. first dose of abilify 20 mg at HS tonight. continue current mgmt. 06/13: increase ativan to 4 TID for catatonia. continue regimen otherwise. remains quite slowed. 06/15/2024: No changes 06/16: remains slowed, not sedated. increase ativan to 5 TID. 06/17: PMR continues, improved from admission. not sedated. increase ativan to 4 QID. 06/18: no change from yesterday. increase ativan to 5 QID. slept 7+ hours, no sedation days. 06/19: slept 8 hours overnight, no daytime sedation. continue current mgmt. unless substance improvement overnight, will increase to 6 mg QID ativan. 06/20: gradual daily improvements. remains very substantially slowed. increase ativan to 6 mg QID for catatonia. otherwise continue current mgmt. 06/21 continue tx. may consider ECT is partial response from benzo. 06/22 partial response to benzos but keep in mind he is on 24mg/day, recommend to consider ECT. discuss with family and pt. 06/23/24 Pt flat mild dysphoia on 24 mg lorazepam abilify 20 mg will see if pt tolerates ana 5 qid. Consider ect if relapse sx or depressive sx 06/24: continue current tx plan. 06/25: Continue current regimen and plans 06/26: less PMR than when last seen by this technical document writer 06/20. decrease ativan to 4 mg QID for the next several days. 06/27: as for yesterday. continue current ativan dosing of 4 QID through next time this technical document writer will see pt, 07/01 morning, unless otherwise indicated. plan to continue taper sunday 07/01. 06/28: Continue current management and treatment plan. 06/29: continue current management and treatment plan. 06/30: continue current tx plan 07/01: appears as he did last week. improved from admission, but slowed from normal human range. requesting decrease in ativan dosing, seems to be expressing concern for feeling tired. ativan decreased from 4 QID to 4 TID. educated re benzo withdrawal Sx and need to alert staff if experiencing any. continue ativan 4 TID through early next week if tolerates dose reduction. 07/02/24 Patient sitting in the day room, not moving much however willing to talk with technical document writer . He says that he is pretty good and that he is feeling better due to the Ativan and Abilify. He feels that he is improving because he says it is easier to speak and move... No complaints and no requests -review chart and Ativan recently decreased; as patient is improving some, will continue current treatment plan 07/03: speech less delayed than movements. plan to decrease ativan to 3 TID tomorrow, further reduce and convert to klonopin early next week. 07/04: stable presentation. decrease ativan from 4 TID to 3 TID as of this afternoon. denies w/drawal Sx. plan to switch to klonopin on sunday. pt is hoping for D/C late next week. Reason for continued inpatient stay Substantial Risk for: inability to function and rapid decompensation Time Spent With Patient Time: Total time managing care of this patient today _25___ minutes.
[2024-07-04 19:18] VITALS: BP 130/81; PULSE 80; RESP 16; TEMP 36.1; O2SAT 96
[2024-07-04] MEDS: ARIPiprazole 20 MG TABLET PO (22:44)
[2024-07-05 07:49] VITALS: BP 136/66; PULSE 71; RESP 16; TEMP 36.9; O2SAT 96
--- NOTE | 2024-07-05 09:47 | HO.PSYCHPN ---
Subjective Subjective Date of Service: 07/05/24 Reason For Visit: catatonia Interim History: met with patient. Discussed with Nursing. From last time magnetic tape typewriter operator met with patient a number weeks ago, does present as significantly improved. Much more communicative. Still psychomotor retardation evident, but much less. Does not appear internally preoccupied or thought blocking today. Able to acknowledge changes and states that he was having trouble communicating but this is better. Also able to state that Abilify and Ativan have been helpful. Feeling safe and cared for. No SI or HI evident. Medication Compliance: Yes Side effects from medications: No Attending Groups: Intermittent Review of Systems Acute medical concerns: No Mental Status Exam Mental Status Exam Narrative: very tall and thin, in day area, wearing own clothes, adequately dressed and groomed. cooperative, though delayed in response. speech decr in rate, amount. nml loudness. decr prosody. nml latency. thoughts linear and logical. affect blunted, hypo-intense, non-labile. mood fair. no SI/SIBI/HI/AVH expressed. Diagnostics Vital Signs (24Hr): Vital Signs - 24 hr 07/04/24 19:18 07/05/24 07:49 Temperature 97.0 F 98.4 F Pulse Rate 80 71 Respiratory Rate 16 16 Blood Pressure 130/81 136/66 Pulse Oximetry 96 96 Oxygen Delivery Method Room Air BMI result Body Mass Index 21.1 Labs 06/08/24 16:58 06/08/24 16:58 Medications Medications Current Medications Acetaminophen (Acetaminophen 325 Mg Tablet) 650 mg PO Q6H PRN PRN Reason: Headache/Pain Mild Scale (1-3) Al Hydroxide/Mg Hydroxide (Magnesium Hydrox/Alum Hydrox 30 Ml Oral.Susp) 30 ml PO Q6H PRN PRN Reason: Heartburn/Nausea Aripiprazole (Aripiprazole 20 Mg Tablet) 20 mg PO BEDTIME [facility] Last Admin: 07/04/24 22:44 Dose: 20 mg Hydroxyzine HCl (Hydroxyzine Hcl 25 Mg Tablet) 25 mg PO Q6H PRN PRN Reason: Anxiety Lorazepam (Lorazepam 1 Mg Tablet) 3 mg PO TID [facility] Last Admin: 07/04/24 22:44 Dose: 3 mg Magnesium Hydroxide (Milk Of Magnesia 30 Ml Oral.Susp) 30 ml PO DAILY PRN PRN Reason: Constipation Nicotine Polacrilex (Nicotine Polacrilex 2 Mg Gum) 4 mg BUCCAL Q2H PRN PRN Reason: Nicotine Cravings Trazodone HCl (Trazodone Hcl 50 Mg Tablet) 50 mg PO BEDTIME MRX1 PRN PRN Reason: Insomnia Allergies Allergies Allergy/AdvReac Type Severity Reaction Status Date / Time No Known Allergies Allergy Verified 06/08/24 16:40 Assessment & Plan Assessment & Plan (1) Schizophrenia: Status: Acute Code(s): F20.9 - Schizophrenia, unspecified Plan 06/09: titrate clozapine, to 50 from 25 tonight. add ativan 1 TID for catatonia. titrate as tolerated. reportedly on invega sustenna 117 per month. 06/10: refusing clozapine. DC. willing to return to lower dose abilify for now pending insurance approval of cobenfy. restart at 10 mg daily. increase ativan to 2 mg TID for catatonia. 06/11: will need PA for cobenfy. increase ativan to 3 TID for catatonia. change abilify to HS and increase dosing to 20 mg daily. less PMR. 06/12: PA denied by insurance company. no sedation from ativan dosing increase. remains slowed, but less so than at admission. signed CV yesterday. first dose of abilify 20 mg at HS tonight. continue current mgmt. 06/13: increase ativan to 4 TID for catatonia. continue regimen otherwise. remains quite slowed. 06/15/2024: No changes 06/16: remains slowed, not sedated. increase ativan to 5 TID. 06/17: PMR continues, improved from admission. not sedated. increase ativan to 4 QID. 06/18: no change from yesterday. increase ativan to 5 QID. slept 7+ hours, no sedation days. 06/19: slept 8 hours overnight, no daytime sedation. continue current mgmt. unless substance improvement overnight, will increase to 6 mg QID ativan. 06/20: gradual daily improvements. remains very substantially slowed. increase ativan to 6 mg QID for catatonia. otherwise continue current mgmt. 06/21 continue tx. may consider ECT is partial response from benzo. 06/22 partial response to benzos but keep in mind he is on 24mg/day, recommend to consider ECT. discuss with family and pt. 06/23/24 Pt flat mild dysphoia on 24 mg lorazepam abilify 20 mg will see if pt tolerates ana 5 qid. Consider ect if relapse sx or depressive sx 06/24: continue current tx plan. 06/25: Continue current regimen and plans 06/26: less PMR than when last seen by this magnetic tape typewriter operator 06/20. decrease ativan to 4 mg QID for the next several days. 06/27: as for yesterday. continue current ativan dosing of 4 QID through next time this magnetic tape typewriter operator will see pt, 07/01 morning, unless otherwise indicated. plan to continue taper sunday 07/01. 06/28: Continue current management and treatment plan. 06/29: continue current management and treatment plan. 06/30: continue current tx plan 07/01: appears as he did last week. improved from admission, but slowed from normal human range. requesting decrease in ativan dosing, seems to be expressing concern for feeling tired. ativan decreased from 4 QID to 4 TID. educated re benzo withdrawal Sx and need to alert staff if experiencing any. continue ativan 4 TID through early next week if tolerates dose reduction. 07/02/24 Patient sitting in the day room, not moving much however willing to talk with magnetic tape typewriter operator . He says that he is pretty good and that he is feeling better due to the Ativan and Abilify. He feels that he is improving because he says it is easier to speak and move... No complaints and no requests -review chart and Ativan recently decreased; as patient is improving some, will continue current treatment plan 07/03: speech less delayed than movements. plan to decrease ativan to 3 TID tomorrow, further reduce and convert to klonopin early next week. 07/04: stable presentation. decrease ativan from 4 TID to 3 TID as of this afternoon. denies w/drawal Sx. plan to switch to klonopin on sunday. pt is hoping for D/C late next week. 07/05/2024: No changes as Ativan just lowered to 3 mg 3 times per day Reason for continued inpatient stay Substantial Risk for: inability to function Time Spent With Patient Time: Total time managing care of this patient today ____ minutes.
[2024-07-05] MEDS: LORazepam 1 MG TABLET 3 MG PO ×3 (10:15→22:46)
[2024-07-05 22:12] VITALS: BP 144/75; PULSE 67; TEMP 36.5; O2SAT 97
[2024-07-05] MEDS: ARIPiprazole 20 MG TABLET PO (22:45)
[2024-07-06 08:00] VITALS: BP 126/64; PULSE 61; RESP 14; TEMP 36.9; O2SAT 96
--- NOTE | 2024-07-06 08:31 | P.PNPSI_ITS ---
Subjective Subjective Date of Service: 07/06/24 Reason For Visit: catatonia Interim History: met with patient. Discussed with Nursing. overall no significant change from yesterday ie continues to slowly improve, more communicative, more in the milieu. Eating and drinking. Med adherent. Sleep okay. No paranoia. No SI or HI. No psychosis evident. No med concerns. Medication Compliance: Yes Side effects from medications: No Attending Groups: Intermittent Review of Systems Acute medical concerns: No Review of Systems Review of Systems unremarkable Mental Status Exam Mental Status Exam Narrative: very tall and thin, in day area, wearing own clothes, adequately dressed and groomed. cooperative, though delayed in response but improving. speech decr in rate, amount. nml loudness. decr prosody. nml latency. thoughts linear and logical. affect blunted, hypo-intense, non-labile. mood fair. no SI/SIBI/HI/AVH expressed. Diagnostics Vital Signs (24Hr): Vital Signs - 24 hr 07/05/24 22:12 07/06/24 08:00 Temperature 97.7 F 98.4 F Pulse Rate 67 61 Respiratory Rate 14 Blood Pressure 144/75 H 126/64 Pulse Oximetry 97 96 Oxygen Delivery Method Room Air Room Air BMI result Body Mass Index 21.1 Labs 06/08/24 16:58 06/08/24 16:58 Medications Medications Current Medications Acetaminophen (Acetaminophen 325 Mg Tablet) 650 mg PO Q6H PRN PRN Reason: Headache/Pain Mild Scale (1-3) Al Hydroxide/Mg Hydroxide (Magnesium Hydrox/Alum Hydrox 30 Ml Oral.Susp) 30 ml PO Q6H PRN PRN Reason: Heartburn/Nausea Aripiprazole (Aripiprazole 20 Mg Tablet) 20 mg PO BEDTIME [facility] Last Admin: 07/05/24 22:45 Dose: 20 mg Hydroxyzine HCl (Hydroxyzine Hcl 25 Mg Tablet) 25 mg PO Q6H PRN PRN Reason: Anxiety Lorazepam (Lorazepam 1 Mg Tablet) 3 mg PO TID [facility] Last Admin: 07/05/24 22:46 Dose: 3 mg Magnesium Hydroxide (Milk Of Magnesia 30 Ml Oral.Susp) 30 ml PO DAILY PRN PRN Reason: Constipation Nicotine Polacrilex (Nicotine Polacrilex 2 Mg Gum) 4 mg BUCCAL Q2H PRN PRN Reason: Nicotine Cravings Trazodone HCl (Trazodone Hcl 50 Mg Tablet) 50 mg PO BEDTIME MRX1 PRN PRN Reason: Insomnia Allergies Allergies Allergy/AdvReac Type Severity Reaction Status Date / Time No Known Allergies Allergy Verified 06/08/24 16:40 Assessment & Plan Assessment & Plan (1) Schizophrenia: Status: Acute Code(s): F20.9 - Schizophrenia, unspecified Plan 06/09: titrate clozapine, to 50 from 25 tonight. add ativan 1 TID for catatonia. titrate as tolerated. reportedly on invega sustenna 117 per month. 06/10: refusing clozapine. DC. willing to return to lower dose abilify for now pending insurance approval of cobenfy. restart at 10 mg daily. increase ativan to 2 mg TID for catatonia. 06/11: will need PA for cobenfy. increase ativan to 3 TID for catatonia. change abilify to HS and increase dosing to 20 mg daily. less PMR. 06/12: PA denied by insurance company. no sedation from ativan dosing increase. remains slowed, but less so than at admission. signed CV yesterday. first dose of abilify 20 mg at HS tonight. continue current mgmt. 06/13: increase ativan to 4 TID for catatonia. continue regimen otherwise. remains quite slowed. 06/15/2024: No changes 06/16: remains slowed, not sedated. increase ativan to 5 TID. 06/17: PMR continues, improved from admission. not sedated. increase ativan to 4 QID. 06/18: no change from yesterday. increase ativan to 5 QID. slept 7+ hours, no sedation days. 06/19: slept 8 hours overnight, no daytime sedation. continue current mgmt. unless substance improvement overnight, will increase to 6 mg QID ativan. 06/20: gradual daily improvements. remains very substantially slowed. increase ativan to 6 mg QID for catatonia. otherwise continue current mgmt. 06/21 continue tx. may consider ECT is partial response from benzo. 06/22 partial response to benzos but keep in mind he is on 24mg/day, recommend to consider ECT. discuss with family and pt. 06/23/24 Pt flat mild dysphoia on 24 mg lorazepam abilify 20 mg will see if pt tolerates ana 5 qid. Consider ect if relapse sx or depressive sx 06/24: continue current tx plan. 06/25: Continue current regimen and plans 06/26: less PMR than when last seen by this director underwriter sales 06/20. decrease ativan to 4 mg QID for the next several days. 06/27: as for yesterday. continue current ativan dosing of 4 QID through next time this director underwriter sales will see pt, 07/01 morning, unless otherwise indicated. plan to continue taper sunday 07/01. 06/28: Continue current management and treatment plan. 06/29: continue current management and treatment plan. 06/30: continue current tx plan 07/01: appears as he did last week. improved from admission, but slowed from normal human range. requesting decrease in ativan dosing, seems to be expressing concern for feeling tired. ativan decreased from 4 QID to 4 TID. educated re benzo withdrawal Sx and need to alert staff if experiencing any. continue ativan 4 TID through early next week if tolerates dose reduction. 07/02/24 Patient sitting in the day room, not moving much however willing to talk with director underwriter sales . He says that he is pretty good and that he is feeling better due to the Ativan and Abilify. He feels that he is improving because he says it is easier to speak and move... No complaints and no requests -review chart and Ativan recently decreased; as patient is improving some, will continue current treatment plan 07/03: speech less delayed than movements. plan to decrease ativan to 3 TID tomorrow, further reduce and convert to klonopin early next week. 07/04: stable presentation. decrease ativan from 4 TID to 3 TID as of this afternoon. denies w/drawal Sx. plan to switch to klonopin on sunday. pt is hoping for D/C late next week. 07/05/2024: No changes as Ativan just lowered to 3 mg 3 times per day 07/06/2024: Continue current treatment regimen Reason for continued inpatient stay Substantial Risk for: inability to function and rapid decompensation Time Spent With Patient Time: Total time managing care of this patient today ____ minutes.
[2024-07-06] MEDS: LORazepam 1 MG TABLET 3 MG PO ×3 (08:37→20:57)
[2024-07-06 20:00] VITALS: BP 164/87; PULSE 101; RESP 17; TEMP 37.1; O2SAT 96
[2024-07-06] MEDS: ARIPiprazole 20 MG TABLET PO (20:57)
[2024-07-07 07:52] VITALS: BP 116/59; PULSE 60; TEMP 36.8; O2SAT 97
[2024-07-07] MEDS: LORazepam 1 MG TABLET 3 MG PO (09:56)
[2024-07-07] MEDS: CLONAZEPAM 1.5 MG PO ×2 (15:11→20:39)
--- NOTE | 2024-07-07 15:49 | HO.PSYCHPN ---
Subjective Subjective Date of Service: 07/07/24 Reason For Visit: catatonia Interim History: does not appear appreciably different from when seen late last week. states he feels fine, no complaints or requests, focused on discharge planning, informed maybe late this week if all continues to go well. agreeable to increase abilify to 25 mg daily. agreeable to change ativan 3 TID to klonopin 1.5 TID for longer half-life medication more suitable for outpatient use and longer term use. Mental Status Exam Mental Status Exam Narrative: very tall and thin, in day area, wearing own clothes, adequately dressed and groomed. cooperative, though delayed in response. speech decr in rate, amount. nml loudness. decr prosody. nml latency. thoughts linear and logical. affect blunted, hypo-intense, non-labile. mood fair. no SI/SIBI/HI/AVH expressed. Diagnostics Vital Signs (24Hr): Vital Signs - 24 hr 07/06/24 20:00 07/07/24 07:52 Temperature 98.7 F 98.2 F Pulse Rate 101 H 60 Respiratory Rate 17 Blood Pressure 164/87 H 116/59 L Pulse Oximetry 96 97 Oxygen Delivery Method Room Air Room Air BMI result Body Mass Index 21.1 Labs 06/08/24 16:58 06/08/24 16:58 Medications Medications Current Medications Acetaminophen (Acetaminophen 325 Mg Tablet) 650 mg PO Q6H PRN PRN Reason: Headache/Pain Mild Scale (1-3) Al Hydroxide/Mg Hydroxide (Magnesium Hydrox/Alum Hydrox 30 Ml Oral.Susp) 30 ml PO Q6H PRN PRN Reason: Heartburn/Nausea Aripiprazole (Aripiprazole 5 Mg Tablet) 25 mg PO BEDTIME [facility] Clonazepam 1 mg/ Clonazepam 0. (5 mg) 1.5 mg PO TID [facility] Last Admin: 07/07/24 15:11 Dose: 1.5 mg Hydroxyzine HCl (Hydroxyzine Hcl 25 Mg Tablet) 25 mg PO Q6H PRN PRN Reason: Anxiety Magnesium Hydroxide (Milk Of Magnesia 30 Ml Oral.Susp) 30 ml PO DAILY PRN PRN Reason: Constipation Nicotine Polacrilex (Nicotine Polacrilex 2 Mg Gum) 4 mg BUCCAL Q2H PRN PRN Reason: Nicotine Cravings Trazodone HCl (Trazodone Hcl 50 Mg Tablet) 50 mg PO BEDTIME MRX1 PRN PRN Reason: Insomnia Allergies Allergies Allergy/AdvReac Type Severity Reaction Status Date / Time No Known Allergies Allergy Verified 06/08/24 16:40 Assessment & Plan Assessment & Plan (1) Schizophrenia: Status: Acute Code(s): F20.9 - Schizophrenia, unspecified Plan 06/09: titrate clozapine, to 50 from 25 tonight. add ativan 1 TID for catatonia. titrate as tolerated. reportedly on invega sustenna 117 per month. 06/10: refusing clozapine. DC. willing to return to lower dose abilify for now pending insurance approval of cobenfy. restart at 10 mg daily. increase ativan to 2 mg TID for catatonia. 06/11: will need PA for cobenfy. increase ativan to 3 TID for catatonia. change abilify to HS and increase dosing to 20 mg daily. less PMR. 06/12: PA denied by insurance company. no sedation from ativan dosing increase. remains slowed, but less so than at admission. signed CV yesterday. first dose of abilify 20 mg at HS tonight. continue current mgmt. 06/13: increase ativan to 4 TID for catatonia. continue regimen otherwise. remains quite slowed. 06/15/2024: No changes 06/16: remains slowed, not sedated. increase ativan to 5 TID. 06/17: PMR continues, improved from admission. not sedated. increase ativan to 4 QID. 06/18: no change from yesterday. increase ativan to 5 QID. slept 7+ hours, no sedation days. 06/19: slept 8 hours overnight, no daytime sedation. continue current mgmt. unless substance improvement overnight, will increase to 6 mg QID ativan. 06/20: gradual daily improvements. remains very substantially slowed. increase ativan to 6 mg QID for catatonia. otherwise continue current mgmt. 06/21 continue tx. may consider ECT is partial response from benzo. 06/22 partial response to benzos but keep in mind he is on 24mg/day, recommend to consider ECT. discuss with family and pt. 06/23/24 Pt flat mild dysphoia on 24 mg lorazepam abilify 20 mg will see if pt tolerates ana 5 qid. Consider ect if relapse sx or depressive sx 06/24: continue current tx plan. 06/25: Continue current regimen and plans 06/26: less PMR than when last seen by this bond underwriter 06/20. decrease ativan to 4 mg QID for the next several days. 06/27: as for yesterday. continue current ativan dosing of 4 QID through next time this bond underwriter will see pt, 07/01 morning, unless otherwise indicated. plan to continue taper sunday 07/01. 06/28: Continue current management and treatment plan. 06/29: continue current management and treatment plan. 06/30: continue current tx plan 07/01: appears as he did last week. improved from admission, but slowed from normal human range. requesting decrease in ativan dosing, seems to be expressing concern for feeling tired. ativan decreased from 4 QID to 4 TID. educated re benzo withdrawal Sx and need to alert staff if experiencing any. continue ativan 4 TID through early next week if tolerates dose reduction. 07/02/24 Patient sitting in the day room, not moving much however willing to talk with bond underwriter . He says that he is pretty good and that he is feeling better due to the Ativan and Abilify. He feels that he is improving because he says it is easier to speak and move... No complaints and no requests -review chart and Ativan recently decreased; as patient is improving some, will continue current treatment plan 2: speech less delayed than movements. plan to decrease ativan to 3 TID tomorrow, further reduce and convert to klonopin early next week. 07/04: stable presentation. decrease ativan from 4 TID to 3 TID as of this afternoon. denies w/drawal Sx. plan to switch to klonopin on sunday. pt is hoping for D/C late next week. 07/05/2024: No changes as Ativan just lowered to 3 mg 3 times per day 07/06/2024: Continue current treatment regimen 07/07: increase abilify to 25 mg QHS. DC ativan, start klonopin 1.5 TID. planning for discharge sunday if pt remains stable. Reason for continued inpatient stay Substantial Risk for: inability to function and rapid decompensation Time Spent With Patient Time: Total time managing care of this patient today __25__ minutes.
[2024-07-07 20:00] VITALS: BP 144/87; PULSE 100; TEMP 36.1; O2SAT 98
[2024-07-07] MEDS: ARIPiprazole 5 MG TABLET 25 MG PO (20:39)
[2024-07-08 07:25] VITALS: BP 130/64; PULSE 73; RESP 12; TEMP 36.7; O2SAT 96
[2024-07-08] MEDS: CLONAZEPAM 1.5 MG PO (08:45)
--- NOTE | 2024-07-08 14:29 | HO.PSYCHPN ---
Subjective Subjective Date of Service: 07/08/24 Reason For Visit: catatonia Interim History: discuss target DC date of sunday. agreeable to decrease klonopin to 1 TID in next several days. tolerating abilify 25 mg daily without difficulty. per staff, denying Sx. downcast, apathetic. no issues. Mental Status Exam Mental Status Exam Narrative: very tall and thin, in day area, wearing own clothes, adequately dressed and groomed. cooperative, though delayed in response. speech decr in rate, amount. nml loudness. decr prosody. nml latency. thoughts linear and logical. affect blunted, hypo-intense, non-labile. mood fair. no SI/SIBI/HI/AVH expressed. Diagnostics Vital Signs (24Hr): Vital Signs - 24 hr 07/07/24 20:00 07/08/24 07:25 Temperature 96.9 F 98.0 F Pulse Rate 100 73 Respiratory Rate 12 Blood Pressure 144/87 H 130/64 Pulse Oximetry 98 96 Oxygen Delivery Method Room Air Room Air BMI result Body Mass Index 21.1 Labs 06/08/24 16:58 06/08/24 16:58 Medications Medications Current Medications Acetaminophen (Acetaminophen 325 Mg Tablet) 650 mg PO Q6H PRN PRN Reason: Headache/Pain Mild Scale (1-3) Al Hydroxide/Mg Hydroxide (Magnesium Hydrox/Alum Hydrox 30 Ml Oral.Susp) 30 ml PO Q6H PRN PRN Reason: Heartburn/Nausea Aripiprazole (Aripiprazole 5 Mg Tablet) 25 mg PO BEDTIME [facility] Last Admin: 07/07/24 20:39 Dose: 25 mg Clonazepam (Clonazepam 1 Mg Tablet) 1.25 mg PO TID [facility] Hydroxyzine HCl (Hydroxyzine Hcl 25 Mg Tablet) 25 mg PO Q6H PRN PRN Reason: Anxiety Magnesium Hydroxide (Milk Of Magnesia 30 Ml Oral.Susp) 30 ml PO DAILY PRN PRN Reason: Constipation Nicotine Polacrilex (Nicotine Polacrilex 2 Mg Gum) 4 mg BUCCAL Q2H PRN PRN Reason: Nicotine Cravings Trazodone HCl (Trazodone Hcl 50 Mg Tablet) 50 mg PO BEDTIME MRX1 PRN PRN Reason: Insomnia Allergies Allergies Allergy/AdvReac Type Severity Reaction Status Date / Time No Known Allergies Allergy Verified 06/08/24 16:40 Assessment & Plan Assessment & Plan (1) Schizophrenia: Status: Acute Code(s): F20.9 - Schizophrenia, unspecified Plan 06/09: titrate clozapine, to 50 from 25 tonight. add ativan 1 TID for catatonia. titrate as tolerated. reportedly on invega sustenna 117 per month. 06/10: refusing clozapine. DC. willing to return to lower dose abilify for now pending insurance approval of cobenfy. restart at 10 mg daily. increase ativan to 2 mg TID for catatonia. 06/11: will need PA for cobenfy. increase ativan to 3 TID for catatonia. change abilify to HS and increase dosing to 20 mg daily. less PMR. 06/12: PA denied by insurance company. no sedation from ativan dosing increase. remains slowed, but less so than at admission. signed CV yesterday. first dose of abilify 20 mg at HS tonight. continue current mgmt. 06/13: increase ativan to 4 TID for catatonia. continue regimen otherwise. remains quite slowed. 06/15/2024: No changes 06/16: remains slowed, not sedated. increase ativan to 5 TID. 06/17: PMR continues, improved from admission. not sedated. increase ativan to 4 QID. 06/18: no change from yesterday. increase ativan to 5 QID. slept 7+ hours, no sedation days. 06/19: slept 8 hours overnight, no daytime sedation. continue current mgmt. unless substance improvement overnight, will increase to 6 mg QID ativan. 06/20: gradual daily improvements. remains very substantially slowed. increase ativan to 6 mg QID for catatonia. otherwise continue current mgmt. 06/21 continue tx. may consider ECT is partial response from benzo. 06/22 partial response to benzos but keep in mind he is on 24mg/day, recommend to consider ECT. discuss with family and pt. 06/23/24 Pt flat mild dysphoia on 24 mg lorazepam abilify 20 mg will see if pt tolerates ana 5 qid. Consider ect if relapse sx or depressive sx 06/24: continue current tx plan. 06/25: Continue current regimen and plans 12/26: less PMR than when last seen by this engineering technical writer 06/20. decrease ativan to 4 mg QID for the next several days. 06/27: as for yesterday. continue current ativan dosing of 4 QID through next time this engineering technical writer will see pt, 07/01 morning, unless otherwise indicated. plan to continue taper sunday 07/01. 06/28: Continue current management and treatment plan. 06/29: continue current management and treatment plan. 06/30: continue current tx plan 07/01: appears as he did last week. improved from admission, but slowed from normal human range. requesting decrease in ativan dosing, seems to be expressing concern for feeling tired. ativan decreased from 4 QID to 4 TID. educated re benzo withdrawal Sx and need to alert staff if experiencing any. continue ativan 4 TID through early next week if tolerates dose reduction. 07/02/24 Patient sitting in the day room, not moving much however willing to talk with engineering technical writer . He says that he is pretty good and that he is feeling better due to the Ativan and Abilify. He feels that he is improving because he says it is easier to speak and move... No complaints and no requests -review chart and Ativan recently decreased; as patient is improving some, will continue current treatment plan 07/03: speech less delayed than movements. plan to decrease ativan to 3 TID tomorrow, further reduce and convert to klonopin early next week. 07/04: stable presentation. decrease ativan from 4 TID to 3 TID as of this afternoon. denies w/drawal Sx. plan to switch to klonopin on sunday. pt is hoping for D/C late next week. 07/05/2024: No changes as Ativan just lowered to 3 mg 3 times per day 07/06/2024: Continue current treatment regimen 07/07: increase abilify to 25 mg QHS. DC ativan, start klonopin 1.5 TID. planning for discharge sunday if pt remains stable. 07/08: no s/e from abilify increase. decrease klonopin to 1.25 mg TID. tomorrow decrease to 1 mg TID. planning for sunday discharge. Reason for continued inpatient stay Substantial Risk for: rapid decompensation Time Spent With Patient Time: Total time managing care of this patient today _25___ minutes.
[2024-07-08] MEDS: clonazePAM 1 MG TABLET 1.25 MG PO ×2 (15:31→20:33)
[2024-07-08 20:00] VITALS: BP 138/73; PULSE 76; RESP 16; TEMP 36.2; O2SAT 96
[2024-07-08] MEDS: ARIPiprazole 5 MG TABLET 25 MG PO (20:33)
[2024-07-09 08:00] VITALS: BP 118/56; PULSE 56; RESP 16; TEMP 36.8; O2SAT 98
[2024-07-09] MEDS: clonazePAM 0.5 MG TABLET 0.25 MG PO (08:46)
[2024-07-09] MEDS: clonazePAM 1 MG TABLET PO ×3 (08:47→21:24)
--- NOTE | 2024-07-09 14:56 | P.PNPSI_ITS ---
Subjective Subjective Date of Service: 07/09/24 Reason For Visit: catatonia Interim History: no change in presentation. no withdrawal Sx. educated on w/drawal Sx to watch out for. per staff, denies Sx. thoughts clear. slept 8 hours. Mental Status Exam Mental Status Exam Narrative: very tall and thin, in day area, wearing own clothes, adequately dressed and groomed. cooperative, though delayed in response. speech decr in rate, amount. nml loudness. decr prosody. nml latency. thoughts linear and logical. affect blunted, hypo-intense, non-labile. mood fair. no SI/SIBI/HI/AVH expressed. Diagnostics Vital Signs (24Hr): Vital Signs - 24 hr 07/08/24 20:00 07/09/24 08:00 Temperature 97.2 F 98.2 F Pulse Rate 76 56 Respiratory Rate 16 16 Blood Pressure 138/73 118/56 L Pulse Oximetry 96 98 Oxygen Delivery Method Room Air Room Air BMI result Body Mass Index 21.1 Labs 06/08/24 16:58 06/08/24 16:58 Medications Medications Current Medications Acetaminophen (Acetaminophen 325 Mg Tablet) 650 mg PO Q6H PRN PRN Reason: Headache/Pain Mild Scale (1-3) Al Hydroxide/Mg Hydroxide (Magnesium Hydrox/Alum Hydrox 30 Ml Oral.Susp) 30 ml PO Q6H PRN PRN Reason: Heartburn/Nausea Aripiprazole (Aripiprazole 5 Mg Tablet) 25 mg PO BEDTIME [facility] Last Admin: 07/08/24 20:33 Dose: 25 mg Clonazepam (Clonazepam 1 Mg Tablet) 1 mg PO TID [facility] Last Admin: 07/09/24 08:47 Dose: 1 mg Hydroxyzine HCl (Hydroxyzine Hcl 25 Mg Tablet) 25 mg PO Q6H PRN PRN Reason: Anxiety Magnesium Hydroxide (Milk Of Magnesia 30 Ml Oral.Susp) 30 ml PO DAILY PRN PRN Reason: Constipation Nicotine Polacrilex (Nicotine Polacrilex 2 Mg Gum) 4 mg BUCCAL Q2H PRN PRN Reason: Nicotine Cravings Trazodone HCl (Trazodone Hcl 50 Mg Tablet) 50 mg PO BEDTIME MRX1 PRN PRN Reason: Insomnia Allergies Allergies Allergy/AdvReac Type Severity Reaction Status Date / Time No Known Allergies Allergy Verified 06/08/24 16:40 Assessment & Plan Assessment & Plan (1) Schizophrenia: Status: Acute Code(s): F20.9 - Schizophrenia, unspecified Plan 06/09: titrate clozapine, to 50 from 25 tonight. add ativan 1 TID for catatonia. titrate as tolerated. reportedly on invega sustenna 117 per month. 06/10: refusing clozapine. DC. willing to return to lower dose abilify for now pending insurance approval of cobenfy. restart at 10 mg daily. increase ativan to 2 mg TID for catatonia. 06/11: will need PA for cobenfy. increase ativan to 3 TID for catatonia. change abilify to HS and increase dosing to 20 mg daily. less PMR. 06/12: PA denied by insurance company. no sedation from ativan dosing increase. remains slowed, but less so than at admission. signed CV yesterday. first dose of abilify 20 mg at HS tonight. continue current mgmt. 06/13: increase ativan to 4 TID for catatonia. continue regimen otherwise. remains quite slowed. 06/15/2024: No changes 06/16: remains slowed, not sedated. increase ativan to 5 TID. 06/17: PMR continues, improved from admission. not sedated. increase ativan to 4 QID. 06/18: no change from yesterday. increase ativan to 5 QID. slept 7+ hours, no sedation days. 06/19: slept 8 hours overnight, no daytime sedation. continue current mgmt. unless substance improvement overnight, will increase to 6 mg QID ativan. 06/20: gradual daily improvements. remains very substantially slowed. increase ativan to 6 mg QID for catatonia. otherwise continue current mgmt. 06/21 continue tx. may consider ECT is partial response from benzo. 06/22 partial response to benzos but keep in mind he is on 24mg/day, recommend to consider ECT. discuss with family and pt. 06/23/24 Pt flat mild dysphoia on 24 mg lorazepam abilify 20 mg will see if pt tolerates ana 5 qid. Consider ect if relapse sx or depressive sx 06/24: continue current tx plan. 06/25: Continue current regimen and plans 12/26: less PMR than when last seen by this communications writer 06/20. decrease ativan to 4 mg QID for the next several days. 06/27: as for yesterday. continue current ativan dosing of 4 QID through next time this communications writer will see pt, 07/01 morning, unless otherwise indicated. plan to continue taper sunday 07/01. 06/28: Continue current management and treatment plan. 06/29: continue current management and treatment plan. 06/30: continue current tx plan 07/01: appears as he did last week. improved from admission, but slowed from normal human range. requesting decrease in ativan dosing, seems to be expressing concern for feeling tired. ativan decreased from 4 QID to 4 TID. educated re benzo withdrawal Sx and need to alert staff if experiencing any. continue ativan 4 TID through early next week if tolerates dose reduction. 07/02/24 Patient sitting in the day room, not moving much however willing to talk with communications writer . He says that he is pretty good and that he is feeling better due to the Ativan and Abilify. He feels that he is improving because he says it is easier to speak and move... No complaints and no requests -review chart and Ativan recently decreased; as patient is improving some, will continue current treatment plan 07/03: speech less delayed than movements. plan to decrease ativan to 3 TID tomorrow, further reduce and convert to klonopin early next week. 07/04: stable presentation. decrease ativan from 4 TID to 3 TID as of this afternoon. denies w/drawal Sx. plan to switch to klonopin on sunday. pt is hoping for D/C late next week. 07/05/2024: No changes as Ativan just lowered to 3 mg 3 times per day 07/06/2024: Continue current treatment regimen 07/07: increase abilify to 25 mg QHS. DC ativan, start klonopin 1.5 TID. planning for discharge sunday if pt remains stable. 07/08: no s/e from abilify increase. decrease klonopin to 1.25 mg TID. tomorrow decrease to 1 mg TID. planning for sunday discharge. 07/09: continues to tolerate abilify increase without issue, denies withdrawal Sx. decrease klonopin from 1.25 TID to 1 TID. Reason for continued inpatient stay Substantial Risk for: inability to function and rapid decompensation Time Spent With Patient Time: Total time managing care of this patient today __25__ minutes.
[2024-07-09 20:00] VITALS: BP 148/84; PULSE 72; RESP 16; TEMP 36.8; O2SAT 99
[2024-07-09] MEDS: ARIPiprazole 5 MG TABLET 25 MG PO (21:24)
[2024-07-10 07:00] VITALS: BMI 21.1
[2024-07-10 08:00] VITALS: BP 121/60; PULSE 62; RESP 14; TEMP 37.4; O2SAT 97
[2024-07-10] MEDS: clonazePAM 1 MG TABLET PO ×3 (09:07→20:12)
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
[2024-07-10 20:00] VITALS: BP 132/88; PULSE 93; RESP 16; TEMP 36.2; O2SAT 96
[2024-07-10] MEDS: ARIPiprazole 5 MG TABLET 25 MG PO (20:12)
[2024-07-11 07:25] VITALS: BP 120/60; PULSE 53; RESP 14; TEMP 36.9; O2SAT 97
[2024-07-11] MEDS: clonazePAM 1 MG TABLET PO (09:08)
== END 2024-07-11 10:50 | disposition home or self-care (01) | DRG 750 ==
LOC: HO.ED 06-09 12:56 → HO.PADLT16 06-09 13:14
PROVIDERS: Admitting Provider Psychiatry & Neurology Psychiatry; Emergency Provider Emergency Medicine; PCP Family Medicine; Visit Provider Psychiatry & Neurology Psychiatry
DX: F20.2 Catatonic schizophrenia (principal); Z79.899 Other long term (current) drug therapy
CPT/HCPCS: 36415; 80053; 80307; 85025; 99285

== ENCOUNTER → 2024-06-09 12:21 | Outpatient (BNV) | payer OTHER, SELFPAY | PROVIDERS: Admitting Provider Psychiatry & Neurology Psychiatry; Emergency Provider Emergency Medicine; PCP Family Medicine; Visit Provider Psychiatry & Neurology Psychiatry | DX: F20.2 Catatonic schizophrenia (principal) | CPT/HCPCS: 99232 ==

== ENCOUNTER → 2024-06-09 12:21 | Outpatient (BNV) | payer OTHER, SELFPAY | PROVIDERS: Admitting Provider Psychiatry & Neurology Psychiatry; Emergency Provider Emergency Medicine; PCP Family Medicine; Visit Provider Psychiatry & Neurology Psychiatry | DX: F20.2 Catatonic schizophrenia (principal) | CPT/HCPCS: 99232; 99233 ==